=== PATIENT | male | born 1995 | race Caucasian/White ===

== ENCOUNTER 2023-08-04 23:40 | Emergency (ER) | payer SELFPAY ==
[2023-08-04 23:42] VITALS: BP 133/94; BP 137/96; PULSE 101; PULSE 87; RESP 12; TEMP 36.8; O2SAT 98; BMI 22.0
--- NOTE | 2023-08-04 23:47 | EX.ED.GENINJ ---
HPI History of Present Illness Chief Complaint: Abd Pain PFSH PFSH Home Medications buprenorphine 5 mcg/hour weekly transdermal patch 1 patch topical Q7D 08/05/23 [History Last Taken Unknown] hydromorphone 2 mg tablet (Dilaudid) 2 mg PO Q6H PRN pain 3 days #12 tabs 08/05/23 [Rx Last Taken Unknown] hydromorphone 2 mg tablet (Dilaudid) 2 mg PO Q6H PRN pain 3 days #12 tabs 08/05/23 [Rx Last Taken Unknown] Allergy/AdvReac Type Severity Reaction Status Date / Time No Known Allergies Allergy Verified 07/08/17 08:44 Social History Smoking Status: Never smoker EXAM Physical Exam Const Vital Signs: 08/04/23 23:42 08/04/23 23:42 08/05/23 05:01 Temperature 98.2 F Temperature Source Temporal Pulse Rate 87 101 H 69 Respiratory Rate 12 12 16 Blood Pressure 133/94 H 137/96 H 135/98 H Blood Pressure Mean 107 109 110 Pulse Ox 98 98 96 Oxygen Delivery Method Room Air Room Air Room Air 08/05/23 05:01 Temperature Temperature Source Pulse Rate 69 Respiratory Rate 16 Blood Pressure 135/98 H Blood Pressure Mean 110 Pulse Ox 96 Oxygen Delivery Method MDM MDM MDM Narrative Medical decision making narrative: HISTORY OF PRESENT ILLNESS: 28-year-old male presents abdominal pain nausea vomiting. He states experiencing several days of severe abdominal pain. Notes nausea vomiting as well. REVIEW OF SYSTEMS: Pertinent positives: Abdominal pain nausea vomiting Pertinent negatives: Chest pain, shortness of breath PHYSICAL EXAM: Nursing triage notes reviewed, Vital signs reviewed Constitutional: please see mdm HENT: MMM Eyes: Pupils equal round and reactive to light, Extraocular muscles intact Neck: No stridor, no JVD, full neck ROM Lungs: Clear to auscultation, No wheezing or rales. No increased work of breathing, no conversational dyspnea, no accessory muscle use, no nasal flaring. No respiratory distress noted Heart: Regular rate and rhythm, No murmurs, No rubs and No gallops, 2+ distal pulses (radial, femoral, posterior tibial) in all extremities Abdomen: Soft, there is no tenderness, rigidity, rebound or guarding, no obvious peritoneal signs, no palpable pulsatile abdominal masses, no auscultated abdominal bruit : No CVAT Extremities: No edema Neuro: No focal neurological deficits, cranial nerves II through XII intact, 5/5 strength in all extremities. Intact sensation to light touch in all extremities, 2+ reflexes bilateral patella tendons. Normal gait. No ataxia. Skin: No rash or lesions noted MEDICAL DECISION MAKING: Chief Complaint: Abdominal pain nausea vomiting External records reviewed: PDMP reviewed prescribed buprenorphine patch on 07/18/2023 Factors affecting care: Malrotation of the intestine, small bowel obstruction, Social determinants of health: History of marijuana use History obtained from others: The patient's Consults: Internal medicine MDM Narrative: Patient was initially hemodynamically stable, afebrile and nontoxic-appearing. Abdominal exam was difficult to assess secondary to pain however there is no obvious peritoneal signs. I considered the following differential diagnosis: Obstruction, perforation, dehydration, electrolyte abnormality I gave the patient initially IV fluids, IV narcotics, Zofran. ALL IMAGES (IF OBTAINED) HAVE BEEN PERSONALLY REVIEWED AND INTERPRETED BY MYSELF. BMP without evidence of significant electrolyte abnormalities, no anion gap, no acute kidney injury. CBC without leukocytosis, severe anemia, no thrombocytopenia. CT scan of the abdomen pelvis shows no evidence of obvious acute life-threatening pathology EKG with normal sinus rhythm, normal axis, normal's, no STEMI The synthesis of the patient history, physical exam, ED evaluation suggest no acute life-limiting pathology. After initial round of IV narcotics, IV fluids and Zofran patient still had abdominal pain and nausea vomiting so was given 0.5 mg of IV Dilaudid and Reglan. He continued to have abdominal pain nausea vomiting so he was given haloperidol, Bentyl, Pepcid. This improved his pain a bit more. Given lack of objective findings of severe systemic inflammation or obstruction or perforation on imaging he did not require admission at this time. I did offer him admission I even consulted internal medicine physician came down to the ED and discuss his plan of care. Asked patient her to the pain of inpatient care which would consist of essentially the same medicine he got in the ED he preferred to go home with prescription for oral Dilaudid. Patient was alert and orient x 3 had capacity make his own medical system and chose to not be admitted for intractable abdominal pain but to be discharged despite him already being on pain management. He is aware this may break his pain management contract and is accepting of the Dilaudid prescription. The patient and/or family, caregivers express understanding. The patient and/or family, caregivers agrees with the plan. Shared decision making: I will have a discussion with the patient and or visitors regarding risk/benefits of further testing or admission. They will be made aware of of the risk/benefits inherent in this decision they will be given the opportunity to voice understanding. Total critical care time today provided was at least 0 minutes. This excludes separately billable procedures. Critical care time (if documented) is secondary to the patient having high probability of clinically significant/life threatening deterioration in the patient's condition which required my urgent intervention. Impression: 1. Intractable abdominal pain 2. History of congenital malrotation Dispo: Discharge Lab Data Attestation: I reviewed the patient's lab results. Labs: Laboratory Results - last 24 hr 08/04/23 23:20 WBC 8.8 RBC 5.28 Hgb 16.0 Hct 47.6 MCV 90.2 MCH 30.3 MCHC 33.6 RDW Std Deviation 39.9 RDW Coeff of Pari 12.2 Plt Count 299 MPV 9.7 Immature Gran % (Auto) 0.800 Neut % (Auto) 62.2 Lymph % (Auto) 31.0 [place] % (Auto) 5.0 Eos % (Auto) 0.3 Baso % (Auto) 0.7 Absolute Neuts (auto) 5.5 Absolute Lymphs (auto) 2.72 Nucleated RBC % 0 Sodium 136 Potassium 3.6 Chloride 100 Carbon Dioxide 29.0 Anion Gap 7 BUN 19 H Creatinine 1.15 Estim Creat Clear Calc 89.94 Est GFR (MDRD) Af Amer 96 Est GFR (MDRD) Non-Af 79 BUN/Creatinine Ratio 16.5 Glucose 92 Calcium 9.8 Lipase 42 Radiography Diagnostic Testing: Clinical Impression(s) from Imaging Studies Abdomen/Pelvis CT 08/05/23 23:53 IMPRESSION: Bowel malrotation again noted but no evidence of bowel obstruction or other acute intra-abdominal abnormality. Electronically Signed: Jonathan Calvo MD at 1:37 EST , Discharge Plan Triage Chief Complaint: Abd Pain Other Complaint: Nausea/Vomiting ED Provider: Karel Keller Dx/Rx/DC Orders Clinical Impression: Intractable abdominal pain, Congenital malrotation Instructions: ED Abdominal Pain Unkn Cause Male... Prescriptions: New hydromorphone [Dilaudid] 2 mg tablet 2 mg PO Q6H PRN (Reason: pain) 3 Days Qty: 12 0RF hydromorphone [Dilaudid] 2 mg tablet 2 mg PO Q6H PRN (Reason: pain) 3 Days Qty: 12 0RF No Action buprenorphine 5 mcg/hour patch weekly 1 patch topical Q7D Patient Comments: apply 1 patch topically to CLEAN DRY INTACT SKIN AND CHANGE weekly Primary Care Provider: Mayra Candelario Referrals: Darrel Acevedo MD [Med Staff - Active Staff] - Mayra Candelario MD [Primary Care Provider] - Activity Restrictions/Additional Instructions: Thank you for trusting us with your care today! Please take Tylenol (2 pills, 650 mg), ibuprofen (2 pills, 400 mg) every 6 hours as needed for pain and fever control. Please take prescribed narcotic medicine. Please return to the emergency department if your symptoms change or worsen. Please follow with your primary care physician for further outpatient evaluation and management. Disposition Disposition: Home, Self Care Discharge Date/Time: 08/05/23 05:04
[2023-08-05] MEDS: Morphine 4 MG/ML Syringe IV (00:02)
[2023-08-05] MEDS: Ondansetron 4 MG/2 ML Vial IV (00:02)
[2023-08-05] MEDS: 0.9% Normal Saline (1000mL) 1,000 ML 1000 ML IV (00:02)
[2023-08-05 00:24] LABS: Absolute Lymphocyte Count 2.72 X10^3/uL (0.83-4.51); Absolute Neutrophil Count 5.5 X10^3/uL (2.0-7.7); Basophil# 0.06 X10^3/uL; Basophil% 0.7 % (0-1); Eosinophil# 0.03 X10^3/uL; Eosinophils% 0.3 % (0-5); Hematocrit 47.6 % (40-54); Lymphocyte # 2.72 X10^3/ul (0.83-4.51); Mean Corp Hgb Conc 33.6 g/dL (32-36); Mean Corpuscular Hgb 30.3 pg (27.0-32.0); Mean Corpuscular Volume 90.2 fL (80-94); Mean Platelet Vol. 9.7 fl (6.2-12.0); Monocyte# 0.44 X10^3/uL; NRBC Flagged by Analyzer 0 % (0-5); Neutrophil # 5.46 X10^3/uL (2.7-7.7); Neutrophil % 62.2 % (47-70); Platelet Count 299 K/mm3 (150-450); RBC Distribution Width CV 12.2 % (11.6-14.6); RBC Distribution Width SD 39.9 fl (35.1-43.9); Red Blood Count 5.28 M/mm3 (4.6-6.2); White Blood Count 8.8 K/mm3 (4.4-11.0)
[2023-08-05 00:27] LABS: Anion Gap 7 (5-15); BUN 19 mg/dL (7-18); BUN/Creat Ratio 16.5 RATIO (10-20); Calcium,Total 9.8 mg/dL (8.5-10.1); Chloride 100 mmol/L (98-107); Creatinine, Serum 1.15 mg/dL (0.70-1.30); EST Glomerular Filtration Rate 79 mL/min (>60); Est Glom Filt Rate - Afr Amer 96 mL/min (>60); Estimated Creatinine Clearance 89.94 ml/min; Glucose 92 mg/dL (74-106); Lipase 42 U/L (13-75); Potassium 3.6 mmol/L (3.5-5.1); Sodium Level 136 mmol/L (136-145)
[2023-08-05] MEDS: HYDROmorphone 0.5 MG/0.5 ML SYRINGE IV (00:38)
[2023-08-05] MEDS: Metoclopramide 10 MG/2 ML Vial 5 MG IV (01:19)
[2023-08-05] MEDS: Famotidine 200 MG/20 ML MDV 20 MG in 0.9% Normal Saline (Pres. free 8 ML 300 MG IV (02:45)
[2023-08-05] MEDS: Haloperidol Lactate 5 MG/ML Vial 1 MG IV (02:46)
[2023-08-05] MEDS: Dicyclomine 20 MG/2 ML Vial IM (02:49)
[2023-08-05] MEDS: HYDROmorphone 1 MG/ML Syringe IV (04:26)
[2023-08-05 05:01] VITALS: BP 135/98; PULSE 69; RESP 16; O2SAT 96
--- NOTE | 2023-08-05 23:53 | CT_ITS ---
INDICATION: Abdominal pain and vomiting, history of malrotation and SBO, previous surgery in November EXAMINATION: CT Abdomen And Pelvis W/ Contrast Injection TECHNIQUE: Helically acquired images were obtained of the abdomen and pelvis following IV contrast. 2-D reconstructions reviewed. A radiation dose optimization technique was used for this scan. IV Contrast dosage and agent: 100 cc Isovue-370 Oral contrast: None. COMPARISON: No comparison imaging received. FINDINGS: LOWER CHEST: No acute findings within the imaged lung bases. Heart size within normal limits. LIVER: Small benign cyst versus focal fat within anterior left lobe of liver. No concerning lesion. GALLBLADDER AND BILIARY TREE: No calcified gallstones identified. No gallbladder wall edema demonstrated. No significant biliary ductal dilation. PANCREAS: No discrete mass or peripancreatic edema. SPLEEN: Normal size without concerning lesion. ADRENAL GLANDS: Unremarkable. KIDNEYS AND URETERS: Normal renal size and position. No perinephric edema or hydronephrosis. No concerning lesion. PERITONEUM: No significant free fluid. No peritoneal free air detected. RETROPERITONEUM: No retroperitoneal mass or pathologic fluid collection. BOWEL: Congenital midgut malrotation again noted with majority of small bowel loops within right hemiabdomen and majority of large bowel within left hemiabdomen. Appendix not visualized but no evidence of appendicitis. No significant bowel dilatation or bowel thickening. No focal inflammatory change. LYMPH NODES: No enlarged mesenteric or retroperitoneal lymph nodes. VESSELS: No acute findings. No abdominal aortic aneurysm. URINARY BLADDER: Unremarkable as visualized. REPRODUCTIVE ORGANS: No pelvic masses. ABDOMINAL WALL: No acute findings or significant hernia defect. BONES: Intact with no suspicious osseous lesion. CT/Abdomen/Pelvis W IV Cont ONLY IMPRESSION: Bowel malrotation again noted but no evidence of bowel obstruction or other acute intra-abdominal abnormality. Electronically Signed: Jonathan Calvo MD at 1:37 EST ,
== END 2023-08-05 05:04 | disposition home or self-care (01) ==
PROVIDERS: Emergency Provider Emergency Medicine; PCP Family Medicine; Visit Provider Emergency Medicine
DX: R10.9 Unspecified abdominal pain (principal); R11.2 Nausea with vomiting, unspecified; Q43.3 Congenital malformations of intestinal fixation
CPT/HCPCS: 74177; 80048; 83690; 85025; 93005; 96361; 96372; 96374; 96375; 99283; Q9967; A4216; J2405; J3490

== ENCOUNTER 2023-12-05 12:25 | Emergency (ER) | payer OTHER, SELFPAY ==
[2023-12-05 12:26] VITALS: BP 130/75; PULSE 83; RESP 16; TEMP 36.6; O2SAT 98; BMI 22.0
[2023-12-05 13:18] LABS: Absolute Lymphocyte Count 2.26 X10^3/uL (0.83-4.51); Absolute Neutrophil Count 6.1 X10^3/uL (2.0-7.7); Basophil# 0.06 X10^3/uL; Basophil% 0.7 % (0-1); Eosinophil# 0.08 X10^3/uL; Eosinophils% 0.9 % (0-5); Hematocrit 46.3 % (40-54); Hemoglobin 15.3 g/dL (13.0-16.5); Lymphocyte # 2.26 X10^3/ul (0.83-4.51); Mean Corpuscular Hgb 30.9 pg (27.0-32.0); Mean Corpuscular Volume 93.5 fL (80-94); Mean Platelet Vol. 9.4 fl (6.2-12.0); Monocyte# 0.47 X10^3/uL; Monocyte% 5.2 % (0-10); NRBC Flagged by Analyzer 0 % (0-5); Neutrophil # 6.14 X10^3/uL (2.7-7.7); Platelet Count 305 K/mm3 (150-450); RBC Distribution Width CV 12.9 % (11.6-14.6); Red Blood Count 4.95 M/mm3 (4.6-6.2)
[2023-12-05 13:20] LABS: Bacteria 0 SEEN /hpf (None Seen); Mucous, Urine 0 SEEN /hpf (<or=2+); Red Blood Cells-Urine 0 SEEN /hpf (0-5); Squamous Epithelial Cells - UA 0 SEEN /hpf (0-5); White Blood Cells 0 SEEN /hpf (0-5)
[2023-12-05 13:34] LABS: ALB/GLOB Ratio 1.1 RATIO (0.9-2.4); AST(SGOT) 20 U/L (15-37); Alanine Aminotransfer ALT/SGPT 22 U/L (16-61); Alkaline Phosphatase 79 U/L (45-117); Anion Gap 2 (5-15); BUN 11 mg/dL (7-18); BUN/Creat Ratio 10.7 RATIO (10-20); Calcium,Total 9.4 mg/dL (8.5-10.1); Chloride 106 mmol/L (98-107); Creatinine, Serum 1.03 mg/dL (0.70-1.30); EST Glomerular Filtration Rate 90 mL/min (>60); Est Glom Filt Rate - Afr Amer 108 mL/min (>60); Estimated Creatinine Clearance 100.37 ml/min; Globulin 3.5 g/dL (2.2-4.2); Glucose 93 mg/dL (74-106); Potassium 4.4 mmol/L (3.5-5.1); Protein, Total 7.5 g/dL (6.4-8.2); Sodium Level 139 mmol/L (136-145)
[2023-12-05 13:45] LABS: Color, Urine Yellow (Yellow); Glucose, Dipstick Normal (Normal); Ketone-Dipstick 5 mg/dl (Negative); Leukocyte Esterase-Dipstick 25 /ul (Negative); Nitrite-Dipstick Negative (Negative); Occult Blood-Urine Negative /ul (Negative); Protein-Dipstick 30 mg/dl (Negative); Urine Bilirubin Dipstick Negative (Negative); Urine Clarity Cloudy (Clear); Urine Urobilinogen Normal (Normal)
[2023-12-05 14:25] VITALS: BP 138/87; PULSE 87; RESP 18; O2SAT 100
[2023-12-05 14:27] LABS: Amorphous Sediment 2+
--- NOTE | 2023-12-05 14:32 | EDS_ITS ---
HPI HPI - GI History of Present Illness Chief Complaint: Abd Pain Narrative Narrative: 28-year-old male past medical history of chronic abdominal pain, history of congenital malrotation, states has had 2 surgeries in the last year at the [facility]. He states that on Sunday, approximately 3 days ago, he began having nausea and a little vomiting. No problems with bowel movements. No diarrhea. Last bowel movement was yesterday, nonbloody. He presents with suprapubic abdominal pain similar to his previous pain in the past. He states that he had been doing well since his last surgery. He has been dealing with malrotation and abdominal pain for 10 years before they decided to do surgery within the last year. He describes the pain as sharp and stabbing. No exacerbating or alleviating factors. PFSH PFSH Home Medications buprenorphine 5 mcg/hour weekly transdermal patch 1 patch topical Q7D 08/05/23 [History Last Taken Unknown] hydromorphone 2 mg tablet (Dilaudid) 2 mg PO Q6H PRN pain 3 days #12 tabs 08/05/23 [Rx Last Taken Unknown] hydromorphone 2 mg tablet (Dilaudid) 2 mg PO Q6H PRN pain 3 days #12 tabs 08/05/23 [Rx Last Taken Unknown] Allergy/AdvReac Type Severity Reaction Status Date / Time No Known Allergies Allergy Verified 12/05/23 12:28 Social History Smoking Status: Never smoker ROS ROS ED ROS Narrative Constitutional: No fever, no chills. HEENT: No sore throat. No neck pain. No loss of vision. No rhinorrhea. Cardiovascular: No chest pain. No palpitations. No pedal edema. Respiratory: No cough, no shortness of breath. Abdominal: Positive periumbilical to suprapubic abdominal pain. Positive nausea and vomiting. No problems with bowel movements. No diarrhea. No hematochezia or melena. Genitourinary: No dysuria. No hematuria. Musculoskeletal: No myalgias. No arthralgias. Neurologic: No headaches. No dizziness. No lightheadedness. Skin: No rash. No change in color. Psychiatric: No depression. No anxiety. EXAM Physical Exam Narrative Exam Narrative: Afebrile. Vital signs noted. HEENT: Normocephalic. Atraumatic. PERRL, EOMI. Neck soft and supple. No point tenderness or step off. Cardiovascular: Regular rate and rhythm. No murmurs, rubs, or gallops appreciated. Respiratory: No tachypnea. Lungs clear to auscultation bilaterally. Gastrointestinal: Abdomen soft, mild tenderness to palpation periumbilical to suprapubic area with normoactive bowel sounds. No rebound or guarding. Neurological: Awake. Alert. Nonfocal, nonlateralizing. Skin: No rash. Normal color. No pallor. Musculoskeletal: No pedal edema. Full range of motion extremities. Const Vital Signs: 12/05/23 12:26 12/05/23 14:25 Temperature 98 F Temperature Source Temporal Pulse Rate 83 87 Respiratory Rate 16 18 Blood Pressure 130/75 H 138/87 H Blood Pressure Mean 93 104 Pulse Ox 98 100 Oxygen Delivery Method Room Air Room Air MDM MDM MDM Narrative Medical decision making narrative: I reviewed the patient's prior records. In the differential would be exacerbation of chronic abdominal pain versus obstruction given his laparotomy scar. I do feel CT imaging is indicated. Initial laboratory work was obtained and reviewed, he has normal white count 9.0, hemoglobin normal at 15.3, hematocrit 46.3, platelet count normal at 305. Sodium is normal at 134 with potassium normal at 4.4, normal BUN of 11 and creatinine 1.03. In review of his prior ED visit, he did receive Dilaudid and Zofran. He was having profuse nausea and vomiting at that time and he was administered Haldol. He states during history and physical that what ever they had given him last time in the emergency department seem to have helped him. He will be bolused normal saline 1 L intravenously and administered Dilaudid 0.5 mg and Zofran here initially. Should he have continued pain, haloperidol will be considered. I reviewed the CT radiology report of the abdomen and pelvis which shows his congenital malrotation, but no acute process, no obstruction. No significant change from previous. It was read as a stable examination. Upon repeat exam, he states he feels the same. I think this is probably more exacerbation of his chronic abdominal pain. He will be given 2 mg of haloperidol intravenously prior to discharge. He will continue his home medications and follow-up with his primary care physician and his surgeons at the [facility] as needed. I do not feel he requires observation or admission at this time. Disposition is discharged in stable condition. History & Record Review Discussion w/independent historian: Patient Additional record(s) reviewed:: Prior ED visit and Prior labs Lab Data Attestation: I reviewed the patient's lab results. Labs: Laboratory Results - last 24 hr 12/05/23 13:10 WBC 9.0 RBC 4.95 Hgb 15.3 Hct 46.3 MCV 93.5 MCH 30.9 MCHC 33.0 RDW Std Deviation 44.0 H RDW Coeff of Pari 12.9 Plt Count 305 MPV 9.4 Immature Gran % (Auto) 0.200 Neut % (Auto) 68.0 Lymph % (Auto) 25.0 [place] % (Auto) 5.2 Eos % (Auto) 0.9 Baso % (Auto) 0.7 Absolute Neuts (auto) 6.1 Absolute Lymphs (auto) 2.26 Nucleated RBC % 0 Sodium 139 Potassium 4.4 Chloride 106 Carbon Dioxide 31.0 Anion Gap 2 L BUN 11 Creatinine 1.03 Estim Creat Clear Calc 100.37 Est GFR (MDRD) Af Amer 108 Est GFR (MDRD) Non-Af 90 BUN/Creatinine Ratio 10.7 Glucose 93 Calcium 9.4 Total Bilirubin 0.70 AST 20 ALT 22 Alkaline Phosphatase 79 Total Protein 7.5 Albumin 4.0 Globulin 3.5 Albumin/Globulin Ratio 1.1 Urine Color Yellow Urine Clarity Cloudy Urine pH 8.0 Ur Specific [place] 1.010 Urine Protein 30 H Urine Glucose (UA) Normal Urine Ketones 5 H Urine Occult Blood Negative Urine Nitrite Negative Urine Bilirubin Negative Urine Urobilinogen Normal Ur Leukocyte Esterase 25 H Urine RBC 0 SEEN Urine WBC 0 SEEN Ur Squamous Epith Cells 0 SEEN Amorphous Sediment 2+ Urine Bacteria 0 SEEN Urine Mucus 0 SEEN Radiography Diagnostic Testing: Clinical Impression(s) from Imaging Studies Abdomen/Pelvis CT 12/05/23 15:08 IMPRESSION: No acute abnormality is seen. Stable examination. Once again, there is evidence of congenital midgut malrotation with the majority of the small bowel loop seen in the right hemiabdomen and majority of the large bowel within the left hemiabdomen. Electronically Signed: Rodney Noguera MD at 15:24 EDT , Discharge Plan Triage Chief Complaint: Abd Pain ED Provider: Andrew Osborn Dx/Rx/DC Orders Clinical Impression: Congenital malrotation, Abdominal pain Instructions: ED Abdominal Pain Unkn Cause Male... Prescriptions: No Action buprenorphine 5 mcg/hour patch weekly 1 patch topical Q7D Patient Comments: apply 1 patch topically to CLEAN DRY INTACT SKIN AND CHANGE weekly hydromorphone [Dilaudid] 2 mg tablet 2 mg PO Q6H PRN (Reason: pain) 3 Days Qty: 12 0RF hydromorphone [Dilaudid] 2 mg tablet 2 mg PO Q6H PRN (Reason: pain) 3 Days Qty: 12 0RF Primary Care Provider: Mayra Candelario Referrals: Mayra Candelario MD [Primary Care Provider] - As soon as possible Activity Restrictions/Additional Instructions: Follow-up with your physicians at the [facility] as needed for your malrotation. Disposition Disposition: Home, Self Care
[2023-12-05] MEDS: 0.9% Normal Saline (1000mL) 1,000 ML 999 ML IV (15:01)
[2023-12-05] MEDS: Ondansetron 4 MG/2 ML Vial IV (15:01)
[2023-12-05] MEDS: HYDROmorphone 0.5 MG/0.5 ML SYRINGE IV (15:02)
--- NOTE | 2023-12-05 15:08 | CT_ITS ---
STUDY: CT ABDOMEN AND PELVIS WITH CONTRAST REASON FOR EXAM: Male, 28 years old. Abdominal pain RADIATION DOSAGE (If Supplied By Facility): CTDIvol = ( 9.06 ) mGy, DLP = ( 453.22 ) mGycm TECHNIQUE: Transaxial images were obtained from the dome of the diaphragm to the symphysis pubis without oral contrast. IV 100mL Isovue-370 was administered. Sagittal and coronal images were reconstructed. Individualized dose optimization techniques were used for this CT. COMPARISON: Comparison is made with prior study dated August 05, 2023. FINDINGS: The visualized lung bases are unremarkable. The visualized portions of the heart are within normal limits. Stable 1.2 cm cyst in the anterior right lobe of the liver. Normal gallbladder and extrahepatic biliary system. Normal spleen. Normal pancreas. Normal bilateral adrenal glands. Normal right kidney. Normal left kidney. Once again, there is evidence of congenital midgut malrotation with the majority of small bowel loops are seen in the right hemiabdomen and the majority of the large bowel within the left hemiabdomen. Normal visualized stomach. Normal small intestine. Moderate amount of fecal material is seen in the descending colon. There is non-visualization of the appendix. Normal abdominal aorta. Normal inferior vena cava. Normal retroperitoneum. The urinary bladder is not adequately distended for assessment. Normal abdominal wall. Normal osseous structures. CT/Abdomen/Pelvis W IV Cont ONLY IMPRESSION: No acute abnormality is seen. Stable examination. Once again, there is evidence of congenital midgut malrotation with the majority of the small bowel loop seen in the right hemiabdomen and majority of the large bowel within the left hemiabdomen. Electronically Signed: Rodney Noguera MD at 15:24 EDT ,
[2023-12-05] MEDS: Haloperidol Lactate 5 MG/ML Vial 2 MG IV (15:40)
[2023-12-05 15:53] VITALS: BP 132/70; PULSE 74; RESP 18; TEMP 36.3; O2SAT 100
== END 2023-12-05 15:54 | disposition home or self-care (01) ==
PROVIDERS: Emergency Provider Emergency Medicine; PCP Family Medicine; Visit Provider Emergency Medicine
DX: R10.9 Unspecified abdominal pain (principal); Q43.3 Congenital malformations of intestinal fixation; R11.2 Nausea with vomiting, unspecified
CPT/HCPCS: 74177; 80053; 81001; 85025; 96361; 96374; 96375; 99283; J7030; Q9967; A4216; J2405

== ENCOUNTER 2025-03-25 13:34 | Emergency (ER) | payer SELFPAY ==
[2025-03-25] VITALS (7 sets, daily range): BP systolic 115–160; BP diastolic 65–94; PULSE 68–105; RESP 14–20; TEMP 36.8–37.2; O2SAT 98–100; BMI 22.5
--- NOTE | 2025-03-25 13:58 | EDS_ITS ---
HPI HPI - GI History of Present Illness Chief Complaint: Abd Pain Informant: patient Abdominal Pain/Flank Pain Onset: Today and Hours Context: Gradual Onset Timing: Intermittent Quality: Aching Location: Epigastric Current Severity: Mild Maximum Severity: Mild Worsened by: Nothing Relieved by: Nothing Nausea/Vomiting/Emesis GI Symptom: Positive for Nausea Onset: Today Severity: Mild Diarrhea/Melena/Hematochezia GI Symptom: Negative for Diarrhea, Melena or Hematochezia Associated Symptoms Associated Symptoms: Negative for Dysuria, Frequency, Hematuria or Urgency Narrative Narrative: 30-year-old male history of prior partial colectomy due to malrotation surgery was done 2 to 3 years ago at [facility]. Also prior hernia surgery. Patient states this morning several hours ago he started getting epigastric abdominal discomfort. Associated nausea no vomiting. No diarrhea. No melena. No fever. No dysuria. Has had this before. This has been several years. He has done well after his malrotation surgery. Denies any back pain. Denies any abdominal trauma. Prior similar symptoms: Yes Recent Illness/Hospitalization: No PFSH [facility] Medical History Intestinal malrotation Home Medications ?Medication ?Instructions ?Recorded ?Last Taken ?Type buprenorphine 5 mcg/hour weekly 1 patch topical Q7D Unknown History transdermal patch fluoxetine 40 mg capsule 40 mg PO DAILY 03/25/25 Unkn own History Allergy/AdvReac Type Severity Reaction Status Date / Time No Known Allergies Allergy Verified 12/05/23 12:28 Surgical History H/O hernia repair Social History Smoking Status: Never smoker ROS ROS ED ROS Narrative Epigastric abdominal pain. Nausea. No vomiting, no diarrhea, no dysuria. No fever. Constitutional Constitutional ED: Denies chills or fever(s) ENT ENT ED: Denies ear pain Cardiovascular Cardiovascular: Denies chest pain Respiratory/Chest Respiratory/Chest: Denies cough or dyspnea Gastrointestinal Gastrointestinal: Reports abdominal pain and nausea; Denies constipation, diarrhea, melena or vomiting Genitourinary Genitourinary ED: Denies dysuria or hematuria Musculoskeletal Musculoskeletal: Denies arthralgias or back pain Integumentary Denies abscess Neurologic Neurologic: Denies headache(s) Psychiatric Psychiatric: Denies anxiety Endocrine Endocrinology: Denies polydipsia Hematologic/Lymphatic Hematologic/Lymphatic: Denies easy bleeding Allergic/Immunologic Allergic/Immunologic ED: Denies mouth swelling, tongue swelling or urticaria EXAM Physical Exam Narrative Exam Narrative: Well-appearing 30-year-old male vital signs stable afebrile sitting upright in bed. H EENT exam pupils round react light. Moist mutes membranes. Neck nontender. Lungs clear to auscultation. Heart regular rhythm rate about 90 no murmur. Chest wall ribs nontender. Abdomen soft nondistended normal bowel sounds without peritoneal signs. Mild epigastric tenderness. No rebound guarding rigidity. Right upper and right lower quadrants unremarkable. Moving all 4 extremities. Calves nontender no edema. Back nontender. Neurologically is awake alert. Answering questions following commands. Very benign exam. Const Vital Signs: 03/25/25 13:35 03/25/25 13:54 03/25/25 14:08 Temperature 98.9 F 98.9 F Temperature Source Temporal Oral Pulse Rate 105 H 76 71 Respiratory Rate 20 H 16 14 Blood Pressure 127/94 H 115/88 H 118/81 H Blood Pressure Mean 105 97 93 Pulse Ox 100 100 100 Oxygen Delivery Method Room Air Room Air Room Air Positive well nourished and well developed; Negative for obese, cachectic, contractures or unkempt General Appearance ED: well developed and NAD; Negative for unkempt, cachectic, contractures or pallor Nutritional Appearance: Negative for cachectic or obese HEENT Reports moist mucous membranes normocephalic and atraumatic Eyes PERRL and EOMs intact bilaterally Neck no lymphadenopathy, supple and no JVD Resp normal respiratory effort and clear to auscultation bilaterally Cardio regular rate, regular rhythm, S1 normal heart sound, S2 normal heart sound and no murmurs GI non-distended and no masses; Negative for non-tender GI Narrative: Mild epigastric tenderness. Auscultation: normoactive bowel sounds Palpation: soft and tender; Negative for guarding, rigid, hepatomegaly, splenome frankie, hernia, mass, pulsatile mass or rebound tenderness present Back/Spine no CVA tenderness General Back: Negative for CVA tenderness Cervical Spine: Negative for cervical spine tenderness Thoracic Spine / Upper Back: Negative for thoracic spinal tenderness Lumbar Spine / Lower Back: Negative for lumbar spinal tenderness Extremity full ROM General Extremety ED: Negative for edema or tenderness General Extremity: Negative for edema Neuro CN's II-XII intact bilaterally and moves all extremities Sensorium / Orientation: alert, oriented to person, oriented to place and oriented to time; Negative for orientation impaired Motor Exam: strength 5/5 throughout Psych mental status grossly normal and thought process normal Appearance: Negative for unkempt Skin no wounds General Skin Exam: Negative for jaundice or pallor Lesions: no lesions Rashes: no rashes Trauma: Negative for abrasion Nails: Negative for discolored MDM MDM MDM Narrative Medical decision making narrative: 30-year-old male prior malrotation surgery 2 to 3 years ago with partial colectomy and prior hernia repair. Complaining of epigastric abdominal pain. He requested some for pain to be given for morphine and for Zofran. Labs to be obtained in the CT of his abdomen. Repeat exam patient is doing well at 3:35 PM. Abdomen is benign. We went over his test results. He is comfortable to be discharged home. He is feeling better. Of outpatient follow-up. History & Record Review Discussion w/independent historian: Patient Additional record(s) reviewed:: Prior inpatient record, Prior outpatient record, Prior ED visit and Prior labs Lab Data Attestation: I reviewed the patient's lab results. Lab results narrative: CBC shows a white count 8.5. H&H 14 and 42. Platelets 292. Electrolytes show gap 13. Normal BUN and creatinine of 15 and 0.9. Glucose 96. Liver enzymes normal. Lipase normal at 38. CAT scan of the abdomen and pelvis showed no acute abnormality. 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 Labs: Laboratory Results - last 24 hr 03/25/25 13:51 WBC 8.5 RBC 4.49 L Hgb 14.1 Hct 42.2 MCV 94.0 MCH 31.4 MCHC 33.4 RDW Std Deviation 42.8 RDW Coeff of Pari 12.4 Plt Count 292 MPV 9.6 Immature Gran % (Auto) 0.400 Neut % (Auto) 56.8 Lymph % (Auto) 33.4 Ralls % (Auto) 6.9 Eos % (Auto) 1.9 Baso % (Auto) 0.6 Absolute Neuts (auto) 4.9 Absolute Lymphs (auto) 2.85 Nucleated RBC % 0 Sodium 139 Potassium 4.0 Chloride 102 Carbon Dioxide 24.1 Anion Gap 13 BUN 15 Creatinine 0.99 Estim Creat Clear Calc 104.85 Est GFR (MDRD) Non-Af 104 BUN/Creatinine Ratio 15.4 Glucose 96 Calcium 9.8 Total Bilirubin 0.74 AST 22 ALT 14 Alkaline Phosphatase 74 Total Protein 7.7 Albumin 4.9 Globulin 2.8 Albumin/Globulin Ratio 1.7 Lipase 38 Radiography Diagnostic Testing: Clinical Impression(s) from Imaging Studies Abdomen/Pelvis CT 03/25/25 14:20 IMPRESSION: No acute abnormality is seen. Congenital midgut malrotation. Reading Location: [id number] Discharge Plan Triage Chief Complaint: Abd Pain ED Provider: Rodney De La O Dx/Rx/DC Orders Prescriptions: No Action buprenorphine 5 mcg/hour patch weekly 1 patch topical Q7D Patient Comments: apply 1 patch topically to CLEAN DRY INTACT SKIN AND CHANGE weekly fluoxetine 40 mg capsule 40 mg PO DAILY Primary Care Provider: Mayra Candelario Referrals: Mayra Candelario MD [Primary Care Provider] - Print Language: Italian
[2025-03-25 14:18] LABS: Hematocrit 42.2 % (40-54); Hemoglobin 14.1 g/dL (13.0-16.5); Immature Granulocytes Count 0.030 X10^3/uL (0.0-0.0); Mean Corp Hgb Conc 33.4 g/dL (32-36); Mean Corpuscular Volume 94.0 fL (80-94); Mean Platelet Vol. 9.6 fl (6.2-12.0); NRBC Flagged by Analyzer 0 % (0-5); Platelet Count 292 K/mm3 (150-450); RBC Distribution Width CV 12.4 % (11.6-14.6); RBC Distribution Width SD 42.8 fl (35.1-43.9); Red Blood Count 4.49 M/mm3 (4.6-6.2); White Blood Count 8.5 K/mm3 (4.4-11.0)
--- NOTE | 2025-03-25 14:20 | CT_ITS ---
PROCEDURE: ABDOMEN/PELVIS W IV CONT ONLY 03/25/2025 REASON FOR EXAM: EPIG ABD PAIN TECHNIQUE: ABDOMEN/PELVIS W IV CONT ONLY Coronal and Sagittal reconstruction series were provided. CONTRAST: Isovue-300 VOLUME: 100 mL One or more dose reduction techniques were used (e.g., Automated exposure control, adjustment of the mA and/or kV according to patient size, use of iterative reconstruction technique. RADIATION DOSE SUMMARY: CTDlvol: 8.80 mGy DLP: 304.41 mGycm COMPARISON: Prior study dated December 05, 2023. FINDINGS: Lung bases: Lung bases are clear. Liver: Stable 1.2 cm cyst in the anterior right lobe of the liver superiorly. Gallbladder: No evidence of gallstones. Spleen: Borderline splenomegaly. Pancreas: Normal size without evidence of mass surrounding inflammation or ductal dilation. 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 Appendix: The appendix appears distended with a surrounding inflammatory process. Findings present are consistent with appendicitis. No evidence of abscess. Lymph nodes: Unremarkable. Vasculature: The abdominal aorta and IVC are normal. Peritoneum / Retroperitoneum: Unremarkable Bones: Unremarkable CT/Abdomen/Pelvis W IV Cont ONLY IMPRESSION: No acute abnormality is seen. Congenital midgut malrotation. Reading Location: [id number]
[2025-03-25 15:05] LABS: AST(SGOT) 22 U/L (<=37); Alanine Aminotransfer ALT/SGPT 14 U/L (<=46); Albumin, Serum 4.9 g/dL (3.5-5.0); Alkaline Phosphatase 74 U/L (40-129); Anion Gap 13 (5-15); BUN 15 mg/dL (4-19); BUN/Creat Ratio 15.4 RATIO (10-20); Calcium,Total 9.8 mg/dL (7.6-11.0); Carbon Dioxide 24.1 mmol/L (21.0-32.0); Chloride 102 mmol/L (98-108); Estimated Creatinine Clearance 104.85 ml/min (50-250); Globulin 2.8 g/dL (2.2-4.2); Glucose 96 mg/dL (70-99); Lipase 38 U/L (13-75); Potassium 4.0 mmol/L (3.3-5.1)
== END 2025-03-25 16:10 | disposition home or self-care (01) ==
PROVIDERS: Emergency Provider Emergency Medicine; PCP Family Medicine; Visit Provider Emergency Medicine
DX: R10.13 Epigastric pain (principal); R11.2 Nausea with vomiting, unspecified; Z90.49 Acquired absence of other specified parts of digestive tract; Z79.899 Other long term (current) drug therapy
CPT/HCPCS: 74177; 80053; 83690; 85025; 96374; 96375; 99283; Q9967; A4216; J2405

== ENCOUNTER 2025-04-23 17:27 | Emergency (ER) | payer SELFPAY ==
[2025-04-23 17:28] VITALS: BP 137/99; PULSE 136; RESP 22; TEMP 36.8; O2SAT 136; BMI 21.6
--- NOTE | 2025-04-23 17:51 | CT_ITS ---
PROCEDURE: ABDOMEN/PELVIS W IV CONT ONLY 04/23/2025 REASON FOR EXAM: PERIUMBILICAL ABDOMINAL PAIN. HISTORY OF MALROTAT TECHNIQUE: Procedure Code: [id number] Modality: CT Procedure: ABDOMEN/PELVIS W IV CONT ONLY Coronal and Sagittal reconstruction series were provided. CONTRAST: 100 cc of Isovue 370 intravenous contrast. One or more dose reduction techniques were used (e.g., Automated exposure control, adjustment of the mA and/or kV according to patient size, use of iterative reconstruction technique. COMPARISON: CT abdomen and pelvis 03/25/2025 FINDINGS: Lung bases: Unremarkable. Liver: Normal size. No mass. Stable right hepatic cyst measuring 1.2 x 0.7 cm. Gallbladder: Unremarkable. No biliary ductal dilatation. Spleen: Normal size. Pancreas: Normal size without evidence of mass surrounding inflammation or ductal dilation. Adrenals: Unremarkable. Kidneys: Normal renal sizes. No hydronephrosis. Bladder: Unremarkable. Reproductive Organs: No pelvic masses. Bowel: Redemonstrated congenital midgut malrotation with the majority small bowel loops in the right hemiabdomen and the majority of the colon within the left hemiabdomen. No bowel obstruction. Appendix: Not visualized. Lymph nodes: Unremarkable. Vasculature: The abdominal aorta and IVC are normal. Peritoneum / Retroperitoneum: No free fluid or air. Bones: No acute fractures. CT/Abdomen/Pelvis W IV Cont ONLY IMPRESSION: 1. No acute findings in the abdomen or pelvis. 2. Stable congenital midgut malrotation. Reading Location[facility]
--- NOTE | 2025-04-23 17:52 | EDS_ITS ---
HPI HPI - GI History of Present Illness Chief Complaint: Abd Pain Informant: patient and spouse/S.O. Abdominal Pain/Flank Pain Onset: Weeks Context: Gradual Onset Timing: Intermittent Quality: Aching Location: - (Periumbilical) Current Severity: Moderate Maximum Severity: Severe Worsened by: Nothing Relieved by: Nothing Nausea/Vomiting/Emesis GI Symptom: Positive for Nausea Diarrhea/Melena/Hematochezia GI Symptom: Positive for - (Last bowel movement 2 to 3 days ago.); Negative for Diarrhea, Melena or Hematochezia Associated Symptoms Associated Symptoms: Negative for Dysuria, Frequency, Hematuria or Urgency Narrative Narrative: 30-year-old [facility] male history of malrotation with surgery x 2 for that the last 1 2 years ago [facility]. Also had a prior procedure for reflux and prior hernia repair. Complaining of periumbilical abdominal pain has been off and on for several weeks worse today. Associated nausea. He makes himself throw up to feel better. Denies fever. No dysuria. No black or bloody stools. Last bowel movement 2 to 3 days ago. Patient has chronic pain from this. They believe it is from scar tissue. He sees pain management and had a recent nerve block for his pain. Prior similar symptoms: Yes Recent Illness/Hospitalization: No PFSH [facility] Medical History Intestinal malrotation Home Medications ?Medication ?Instructions ?Recorded ?Last Taken ?Type buprenorphine 5 mcg/hour weekly 1 patch topical Q7D Unknown History transdermal patch fluoxetine 40 mg capsule 40 mg PO DAILY 03/25/25 Unkn own History Allergy/AdvReac Type Severity Reaction Status Date / Time No Known Allergies Allergy Verified 04/23/25 17:31 Surgical History H/O hernia repair Social History (Updated 04/23/25 @ 18:05 by Lary Ramirez) household members: spouse housing: house Smoking Status: Never smoker ROS ROS ED ROS Narrative Abdominal pain. Nausea. Constitutional Constitutional ED: Denies chills or fever(s) ENT ENT ED: Denies ear pain Cardiovascular Cardiovascular: Denies chest pain or palpitations Respiratory/Chest Respiratory/Chest: Denies cough or dyspnea Gastrointestinal Gastrointestinal: Reports abdominal pain, constipation and nausea; Denies di arrhea, melena or vomiting Genitourinary Genitourinary ED: Denies dysuria or hematuria Musculoskeletal Musculoskeletal: Denies arthralgias or back pain Integumentary Denies abscess Neurologic Neurologic: Denies headache(s) Psychiatric Psychiatric: Denies anxiety or depression Endocrine Endocrinology: Denies polydipsia, polyphagia or polyuria Hematologic/Lymphatic Hematologic/Lymphatic: Denies easy bleeding, easy bruising or lymphadenopathy Allergic/Immunologic Allergic/Immunologic ED: Denies mouth swelling, tongue swelling or urticaria EXAM Physical Exam Narrative Exam Narrative: 30-year-old male vital signs are stable afebrile he is tachycardic 136. H EENT exam pupils round react light. Moist Víctor membranes. Neck nontender no lymphadenopathy. Lungs clear to auscultation bilaterally. Heart tachycardic 130 no murmur. Chest wall ribs nontender. Abdomen soft nondistended normal bowel sounds without peritoneal signs. No obstruction. Mild periumbilical tenderness. No hernia or mass. Back nontender. Moving all 4 extremities. Nontender no edema normal strength. Normal range of motion. He is awake alert. Answering questions following commands. External exam unremarkable nontender no hernia. No swelling. Const Vital Signs: 04/23/25 17:28 04/23/25 19:28 Temperature 98.3 F Temperature Source Oral Pulse Rate 136 H 94 Respiratory Rate 22 H Blood Pressure 137/99 H 111/93 H Blood Pressure Mean 111 99 Pulse Ox 136 98 Oxygen Delivery Method Room Air Room Air Positive well nourished and well developed; Negative for obese, cachectic, contractures or unkempt General Appearance ED: well developed and NAD; Negative for unkempt, cachectic, contractures or pallor Nutritional Appearance: Negative for cachectic or obese HEENT Reports moist mucous membranes normocephalic and atraumatic Eyes PERRL and EOMs intact bilaterally Neck no lymphadenopathy, supple and no JVD Resp normal respiratory effort and clear to auscultation bilaterally Cardio regular rhythm, S1 normal heart sound, S2 normal heart sound and no murmurs; Negative for regular rate Rate: tachycardic GI non-distended and no masses; Negative for non-tender GI Narrative: Mild periumbilical tenderness. Inspection: Negative for abdominal distention Auscultation: normoactive bowel sounds Palpation: soft and tender; Negative for guarding, rigid, hepatomegaly, splenomegaly, hernia, mass, pulsatile mass or rebound tenderness present Back/Spine no CVA tenderness General Back: Negative for CVA tenderness Cervical Spine: Negative for cervical spine tenderness Thoracic Spine / Upper Back: Negative for thoracic spinal tenderness Lumbar Spine / Lower Back: Negative for lumbar spinal tenderness Extremity full ROM General Extremety ED: Negative for edema or tenderness General Extremity: Negative for edema Neuro CN's II-XII intact bilaterally, moves all extremities and no sensory deficits noted Sensorium / Orientation: alert, oriented to person, oriented to place and oriented to time Motor Exam: strength 5/5 throughout Psych mental status grossly normal and thought process normal Appearance: Negative for unkempt Skin no wounds General Skin Exam: Negative for jaundice or pallor Lesions: no lesions Rashes: no rashes Trauma: Negative for abrasion Nails: Negative for discolored MDM MDM MDM Narrative Medical decision making narrative: 30-year-old male chronic abdominal pain history of malrotation with repair prior hernia repair. Presents today with similar pain. To be treated with Dilaudid for pain CAT scan and labs being obtained. He has no urinary symptoms. Repeat exam at 9:30 PM exam benign and unchanged. Abdomen is nondistended. There is no obvious hernia or mass. There is no obstruction. We discussed his test results and his CAT scan. He will be given additional pain medication including Toradol and discharged to home. He is on chronic pain management at home. He and his are comfortable with the plan. History & Record Review Discussion w/independent historian: Patient and Family Additional record(s) reviewed:: Prior inpatient record, Prior outpatient record, Prior ED visit and Prior labs Lab Data Attestation: I reviewed the patient's lab results. Lab results narrative: CBC shows a white count of 14.2. H&H 14 and 43. Platelets 348. Electrolytes show sodium 140. Gap 16. BUN and creatinine 15 and 1.1. Glucose 133. Liver enzymes normal. Lipase normal at 48. CAT scan of the abdomen pelvis showed no acute findings. Stable congenital malrotation. Read by the radiologist reviewed by me. Labs: Laboratory Results - last 24 hr 04/23/25 17:55 WBC 14.2 H RBC 4.64 Hgb 14.7 Hct 43.0 MCV 92.7 MCH 31.7 MCHC 34.2 RDW Std Deviation 42.5 RDW Coeff of Pari 12.5 Plt Count 348 MPV 9.6 Immature Gran % (Auto) 0.400 Neut % (Auto) 84.6 H Lymph % (Auto) 13.0 L [place] % (Auto) 1.2 Eos % (Auto) 0.4 Baso % (Auto) 0.4 Absolute Neuts (auto) 12.1 H Absolute Lymphs (auto) 1.85 Nucleated RBC % 0 Sodium 140 Potassium 3.9 Chloride 101 Carbon Dioxide 23.0 Anion Gap 16 H BUN 15 Creatinine 1.13 Estim Creat Clear Calc 88.03 Est GFR (MDRD) Non-Af 89 BUN/Creatinine Ratio 12.8 Glucose 133 H Calcium 10.0 Total Bilirubin 0.66 AST 23 ALT 15 Alkaline Phosphatase 81 Total Protein 8.0 Albumin 4.9 Globulin 3.1 Albumin/Globulin Ratio 1.6 Lipase 48 Radiography Diagnostic Testing: Clinical Impression(s) from Imaging Studies Abdomen/Pelvis CT 04/23/25 17:51 IMPRESSION: 1. No acute findings in the abdomen or pelvis. 2. Stable congenital midgut malrotation. Reading Location: [facility] Discharge Plan Triage Chief Complaint: Abd Pain ED Provider: Rodney De La O Dx/Rx/DC Orders Clinical Impression: Abdominal pain Instructions: Abdominal Pain Prescriptions: No Action buprenorphine 5 mcg/hour patch weekly 1 patch topical Q7D Patient Comments: apply 1 patch topically to CLEAN DRY INTACT SKIN AND CHANGE weekly fluoxetine 40 mg capsule 40 mg PO DAILY Primary Care Provider: Mayar Candelario Referrals: Mayra Candelario MD [Primary Care Provider, Internal Medicine] - 3-5 Days if not i mproving Activity Restrictions/Additional Instructions: Follow-up with your pain management doctor primary care physician not improving. Motrin and Tylenol for pain. Print Language: Bangladeshi Disposition Disposition: Home, Self Care
[2025-04-23] MEDS: 0.9% Normal Saline (1000mL) 1,000 ML 999 ML IV (18:02)
[2025-04-23 18:20] LABS: Hematocrit 43.0 % (40-54); Hemoglobin 14.7 g/dL (13.0-16.5); Immature Granulocytes Count 0.050 X10^3/uL (0.0-0.0); Mean Corp Hgb Conc 34.2 g/dL (32-36); Mean Corpuscular Volume 92.7 fL (80-94); Mean Platelet Vol. 9.6 fl (6.2-12.0); NRBC Flagged by Analyzer 0 % (0-5); Platelet Count 348 K/mm3 (150-450); RBC Distribution Width CV 12.5 % (11.6-14.6); RBC Distribution Width SD 42.5 fl (35.1-43.9); Red Blood Count 4.64 M/mm3 (4.6-6.2); White Blood Count 14.2 K/mm3 (4.4-11.0)
[2025-04-23 18:21] LABS: AST(SGOT) 23 U/L (<=37); Alanine Aminotransfer ALT/SGPT 15 U/L (<=46); Albumin, Serum 4.9 g/dL (3.5-5.0); Alkaline Phosphatase 81 U/L (40-129); Anion Gap 16 (5-15); BUN 15 mg/dL (4-19); BUN/Creat Ratio 12.8 RATIO (10-20); Calcium,Total 10.0 mg/dL (7.6-11.0); Carbon Dioxide 23.0 mmol/L (21.0-32.0); Chloride 101 mmol/L (98-108); Estimated Creatinine Clearance 88.03 ml/min (50-250); Globulin 3.1 g/dL (2.2-4.2); Glucose 133 mg/dL (70-99); Lipase 48 U/L (13-75); Potassium 3.9 mmol/L (3.3-5.1)
[2025-04-23] MEDS: Ketorolac 30 MG/ML Syringe IV (18:25)
[2025-04-23 19:28] VITALS: BP 111/93; PULSE 94; O2SAT 98
[2025-04-23] MEDS: HYDROmorphone 0.5 MG/0.5 ML SYRINGE IV (21:46)
--- NOTE | 2025-04-23 21:50 | EKG12_ITS ---
Test Reason : DYSRHYTHMIA Blood Pressure : */* mmHG Vent. Rate : 74 BPM Atrial Rate : 74 BPM P-R Int : 152 ms QRS Dur : 80 ms QT Int : 378 ms P-R-T Axes : 74 61 78 degrees QTcB Int : 419 ms Sinus rhythm with marked sinus arrhythmia Otherwise normal ECG Confirmed by MANJU HERNANDEZ, GURINDER ([id number]), brands editor DOROTA FERNANDO ([id number]) on 04/24/2025 10:48:35 AM Referred By: Confirmed By: GURINDER NUNES MD
[2025-04-23 21:54] VITALS: BP 129/86; PULSE 87; RESP 18; O2SAT 99
--- NOTE | 2025-04-23 21:58 | RAD_ITS ---
PROCEDURE: CHEST 1 VIEW 04/23/2025 REASON FOR EXAM: ATYPICAL CP TECHNIQUE: Frontal view of the chest. COMPARISON: None available. FINDINGS: Hardware: None. Heart: The heart size is normal. Lungs: The lungs are clear. Bones: The bones are unremarkable. RAD/Chest 1 View IMPRESSION: No Acute Findings. Reading [facility]
--- NOTE | 2025-04-23 22:03 | ED.RN ---
This nurse into D/C pt. Pt expressing concern for left sided chest pain. pt explaining it started earlier. This nurse questioned pt about mentioning it to the doctor when he was in room going over discharge. Pt denied. Dr. De La O updated. Entering orders.
[2025-04-23 22:47] VITALS: BP 118/66; PULSE 84; RESP 16; TEMP 36.6; O2SAT 99
== END 2025-04-23 22:47 | disposition home or self-care (01) ==
PROVIDERS: Emergency Provider Emergency Medicine; PCP Family Medicine; Visit Provider Emergency Medicine
DX: R10.9 Unspecified abdominal pain (principal); Q43.3 Congenital malformations of intestinal fixation; G89.29 Other chronic pain
CPT/HCPCS: 71045; 74177; 80053; 83690; 85025; 93005; 96361; 96374; 96375; 96376; 99283; A4216; J2405

== ENCOUNTER 2025-04-24 06:55 | Emergency (ER) | payer SELFPAY ==
[2025-04-24 06:55] VITALS: BP 141/98; PULSE 98; RESP 18; TEMP 36.1; O2SAT 98; BMI 22.6
--- NOTE | 2025-04-24 07:07 | EX.ED.DYSGE1 ---
HPI History of Present Illness Chief Complaint: Abd Pain [facility] Medical History Intestinal malrotation Home Medications ?Medication ?Instructions ?Recorded ?Last Taken ?Type buprenorphine 5 mcg/hour weekly 1 patch topical Q7D 08/05/23 Unknown History transdermal patch fluoxetine 40 mg capsule 40 mg PO DAILY 03/25/25 Unknown History Allergy/AdvReac Type Severity Reaction Status Date / Time No Known Allergies Allergy Verified 04/24/25 06:55 Surgical History H/O hernia repair Social History (Updated 04/23/25 @ 18:05 by Lary Ramirez) household members: spouse housing: house Smoking Status: Never smoker EXAM Physical Exam Const Vital Signs: 04/24/25 06:55 04/24/25 08:55 04/24/25 10:00 Temperature 97 F L Temperature Source Oral Pulse Rate 98 78 78 Respiratory Rate 18 16 16 Blood Pressure 141/98 H 124/78 H 134/78 H Blood Pressure Mean 112 93 96 Pulse Ox 98 98 98 Oxygen Delivery Method Room Air Room Air MDM [facility] MDM Narrative Medical decision making narrative: HISTORY OF PRESENT ILLNESS: Chief complaint: Abdominal pain 30-year-old male history of congenital midgut malrotation presents abdominal pain. Notes similar pain to yesterday. REVIEW OF SYSTEMS: Pertinent positives: Abdominal pain Pertinent negatives: As per HPI PHYSICAL EXAM: Nursing triage notes reviewed, Vital signs reviewed Constitutional: please see mdm HENT: MMM Eyes: Pupils equal round and reactive to light, Extraocular muscles intact Neck: No stridor, no JVD, full neck ROM Lungs: Clear to auscultation, No wheezing or rales. No increased work of breathing, no conversational dyspnea, no accessory muscle use, no nasal flaring. No respiratory distress noted Heart: Regular rate and rhythm, No murmurs, No rubs and No gallops, 2+ distal pulses (radial, femoral, posterior tibial) in all extremities Abdomen: Soft, there is diffuse tenderness but no rigidity, rebound or guarding, no obvious peritoneal signs, no palpable pulsatile abdominal masses, no auscultated abdominal bruit. No specific tenderness at McBurney's point. Negative Bose sign. : No CVAT Extremities: No edema Neuro: No new focal neurological deficits, cranial nerves II through XII intact, 5/5 strength in all present extremities. Intact sensation to light touch in all present extremities, 2+ reflexes bilateral patella tendons. Skin: No rash or lesions noted MEDICAL DECISION MAKING: Chief Complaint: please see HPI External records reviewed: Reviewed prior imaging: Reviewed CT scan of the abdomen pelvis from yesterday (04/23/2025). This CT scan showed no acute findings in the abdomen or pelvis. Stable congenital midgut malrotation Factors affecting care: Chronic abdominal pain Social determinants of health: none History obtained from others: none Consults: none [facility] Narrative: The patient was initially hemodynamically stable, afebrile and nontoxic-appearing. Abdominal exam was benign. I considered the following differential diagnosis: AAA, small bowel obstruction, abdominal perforation, appendicitis, pancreatitis, hepatobiliary pathology (acute cholecystitis), mesenteric ischemia, pathology (ie nephrolithiasis, pyelonephritis). Given patient had negative CT scan of his abdomen pelvis within the last 24 hours I do not suspect he is having a bowel obstruction or perforation as such repeat imaging was not obtained. I obtained a broad lab evaluation to further determine if the patient was suffering from a life-threatening etiology. Initially treat the patient IV fluids, IV Toradol, Zofran. ALL IMAGES (IF OBTAINED) HAVE BEEN PERSONALLY REVIEWED AND INTERPRETED BY MYSELF. CBC with improved leukocytosis from yesterday no anemia or thrombocytopenia BMP without evidence of significant electrolyte abnormalities, no anion gap, no acute kidney injury. LFTs show no evidence of hepatobiliary pathology. Lipase is wnl indicating no pancreatic inflammation. Urinalysis shows no evidence of urinary inflammation suggestive of UTI, Repeat abdominal exam remained benign. Patient requested pain medication he was given IV Dilaudid. This relieved his pain. Discussed following with pain management as an outpatient as well as gastroenterology. The patient is appropriate for discharge home as there is no clear laboratory etiology syncope identified The patient and/or family, caregivers express understanding. The patient and/or family, caregivers agrees with the plan. Shared decision making: I will have a discussion with the patient and or visitors regarding risk/benefits of further testing or admission. They will be made aware of of the risk/benefits inherent in this decision they will be given the opportunity to voice understanding. Total critical care time today provided was at least 0 minutes. This excludes separately billable procedures. Critical care time (if documented) is secondary to the patient having high probability of clinically significant/life threatening deterioration in the patient's condition which required my urgent intervention. Impression: 1. Acute on chronic abdominal pain 2. History of congenital abdominal malrotation Dispo: Discharge home This note was generated with [employer] dictation software. It may contain incorrect words, spelling, and punctuation that were not noted in review of the chart prior to signing. Lab Data Labs: Laboratory Results - last 24 hr 04/24/25 04/24/25 04/24/25 07:23 08:10 09:36 WBC 13.4 H RBC 4.22 L Hgb 13.5 Hct 39.0 L MCV 92.4 MCH 32.0 MCHC 34.6 RDW Std Deviation 43.0 RDW Coeff of Pari 12.7 Plt Count 298 MPV 9.8 Immature Gran % (Auto) 0.400 Neut % (Auto) 83.2 H Lymph % (Auto) 10.5 L Haskell % (Auto) 5.8 Eos % (Auto) 0.0 Baso % (Auto) 0.1 Absolute Neuts (auto) 11.2 H Absolute Lymphs (auto) 1.41 Nucleated RBC % 0 Sodium 133 Potassium 4.5 Chloride 96 L Carbon Dioxide 22.6 Anion Gap 15 BUN 20 H Creatinine 1.00 Estim Creat Clear Calc 104.55 Est GFR (MDRD) Non-Af 103 BUN/Creatinine Ratio 19.9 Glucose 130 H Calcium 9.8 Total Bilirubin 0.55 AST 28 ALT 18 Alkaline Phosphatase 69 Total Protein 7.6 Albumin 4.7 Globulin 2.8 Albumin/Globulin Ratio 1.7 Lipase 24 Urine Color Yellow Urine Clarity Clear Urine pH 6.5 Ur Specific Golden 1.015 Urine Protein 30 H Urine Glucose (UA) Normal Urine Ketones 150 A* Urine Occult Blood Negative Urine Nitrite Negative Urine Bilirubin Negative Urine Urobilinogen Normal Ur Leukocyte Esterase Negative Urine RBC 0 SEEN Urine WBC 0-5 SEEN Ur Squamous Epith Cells 0 SEEN Urine Bacteria 0 SEEN Urine Mucus 0 SEEN Discharge Plan Triage Chief Complaint: Abd Pain ED Provider: Karel Keller Dx/Rx/DC Orders Clinical Impression: Abdominal pain Instructions: Abdominal Pain Prescriptions: No Action buprenorphine 5 mcg/hour patch weekly 1 patch topical Q7D Patient Comments: apply 1 patch topically to CLEAN DRY INTACT SKIN AND CHANGE weekly fluoxetine 40 mg capsule 40 mg PO DAILY Primary Care Provider: Mayra Candelario Referrals: Darrel Acevedo MD [Med Staff - Active Staff, Pain Management] Mayra Candelario MD [Primary Care Provider, Internal Medicine] Activity Restrictions/Additional Instructions: Thank you for trusting us with your care today! Please take Tylenol (2 pills, 650 mg), ibuprofen (2 pills, 400 mg) every 6 hours as needed for pain and fever control. Please return to the emergency department if your symptoms change or worsen. Please follow with your primary care physician and/or your pain management physician for further outpatient evaluation and management. Print Language: Ukrainian Disposition Disposition: Home, Self Care
--- OUTSIDE RECORDS SUMMARY | 2025-04-24 07:19 | XMS RPT_ITS | CCD ---
Author Organization [facility] Team Providers Care Dot Etcher Name Role Phone NONE, NONE Unavailable Unavailable LEONARDO SIMEON, HYDI Unavailable Unavailable LEONARDO SIMEON, HYDI Unavailable Unavailable VIVIAN II, ALEJO Sanz Unavailable Unavailab le LEONARDO SIMEON, HYDI Unavailable Unavailable LEONARDO SIMEON, HYDI Unavailable Unavailable MAG ROBBIEDALENA Unavailable Unavailable JEFFREY BROWN Unavailable Unavailable NONE, NONE Unavailable Unavailable SELF, SELF Unavailable Unavailable PHYSICIAN, NONE Primary Care Physician Unavailab TONNY Johnson Admitting Unavailable TONNY CANDELARIO Primary Care Unavailable TONNY CANDELARIO Consulting Unavailable TONNY CANDELARIO Attending Unavailable PROVIDER, UNKNOWN Consulting Unavailable PROVIDER, UNKNOWN Consulting Unavailable PROVIDER, UNKNOWN Consulting Unavailable Juarez Hassan Primary Care Provider [phone] Juarez Hassan Primary Care Provider David LUTZ, Lina Unavailable Unavailabl e Richard Lozano MD, Baylee M Unavailable Juarez Hassan Primary Care Provider [phone] YI Marion CNP, LYLE Barboza Primary Care Phys [facility] Juarez Hassan Primary Care Provider [phone] David LUTZ, Lina Unavailable Unavailabl christiano Saucedo MD, Baylee M Unavailable [phone] RICARDO MONET DO Attending Unavailable PHYSICIAN, NONE Primary Care Unavailable RAFAEL MERCADO MD Attending Unavailable PHYSICIAN, NONE Primary Care Unavailable LYNSEY SMITH MD Attending Unavailable LYLE LOYOLA APRN, CNP Primary Care U SEVERINO Hinkle DO Attending Unavailable LYLE LOYOLA APRN, CNP Primary Care U navailable YI Marion CNP, LYLE Barboza Primary Care U rosalia ALBA MD, KARISHMA Baron Attending Unavail ross PATEL MD, PEDRITO Attending Unavailable PHYSICIAN, NONE Primary Care Unavailable Sonya HERNANDEZ, Juarez Ahn Primary Care Provider Anna RICHMOND STAFF COMMAND AND CONTROL OFFICER - TEXTILE SCREEN MAKER, LYLE Barboza Primary Care U rosalia CERDA 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, ERMELINDA COLLIER Attending U rosalia Hassan MD, Juarez Ahn Primary Care Provider Sonya HERNANDEZ, Juarez Ahn Primary Care Provider ISAAC SMITH Referring Unavailable JUAREZ HASSAN Primary Care Unavailable Calin RN, Rosalinda Unavailable Unavailelza Dominguez RN, Lucia Unavailable Unavailable ISAAC SMIHT Referring Unavailable JUAREZ HASSAN Primary Care Unavailable Kodak HERNANDEZ, Dr. Nunez Primary Care Provider [phone] Jairon HERNANDEZ, Dr. Stevens Emergency Provider Rodney De La O Attending Unavailable Tonny Candelario Primary Care Unavailable Allergies Allergy Classification Reported Allergen(s) Allergy Type Date of Onset Reaction(s) Facility (16 sources) Erythromycin; Translations: [erythromycin] Drug Allergy 09-16-2019 Unknown [facility] Medications Current Medications Medication Drug Class(es) Dates Sig (Normalized) Sig (Original) acetaminophen 325 mg / HYDROcodone bitartrate 5 mg oral tablet (1 source) Opioid Agonist Start: 04-10-2022 End: 04-13-2022 take 1 tablet by mouth every six hours as needed for pain [place] 325- 5 mg oral tablet Dose = 1 tab(s), Oral, q6h, PRN for pain, X 3 day(s), # 12 tab(s), 0 Refill(s), Malrotation of intestine, 63.6 Start Date: 04/10/22 Stop Date: 04/13/22 Status: Ordered acetaminophen 325 mg / oxyCODONE hydrochloride 5 mg oral tablet (8 sources) Opioid Agonist Start: 12-22-2021 End: 12-25-2021 take 1 tablet by mouth every six hours as needed for pain Percocet 5 mg-325 mg oral tablet Dose = 1 tab(s), Oral, q6h, PRN for pain, X 3 day(s), # 12 tab(s), 0 Refill(s), Pain, 63.6 Start Date: 12/22/21 Stop Date: 12/25/21 Status: Ordered Start: 09-08-2019 oxyCODONE-acet aminophen (PERCOCET) 5-325 mg tablet Pt states that he took this medication last week. 0 09/08/2019 Suspended Comment on above: Pt states that he to ok this medication last week. 168 hr buprenorphine 0.005 mg/hr transdermal system (12 sources) Partial Opioid Agonist Start: 08-26-2024 buprenorphine 5 mcg/hr transdermal film, extended release 0 Refill(s), 63.6 Start Date: 08/26/24 Status: Ordered Repeat number: 1 Start: 08-05-2023 apply 5 ug topically every wee k Buprenorphine 5 mcg/hour patch weekly Active 1 NMA TOPICAL Q7D August 05, 2023 1:00am Start: 11-09-2022 End: 11-10-2022 buprenorphine (BUTRANS) 5 mc g/hour Apply 1 Patch as directed one time a week for 1 dose. Do not start before November 09, 2022. 11/09/2022 Active Comment on above: Apply 1 Patch as dir ected one time a week for 1 dose. Do not start before November 09, 2022. docusate sodium 100 mg oral capsule (4 sources) Start: 2 End: 2 take 1 capsule by mouth twice daily docusate sodium (COLACE) 100 mg capsule Take 1 capsule by mouth twice daily. 60 capsule 0 04/27/2022 05/27/2022 Active Comment on above: Take 1 capsule by [facility] twice daily. DULoxetine 30 mg delayed release oral capsule (20 sources) Serotonin and Norepinephrine Reuptake Inhibitor Start: 2 End: 2 take 2 capsules by mouth once daily DULoxetine (CYMBALTA) 30 mg capsule Take 2 capsules by mouth once daily. (Observe how you are feeling on this dose) 60 capsule 1 07/10/2022 Active Start: 05-28-2022 DULoxetine Ora l, 0 Refill(s) Start Date: 05/28/22 Status: Ordered Repeat number: 1 Start: 05-28-2022 DULoxetine Ora l, 0 Refill(s) Start Date: 05/28/22 Status: Ordered Start: 05-10-2022 take 1 capsule by mo uth once daily DULoxetine (CYMBALTA) 30 mg capsule Take 1 capsule by mouth once daily. (Observe how you are feeling on this dose) 30 capsule 0 05/10/2022 Active Start: 04-27-2022 take 2 capsules by m outh once daily DULoxetine (CYMBALTA) 30 mg capsule Take 2 capsules by mouth once daily. 0 04/27/2022 Active take 1 capsule by mo uth once daily DULoxetine (CYMBALTA) 30 mg capsule Take 30 mg by mouth once daily. 0 Suspended Comment on above: Take 30 mg by mouth once daily. Take 2 capsules by m outh once daily. Take 1 capsule by mo uth once daily. (Observe how you are feeling on this dose) Take 2 capsules by m outh once daily. (Observe how you are feeling on this dose) FLUoxetine 40 mg oral capsule (1 source) Serotonin Reuptake Inhibitor Start: take 1 capsule by mouth once daily Fluoxetine 40 mg capsule Active 40 mg PO DAILY March 25, 2025 12:00am metoclopramide 5 mg oral tablet (4 sources) Dopamine-2 Receptor Antagonist Start: End: take 1 tablet by mouth three times daily metoclopramide HCl (REGLAN) 5 mg tablet Take 1 tablet by mouth three times daily. 90 tablet 0 04/27/2022 05/27/2022 Active Comment on above: Take 1 tablet by grace th three times daily. sennosides, care home 8.6 mg oral tablet (4 sources) Start: End: take 1 tablet by mouth twice daily senna (SENOKOT) 8.6 mg tab Take 1 tablet by mouth twice daily. 60 tablet 0 04/27/2022 05/27/2022 Active Comment on above: Take 1 tablet by grace th twice daily. triamcinolone acetonide 1 mg/ml topical cream (1 source) Corticosteroid Start: End: triamcinolone 0.1% topical cream Apply 1 bailey, Topical, BID, X 14 day(s), # 15 gram(s), 1 Refill(s), Pharmacy: [facility], Cream, 177, cm, 08/26/24 8:05:00 EST, Height, 74.4, kg, 08/26/24 8:05:00 EST, Dosing Weight Start Date: 08/26/24 Stop Date: 09/23/24 Status: Ordered Quantity: 15.0 Unit: g Repeat number: 2 Indication: Psoriasis, unspecified Completed/Discontinued Medications Medication Drug Class(es) Dates Sig (Normalized) Sig (Original) acetaminophen 325 mg oral tablet (5 sources) Start: 04-27-2022 take 2 tablets by mouth every six hours as needed acetaminophen (TYLENOL) 325 mg tablet Take 2 tablets by mouth every 6 hours as needed for pain. FOR PAIN. 0 04/27/2022 Active Comment on above: Take 2 tablets by mo [facility] every 6 hours as needed for pain. FOR PAIN. cholecalciferol 0.125 mg oral tablet (9 sources) Vitamin D Start: 11-07-2022 End: 12-22-2024 take 1 tablet by mouth once daily cholecalciferol (VITAMIN D3) 5,000 unit tab Take 1 tablet by mouth once daily. 11/07/2022 12/22/2024 Discontinued Comment on above: Take 1 tablet by grace once daily. erythromycin 250 mg oral tablet (1 source) Macrolide, Macrolide Antimicrobial Start: 07-10-2022 take 0.5 tablet by mouth every six hours erythromycin base 250 mg tablet Take 0.5 tablets by mouth every 6 hours. 60 tablet 1 07/10/2022 Active Comment on above: Take 0.5 tablets by mouth every 6 hours. HYDROmorphone hydrochloride 2 mg oral tablet (8 sources) Opioid Agonist Start: 08-05-2023 End: 03-25-2025 take 1 tablet by mouth every six hours as needed for pain Hydromorphone (Dilaudid) 2 mg tablet Discontinued 2 mg PO EVERY 6 HOURS as needed for pain 12 3 0 August 05, 2023 March 25, 2025 2:11pm Intractable abdominal pain Unspecified abdominal pain Start: 11-06-2022 End: 11-11-2022 take 1 tablet by mouth every eight hours as needed HYDROmorphone (DILAUDID) 2 mg tablet Indications: S/P exploratory laparotomy Take 1 tablet by mouth every 8 hours as needed for up to 10 doses. 10 tablet 0 11/06/2022 11/11/2022 Comment on above: Take 1 tablet by grace th every 8 hours as needed for up to 10 doses. ketorolac tromethamine 10 mg oral tablet (5 sources) Nonsteroidal Anti-inflammatory Drug, Cyclooxygenase Inhibitor Start: take 1 tablet by mouth every six hours as needed keTORolac (TORADOL) 10 mg tablet Take 1 tablet by mouth every 6 hours as needed. 12 tablet 0 04/27/2022 Active Comment on above: Take 1 tablet by grace th every 6 hours as needed. lactobacillus rhamnosus gg [id number] unt oral capsule (7 sources) Start: End: take 1 capsule by mouth once daily lactobacillus rhamnosus (CULTURELLE) 10 billion cell capsule Take 1 capsule by mouth once daily. 30 capsule 5 07/10/2022 12/22/2024 Discontinued Comment on above: Take 1 capsule by mo [facility] once daily. lidocaine 0.04 mg/mg medicated patch (9 sources) Antiarrhythmic, Amide Local Anesthetic Start: End: apply 1 dose transdermal route once daily as needed for pain lidocaine (SALONPAS) 4 % patch Apply 1 Patch as directed once daily as needed (pain). 10 Patch 11/06/2022 12/22/2024 Discontinued Comment on above: Apply 1 Patch as dir ected once daily as needed (pain). metroNIDAZOLE 500 mg oral tablet (5 sources) Nitroimidazole Antimicrobial Start: take 1 tablet by mouth three times daily metroNIDAZOLE (FLAGYL) 500 mg tablet Take 1 tablet by mouth three times daily. Take Flagyl 10 days per month every month 42 tablet 3 07/10/2022 Active Start: 05-28-2022 Flagyl Oral, T ID, 0 Refill(s), 63.6 Start Date: 05/28/22 Status: Ordered Start: 05-12-2022 End: 05-19-2022 metroNIDAZOLE (FLAGYL) 500 m g tablet Take 1 tablet by mouth three times daily for 7 days. FOR 7 DAYS. 21 tablet 0 05/12/2022 05/19/2022 Active Comment on above: Take 1 tablet by grace th three times daily for 7 days. FOR 7 DAYS. Take 1 tablet by grace three times daily. Take Flagyl 10 days per month every month mirtazapine 30 mg oral tablet (7 sources) take 1 tablet by mouth once daily at bedtime mirtazapine (REMERON) 30 mg tablet Take 30 mg by mouth daily at bedtime. 0 Suspended Comment on above: Take 30 mg by mouth daily at bedtime. nitroglycerin 0.4 mg sublingual tablet (7 sources) Nitrate Vasodilator Start: 10-14-19 take 1 tablet under the tongue once daily as needed nitroglycerin sublingual (NITROQUICK) 0.4 mg SL tablet Take 1 tablet daily as needed for severe abdominal pain 15 tablet 0 10/14/2019 Suspended Comment on above: Take 1 tablet daily as needed for severe abdominal pain ondansetron 4 mg oral tablet (7 sources) Serotonin-3 Receptor Antagonist Start: 04-27-20 take 1 tablet by mouth every eight hours as needed ondansetron (ZOFRAN) 4 mg tablet Take 1 tablet by mouth every 8 hours as needed for nausea/vomiting. 42 tablet 0 04/27/2022 Active Start: 04-10-2022 End: 04-13-2022 ondansetron 4 mg oral tablet , disintegrating Dose : 4 mg = 1 tab(s), Oral, AsDirected, PRN Nausea/Vomiting, X 3 day(s), # 12 tab(s), 0 Refill(s), 04/13/22 11:58:00 EDT Start Date: 04/10/22 Stop Date: 04/13/22 Status: Ordered Start: 12-22-2021 End: 12-26-2021 ondansetron 4 mg oral tablet , disintegrating Dose : 4 mg = 1 tab(s), Oral, q6h, X 4 day(s), # 16 tab(s), 0 Refill(s), 12/26/21 0:13:00 EDT Start Date: 12/22/21 Stop Date: 12/26/21 Status: Ordered Comment on above: Take 1 tablet by grace every 8 hours as needed for nausea/vomiting. pantoprazole 40 mg delayed release oral tablet (5 sources) Proton Pump Inhibitor Start: End: take 1 tablet by mouth twice daily before mealtime pantoprazole DR (PROTONIX) 40 mg tablet Take 1 tablet by mouth twice daily before meals at 6am and 4pm 60 tablet 0 04/27/2022 Active Comment on above: Take 1 tablet by grace th twice daily before meals at 6am and 4pm 72 hr scopolamine 0.0139 mg/hr transdermal system (9 sources) Anticholinergic Start: 023 End: scopolamine (TRANSDERM-SCOP) patch 1.5 mg/72 hr (delivers 1 mg over 3 days) Apply 1 Patch as directed every 72 hours. 3 Patch 11/09/2022 12/22/2024 Discontinued Start: 11-09-2022 scopolamine (T RANSDERM-SCOP) patch 1.5 mg/72 hr (delivers 1 mg over 3 days) Apply 1 Patch as directed every 72 hours. 3 Patch 0 11/09/2022 Active Comment on above: Apply 1 Patch as dir ected every 72 hours. therapeutic multivitamin-minerals (THERA-M PLUS) 9 mg iron-400 mcg tablet (9 sources) Start: 11-07-2022 End: 12-22-2024 therapeutic multivitamin-minerals (THERA-M PLUS) 9 mg iron-400 mcg tablet Take 1 tablet by mouth once daily. 11/07/2022 12/22/2024 Discontinued Start: 11-07-2022 therapeutic mu ltivitamin-minerals (THERA-M PLUS) 9 mg iron- 400 mcg tablet Take 1 tablet by mouth once daily. 11/07/2022 Active Start: 11-07-2022 therapeutic mu ltivitamin-minerals (THERA-M PLUS) 9 mg iron- 400 mcg tablet Take 1 tablet by mouth once daily. 0 11/07/2022 Active Comment on above: Take 1 tablet by grace th once daily. topiramate 50 mg oral tablet (7 sources) Start: 07-05-2019 take 1 tablet by mouth once daily topiramate (TOPAMAX) 50 mg tablet Take 50 mg by mouth once daily. 0 07/05/2019 Suspended Comment on above: Take 50 mg by mouth once daily. 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] Onset: 04-10-2022 Resolved: 05-31-2022 Chronic Esophageal disorders (1 source) Gastro-esophageal reflux disease without esophagitis; Translations: [GERD WITHOUT ESOPHAGITIS] Onset: 11-15-2017 Chronic Nausea and vomiting (1 source) Vomiting; Translations: [Vomiting, unspecified] Onset: 07-08-2021 Episodic Nutritional deficiencies (13 sources) Moderate protein energy malnutrition; Translations: [Moderate protein-calorie malnutrition] Onset: 11-03-2022 11-03-2022 Chronic Other gastrointestinal disorders (1 source) Dysphagia, unspecified; Translations: [DYSPHAGIA UNSPECIFIED] Onset: 11-15-2017 Episodic Other inflammatory condition of skin (1 source) Psoriasis 08-26-2024 Chronic Other nervous system disorders (1 source) Other chronic pain; Translations: [Chronic abdominal pain] Onset: 11-03-2022 Chronic Other skin disorders (2 sources) Epidermoid cyst of skin; Translations: [Epidermal cyst] Onset: 09-15-2024 08-26-2024 Episodic Other skin disorders (1 source) Epidermal cyst; Translations: [Epidermal cyst] Onset: 09-15-2024 Episodic Residual codes; unclassified (1 source) Pain; Translations: [Pain, unspecified] Onset: 12-22-2021 Episodic Residual codes; unclassified (1 source) History of partial resection of colon; Translations: [Acquired absence of other specified parts of digestive tract] 03-25-2025 Episodic Screening or history of mental health and substance abuse (1 source) Personal history of nicotine dependence; Translations: [PERSONAL HISTORY OF NICOTINE DEPEND] Onset: 11-15-2017 Episodic Unclassified (1 source) Presence of other specified functional implants; Translations: [PRESENCE OTHER SPEC FUNC IMPLANTS] Onset: 11-15-2017 Chronic Past or Other Problems Problem Classification Problem Date Documented Date Episodic/Chronic Fluid and electrolyte disorders (14 sources) Hypo-osmolality and hyponatremia; Translations: [Dehydration] Onset: 11-15-2017 Resolved: 05-31-2022 04-24-2022 Episodic Intestinal obstruction without hernia (20 sources) Small bowel obstruction; Translations: [Unspecified intestinal obstruction, unspecified as to partial versus complete obstruction] Onset: 05-28-2022 Resolved: 05-31-2022 10-26-2022 Episodic Other nervous system disorders (12 sources) Acute postoperative pain; Translations: [Other acute postprocedural pain] Onset: 04-24-2022 Resolved: 05-31-2022 04-24-2022 Episodic Residual codes; unclassified (2 sources) Other specified postprocedural states; Translations: [Other specified postprocedural states] Onset: 11-03-2022 Episodic Results Test Name Value Interpretation Reference Range Facility Abdomen/Pelvis W IV Cont ONL Yon 03-25-2025 Abdomen/Pelvis W IV Cont ONLY [facility] [address] [place], [place] [address] Abdomen/Pelvis W IV Cont ONLY MR#: [id number] Acct: [id number] Name: AGAPITO PARK Rep #: [id number] : 1995 M 30 From: Rodney bishop MD PCP: Dr. Tonny Candelario MD Status: REG ER Study: Abdomen/Pelvis W IV Cont ONLY Date of Exam: Exam# [id number] Ordering Dr: Rodney De La O MD PROCEDURE: ABDOMEN/PELVIS W IV CONT ONLY 03/25/2025 REASON FOR EXAM: EPIG ABD PAIN TECHNIQUE: ABDOMEN/PELVIS W IV CONT ONLY Coronal and Sagittal reconstruction series were provided. CONTRAST: Isovue-300 VOLUME: 100 mL One or more dose reduction techniques were used (e.g., Automated exposure control, adjustment of the mA and/or kV according to patient size, use of iterative reconstruction technique. RADIATION DOSE SUMMARY: CTDlvol: 8.80 mGy DLP: 304.41 mGycm COMPARISON: Prior study dated December 05, 2023. FINDINGS: Lung bases: Lung bases are clear. Liver: Stable 1.2 cm cyst in the anterior right lobe of the liver superiorly. Gallbladder: No evidence of gallstones. Spleen: Borderline splenomegaly. Pancreas: Normal size without evidence of mass surrounding inflammation or ductal dilation. 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 Appendix: The appendix appears distended with a surrounding inflammatory process. Findings present are consistent with appendicitis. No evidence of abscess. Lymph nodes: Unremarkable. Vasculature: The abdominal aorta and IVC are normal. Peritoneum / Retroperitoneum: Unremarkable Bones: Unremarkable CT/Abdomen/Pelvis W IV Cont ONLY IMPRESSION: No acute abnormality is seen. Congenital midgut malrotation. Reading Location: [facility] CC: Dr. Rodney De La O MD; Dr. Tonny Candelario MD Historic Site Administrator: Signed Normal [facility] Absolute lymphocyte countOrd ered By: Rodney De La O on 03-25-2025 Lymphocytes Auto (Unsp spec) [#/Vol] 2.85 10*3/uL 0.83-4.51 [facility] Absolute neutrophil countOrd ered By: Rodney De La O on 03-25-2025 Neutrophils (Bld) [#/Vol] 4.9 10*3/uL 2.0-7.7 [facility] Anion gap in Serum or Plasma Ordered By: Rodney De La O on 03-25-2025 Anion gap [Moles/Vol] 13 mmol/L 5- [facility] Automated lymphocyte count a s percentage of total leukocytesOrdered By: Rodney De La O on 03-25-2025 Lymphocytes/100 WBC Auto (Unsp spec) 33.4 % - [facility] BUN/creatinine ratioOrdered By: Rodney De La O on 03-25-2025 Urea nitrogen/Creatinine [Mass ratio] 15.4 mg/mg - [facility] Basophil percentageOrdered B y: Rodney De La O on 03-25-2025 Basophils/100 WBC (Bld) 0.6 % 0-1 [facility] Bilirubin, totalOrdered By: Rodney De La O on 03-25-2025 Bilirubin [Mass/Vol] 0.74 mg/dL 0.00-1.30 [facility] CBC W/Diff, Automatedon 03-07 Absolute Lymph 2.85 X10 3/uL Normal 0.83-4.51 [facility] Comment on above: Performed By: #### L 100.0100 #### [facility] [address] [place], [place] [address]all [place], [address] Absolute Neut 4.9 X10 3/uL Normal 2.0-7.7 [facility] Comment on above: Performed By: #### L 100.0100 #### [facility] [address] [place], [address] Basophils/100 WBC (Bld) 0.6 % Normal 0-1 [facility] Comment on above: Performed By: #### L 100.0100 #### [facility] [address] [place], [address] Eosinophils/100 WBC (Bld) 1.9 % Normal 0-5 [facility] Comment on above: Performed By: #### L 100.0100 #### [facility] [address] [place], [address] Erythrocyte distribution width (RBC) [Ratio] 12.4 % Normal 11.6-14.6 [facility] Comment on above: Performed By: #### L 100.0100 #### [facility] [address] [place], [address] Hematocrit (Bld) [Volume fraction] 42.2 % Normal 40-54 [facility] Comment on above: Performed By: #### L 100.0100 #### [facility] [address] [place], [address] Hemoglobin (Bld) [Mass/Vol] 14.1 g/dL Normal 13.0-16.5 [facility] Comment on above: Performed By: #### L 100.0100 #### [facility] [address] [place], [address] IG% 0.400 Normal 0.0-0.9 [facility] Comment on above: Result Comment: IG% - Immature Granulocytes (promyelocytes, myelocytes and metamyelocytes) > 1% indicates that a LEFT SHIFT is Present. Performed By: #### L 100.0100 #### [facility] [address] [place], [address] Lymphocytes/100 WBC (Bld) 33.4 % Normal 19-41 [facility] Comment on above: Performed By: #### L 100.0100 #### [facility] [address] [place], [address] MCH (RBC) [Entitic mass] 31.4 pg Normal 27.0-32.0 [facility] Comment on above: Performed By: #### L 100.0100 #### [facility] [address] [place], [address] MCHC (RBC) [Mass/Vol] 33.4 g/dL Normal 32-36 [facility] Comment on above: Performed By: #### L 100.0100 #### [facility] [address] [place], [address] MCV (RBC) [Entitic vol] 94.0 fL Normal 80-94 [facility] Comment on above: Performed By: #### L 100.0100 #### [facility] [address] [place], [address] Monocytes/100 WBC (Bld) 6.9 % Normal 0-10 [facility] Comment on above: Performed By: #### L 100.0100 #### [facility] [address] [place], [address] Neutrophils/100 WBC (Bld) 56.8 % Normal 47-70 [facility] Comment on above: Performed By: #### L 100.0100 #### [facility] [address] [place], [address] Nucleated RBC (Bld) [#/Vol] 0 10*3/uL Normal 0-5 [facility] Comment on above: Performed By: #### L 100.0100 #### [facility] [address] [place], [address] Platelet mean volume (Bld) [Entitic vol] 9.6 fL Normal 6.2-12.0 [facility] Comment on above: Performed By: #### L 100.0100 #### [facility] [address] [place], [address] Platelets (Bld) [#/Vol] 292 10*3/uL Normal 150-450 [facility] Comment on above: Performed By: #### L 100.0100 #### [facility] [address] [place], [address] RBC (Bld) [#/Vol] 4.49 10*6/uL Low 4.6-6.2 [facility] Comment on above: Performed By: #### L 100.0100 #### [facility] [address] [place], [address] RDW SD 42.8 fl Normal 35.1-43.9 [facility] [facility] Comment on above: Performed By: #### L 100.0100 #### [facility] [address] [place], [address] WBC (Bld) [#/Vol] 8.5 10*3/uL Normal 4.4-11.0 [facility] Comment on above: Performed By: #### L 100.0100 #### [facility] [address] [place], [address] Carbon dioxide, total [Moles /volume] in Central venous bloodOrdered By: Rodney De La O on 03-25-2025 CO2 [Moles/Vol] 24.1 mmol/L 21.0-32.0 [facility] Chloride assayOrdered By: John De La O on 03-25-2025 Chloride [Moles/Vol] 102 mmol/L 98-108 [facility] Comprehensive Metabolic Prof ilon 03-25-2025 Albumin [Mass/Vol] 4.9 g/dL Normal 3.5-5.0 [facility] Comment on above: Performed By: #### L 500.4050, L501.2450 #### [facility] [address] [place], [address] Albumin/Globulin [Mass ratio] 1.7 {ratio} Normal 0.9-2.4 [facility] Comment on above: Performed By: #### L 500.4050, L501.2450 #### [facility] [address] [place], [address] ALK PHOS 74 U/L Normal 40-129 [facility] Comment on above: Performed By: #### L 500.4050, L501.2450 #### [facility] [address] [place], [address] ALT [Catalytic activity/Vol] 14 U/L Normal <=46 [facility] Comment on above: Performed By: #### L 500.4050, L501.2450 #### [facility] [address] [place], [address] AST [Catalytic activity/Vol] 22 U/L Normal <=37 [facility] Comment on above: Performed By: #### L 500.4050, L501.2450 #### [facility] [address] [place], [address] Bilirubin [Mass/Vol] 0.74 mg/dL Normal 0.00-1.30 [facility] Comment on above: Performed By: #### L 500.4050, L501.2450 #### [facility] [address] [place], [address] BUN/CRE 15.4 RATIO Normal 10-20 [facility] Comment on above: Performed By: #### L 500.4050, L501.2450 #### [facility] [address] [place], [address] Calcium [Mass/Vol] 9.8 mg/dL Normal 7.6-11.0 [facility] Comment on above: Performed By: #### L 500.4050, L501.2450 #### [facility] [address] [place], [address] Chloride [Moles/Vol] 102 mmol/L Normal 98-108 [facility] Comment on above: Performed By: #### L 500.4050, L501.2450 #### [facility] [address] [place], [address] CO2 [Moles/Vol] 24.1 mmol/L Normal 21.0-32.0 [facility] Comment on above: Performed By: #### L 500.4050, L501.2450 #### [facility] [address] [place], [address] Creatinine [Mass/Vol] 0.99 mg/dL Normal 0.70-1.20 [facility] Comment on above: Performed By: #### L 500.4050, L501.2450 #### [facility] [address] [place], [address] ECRCL 104.85 ml/min Normal 50-250 [facility] Comment on above: Performed By: #### L 500.4050, L501.2450 #### [facility] [address] [place], [address] GAP 13 Normal 5-15 [facility] Comment on above: Performed By: #### L 500.4050, L501.2450 #### [facility] [address] [place], [address] GFR/1.73 sq M.predicted among non-blacks MDRD (S/P/Bld) [Vol rate/Area] 104 mL/min/{1.73_m2} Normal >60 [facility] Comment on above: Result Comment: mL/m in/1.73m2 CKD-EPI Creatinine Equation (2020) Performed By: #### L 500.4050, L501.2450 #### [facility] [address] [place], [address] Globulin (S) [Mass/Vol] 2.8 g/dL Normal 2.2-4.2 [facility] Comment on above: Performed By: #### L 500.4050, L501.2450 #### [facility] [address] [place], [address] Glucose [Mass/Vol] 96 mg/dL Normal 70-99 [facility] Comment on above: Performed By: #### L 500.4050, L501.2450 #### [facility] [address] [place], [address] Potassium [Moles/Vol] 4.0 mmol/L Normal 3.3-5.1 [facility] Comment on above: Performed By: #### L 500.4050, L501.2450 #### [facility] [address] [place], [address] Sodium [Moles/Vol] 139 mmol/L Normal 133-145 [facility] Comment on above: Performed By: #### L 500.4050, L501.2450 #### [facility] [address] [place], [address] T PROT 7.7 g/dL Normal 5.9-8.4 [facility] Comment on above: Performed By: #### L 500.4050, L501.2450 #### [facility] [address] [place], [address] Urea nitrogen [Mass/Vol] 15 mg/dL Normal 4-19 [facility] Comment on above: Performed By: #### L 500.4050, L501.2450 #### [facility] [address] [place], [address] Emergency Department Summary on 03-25-2025 Emergency Department Summary [facility] Medical Records Department [address] [place] [address] Emergency Department Summary 03/25/25 MR#: [id number] Acct: [id number] Name: AGAPITO PARK Rep #: [id number] : 1995 30 From: Rodney De La O MD PCP: Dr. Tonny Candelario MD Status:REG ER Location: ED HPI HPI - GI History of Present Illness Chief Complaint: Abd Pain Informant: patient Abdominal Pain/Flank Pain Onset: Today and Hours Context: Gradual Onset Timing: Intermittent Quality: Aching Location: Epigastric Current Severity: Mild Maximum Severity: Mild Worsened by: Nothing Relieved by: Nothing Nausea/Vomiting/Emesis GI Symptom: Positive for Nausea Onset: Today Severity: Mild Diarrhea/Melena/Hematoche sulema GI Symptom: Negative for Diarrhea, Melena or Hematochezia Associated Symptoms Associated Symptoms: Negative for Dysuria, Frequency, Hematuria or Urgency Narrative Narrative: 30-year-old male history of prior partial colectomy due to malrotation surgery was done 2 to 3 years ago at [facility]. Also prior hernia surgery. Patient states this morning several hours ago he started getting epigastric abdominal discomfort. Associated nausea no vomiting. No diarrhea. No melena. No fever. No dysuria. Has had this before. This has been several years. He has done well after his malrotation surgery. Denies any back pain. Denies any abdominal trauma. Prior similar symptoms: Yes Recent Illness/Hospitalization: No PFSH PFSH Medical History Intestinal malrotation Home Medications ???Medication ???Instructions ???Recorded ???Last Taken ???Type buprenorphine 5 mcg/hour weekly 1 patch topical Q7D 08/05/23 Unkno wn History transdermal patch fluoxetine 40 mg capsule 40 mg PO DAILY 03/25/25 Unknown Hi story Allergy/AdvReac Type Severity Reaction Status Date / Time No Known Allergies Allergy Verified 12/05/23 12:28 Surgical History H/O hernia repair Social History Smoking Status: Never smoker ROS ROS ED ROS Narrative Epigastric abdominal pain. Nausea. No vomiting, no diarrhea, no dysuria. No fever. Constitutional Constitutional ED: Denies chills or fever(s) ENT ENT ED: Denies ear pain Cardiovascular Cardiovascular: Denies chest pain Respiratory/Chest Respiratory/Chest: Denies cough or dyspnea Gastrointestinal Gastrointestinal: Reports abdominal pain and nausea; Denies constipation, diarrhea, melena or vomiting Genitourinary Genitourinary ED: Denies dysuria or hematuria Musculoskeletal Musculoskeletal: Denies arthralgias or back pain Integumentary Denies abscess Neurologic Neurologic: Denies headache(s) Psychiatric Psychiatric: Denies anxiety Endocrine Endocrinology: Denies polydipsia Hematologic/Lymphatic Hematologic/Lymphatic: Denies easy bleeding Allergic/Immunologic Allergic/Immunologic ED: Denies mouth swelling, tongue swelling or urticaria EXAM Physical Exam Narrative Exam Narrative: Well-appearing 30-year-old male vital signs stable afebrile sitting upright in bed. H EENT exam pupils round react light. Moist mutes membranes. Neck nontender. Lungs clear to auscultation. Heart regular rhythm rate about 90 no murmur. Chest wall ribs nontender. Abdomen soft nondistended normal bowel sounds without peritoneal signs. Mild epigastric tenderness. No rebound guarding rigidity. Right upper and right lower quadrants unremarkable. Moving all 4 extremities. Calves nontender no edema. Back nontender. Neurologically is awake alert. Answering questions following commands. Very benign exam. Const Vital Signs: 03/25/25 13:35 03/25/25 13:54 03/25/25 14:08 Temperature 98.9 F 98.9 F Temperature Source Temporal Oral Pulse Rate 105 H 76 71 Respiratory Rate 20 H 16 14 Blood Pressure 127/94 H 115/88 H 118/81 H Blood Pressure Mean 105 97 93 Pulse Ox 100 100 100 Oxygen Delivery Method Room Air Room Air Room Air Positive well nourished and well developed; Negative for obese, cachectic, contractures or unkempt General Appearance ED: well developed and NAD; Negative for unkempt, cachectic, contractures or pallor Nutritional Appearance: Negative for cachectic or obese HEENT Reports moist mucous membranes normocephalic and atraumatic Eyes PERRL and EOMs intact bilaterally Neck no lymphadenopathy, supple and no JVD Resp normal respiratory effort and clear to auscultation bilaterally Cardio regular rate, regular rhythm, S1 normal heart sound, S2 normal heart sound and no murmurs GI non-distended and no masses; Negative for non-tender GI Narrative: Mild epigastric tenderness. Auscultation: normoactive bowel sounds Palp (more content not included)... Normal [facility] Eosinophil percentageOrdered By: Rodney De La O on 03-25-2025 Eosinophils/100 WBC (Bld) 1.9 % 0-5 [facility] Erythrocyte distribution wid th ratioOrdered By: Rodney De La O on 03-25-2025 Erythrocyte distribution width (RBC) [Ratio] 12.4 % 11.6-14.6 [facility] Erythrocyte distribution wid th standard deviationOrdered By: Rodney De La O on 03-25-2025 Erythrocyte distribution width (RBC) [Ratio] 42.8 fl 35.1-43.9 [facility] Glomerular filtration rate ( GFR) estimation/1.73 sq m using serum, plasma, or whole bOrdered By: Rodney De La O on 03-25-2025 GFR/1.73 sq M.predicted among non-blacks MDRD (S/P/Bld) [Vol rate/Area] 104 mL/min/{1.73_m2} >60 [facility] Comment on above: mL/min/1.73m2 CKD-EP I Creatinine Equation (2020) Hematocrit Auto (Bld) [Volum e fraction]Ordered By: Rodney De La O on 03-25-2025 Hematocrit (Bld) [Volume fraction] 42.2 % 40-54 [facility] Hemoglobin measurementOrdere d By: Rodney De La O on 03-25-2025 Hemoglobin (Bld) [Mass/Vol] 14.1 g/dL 13.0-16.5 [facility] Immature granulocytes/100 WB C Auto (Bld)Ordered By: Rodney De La O on 03-25-2025 Immature granulocytes/100 WBC (Bld) 0.400 % 0.0-0.9 [facility] Comment on above: IG% - Immature Granu locytes (promyelocytes, myelocytes and metamyelocytes) > 1% indicates that a LEFT SHIFT is Present. Laboratory - Chemistry and C hemistry - challengeOrdered By: Rodney De La O on 03-25-2025 AST [Catalytic activity/Vol] 22 U/L <38 [facility] Lipaseon 03-25-2025 Lipase [Catalytic activity/Vol] 38 U/L Normal 13-75 [facility] Comment on above: Result Comment: Mikel aguila note: LIPASE revised reference range effective 22. New Lipase methodology. Expected to produce lower values than the previous assay method. NEW Reference Range: 13 - 75 U/L Performed By: #### L 500.4050, L501.2450 #### [facility] [place], [address] Lipase measurementOrdered By : Rodney De La O on 03-25-2025 Lipase [Catalytic activity/Vol] 38 U/L 13-75 [facility] Comment on above: Please note:LIPASE r evised reference range effective 22. New Lipase methodology. Expected to produce lower values than the previous assay method. NEW Reference Range: 13 - 75 U/L MCV (mean corpuscular volume ) determinationOrdered By: Rodney De La O on 03-25-2025 MCV (RBC) [Entitic vol] 94.0 fL 80-94 [facility] Mean corpuscular hemoglobin (MCH) determinationOrdered By: Rodney De La O on 03-25-2025 MCH (RBC) [Entitic mass] 31.4 pg 27.0-32.0 [facility] Mean corpuscular hemoglobin concentration (MCHC) determinationOrdered By: Rodney De La O on 03-25-2025 MCHC (RBC) [Mass/Vol] 33.4 g/dL 32-36 [facility] Mean platelet volume determi nationOrdered By: Rodney De La O on 03-25-2025 Platelet mean volume (Bld) [Entitic vol] 9.6 fL 6.2-12.0 [facility] Monocyte percentageOrdered B y: Rodney De La O on 03-25-2025 Monocytes/100 WBC (Bld) 6.9 % 0-10 [facility] Neutrophil percentageOrdered By: Rodney De La O on 03-25-2025 Neutrophils/100 WBC (Bld) 56.8 % 47-70 [facility] Nucleated red blood cell per centageOrdered By: Rodney De La O on 03-25-2025 Nucleated RBC/100 WBC (Bld) [Ratio] 0 % 0-5 [facility] Platelet countOrdered By: John De La O on 03-25-2025 Platelets (Bld) [#/Vol] 292 10*3/uL 150-450 [facility] Potassium measurement (mass/ volume)Ordered By: Rodney De La O on 03-25-2025 Potassium (Unsp spec) [Mass/Vol] 4.0 mmol/L 3.3-5.1 [facility] RBC Auto (Bld) [#/Vol]Ordere d By: Rodney De La O on 03-25-2025 RBC (Bld) [#/Vol] 4.49 10*6/uL Low 4.6-6.2 [facility] Serum creatinine measurement (mass/volume)Ordered By: Rodney De La O on 03-25-2025 Creatinine [Mass/Vol] 0.99 mg/dL 0.70-1.20 [facility] Serum globulin measurementOr dered By: Rodney De La O on 03-25-2025 Globulin (S) [Mass/Vol] 2.8 g/dL 2.2-4.2 [facility] Serum glucose measurement (m ass/volume)Ordered By: Rodney De La O on 03-25-2025 Glucose [Mass/Vol] 96 mg/dL 70-99 [facility] Serum or plasma alanine araujo otransferase (ALT) measurementOrdered By: Rodney De La O on 03-25-2025 ALT [Catalytic activity/Vol] 14 U/L <47 [facility] Serum or plasma albumin trina urement (mass/volume)Ordered By: Rodney De La O on 03-25-2025 Albumin [Mass/Vol] 4.9 g/dL 3.5-5.0 [facility] Serum or plasma albumin/glob ulin mass ratioOrdered By: Rodney De La O on 03-25-2025 Albumin/Globulin [Mass ratio] 1.7 {ratio} 0.9-2.4 [facility] Serum or plasma alkaline larry sphatase measurementOrdered By: Rodney De La O on 03-25-2025 ALP [Catalytic activity/Vol] 74 U/L 40-129 [facility] Serum or plasma calcium trina urement (mass/volume)Ordered By: Rodney De La O on 03-25-2025 Calcium [Mass/Vol] 9.8 mg/dL 7.6-11.0 [facility] Serum or plasma urea nitroge n measurement (mass/volume)Ordered By: Rodney De La O on 03-25-2025 Urea nitrogen [Mass/Vol] 15 mg/dL 4-19 [facility] Sodium levelOrdered By: Rodney De La O on 03-25-2025 Sodium [Moles/Vol] 139 mmol/L 133-145 [facility] Total proteinOrdered By: Ashvin clint Jairon on 03-25-2025 Protein [Mass/Vol] 7.7 g/dL 5.9-8.4 [facility] White blood cell (WBC) count Ordered By: Rodney De La O on 03-25-2025 WBC (Bld) [#/Vol] 8.5 10*3/uL 4.4-11.0 [facility] CNPNon 02-20-2025 CNPN Telephone (TXCTMN) ----- AGAPITO PARK ([id number]) 1995 M Date Time Provider Department 02/20/25 INTESTINAL TRANS COORD MAIN TXCTMN During your visit today, we recorded the following information about you: Rosalinda Duenas RN 02/20/2025 9:27 AM Signed Call placed to [facility]. Still has some pain but its much better since surgery. No nausea or vomiting. Early saitiety but he said he can tell his stomach empties fine. He isnt concerned about the symptoms SBFT said some narrowing. Will review image with BOLVIAR Wellington Christopher, RN 02/20/2025 5:52 PM Signed I reviewed imaging and report for Jarrell's SBFT with Dr Uribe. If he still has the pain he should get a CT Abd/Pel with PO contrast. He wants to talk to his and will call back when he wants to schedule the scan Rosalinda Duenas RN Allergies As of Date: 02/20/2025 (No Known Allergies) Date Reviewed: 11/06/2022 Reviewed by: Daniel Merritt APRN.TEXTILE SCREEN MAKER - Fully Assessed Prescriptions as of 02/20/2025 - buprenorphine (BUTRANS) 5 mcg/hour Apply 1 Patch as directed one time a week for 1 dose. Do not start before November 09, 2022. - DULoxetine (CYMBALTA) 30 mg capsule Take 2 capsules by mouth once daily. (Observe how you are feeling on this dose) Meds Comments as of 05/10/2022: kkkllob v Problem List As Of Date 02/20/2025 Noted Resolved Malrotation of intestine [Q43.3] 04/13/2022 05/31/2022 S/P exploratory laparotomy [Z98.890] 04/24/2022 Electrolyte abnormality [E87.8] 04/24/2022 05/31/2022 Acute post-operative pain [G89.18] 04/24/2022 05/31/2022 Intestinal obstruction (HCC) [K56.609] 05/28/2022 05/31/2022 Abdominal pain [R10.9] 10/26/2022 11/03/2022 Small bowel obstruction (HCC) [K56.609] 10/26/2022 Moderate protein-calorie malnutrition (HCC) [E4*11/03/2022 Chronic abdominal pain [R10.9, G89.29] 11/03/2022 Encounter Status:Closed by ROSALINDA DUENAS on 02/20/25 Normal [facility] XR UPPER GI SINGLE CONTRASTo n 2025 XR UPPER GI SINGLE CONTRAST * * *Final Report* * * DATE OF EXAM: 2025 11:39AM UDX 5381 - XR UPPER GI W SMALL BOWEL SERIES / UDX 5380 - XR UPPER GI SINGLE CONTRAST / PROCEDURE REASON: [Z98.890] S/P EXPLORATORY LAPAROTOMY [R10.13] EPIGASTRIC PAIN * * * * Physician Interpretation * * * * UPPER GI: With small bowel follow-through. CLINICAL INFORMATION: 30-year-old male with prior abdominal surgery and current abdominal pain.. COMPARISON: None. TECHNIQUE: A biphasic examination of the esophagus and upper GI tract was performed with effervescent granules (E-Z-Gas II)), 10 cc of water and low density barium (E-Z-Paque) RESULT: The pharyngoesophageal region is normal. There is no hiatal hernia,mass, ring, stricture, or esophagitis. Esophageal motility was normal. No discrete mucosal abnormality involving the stomach or proximal small bowel. The contrast reached the presumed anastomosis at 105 minutes. Fluoroscopy time: 40 seconds (min:sec) Fluoroscopy dose: 13.5 mGy 57 fluoroscopic images and 5 fluoroscopic runs were saved and placed in PACS system. IMPRESSION: 1. There is some narrowing at the patient's duodenopexy which may be causing his pain. Otherwise normal upper GI examination. 2. No abnormalities visualized on the small bowel follow-through. Historic Site Administrator: PSCB Transcribe Date/Time: Jan 14 2025 10:33A Dictated by : ROSALINDA LAWTON MD This examination was interpreted and the report reviewed and electronically signed by: ROSALINDA LAWTON MD on Jan 14 2025 10:43AM EST [id number] [facility] XR UPPER GI W SMALL BOWEL SE [facility] 2025 XR UPPER GI W SMALL BOWEL SERIES * * *Final Report* * * DATE OF EXAM: 2025 11:39AM UDX 5381 - XR UPPER GI W SMALL BOWEL SERIES / UDX 5380 - XR UPPER GI SINGLE CONTRAST / PROCEDURE REASON: [Z98.890] S/P EXPLORATORY LAPAROTOMY [R10.13] EPIGASTRIC PAIN * * * * Physician Interpretation * * * * UPPER GI: With small bowel follow-through. CLINICAL INFORMATION: 30-year-old male with prior abdominal surgery and current abdominal pain.. COMPARISON: None. TECHNIQUE: A biphasic examination of the esophagus and upper GI tract was performed with effervescent granules (E-Z-Gas II)), 10 cc of water and low density barium (E-Z-Paque) RESULT: The pharyngoesophageal region is normal. There is no hiatal hernia,mass, ring, stricture, or esophagitis. Esophageal motility was normal. No discrete mucosal abnormality involving the stomach or proximal small bowel. The contrast reached the presumed anastomosis at 105 minutes. Fluoroscopy time: 40 seconds (min:sec) Fluoroscopy dose: 13.5 mGy 57 fluoroscopic images and 5 fluoroscopic runs were saved and placed in PACS system. IMPRESSION: 1. There is some narrowing at the patient's duodenopexy which may be causing his pain. Otherwise normal upper GI examination. 2. No abnormalities visualized on the small bowel follow-through. Historic Site Administrator: MONIQUE Transcribe Date/Time: Jan 14 2025 10:33A Dictated by : ROSALINDA LAWTON MD This examination was interpreted and the report reviewed and electronically signed by: ROSALINDA LAWTON MD on Jan 14 2025 10:43AM EST [id number] Normal [facility] CBC W Auto Differential pane l (Bld)on 12-22-2024 Basophils (Bld) [#/Vol] 0.08 10*3/uL Normal <0.11 [facility] Comment on above: Order Comment: Speci men Type: BLOOD SPECIMEN Ordering Facility: [facility] Address: [address] [place] [address] Performed By: #### 5 7021-8 #### [facility] CLIA [id number] [address] [place] [address] [place] Basophils/100 WBC (Bld) 1.3 % Normal [facility] Comment on above: Order Comment: Speci men Type: BLOOD SPECIMEN Ordering Facility: [facility] Address: [address] [place] [address] Performed By: #### 5 7021-8 #### [facility] CLIA [id number] [address] [place] [address] [place] Differential cell count method Nom (Bld) Auto Normal [facility] Comment on above: Order Comment: Speci men Type: BLOOD SPECIMEN Ordering Facility: [facility] Address: [address] [place] [address] Performed By: #### 5 7021-8 #### [facility] CLIA [id number] [address] [place] [address] [place] Eosinophils (Bld) [#/Vol] 0.23 10*3/uL Normal <0.46 [facility] Comment on above: Order Comment: Speci men Type: BLOOD SPECIMEN Ordering Facility: [facility] Address: [address] [place] [address] Performed By: #### 5 7021-8 #### [facility] CLIA [id number] [address] [place] [address] [place] Eosinophils/100 WBC (Bld) 3.6 % Normal [facility] Comment on above: Order Comment: Speci men Type: BLOOD SPECIMEN Ordering Facility: [facility] Address: [address] [place] [address] Performed By: #### 5 7021-8 #### [facility] CLIA [id number] [address] [place] [address] [place] Erythrocyte distribution width (RBC) [Ratio] 13.4 % Normal 11.5-15.0 [facility] Comment on above: Order Comment: Speci men Type: BLOOD SPECIMEN Ordering Facility: [facility] Address: [address] [place] [address] Performed By: #### 5 7021-8 #### [facility] CLIA [id number] [address] [place] [address] [place] Hematocrit (Bld) [Volume fraction] 43.5 % Normal 39.0-51.0 [facility] Comment on above: Order Comment: Speci men Type: BLOOD SPECIMEN Ordering Facility: [facility] Address: [address] [place] [address] Performed By: #### 5 7021-8 #### [facility] CLIA [id number] [address] [place], [place] [id number] [place] Hemoglobin (Bld) [Mass/Vol] 14.2 g/dL Normal 13.0-17.0 [facility] Comment on above: Order Comment: Speci men Type: BLOOD SPECIMEN Ordering Facility: [facility] Address: [address] [place] [address] Performed By: #### 5 7021-8 #### [facility] CLIA [id number] [address] [place], [place] [id number] [place] Immature granulocytes (Bld) [#/Vol] 10*3/uL Normal <0.10 [facility] Comment on above: Order Comment: Speci men Type: BLOOD SPECIMEN Ordering Facility: [facility] Address: [address] [place] [address] Performed By: #### 5 7021-8 #### [facility] CLIA [id number] [address] [place] [address] [place] Immature granulocytes/100 WBC (Bld) 0.3 % Normal [facility] Comment on above: Order Comment: Speci men Type: BLOOD SPECIMEN Ordering Facility: [facility] Address: [address] [place] [address] Performed By: #### 5 7021-8 #### [facility] CLIA [id number] [address] [place] [address] [place] Lymphocytes (Bld) [#/Vol] 2.80 10*3/uL Normal 1.00-4.00 [facility] Comment on above: Order Comment: Speci men Type: BLOOD SPECIMEN Ordering Facility: [facility] Address: [address] [place] [address] Performed By: #### 5 7021-8 #### [facility] CLIA [id number] [address] [place] [address] [place] Lymphocytes/100 WBC (Bld) 43.9 % Normal [facility] Comment on above: Order Comment: Speci men Type: BLOOD SPECIMEN Ordering Facility: [facility] Address: [address] [place] [address] Performed By: #### 5 7021-8 #### [facility] CLIA [id number] [address] [place] [address] [place] MCH (RBC) [Entitic mass] 31.0 pg Normal 26.0-34.0 [facility] Comment on above: Order Comment: Speci men Type: BLOOD SPECIMEN Ordering Facility: [facility] Address: [address] [place] [address] Performed By: #### 5 7021-8 #### [facility] CLIA [id number] [address] [place] [address] [place] MCHC (RBC) [Mass/Vol] 32.6 g/dL Normal 30.5-36.0 [facility] Comment on above: Order Comment: Speci men Type: BLOOD SPECIMEN Ordering Facility: [facility] Address: [address] [place] [address] Performed By: #### 5 7021-8 #### [facility] CLIA [id number] [address] [place] [address] [place] MCV (RBC) [Entitic vol] 95.0 fL Normal 80.0-100.0 [facility] Comment on above: Order Comment: Speci men Type: BLOOD SPECIMEN Ordering Facility: [facility] Address: [address] [place] [address] Performed By: #### 5 7021-8 #### [facility] CLIA [id number] [address] [place] [address] [place] Monocytes (Bld) [#/Vol] 0.54 10*3/uL Normal <0.87 [facility] Comment on above: Order Comment: Speci men Type: BLOOD SPECIMEN Ordering Facility: [facility] Address: [address] [place] [address] Performed By: #### 5 7021-8 #### [facility] CLIA [id number] [address] [place] [address] [place] Monocytes/100 WBC (Bld) 8.5 % Normal [facility] Comment on above: Order Comment: Speci men Type: BLOOD SPECIMEN Ordering Facility: [facility] Address: [address] [place] [address] Performed By: #### 5 7021-8 #### [facility] CLIA [id number] [address] [place] [address] [place] Neutrophils (Bld) [#/Vol] 2.71 10*3/uL Normal 1.45-7.50 [facility] Comment on above: Order Comment: Speci men Type: BLOOD SPECIMEN Ordering Facility: [facility] Address: [address] [place] [address] Performed By: #### 5 7021-8 #### [facility] CLIA [id number] [address] [place] [address] [place] Neutrophils/100 WBC (Bld) 42.4 % Normal [facility] Comment on above: Order Comment: Speci men Type: BLOOD SPECIMEN Ordering Facility: [facility] Address: [address] [place] [address] Performed By: #### 5 7021-8 #### [facility] CLIA [id number] [address] [place] [address] [place] Nucleated RBC (Bld) [#/Vol] 10*3/uL Normal <0.01 [facility] Comment on above: Order Comment: Speci men Type: BLOOD SPECIMEN Ordering Facility: [facility] Address: [address] [place] [address] Performed By: #### 5 7021-8 #### [facility] CLIA [id number] [address] [place] [address] [place] Nucleated RBC/100 WBC (Bld) [Ratio] 0.0 /100 WBC Normal [facility] Comment on above: Order Comment: Speci men Type: BLOOD SPECIMEN Ordering Facility: [facility] Address: [address] [place] [address] Performed By: #### 5 7021-8 #### [facility] CLIA [id number] [address] [place] [address] [place] Platelet mean volume (Bld) [Entitic vol] 9.6 fL Normal 9.0-12.7 [facility] Comment on above: Order Comment: Speci men Type: BLOOD SPECIMEN Ordering Facility: [facility] Address: [address] [place] [address] Performed By: #### 5 7021-8 #### [facility] CLIA [id number] [address] [place] [address] [place] Platelets (Bld) [#/Vol] 259 10*3/uL Normal 150-400 [facility] Comment on above: Order Comment: Speci men Type: BLOOD SPECIMEN Ordering Facility: [facility] Address: [address] [place] [address] Performed By: #### 5 7021-8 #### [facility] CLIA [id number] [address] [place] [address] [place] RBC (Bld) [#/Vol] 4.58 10*6/uL Normal 4.20-6.00 [facility] Comment on above: Order Comment: Speci men Type: BLOOD SPECIMEN Ordering Facility: [facility] Address: [address] [place] [address] Performed By: #### 5 7021-8 #### [facility] CLIA [id number] [address] [place] [address] [place] WBC (Bld) [#/Vol] 6.38 10*3/uL Normal 3.70-11.00 [facility] Comment on above: Order Comment: Speci men Type: BLOOD SPECIMEN Ordering Facility: [facility] Address: [address] [place] [address] Performed By: #### 5 7021-8 #### [facility] CLIA [id number] [address] [place] [address] [place] CNOVon 12-22-2024 CNOV Office Visit ([place]CT[place] ) ----- AGAPITO PARK ([id number]) 1995 M Date Time Provider Department 12/22/24 INTESTINAL TRANS COORD MAIN [place] During your visit today, we recorded the following information about you: Temperature Pulse Blood pressure Weight 98.1 degrees 86/minute 133/86 71.2 kg Height 1.778 m Isaac Smith PA-C 12/25/2024 1:03 PM Signed [facility] Follow Up Visit REASON FOR VISIT: Post- operative care ESTABLISHED DIAGNOSIS: gut malrotation correction, SBO SURGERY: yes DATE OF SURGERY: 04/21/2022 TYPE OF SURGERY: Exploratory laparotomy Lysis of adhesion. Complete omentectomy. Segmental colectomy ( descending colon) with preservation of cecum and ICV Colocolonic anastomosis. Duodenopexy Rectopexy Sigmoidopexy. Cecopexy. Mesentericopexy Appendectomy DATE OF SURGERY: 10/31/2022 TYPE OF SURGERY: 1. Exploratory laparotomy with lysis of extensive adhesion including 2 stricturing bands. 2. Extended right hemicolectomy. 3. Excision of a mucous filled hepatic cyst in segment 4. 4. Ileosigmoid anastomosis. 5. Colopexy. 6. Primary abdominal wall closures. CURRENT COMPLAINT(S): mid upper abd pain History: Agapito Park is a 29 year old Quaker male (supportive , young child) from [facility] with a history of tobacco use x 5yrs (quit 2017), L inguinal hernia repair with resection of hemorrhagic omentum (2000, age 6), and anxiety and depression with lifelong intermittent episodes of reflux/vomiting. He developed post-prandial abdominal pain in late 2013 for which esophageal manometry revealed GERD and UGI SBFT suggested congenital intestinal malrotation. The patient underwent laparoscopic hiatal hernia repair with LINX antireflux implant (Jul 2016), however the LINX was removed (11/08/17) due to severe dysphagia, chronic narcotic-dependent epigastric pain, and dehydration. He continued to suffer with episodes of severe abdominal pain, headaches, constipation, and vomiting every 2-3 months. Was diagnosed with cyclic vomiting syndrome by Dr. Syl Jett at [facility] in mid 2018 and was treated with several neurologic therapies and interventions without relief. The patient and family researched on the internet and called our office to request surgical consultation with Dr. Felder. Patient complained of abdominal pain and presented to ER on 04/04/22. On 04/21 he underwent malrotation correction surgery including ex lap, DIMITRI, Complete omentectomy, Segmental colectomy (descending colon) with preservation of cecum and ICV, Colocolonic anastomosis, Duodenopexy, Rectopexy, Sigmoidopexy, Cecopexy, Mesentericopexy, Appendectomy. Post operatively his labs remained stable. On 04/27, he was tolerating GI soft diet and having bowel movements. He was deemed safe for discharge. ADMISSION 10/26/2022 - 11/06/2022 - He presented 10/26/22 from OSH for evaluation of abdominal pain, nausea/vomiting, and no bowel movement for past 2 days- concern for small bowel obstruction. States lower midline abdominal pain and bilious vomiting starting on 10/24. Has not had any bowel movements since that day. Denies fever, chills, chest pain, shortness of breath or any other symptoms. CT abdomen and pelvis with IV contrast performed at outside hospital showed concern for midgrade mechanical small bowel obstruction at level of mid ileum, which may be due to adhesions as there is no focal mass seen. OSH reached out to Dr. Baylee Felder who accepted transfer for further evaluation and management. Upon admission, NG tube was placed. Small bowel follow through performed on 10/26 showing high grade small bowel obstruction after 8 hours, contrast material does not opacify ascending colon in the right abdomen. He was given tap water enemas and lactulose in an attempt to open his bowels, however after 2 days was still not having bowel movements. Ex Lap surgery on 10/31 findings: two small bowel obstructions, lysis of adhesions, extended R hemicolectomy with ileorectal anastomosis. After surgery with dilaudid CITY ROUTE DRIVER, Adair, NG, and NPO. On 11/01 the adair, was removed, stop clinician dose dilaudid and decreased dilaudid CITY ROUTE DRIVER. Next on 11/02 Roboxin 500 mg PO started TID PRN. On 11/03 his diet was advanced to full liquid, the CITY ROUTE DRIVER was stopped, and PO dilaudid with IV dilaudid for breakthrough pain was started. Then on 11/04 diet was continued to be advanced to soft diet. Lastly on 11/06 his central line was removed. He was seen by Dr. Uribe and deemed ready for discharge at this time. Current Outpatient Medications Medication Sig Dispense Refill scopolamine (TRANSDERM-SCOP) patch 1.5 mg/72 hr (delivers 1 mg over 3 days) Apply 1 Patch as directed every 72 hours. 3 Patch 0 lidocaine (SALONPAS) 4 % patch Apply 1 Patch as directed once daily as needed (pain). 10 Patch 0 buprenorph (more content not included)... Normal [facility] 12-22-2024 CNPN Telephone ([place]CT[place]) ----- AGAPITO PARK ([id number]) 1995 M Date Time Provider Department 12/22/24 INTESTINAL TRANS COORD MAIN [place]CT[facility] During your visit today, we recorded the following information about you: Rosalinda Duenas RN 01/15/2025 9:49 AM Addendum Patient seen in clinic, informal visit given some issue getting insurance confirmed prior to visit time. He is having some abdominal pain above umbillicus, 2-3 BM/day, Dr Uribe recommended he get Upper GI series with SBFT. Can do this at [facility]. Order is in Epic. Dr Uribe recommended he avoid constipation. BOLIVAR Garcia Christopher, RN 02/12/2025 2:56 PM Signed Call placed to [facility] for update, have not heard from him since he had SBFT would like clinical update Rosalinda Duenas RN Allergies As of Date: 12/22/2024 (No Known Allergies) Date Reviewed: 11/06/2022 Reviewed by: Daniel Merritt, ROS.TEXTILE SCREEN MAKER - Fully Assessed Reason for Visit: Care Coordination [8191] Primary Visit Diagnosis:S/P exploratory laparotomy [Z98.890] Other Visit Diagnosis:Chronic abdominal pain [R10.9, G89.29] Order(s):GUT REHAB FOLLOW UP APPOINTMENT(NOT FOR USE REFERRAL FOR [employer]GAN [employer]) [[id number]] Order #: [id number]: 1 FUTURE GUT REHAB FOLLOW UP APPOINTMENT(NOT FOR USE REFERRAL FOR ORGAN TRANSPLANT) [[id number]] Order #: [id number]: 1 Prescriptions as of 02/12/2025 - buprenorphine (BUTRANS) 5 mcg/hour Apply 1 Patch as directed one time a week for 1 dose. Do not start before November 09, 2022. - DULoxetine (CYMBALTA) 30 mg capsule Take 2 capsules by mouth once daily. (Observe how you are feeling on this dose) Meds Comments as of 05/10/2022: kkkllob v Problem List As Of Date 12/22/2024 Noted Resolved Malrotation of intestine [Q43.3] 04/13/2022 05/31/2022 S/P exploratory laparotomy [Z98.890] 04/24/2022 Electrolyte abnormality [E87.8] 04/24/2022 05/31/2022 Acute post-operative pain [G89.18] 04/24/2022 05/31/2022 Intestinal obstruction (HCC) [K56.609] 05/28/2022 05/31/2022 Abdominal pain [R10.9] 10/26/2022 11/03/2022 Small bowel obstruction (HCC) [K56.609] 10/26/2022 Moderate protein-calorie malnutrition (HCC) [E4*11/03/2022 Chronic abdominal pain [R10.9, G89.29] 11/03/2022 Medications Discontinued During This Encounter Prescriptions - cholecalciferol (VITAMIN D3) 5,000 unit tab (Discontinued) Take 1 tablet by mouth once daily. - lactobacillus rhamnosus (CULTURELLE) 10 billion cell capsule (Discontinued) Take 1 capsule by mouth once daily. - lidocaine (SALONPAS) 4 % patch (Discontinued) Apply 1 Patch as directed once daily as needed (pain). - scopolamine (TRANSDERM-SCOP) patch 1.5 mg/72 hr (delivers 1 mg over 3 days) (Discontinued) Apply 1 Patch as directed every 72 hours. - therapeutic multivitamin-minerals (THERA-M PLUS) 9 mg iron-400 mcg tablet (Discontinued) Take 1 tablet by mouth once daily. Encounter Status:Closed by ROSALINDA DUENAS on 12/22/24 Normal [facility] Comprehensive metabolic 2000 panelon 12-22-2024 Albumin [Mass/Vol] 4.6 g/dL Normal 3.9-4.9 [facility] Comment on above: Order Comment: Speci men Type: BLOOD SPECIMEN Ordering Facility: [facility] Address: [address] [place] [address] Performed By: #### 2 777-1, , #### [facility] CLIA [id number] [address] [place] [address] [place] ALP [Catalytic activity/Vol] 63 U/L Normal 38-113 [facility] Comment on above: Order Comment: Speci men Type: BLOOD SPECIMEN Ordering Facility: [facility] Address: [address] [place] [address] Performed By: #### 2 777-1, , #### [facility] CLIA [id number] [address] [place] [address] [place] ALT [Catalytic activity/Vol] 15 U/L Normal 10-54 [facility] Comment on above: Order Comment: Speci men Type: BLOOD SPECIMEN Ordering Facility: [facility] Address: [address] [place] [address] Performed By: #### 2 777-1, , #### [facility] CLIA [id number] [address] [place], [place] [address] [place] Anion gap [Moles/Vol] 11 mmol/L Normal 8-15 [facility] Comment on above: Order Comment: Speci men Type: BLOOD SPECIMEN Ordering Facility: [facility] Address: [address] [place] [address] Performed By: #### 2 777-1, , #### [facility] CLIA [id number] [address] [place], [place] [address] [place] AST [Catalytic activity/Vol] 26 U/L Normal 14-40 [facility] Comment on above: Order Comment: Speci men Type: BLOOD SPECIMEN Ordering Facility: [facility] Address: [address] [place] [address] Performed By: #### 2 777-1, , #### [facility] CLIA [id number] [address] [place], [place] [address] [place] Bilirubin [Mass/Vol] 0.4 mg/dL Normal 0.2-1.3 [facility] Comment on above: Order Comment: Speci men Type: BLOOD SPECIMEN Ordering Facility: [facility] Address: [address] [place] [address] Performed By: #### 2 777-1, , #### [facility] CLIA [id number] [address] [place] [address] [place] Calcium [Mass/Vol] 9.3 mg/dL Normal 8.5-10.2 [facility] Comment on above: Order Comment: Speci men Type: BLOOD SPECIMEN Ordering Facility: [facility] Address: [address] [place] [address] Performed By: #### 2 777-1, , #### [facility] CLIA [id number] [address] [place], [place] [address] [place] Chloride [Moles/Vol] 101 mmol/L Normal 98-107 [facility] Comment on above: Order Comment: Speci men Type: BLOOD SPECIMEN Ordering Facility: [facility] Address: [address] [place] [address] Performed By: #### 2 777-1, , #### [facility] CLIA [id number] [address] [place], [place] [address] [place] CO2 [Moles/Vol] 25 mmol/L Normal 22-30 [facility] Comment on above: Order Comment: Speci men Type: BLOOD SPECIMEN Ordering Facility: [facility] Address: [address] [place] [address] Performed By: #### 2 777-1, , #### [facility] CLIA [id number] [address] [place] [address] [place] Creatinine [Mass/Vol] 0.98 mg/dL Normal 0.73-1.22 [facility] Comment on above: Order Comment: Speci men Type: BLOOD SPECIMEN Ordering Facility: [facility] Address: [address] [place] [address] Performed By: #### 2 777-1, , #### [facility] CLIA [id number] [address] [place] [address] [place] Creatinine and Glomerular filtration rate.predicted panel (S/P/Bld) 106 mL/min/1.73m??? Normal >=60 [facility] Comment on above: Order Comment: Jayda guerin Type: BLOOD SPECIMEN Ordering Facility: [facility] Address: [address] [place] [address] Result Comment: Chrissy mated Glomerular Filtration Rate (eGFR) is calculated using the 2020 CKD-EPI creatinine equation. This equation utilizes serum creatinine, sex, and age as parameters. The creatinine assay has traceable calibration to isotope dilution-mass spectrometry. Refer to KDIGO guidelines for clinical interpretation. In patients with unstable renal function, e.g. those with acute kidney injury, the eGFR may not accurately reflect actual GFR. Performed By: #### 2 777-1, , #### [facility] CLIA [id number] [address] [place], [place] [address] [place] Glucose [Mass/Vol] 95 mg/dL Normal 74-99 [facility] Comment on above: Order Comment: Speci men Type: BLOOD SPECIMEN Ordering Facility: [facility] Address: [address] [place], [place] [address] Result Comment: The [place] Diabetes Association (ADA) provides guidance for cutoff values for fasting glucose and random glucose. The ADA defines fasting as no caloric intake for at least 8 hours. Fasting plasma glucose results between 100 to 125 mg/dL indicate increased risk for diabetes (prediabetes). Fasting plasma glucose results greater than or equal to 126 mg/dL meet the criteria for diagnosis of diabetes. In the absence of unequivocal hyperglycemia, results should be confirmed by repeat testing. In a patient with classic symptoms of hyperglycemia or hyperglycemic crisis, random plasma glucose results greater than or equal to 200 mg/dL meet the criteria for diagnosis of diabetes. Reference: Standards of Medical Care in Diabetes 2016, [place] [employer] Association. Diabetes Care. 2016.39(Suppl 1). Performed By: #### 2 777-1, , #### [facility] CLIA [id number] [address] [place] [address] [place] Potassium [Moles/Vol] 4.2 mmol/L Normal 3.7-5.1 [facility] Comment on above: Order Comment: Speci men Type: BLOOD SPECIMEN Ordering Facility: [facility] Address: [address] [place] [address] Performed By: #### 2 777-1, , #### [facility] CLIA [id number] [address] [place] [address] [place] Protein [Mass/Vol] 7.2 g/dL Normal 6.3-8.0 [facility] Comment on above: Order Comment: Speci men Type: BLOOD SPECIMEN Ordering Facility: [facility] Address: [address] [place], [place] [address] Performed By: #### 2 777-1, , #### [facility] CLIA [id number] [address] [place] [address] [place] Sodium [Moles/Vol] 137 mmol/L Normal 136-144 [facility] Comment on above: Order Comment: Speci men Type: BLOOD SPECIMEN Ordering Facility: [facility] Address: [address] [place] [address] Performed By: #### 2 777-1, , #### [facility] CLIA [id number] [address] [place] [address] [place] Urea nitrogen [Mass/Vol] 15 mg/dL Normal 9-24 [facility] Comment on above: Order Comment: Speci men Type: BLOOD SPECIMEN Ordering Facility: [facility] Address: [address] [place] [address] Performed By: #### 2 777-1, , #### [facility] CLIA [id number] [address] [place] [address] [place] Magnesium SerPl-mCncon 12-22 Magnesium [Mass/Vol] 2.1 mg/dL Normal 1.7-2.3 [facility] Comment on above: Order Comment: Speci men Type: BLOOD SPECIMEN Ordering Facility: [facility] Address: [address] [place] [address] Performed By: #### 2 777-1, , #### [facility] CLIA [id number] [address] [place] [address] [place] Phosphate SerPl-mCncon 12-22 Phosphate [Mass/Vol] 2.8 mg/dL Normal 2.7-4.8 [facility] Comment on above: Order Comment: Speci men Type: BLOOD SPECIMEN Ordering Facility: [facility] Address: [address] [place] [address] Performed By: #### 2 777-1, , #### [facility] CLIA [id number] [address] [place] [address] [place] CNPNon 12-19-2024 CNPN Telephone ([place]) ----- AGAPITO PARK ([id number]) 1995 M Date Time Provider Department 12/19/24 INTESTINAL TRANS COORD MAIN [place] During your visit today, we recorded the following information about you: Sabrina Beverly 12/19/2024 10:29 AM Signed Called and left a vm regarding insurance. We do not have any insurance in [facility] for him. Left a call back number for the office. Sabrina Beverly 12/19/2024 12:51 PM Signed 2nd call placed. Left a vm to give the office a call back with insurance information. Allergies As of Date: 12/19/2024 (No Known Allergies) Date Reviewed: 11/06/2022 Reviewed by: Daniel Merritt APRN.[facility] - Fully Assessed Reason for Visit: Insurance [Other] Prescriptions as of 12/22/2024 - scopolamine (TRANSDERM-SCOP) patch 1.5 mg/72 hr (delivers 1 mg over 3 days) Apply 1 Patch as directed every 72 hours. - lidocaine (SALONPAS) 4 % patch Apply 1 Patch as directed once daily as needed (pain). - buprenorphine (BUTRANS) 5 mcg/hour Apply 1 Patch as directed one time a week for 1 dose. Do not start before November 09, 2022. - cholecalciferol (VITAMIN D3) 5,000 unit tab Take 1 tablet by mouth once daily. - therapeutic multivitamin-minerals (THERA-M PLUS) 9 mg iron-400 mcg tablet Take 1 tablet by mouth once daily. - DULoxetine (CYMBALTA) 30 mg capsule Take 2 capsules by mouth once daily. (Observe how you are feeling on this dose) - lactobacillus rhamnosus (CULTURELLE) 10 billion cell capsule Take 1 capsule by mouth once daily. Meds Comments as of 05/10/2022: [email or web address] v Problem List As Of Date 12/19/2024 Noted Resolved Malrotation of intestine [Q43.3] 04/13/2022 05/31/2022 S/P exploratory laparotomy [Z98.890] 04/24/2022 Electrolyte abnormality [E87.8] 04/24/2022 05/31/2022 Acute post-operative pain [G89.18] 04/24/2022 05/31/2022 Intestinal obstruction (HCC) [K56.609] 05/28/2022 05/31/2022 Abdominal pain [R10.9] 10/26/2022 11/03/2022 Small bowel obstruction (HCC) [K56.609] 10/26/2022 Moderate protein-calorie malnutrition (HCC) [E4*11/03/2022 Chronic abdominal pain [R10.9, G89.29] 11/03/2022 Encounter Status:Closed by ROSALINDA DUENAS on 12/19/24 [facility] 12-18-2024 CNPN Telephone (U.Gene.usN) ----- AGAPITO PARK ([id number]) 1995 M Date Time Provider Department 12/18/24 [facility] During your visit today, we recorded the following information about you: Harmony Burgess 12/18/2024 2:31 PM Signed Pt calling to check about 12/22 appt. Contact info: [phone] Lucia Dominguez RN 12/18/2024 4:14 PM Signed Returned pt call. He is aware there was a problem with the scheduling system, however he is confirmed for his visit on Friday 12/22. He verbalized understanding and thanked me for the call. MAGDY Lynch, RN Lucia Dominguez RN 12/19/2024 10:05 AM Signed Received notification that we need updated insurance information for this pt. I called pt to notify him that our team would be reaching out to confirm info. LVDECB should he have any questions. MAGDY Lynch, RN Allergies As of Date: 12/18/2024 (No Known Allergies) Date Reviewed: 11/06/2022 Reviewed by: Daniel Merritt APRN.TEXTILE SCREEN MAKER - Fully Assessed Prescriptions as of 12/19/2024 - scopolamine (TRANSDERM-SCOP) patch 1.5 mg/72 hr (delivers 1 mg over 3 days) Apply 1 Patch as directed every 72 hours. - lidocaine (SALONPAS) 4 % patch Apply 1 Patch as directed once daily as needed (pain). - buprenorphine (BUTRANS) 5 mcg/hour Apply 1 Patch as directed one time a week for 1 dose. Do not start before November 09, 2022. - cholecalciferol (VITAMIN D3) 5,000 unit tab Take 1 tablet by mouth once daily. - therapeutic multivitamin-minerals (THERA-M PLUS) 9 mg iron-400 mcg tablet Take 1 tablet by mouth once daily. - DULoxetine (CYMBALTA) 30 mg capsule Take 2 capsules by mouth once daily. (Observe how you are feeling on this dose) - lactobacillus rhamnosus (CULTURELLE) 10 billion cell capsule Take 1 capsule by mouth once daily. Meds Comments as of 05/10/2022: kkkllob v Problem List As Of Date 12/18/2024 Noted Resolved Malrotation of intestine [Q43.3] 04/13/2022 05/31/2022 S/P exploratory laparotomy [Z98.890] 04/24/2022 Electrolyte abnormality [E87.8] 04/24/2022 05/31/2022 Acute post-operative pain [G89.18] 04/24/2022 05/31/2022 Intestinal obstruction (HCC) [K56.609] 05/28/2022 05/31/2022 Abdominal pain [R10.9] 10/26/2022 11/03/2022 Small bowel obstruction (HCC) [K56.609] 10/26/2022 Moderate protein-calorie malnutrition (HCC) [E4*11/03/2022 Chronic abdominal pain [R10.9, G89.29] 11/03/2022 Encounter Status:Closed by LUCIA DOMINGUEZ on 12/18/[address] [facility] C[facility]N Telephone (TXCTGL) ----- AGAPITO PARK ([id number]) 1995 M Date Time Provider Department 11/13/24 KAYLEEN JIANG TXCTGL During your visit today, we recorded the following information about you: Kayleen Jiang 11/13/2024 12:41 PM Signed Patient called returning nurse Usha call. Lucia Dominguez, RN 11/14/2024 1:57 PM Signed Returned pt call. He stated that over the last three weeks he has been experiencing more abd pain than usual, not constant, located in the middle, rating it 6/10. Nothing specific that brings it on. He is using Butran patches per pain management. The pain is worse when it is time for the patch to be changed. Heat tends to ease the pain slightly. Always worse in the morning. Described as throbbing/ sharp. Eating pretty well for the most part, three meals a day. If having pain, appetite does become weak, but able to eat later in the day. BM 1-2/ day. Varies, but more loose than solid; thicker than water like a smoothie consistency. Not taking any bowel stoppers or laxatives. Overall a lot better than before surgery. States he has gained 20# since surgery, currently 150-155#. It seems that the pt is overall doing better than when we first saw him, but he is requesting an in-person visit with Dr Uribe. He accepted clinic visit on Friday 12/22 @ 1000 with labs prior. MAGDY Lynch, RN Allergies As of Date: 11/13/2024 (No Known Allergies) Date Reviewed: 11/06/2022 Reviewed by: Daniel Merritt APRN.TEXTILE SCREEN MAKER - Fully Assessed Reason for Visit: Appointment [186] Primary Visit Diagnosis:S/P exploratory laparotomy [Z98.890] Other Visit Diagnoses:Small bowel obstruction (HCC) [K56.609] Moderate protein-calorie malnutrition (HCC) [E44.0] Chronic abdominal pain [R10.9, G89.29] Order(s):GUT REHAB FOLLOW UP APPOINTMENT(NOT FOR USE REFERRAL FOR ORGAN TRANSPLANT) [9750946] Order #: [id number]: 1 FUTURE COMPLETE BLOOD COUNT AND DIFFERENTIAL [SQCBCDIF] Order #: [id number] FUTURE COMPREHENSIVE METABOLIC PANEL [SQCMP] Order #: [id number] FUTURE PHOSPHORUS INORGANIC [SQPHOS] Order #: [id number] FUTURE MAGNESIUM [SQMG1] Order #: [id number] FUTURE GUT REHAB FOLLOW UP APPOINTMENT(NOT FOR USE REFERRAL FOR ORGAN TRANSPLANT) [7674005] Order #: [id number]: 1 Prescriptions as of 12/19/2024 - scopolamine (TRANSDERM-SCOP) patch 1.5 mg/72 hr (delivers 1 mg over 3 days) Apply 1 Patch as directed every 72 hours. - lidocaine (SALONPAS) 4 % patch Apply 1 Patch as directed once daily as needed (pain). - buprenorphine (BUTRANS) 5 mcg/hour Apply 1 Patch as directed one time a week for 1 dose. Do not start before November 09, 2022. - cholecalciferol (VITAMIN D3) 5,000 unit tab Take 1 tablet by mouth once daily. - therapeutic multivitamin-minerals (THERA-M PLUS) 9 mg iron-400 mcg tablet Take 1 tablet by mouth once daily. - DULoxetine (CYMBALTA) 30 mg capsule Take 2 capsules by mouth once daily. (Observe how you are feeling on this dose) - lactobacillus rhamnosus (CULTURELLE) 10 billion cell capsule Take 1 capsule by mouth once daily. Meds Comments as of 05/10/2022: kkkllob v Problem List As Of Date 11/13/2024 Noted Resolved Malrotation of intestine [Q43.3] 04/13/2022 05/31/2022 S/P exploratory laparotomy [Z98.890] 04/24/2022 Electrolyte abnormality [E87.8] 04/24/2022 05/31/2022 Acute post-operative pain [G89.18] 04/24/2022 05/31/2022 Intestinal obstruction (HCC) [K56.609] 05/28/2022 05/31/2022 Abdominal pain [R10.9] 10/26/2022 11/03/2022 Small bowel obstruction (HCC) [K56.609] 10/26/2022 Moderate protein-calorie malnutrition (HCC) [E4*11/03/2022 Chronic abdominal pain [R10.9, G89.29] 11/03/2022 Encounter Status:Closed by LUCIA DOMINGUEZ on 11/14/24 [facility] AG[facility]O [facility]ARK ([id number]) 1995 Date Time Provider Department 11/03/24 JO WILBURN TXCTMN During your visit today, we recorded the following information about you: Jo Wilburn, JOHNNY 11/03/2024 10:18 AM Signed Patient's called to get patient scheduled for a follow up appointment with Lucia Tirado, RN 11/03/2024 1:48 PM Signed Call returned to pt. [facility] MAGDY Lynch, RN Allergies As of Date: 11/03/2024 (No Known Allergies) Date Reviewed: 11/06/2022 Reviewed by: Daniel Merritt, ROS.TEXTILE SCREEN MAKER - Fully Assessed Prescriptions as of 12/19/2024 - scopolamine (TRANSDERM-SCOP) patch 1.5 mg/72 hr (delivers 1 mg over 3 days) Apply 1 Patch as directed every 72 hours. - lidocaine (SALONPAS) 4 % patch Apply 1 Patch as directed once daily as needed (pain). - buprenorphine (BUTRANS) 5 mcg/hour Apply 1 Patch as directed one time a week for 1 dose. Do not start before November 09, 2022. - cholecalciferol (VITAMIN D3) 5,000 unit tab Take 1 tablet by mouth once daily. - therapeutic multivitamin-minerals (THERA-M PLUS) 9 mg iron-400 mcg tablet Take 1 tablet by mouth once daily. - DULoxetine (CYMBALTA) 30 mg capsule Take 2 capsules by mouth once daily. (Observe how you are feeling on this dose) - lactobacillus rhamnosus (CULTURELLE) 10 billion cell capsule Take 1 capsule by mouth once daily. 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] 04/13/2022 05/31/2022 S/P exploratory laparotomy [Z98.890] 04/24/2022 Electrolyte abnormality [E87.8] 04/24/2022 05/31/2022 Acute post-operative pain [G89.18] 04/24/2022 05/31/2022 Intestinal obstruction (HCC) [K56.609] 05/28/2022 05/31/2022 Abdominal pain [R10.9] 10/26/2022 11/03/2022 Small bowel obstruction (HCC) [K56.609] 10/26/2022 Moderate protein-calorie malnutrition (HCC) [E4*11/03/2022 Chronic abdominal pain [R10.9, G89.29] 11/03/2022 Encounter Status:Closed by ROSALINDA DUENAS on 11/04/24 [facility] Final Surgical Pathology Rep [facility] 09-17-2024 Final Surgical Pathology Report . Pathology Reports Accession: Collected Date/Time: Received Date/Time: Pathologist: [id number] 09/15/2024 14:27 EST 09/16/2024 09:27 EST YAW SINHA MD Final Surgical Pathology Report DIAGNOSIS: LEFT NECK LESION, EXCISION: - EPIDERMAL INCLUSION CYST CLINICAL INFORMATION: EPIDERMAL CYST Procedure: EXCISION Preoperative diagnosis: SKIN LESION Postoperative diagnosis: SKIN LESION SPECIMEN: A L NECK GROSS DESCRIPTION: All parts labelled with patient name and [id number] Received in formalin labelled left neck excision Is a summers wrinkled ellipse of skin measuring 1.2 x 0.5 and excised to maximum depth of 1.1 cm. Beneath the skin surface is a white firm oval-shaped cystic cavity measuring 1.5 x 1 x 0.8 cm. Excision margin of skin is inked black. Sectioning reveals a smooth-walled cystic cavity with a summers-white cyst content and no identified excrescences. RS-1 Wally Shepherd, Pathologists' Residue Furnace Operator (ASCP) Performed by WALLY SHEPHERD MICROSCOPIC DESCRIPTION: The microscopic examination is performed, except in the case of Gross Only. Verified by Pathology Report verified by [facility] YAW SINHA Sign out Date: 09/17/2024 12:04 Performing Lab: [facility], [address] [place] [address] Pathology Dept Disclaimer If ancillary studies were utilized, the following Laboratory Developed Test (LDT) disclaimer will apply: Under CLIA requirements, [facility] Pathology Laboratory is qualified to perform high complexity testing. For all ancillary stains, positive and negative controls stain appropriately. Performance characteristics of immunohistochemical and chromogenic in-situ hybridization tests have been determined by [facility] Pathology Laboratory. These tests are used for clinical purposes, They should not be regarded as investigational or for research. Normal [facility] Final Surgical Pathology Report #[id number] [facility] Work Phone: Final Surgical Pathology Report #[id number] [facility] Work Phone: Final Surgical Pathology Report #[id number] [facility] Work Phone: Final Surgical Pathology Report #[id number] [facility] Work Phone: Final Surgical Pathology Report #[id number] [facility] Work Phone: Final Surgical Pathology Report #[id number] [facility] Work Phone: Final Surgical Pathology Report #[id number] [facility] Work Phone: Absolute lymphocyte countOrd ered By: ED PROVIDER on 12-05-2023 Lymphocytes Auto (Unsp spec) [#/Vol] 2.26 10*3/uL 0.83-4.51 [facility] Amorphous sediment detection in urine sediment by light microscopyOrdered By: Andrew Osborn on 12-05-2023 Amorphous sediment LM Ql (Urine sed) 2+ [facility] Automated lymphocyte count a s percentage of total leukocytesOrdered By: ED PROVIDER on 12-05-2023 Lymphocytes/100 WBC Auto (Unsp spec) 25.0 % 19-41 [facility] Basophil percentageOrdered B y: Andrew Osborn on 12-05-2023 Basophil percentage 0 SEEN /hpf 0-5 [facility] Basophil percentageOrdered B y: ED PROVIDER on 12-05-2023 Basophils/100 WBC (Bld) 0.7 % 0-1 [facility] Bilirubin [Mass/Vol] 0.70 mg/dL 0.20-1.00 [facility] Comment on above: For patients on eltr ombopag therapy, use of Dimension [place] TBIL is not recommended. Chloride [Moles/Vol] 106 mmol/L 98-107 [facility] Eosinophils/100 WBC (Bld) 0.9 % 0-5 [facility] Glucose [Mass/Vol] 93 mg/dL 74-106 [facility] Hemoglobin (Bld) [Mass/Vol] 15.3 g/dL 13.0-16.5 [facility] Monocytes/100 WBC (Bld) 5.2 % 0-10 [facility] Neutrophils (Bld) [#/Vol] 6.1 10*3/uL 2.0-7.7 [facility] Neutrophils/100 WBC (Bld) 68.0 % 47-70 [facility] Potassium [Moles/Vol] 4.4 mmol/L 3.5-5.1 [facility] Protein [Mass/Vol] 7.5 g/dL 6.4-8.2 [facility] Sodium [Moles/Vol] 139 mmol/L 136-145 [facility] WBC (Bld) [#/Vol] 9.0 10*3/uL 4.4-11.0 [facility] Bilirubin Test strip Ql (U)O rdered By: ED PROVIDER on 12-05-2023 Bilirubin Ql (U) Negative Negative [facility] Determination of erythrocyte mean corpuscular volume (MCV)Ordered By: ED PROVIDER on 12-05-2023 MCV (RBC) [Entitic vol] 93.5 fL 80-94 [facility] Erythrocyte distribution wid th ratioOrdered By: ED PROVIDER on 12-05-2023 Erythrocyte distribution width (RBC) [Ratio] 12.9 % 11.6-14.6 [facility] Erythrocyte distribution wid th standard deviationOrdered By: ED PROVIDER on 12-05-2023 Erythrocyte distribution width (RBC) [Entitic vol] 44.0 fL 35.1-43.9 [facility] Hematocrit Auto (Bld) [Volum e fraction]Ordered By: ED PROVIDER on 12-05-2023 Hematocrit (Bld) [Volume fraction] 46.3 % 40-54 [facility] Immature granulocytes/100 WB C Auto (Bld)Ordered By: ED PROVIDER on 12-05-2023 Immature granulocytes/100 WBC (Bld) 0.200 % 0.0-0.9 [facility] Comment on above: IG% - Immature Granu locytes (promyelocytes, myelocytes and metamyelocytes) > 1% indicates that a LEFT SHIFT is Present. Ketones Test strip Ql (U)Ord ered By: ED PROVIDER on 12-05-2023 Ketones Ql (U) 5 mg/dl Negative [facility] Laboratory - Chemistry and C hemistry - challengeOrdered By: ED PROVIDER on 12-05-2023 Albumin/Globulin [Mass ratio] 1.1 {ratio} 0.9-2.4 [facility] ALP [Catalytic activity/Vol] 79 U/L 45-117 [facility] ALT [Catalytic activity/Vol] 22 U/L 16-61 [facility] CO2 [Moles/Vol] 31.0 mmol/L 21.0-32.0 [facility] Globulin (S) [Mass/Vol] 3.5 g/dL 2.2-4.2 [facility] Urea nitrogen/Creatinine [Mass ratio] 10.7 mg/mg 10-20 [facility] Laboratory - Hematology and Cell countsOrdered By: ED PROVIDER on 12-05-2023 MCH (RBC) [Entitic mass] 30.9 pg 27.0-32.0 [facility] MCHC (RBC) [Mass/Vol] 33.0 g/dL 32-36 [facility] Nucleated RBC/100 WBC (Bld) [Ratio] 0 % 0-5 [facility] Platelet mean volume (Bld) [Entitic vol] 9.4 fL 6.2-12.0 [facility] Platelets (Bld) [#/Vol] 305 10*3/uL 150-450 [facility] Mucus LM Ql (Urine sed)Order ed By: Andrwe Osborn on 12-05-2023 Mucus Ql (Urine sed) 0 SEEN /hpf [facility] Nitrite Test strip Ql (U)Ord ered By: ED PROVIDER on 12-05-2023 Nitrite Ql (U) Negative Negative [facility] No Panel InformationOrdered By: ED PROVIDER on 12-05-2023 Estimated Creatinine Clearance Calc 100.37 ml/min [facility] Estimated GFR (MDRD) Amer 108 mL/min >60 [facility] Comment on above: GFR Calc Estimated GFR (MDRD) Non-Af Amer 90 mL/min >60 [facility] Comment on above: Non- GFR Calc No Panel InformationOrdered By: Andrew Osborn on 12-05-2023 Urine RBC 0 SEEN /hpf 0-5 [facility] Protein Test strip Ql (U)Ord ered By: ED PROVIDER on 12-05-2023 Protein Ql (U) 30 mg/dl Negative [facility] RBC Auto (Bld) [#/Vol]Ordere d By: ED PROVIDER on 12-05-2023 RBC (Bld) [#/Vol] 4.95 10*6/uL 4.6-6.2 [facility] Serum or plasma calcium trina urement (mass/volume)Ordered By: ED PROVIDER on 12-05-2023 Calcium [Mass/Vol] 9.4 mg/dL 8.5-10.1 [facility] Serum or plasma creatinine m easurement (mass/volume)Ordered By: ED PROVIDER on 12-05-2023 Creatinine [Mass/Vol] 1.03 mg/dL 0.70-1.30 [facility] Comment on above: The validity of the calculated GFR & GFRAA in patients over 70 years has not been determined. Clinical correlation is essential. Serum or plasma urea nitroge n measurement (mass/volume)Ordered By: ED PROVIDER on 12-05-2023 Urea nitrogen [Mass/Vol] 11 mg/dL 7-18 [facility] Squamous epithelial cells de tection in urine sediment by light microscopyOrdered By: Andrew Osborn on 12-05-2023 Epithelial cells.squamous LM Ql (Urine sed) 0 SEEN /hpf 0-5 [facility] Thin prep Papanicolaou smear with manual screeningOrdered By: ED PROVIDER on 12-05-2023 Thin prep Papanicolaou smear with manual screening 4.0 g/dL 3.2-5.0 [facility] Thin prep Papanicolaou smear with manual screening 20 U/L 15-37 [facility] Thin prep Papanicolaou smear with manual screening 2 5-15 [facility] Urine blood detectionOrdered By: ED PROVIDER on 12-05-2023 RBC Ql (U) Negative Negative [facility] Urine clarityOrdered By: ED PROVIDER on 12-05-2023 Clarity (U) Cloudy Clear [facility] Urine color determinationOrd ered By: ED PROVIDER on 12-05-2023 Color (U) Yellow Yellow [facility] Urine glucose detectionOrder ed By: ED PROVIDER on 12-05-2023 Glucose Ql (U) Normal mg/dl Normal [facility] Urine leukocyte esterase det ection by dipstickOrdered By: ED PROVIDER on 12-05-2023 Leukocyte esterase Test strip Ql (U) 25 /ul Negative [facility] Urine pHOrdered By: ED PROVI MERNA on 12-05-2023 pH (U) 8.0 [pH] 5.0 - 8.0 [facility] Urine sediment bacteria coun t by microscopy (number/high power field)Ordered By: Andrew Osborn on 12-05-2023 Bacteria LM.HPF (Urine sed) [#/Area] 0 /[HPF] None Seen [facility] Urine specific gravity measu rementOrdered By: ED PROVIDER on 12-05-2023 Specific gravity (U) [Rel density] 1.010 1.002-1.030 [facility] Urine urobilinogen measureme ntOrdered By: ED PROVIDER on 12-05-2023 Urobilinogen Ql (U) Normal mg/dl Normal [facility] Absolute lymphocyte countOrd ered By: Karel Keller on 08-04-2023 Lymphocytes Auto (Unsp spec) [#/Vol] 2.72 10*3/uL 0.83-4.51 [facility] Basophil percentageOrdered B y: Karel Keller on 08-04-2023 Basophils/100 WBC (Bld) 0.7 % 0-1 [facility] Chloride [Moles/Vol] 100 mmol/L 98-107 [facility] Eosinophils/100 WBC (Bld) 0.3 % 0-5 [facility] Glucose [Mass/Vol] 92 mg/dL 74-106 [facility] Neutrophils (Bld) [#/Vol] 5.5 10*3/uL 2.0-7.7 [facility] Neutrophils/100 WBC (Bld) 62.2 % 47-70 [facility] Potassium [Moles/Vol] 3.6 mmol/L 3.5-5.1 [facility] Sodium [Moles/Vol] 136 mmol/L 136-145 [facility] WBC (Bld) [#/Vol] 8.8 10*3/uL 4.4-11.0 [facility] Blood erythrocytes count (nu mber/volume)Ordered By: Karel Keller on 08-04-2023 RBC (Bld) [#/Vol] 5.28 10*6/uL 4.6-6.2 [facility] Blood hemoglobin measurement (mass/volume)Ordered By: Karel Keller on 08-04-2023 Hemoglobin (Bld) [Mass/Vol] 16.0 g/dL 13.0-16.5 [facility] Blood lymphocytes/100 leukoc ytesOrdered By: Karel Keller on 08-04-2023 Lymphocytes/100 WBC (Bld) 31.0 % 19-41 [facility] Blood monocytes/100 leukocyt esOrdered By: Karel Keller on 08-04-2023 Monocytes/100 WBC (Bld) 5.0 % 0-10 [facility] Blood platelet mean volumeOr dered By: Karel Keller on 08-04-2023 Platelet mean volume (Bld) [Entitic vol] 9.7 fL 6.2-12.0 [facility] Determination of erythrocyte mean corpuscular volume (MCV)Ordered By: Karel Keller on 08-04-2023 MCV (RBC) [Entitic vol] 90.2 fL 80-94 [facility] Hematocrit Auto (Bld) [Volum e fraction]Ordered By: Karel Keller on 08-04-2023 Hematocrit (Bld) [Volume fraction] 47.6 % 40-54 [facility] Laboratory - Chemistry and C hemistry - challengeOrdered By: Karel Keller on 08-04-2023 CO2 [Moles/Vol] 29.0 mmol/L 21.0-32.0 [facility] Lipase [Catalytic activity/Vol] 42 U/L 13-75 [facility] Comment on above: Please note:LIPASE r evised reference range effective 22. New Lipase methodology. Expected to produce lower values than the previous assay method. NEW Reference Range: 13 - 75 U/L Urea nitrogen/Creatinine [Mass ratio] 16.5 mg/mg 10-20 [facility] Laboratory - Hematology and Cell countsOrdered By: Karel Keller on 08-04-2023 Erythrocyte distribution width (RBC) [Entitic vol] 39.9 fL 35.1-43.9 [facility] Erythrocyte distribution width (RBC) [Ratio] 12.2 % 11.6-14.6 [facility] Immature granulocytes/100 WBC (Bld) 0.800 % 0.0-0.9 [facility] Comment on above: IG% - Immature Granu locytes (promyelocytes, myelocytes and metamyelocytes) > 1% indicates that a LEFT SHIFT is Present. MCH (RBC) [Entitic mass] 30.3 pg 27.0-32.0 [facility] Nucleated RBC/100 WBC (Bld) [Ratio] 0 % 0-5 [facility] MCHC Auto (RBC) [Mass/Vol]Or dered By: Karel Keller on 08-04-2023 MCHC (RBC) [Mass/Vol] 33.6 g/dL 32-36 [facility] No Panel InformationOrdered By: Karel Keller on 08-04-2023 Estimated Creatinine Clearance Calc 89.94 ml/min [facility] Estimated GFR (MDRD) Amer 96 mL/min >60 [facility] Comment on above: GFR Calc Estimated GFR (MDRD) Non-Af Amer 79 mL/min >60 [facility] Comment on above: Non- GFR Calc Platelets bldOrdered By: Jacky Keller on 08-04-2023 Platelets (Bld) [#/Vol] 299 10*3/uL 150-450 [facility] Serum or plasma calcium trina urement (mass/volume)Ordered By: Karel Keller on 08-04-2023 Calcium [Mass/Vol] 9.8 mg/dL 8.5-10.1 [facility] Serum or plasma creatinine m easurement (mass/volume)Ordered By: Karel Keller on 08-04-2023 Creatinine [Mass/Vol] 1.15 mg/dL 0.70-1.30 [facility] Comment on above: The validity of the calculated GFR & GFRAA in patients over 70 years has not been determined. Clinical correlation is essential. Serum or plasma urea nitroge n measurement (mass/volume)Ordered By: Karel Keller on 08-04-2023 Urea nitrogen [Mass/Vol] 19 mg/dL 7-18 [facility] Thin prep Papanicolaou smear with manual screeningOrdered By: Karel Keller on 08-04-2023 Thin prep Papanicolaou smear with manual screening 7 5-15 [facility] .Auto Diffon 10-25-2022 Basophil, Absolute 0.0 10 3/mcL Normal 0.0-0.2 [facility] ([place]) Comment on above: Performed By: #### M DW, ADIFF, ANEU, CMP, GFR, CBC ####A[address] [place], [place] [address] Basophils/100 WBC (Bld) 0.6 % Normal 0.0-2.5 [facility] ([place]) Comment on above: Performed By: #### M DW, ADIFF, ANEU, CMP, GFR, CBC ####[address] [place], [place] [address] Eosinophil, Absolute 0.1 10 3/mcL Normal 0.0-0.4 [facility] ([place]) Comment on above: Performed By: #### M DW, ADIFF, ANEU, CMP, GFR, CBC ####[address] [place], [place] [address] Eosinophils/100 WBC (Bld) 1.1 % Normal 0.0-7.0 [facility] ([place]) Comment on above: Performed By: #### M DW, ADIFF, ANEU, CMP, GFR, CBC ####[address] [place], [place] [address] Lymphocyte, Absolute 1.6 10 3/mcL Normal 0.8-3.9 [facility] ([place]) Comment on above: Performed By: #### M DW, ADIFF, ANEU, CMP, GFR, CBC ####[address] [place], [place] [address] Lymphocytes/100 WBC (Bld) 20.3 % Normal 10.0-50.0 [facility] ([place]) Comment on above: Performed By: #### M DW, ADIFF, ANEU, CMP, GFR, CBC ####Amandeeptimothy [address] [place], [place] [address] Monocyte, Absolute 0.3 10 3/mcL Normal 0.2-1.0 [facility] ([place]) Comment on above: Performed By: #### M DW, ADIFF, ANEU, CMP, GFR, CBC ####Amandeep [address] [place], [place] [address] Monocytes/100 WBC (Bld) 4.5 % Normal 1.7-13.0 [facility] ([place]) Comment on above: Performed By: #### M DW, ADIFF, ANEU, CMP, GFR, CBC ####Amandeep [address] [place], [place] [address] Neutrophils/100 WBC (Bld) 73.5 % Normal 37.0-80.0 [facility] ([place]) Comment on above: Performed By: #### M DW, ADIFF, ANEU, CMP, GFR, CBC ####Amandeep [address] [place], [place] [address] .GFRon 10-25-2022 GFR 111 ml/min/1.73sqm Normal [facility] ([place]) Comment on above: Result Comment: GFR Population mean for , Non- Americans Ages 20-29 = 116 mL/min/1.73 sq.m. Ages 30-39 = 107 mL/min/1.73 sq.m. Ages 40-49 = 99 mL/min/1.73 sq.m. Ages 50-59 = 93 mL/min/1.73 sq.m. Ages 60-69 = 85 mL/min/1.73 sq.m. Ages 70+ = 75 mL/min/1.73 sq.m. Chronic Kidney Disease: Less than 60 mL/min/1.73 square meters End Stage Renal Disease: Less than 15 mL/min/1.73 square meters Performed By: #### M DW, ADIFF, ANEU, CMP, GFR, CBC ####Amandeep [address] [place], [place] [address] GFR Non- 92 ml/min/1.73sqm Normal [facility] ([place]) Comment on above: Result Comment: GFR Population mean for , Non- Americans Ages 20-29 = 116 mL/min/1.73 sq.m. Ages 30-39 = 107 mL/min/1.73 sq.m. Ages 40-49 = 99 mL/min/1.73 sq.m. Ages 50-59 = 93 mL/min/1.73 sq.m. Ages 60-69 = 85 mL/min/1.73 sq.m. Ages 70+ = 75 mL/min/1.73 sq.m. Chronic Kidney Disease: Less than 60 mL/min/1.73 square meters End Stage Renal Disease: Less than 15 mL/min/1.73 square meters Performed By: #### M DW, ADIFF, ANEU, CMP, GFR, CBC ####Amandeep [address] [place], [place] [address] .MDWon 10-25-2022 Monocyte Distribution Width 18.08 Normal 0.00-20.00 [facility] ([place]) Comment on above: Result Comment: For ED adult patients suspected of sepsis, MDW<=20.0 does not rule out sepsis or risk of sepsis Performed By: #### M DW, ADIFF, ANEU, CMP, GFR, CBC ####[place] [address] [place], [place] [address] .NEUABSon 10-25-2022 Neutrophil, Absolute 5.6 10 3/mcL Normal 2.9-6.2 [facility] ([place]) Comment on above: Performed By: #### M DW, ADIFF, ANEU, CMP, GFR, CBC ####Amandeep [address] [place], [place] [address] .Urinalysis Microscopic (AO) on 10-25-2022 UA Amorphus 4+ /hpf Normal [facility] ([place]) Comment on above: Performed By: #### U A, UAMICAO #### [facility] [address] [place] [address] UA RBC None Seen Normal None Seen [facility] ([place]) Comment on above: Performed By: #### U A, UAMICAO #### [facility] [address] [place], [place] [address] UA Squam Epithelial None Seen Normal None Seen [facility] ([place]) Comment on above: Performed By: #### U A, UAMICAO #### [facility] [address] [place] [address] UA WBC None Seen Normal None Seen [facility] ([place]) Comment on above: Performed By: #### U A, UAMICAO #### [address] [address] CBCon 10-25-2022 Erythrocyte distribution width (RBC) [Ratio] 13.9 % Normal 11.5-14.5 [facility] ([place]) Comment on above: Performed By: #### M DW, ADIFF, ANEU, CMP, GFR, CBC ####[place] [address] [place] [address] Hematocrit (Bld) [Volume fraction] 42.2 % Normal 42.0-52.0 [facility] ([place]) Comment on above: Performed By: #### M DW, ADIFF, ANEU, CMP, GFR, CBC ####[place] [address] [place] [address] Hgb 14.1 G/dL Normal 14.0-18.0 [facility] ([place]) Comment on above: Performed By: #### M DW, ADIFF, ANEU, CMP, GFR, CBC ####Amandeep [address] [place], [place] [address] MCH (RBC) [Entitic mass] 30.6 pg Normal 27.0-31.2 [facility] ([place]) Comment on above: Performed By: #### M DW, ADIFF, ANEU, CMP, GFR, CBC ####Amandeep [address] [place], [place] [address] MCHC 33.4 G/dL Normal 31.8-35.4 [facility] ([place]) Comment on above: Performed By: #### M DW, ADIFF, ANEU, CMP, GFR, CBC ####Amandeep [address] [place], [place] [address] MCV (RBC) [Entitic vol] 91.6 fL Normal 80.0-94.0 [facility] ([place]) Comment on above: Performed By: #### M DW, ADIFF, ANEU, CMP, GFR, CBC ####Amandeep [address] [place], [place] [address] Platelet 268 10 3/mcL Normal 130-400 [facility] ([place]) Comment on above: Performed By: #### M DW, ADIFF, ANEU, CMP, GFR, CBC ####Amandeep [address] [place], [place] [address] Platelet mean volume (Bld) [Entitic vol] 7.6 fL Normal 7.4-10.4 [facility] ([place]) Comment on above: Performed By: #### M DW, ADIFF, ANEU, CMP, GFR, CBC ####Amandeep [address] [place], [place] [address] RBC 4.61 10 6/mcL Normal 4.04-6.13 [facility] ([place]) Comment on above: Performed By: #### M DW, ADIFF, ANEU, CMP, GFR, CBC ####Amande[address] [place], [place] [address] WBC 7.6 10 3/mcL Normal 4.6-10.8 [facility] ([place]) Comment on above: Performed By: #### M DW, ADIFF, ANEU, CMP, GFR, CBC ####Amande[address] [place], [place] [address] CMPon 10-25-2022 Albumin Level 4.4 G/dL Normal 3.5-5.0 [facility] ([place]) Comment on above: Performed By: #### M DW, ADIFF, ANEU, CMP, GFR, CBC ####Amandeep [address] [place], [place] [address] Albumin/Globulin [Mass ratio] 1.7 {ratio} Normal 1.1-2.5 [facility] ([place]) Comment on above: Performed By: #### M DW, ADIFF, ANEU, CMP, GFR, CBC ####Amandeep [address] [place], [place] [address] ALP [Catalytic activity/Vol] 87 U/L Normal 40-135 [facility] ([place]) Comment on above: Performed By: #### M DW, ADIFF, ANEU, CMP, GFR, CBC ####Amandeep [address] [place], [place] [address] ALT [Catalytic activity/Vol] 29 U/L Normal 16-63 [facility] ([place]) Comment on above: Performed By: #### M DW, ADIFF, ANEU, CMP, GFR, CBC ####Amande[address] [place], [place] [address] AST [Catalytic activity/Vol] 24 U/L Normal 10-40 [facility] ([place]) Comment on above: Performed By: #### M DW, ADIFF, ANEU, CMP, GFR, CBC ####Amande[address] [place], [place] [address] Bili Total 0.5 mg/dL Normal 0.2-1.0 [facility] ([place]) Comment on above: Result Comment: Use of this assay is not recommended for patients undergoing treatment with eltrombopag due to the potential for falsely elevated results. Performed By: #### M DW, ADIFF, ANEU, CMP, GFR, CBC ####[place] [address] [place], [place] [address] BUN/Creatinine Ratio 24 ratio Normal 7-27 [facility] ([place]) Comment on above: Performed By: #### M DW, ADIFF, ANEU, CMP, GFR, CBC ####Amandeep [address] [place], [place] [address] Calcium [Mass/Vol] 9.1 mg/dL Normal 8.4-10.2 Pending [facility] to [facility] ([place]) Comment on above: Performed By: #### M DW, ADIFF, ANEU, CMP, GFR, CBC ####Amandeep [address] [place], [place] [address] Chloride [Moles/Vol] 101 mmol/L Normal 98-107 [facility] ([place]) Comment on above: Performed By: #### M DW, ADIFF, ANEU, CMP, GFR, CBC ####A[address] [place], [place] [address] CO2 [Moles/Vol] 30 mmol/L High 22-29 [facility] ([place]) Comment on above: Performed By: #### M DW, ADIFF, ANEU, CMP, GFR, CBC ####Amandeep [address] [place], [place] [address] Creatinine [Mass/Vol] 0.97 mg/dL Normal 0.70-1.30 [facility] ([place]) Comment on above: Performed By: #### M DW, ADIFF, ANEU, CMP, GFR, CBC ####Amandeep [address] [place], [place] [address] Electrolyte Balance 8.0 mEq/L Normal 4.0-15.0 [facility] ([place]) Comment on above: Performed By: #### M DW, ADIFF, ANEU, CMP, GFR, CBC ####A[address] [place], [place] [address] Globulin 2.6 G/dL Normal [facility] ([place]) Comment on above: Performed By: #### M DW, ADIFF, ANEU, CMP, GFR, CBC ####Amandeep [address] [place], [place] [address] Glucose [Mass/Vol] 101 mg/dL Normal 70-105 [facility] to [facility] ([place]) Comment on above: Performed By: #### M DW, ADIFF, ANEU, CMP, GFR, CBC ####Amandeep [address] [place], [place] [address] Potassium [Moles/Vol] 3.9 mmol/L Normal 3.5-5.1 [facility] ([place]) Comment on above: Performed By: #### M DW, ADIFF, ANEU, CMP, GFR, CBC ####Amande[address] [place], [place] [address] Sodium [Moles/Vol] 139 mmol/L Normal 136-145 [facility] to [facility] ([place]) Comment on above: Performed By: #### M DW, ADIFF, ANEU, CMP, GFR, CBC ####A[address] [place], [place] [address] Total Protein 7.0 G/dL Normal 6.4-8.2 [facility] ([place]) Comment on above: Performed By: #### M DW, ADIFF, ANEU, CMP, GFR, CBC ####Amande[address] [place], [place] [address] Urea nitrogen [Mass/Vol] 23 mg/dL High 7-18 [facility] ([place]) Comment on above: Performed By: #### M DW, ADIFF, ANEU, CMP, GFR, CBC ####Amandeep [address] [place], [place] [address] CT ABD/PELVIS W/ IV CONTRAST ONLYon 10-25-2022 CT ABD/PELVIS W/ IV CONTRAST ONLY ORIGINAL EXAMINATION: CT OF THE ABDOMEN AND PELVIS WITH CONTRAST 10/25/2022 8:08 am TECHNIQUE: CT of the abdomen and pelvis was performed with the administration of intravenous contrast. Multiplanar reformatted images are provided for review. Automated exposure control, iterative reconstruction, and/or weight based adjustment of the mA/kV was utilized to reduce the radiation dose to as low as reasonably achievable. COMPARISON: 07/01/2022, 05/28/2022. HISTORY: ORDERING SYSTEM PROVIDED HISTORY: Bowel malrotation surgery April 2022. Reason for Exam: Constipation x3 days, nausea vomiting x1 day. Pain. FINDINGS: Visualized lung bases are clear. Small hiatal hernia. Again noted is a stable linear hypodensity in the right hepatic lobe, likely a simple cyst. There are multiple tiny hypodense lesions in the spleen which are too small to characterize, likely simple cyst versus hemangiomas. Pancreas, gallbladder and adrenal glands are unremarkable. Kidneys are symmetric in size and enhancement without hydronephrosis or urolithiasis. Urinary bladder is unremarkable. Prostate is normal in size. Colon is normal in caliber. Appendix is not visualized, no pericecal inflammation. There are multiple moderately dilated loops of small bowel in mid abdomen and pelvis which are filled with fluid and gas. No visible transition point, focal mass, or ascites identified. No pneumatosis or bowel wall thickening. No intraperitoneal free air or focal fluid collection. Most of the small bowel is on the left and colon to the right. There is abnormal relationship of superior mesenteric artery and vein. These findings are consistent with malrotation. No lymphadenopathy. Nonaneurysmal abdominal aorta. No acute fracture or destructive osseous lesion. IMPRESSION: Above findings consistent with mid grade mechanical small bowel obstruction at the level of the mid ileum, which may be due to adhesions as there is no focal mass seen. No pneumatosis or intraperitoneal free air. Persistent signs of congenital bowel malrotation. Other chronic and incidental findings as detailed. I have personally reviewed the images of this examination and agree with the resident's finding and interpretation. Interpreted by: Sarwat Alford MD Preliminary Report By: Josy Chambers Electronically signed By Sarwat Alford MD Dictated Date: 10/25/2022 8:10:59 AM Prelim Date: 10/25/2022 8:51:33 AM Sign Date: 10/25/2022 8:51:33 AM Ordering Provider: KARISHMA ALBA [facility] ([place]) LABORATORYOrdered By: Sonali Richards on 10-25-2022 Appearance (U) Slightly Cloudy *ABN* (10/25/22 8:11 AM) Invalid Interpretation Code Clear AO Auto Urine SS Bilirubin Ql (U) Negative (10/25/22 8:11 AM) Invalid Interpretation Code Negative AO Auto Urine SS Color (U) Yellow (10/25/22 8:11 AM) Invalid Interpretation Code AO Auto Urine SS Crystals.amorphous LM.HPF (Urine sed) [#/Area] 4 /[HPF] Invalid Interpretation Code AO Auto Urine SS Glucose Test strip (U) [Mass/Vol] Negative Invalid Interpretation Code Negativemg/ dL AO Auto Urine SS Hemoglobin Auto test strip (U) [Mass/Vol] Negative (10/25/22 8:11 AM) Invalid Interpretation Code Negative AO Auto Urine SS Ketones Ql (U) Trace mg/dL Invalid Interpretation Code Negativemg/ dL AO Auto Urine SS UA Leuk Est Negative (10/25/22 8:11 AM) Invalid Interpretation Code Negative AO Auto Urine SS UA Nitrite Negative (10/25/22 8:11 AM) Invalid Interpretation Code Negative AO Auto Urine SS UA pH 8.5 *ABN* (10/25/22 8:11 AM) Invalid Interpretation Code 5.0 - 8.0 AO Auto Urine SS UA Protein Negative Invalid Interpretation Code Negativemg/ dL AO Auto Urine SS UA RBC None Seen /HPF Invalid Interpretation Code None Seen/HPF AO Auto Urine SS UA Spec Grav 1.020 (10/25/22 8:11 AM) Invalid Interpretation Code 1.015-1.025 AO Auto Urine SS UA Specimen Type Clean Catch (10/25/22 8:11 AM) Invalid Interpretation Code AO Auto Urine SS UA Squam Epithelial None Seen /HPF Invalid Interpretation Code None Seen/HPF AO Auto Urine SS UA Urobilinogen 0.2 E.U./dL Invalid Interpretation Code 0.2-1.0E.U. /dL AO Auto Urine SS WBC LM.HPF (Urine sed) [#/Area] None Seen /HPF Invalid Interpretation Code None Seen/HPF AO Auto Urine SS Basophil, Absolute 0.0 103/mcL Invalid Interpretation Code 0.0 - 0.2 10^3/mcL AO Workflow SS Basophils/100 WBC (Bld) 0.6 % Invalid Interpretation Code 0.0 - 2.5 % AO Workflow SS Eosinophil, Absolute 0.1 103/mcL Invalid Interpretation Code 0.0 - 0.4 10^3/mcL AO Workflow SS Eosinophils/100 WBC (Bld) 1.1 % Invalid Interpretation Code 0.0 - 7.0 % AO Workflow SS Erythrocyte distribution width (RBC) [Ratio] 13.9 % Invalid Interpretation Code 11.5 - 14.5 % AO Workflow SS Hematocrit (Bld) [Volume fraction] 42.2 % Invalid Interpretation Code 42.0 - 52.0 % AO Workflow SS Hemoglobin (Bld) [Mass/Vol] 14.1 G/dL Invalid Interpretation Code 14.0 - 18.0 G/dL AO Workflow SS Lymphocyte, Absolute 1.6 103/mcL Invalid Interpretation Code 0.8 - 3.9 10^3/mcL AO Workflow SS Lymphocytes/100 WBC (Bld) 20.3 % Invalid Interpretation Code 10.0 - 50.0 % AO Workflow SS MCH (RBC) [Entitic mass] 30.6 pg Invalid Interpretation Code 27.0 - 31.2 pg AO Workflow SS MCHC 33.4 G/dL Invalid Interpretation Code 31.8 - 35.4 G/dL AO Workflow SS MCV (RBC) [Entitic vol] 91.6 fL Invalid Interpretation Code 80.0 - 94.0 fL AO Workflow SS Monocyte distribution width Auto (Bld) [Entitic vol] 18.08 Invalid Interpretation Code 0.00 - 20.00 AO Workflow SS Comment on above: Result Comment: For ED adult patients suspected of sepsis, MDW<=20.0 does not rule out sepsis or risk of sepsis Monocyte, Absolute 0.3 103/mcL Invalid Interpretation Code 0.2 - 1.0 10^3/mcL AO Workflow SS Monocytes/100 WBC (Bld) 4.5 % Invalid Interpretation Code 1.7 - 13.0 % AO Workflow SS Neutrophil, Absolute 5.6 103/mcL Invalid Interpretation Code 2.9 - 6.2 10^3/mcL AO Workflow SS Neutrophils/100 WBC (Bld) 73.5 % Invalid Interpretation Code 37.0 - 80.0 % AO Workflow SS Platelet mean volume (Bld) [Entitic vol] 7.6 fL Invalid Interpretation Code 7.4 - 10.4 fL AO Workflow SS Platelets (Bld) [#/Vol] 268 103/mcL Invalid Interpretation Code 130 - 400 10^3/mcL AO Workflow SS RBC (Bld) [#/Vol] 4.61 106/mcL Invalid Interpretation Code 4.04 - 6.13 10^6/mcL AO Workflow SS WBC (Bld) [#/Vol] 7.6 103/mcL Invalid Interpretation Code 4.6 - 10.8 10^3/mcL AO Workflow SS LABORATORYOrdered By: SYSTEM SYSTEM on 10-25-2022 Albumin BCP dye [Mass/Vol] 4.4 G/dL Invalid Interpretation Code 3.5 - 5.0 G/dL AO ADM SS Albumin/Globulin [Mass ratio] 1.7 {ratio} Invalid Interpretation Code 1.1 - 2.5 ratio AO ADM SS ALP [Catalytic activity/Vol] 87 U/L Invalid Interpretation Code 40 - 135 U/L AO ADM SS ALT With P-5'-P [Catalytic activity/Vol] 29 U/L Invalid Interpretation Code 16 - 63 U/L AO ADM SS AST With P-5'-P [Catalytic activity/Vol] 24 U/L Invalid Interpretation Code 10 - 40 U/L AO ADM SS Bilirubin [Mass/Vol] 0.5 mg/dL Invalid Interpretation Code 0.2 - 1.0 mg/dL AO ADM SS Calcium [Mass/Vol] 9.1 mg/dL Invalid Interpretation Code 8.4 - 10.2 mg/dL AO ADM SS Chloride [Moles/Vol] 101 mmol/L Invalid Interpretation Code 98 - 107 mmol/L AO ADM SS CO2 [Moles/Vol] 30 mmol/L Invalid Interpretation Code 22 - 29 mmol/L AO ADM SS Creatinine [Mass/Vol] 0.97 mg/dL Invalid Interpretation Code 0.70 - 1.30 mg/dL AO ADM SS Electrolyte Balance 8.0 mEq/L Invalid Interpretation Code 4.0 - 15.0 mEq/L AO ADM SS GFR 111 ml/min/1.73sqm Invalid Interpretation Code AO Chemistry S GFR Non- 92 ml/min/1.73sqm Invalid Interpretation Code AO Chemistry S Globulin 2.6 G/dL Invalid Interpretation Code AO ADM SS Glucose [Mass/Vol] 101 mg/dL Invalid Interpretation Code 70 - 105 mg/dL AO ADM SS Potassium [Moles/Vol] 3.9 mmol/L Invalid Interpretation Code 3.5 - 5.1 mmol/L AO ADM SS Protein [Mass/Vol] 7.0 G/dL Invalid Interpretation Code 6.4 - 8.2 G/dL AO ADM SS Sodium [Moles/Vol] 139 mmol/L Invalid Interpretation Code 136 - 145 mmol/L AO ADM SS Urea nitrogen [Mass/Vol] 23 mg/dL Invalid Interpretation Code 7 - 18 mg/dL AO ADM SS Urea nitrogen/Creatinine [Mass ratio] 24 ratio Invalid Interpretation Code 7 - 27 ratio AO ADM SS UAon 10-25-2022 Color (U) Yellow Normal [facility] ([place]) Comment on above: Performed By: #### U YOVANNY AvalosAO #### [address] [address] Glucose (U) [Mass/Vol] Negative Normal Negative [facility] ([place]) Comment on above: Performed By: #### U A, UAMICAO #### [place] [address] Ketones Ql (U) Trace Abnormal Negative [facility] ([place]) Comment on above: Performed By: #### U A, UAMICAO #### [place] [address] UA Appear Slightly Cloudy Abnormal Clear [facility] ([place]) Comment on above: Performed By: #### U A, UAMICAO #### [place] [address] UA Blood Negative Normal Negative [facility] ([place]) Comment on above: Performed By: #### U A, UAMICAO #### [place] [address] UA Leuk Est Negative Normal Negative [facility] ([place]) Comment on above: Performed By: #### U A, UAMICAO #### [place] [address] UA Nitrite Negative Normal Negative [facility] ([place]) Comment on above: Performed By: #### U A, UAMICAO #### [place] [address] UA pH 8.5 Abnormal 5.0 - 8.0 [facility] ([place] Comment on above: Performed By: #### U A, UAMICAO #### [place] [address] UA Protein Negative Normal Negative [facility] ([place] Comment on above: Performed By: #### U A, UAMICAO #### [place] [address] UA Spec Grav 1.020 Normal 1.015-1.025 [facility] ([place] Comment on above: Performed By: #### U A, UAMICAO #### [place] [address] UA Specimen Type Clean Catch Normal [facility] ([place]) Comment on above: Performed By: #### U Robbie UAMICAO #### [address] [address] UA Urobilinogen 0.2 E.U./dL Normal 0.2-1.0 [facility] ([place]) Comment on above: Performed By: #### U Robbie UAMICAO #### [address] [address] Urobilinogen (U) [Mass/Vol] Negative Normal Negative [facility] ([place]) Comment on above: Performed By: #### U Robbie UAMICAO #### [address] [address] .Auto Diffon 07-02-2022 Basophil, Absolute 0.1 10 3/mcL Normal 0.0-0.2 [facility] ([place]) Comment on above: Performed By: #### U Robbie UAMICAO #### [address] [address] Basophils/100 WBC (Bld) 0.9 % Normal 0.0-2.5 [facility] ([place]) Comment on above: Performed By: #### U Robbie UAMICAO #### [address] [address] Eosinophil, Absolute 0.1 10 3/mcL Normal 0.0-0.4 [facility] ([place]) Comment on above: Performed By: #### U A UAMICAO #### [address] [address] Eosinophils/100 WBC (Bld) 1.6 % Normal 0.0-7.0 [facility] ([place]) Comment on above: Performed By: #### U A UAMICAO #### [address] [address] Lymphocyte, Absolute 1.8 10 3/mcL Normal 0.8-3.9 [facility] ([place]) Comment on above: Performed By: #### U A UAMICAO #### [address] [address] Lymphocytes/100 WBC (Bld) 23.5 % Normal 10.0-50.0 [facility] ([place] Comment on above: Performed By: #### U Robbie UAMICAO #### [address] [address] Monocyte, Absolute 0.5 10 3/mcL Normal 0.2-1.0 [facility] ([place]) Comment on above: Performed By: #### U Robbie UAMICAO #### [address] [address] Monocytes/100 WBC (Bld) 7.0 % Normal 1.7-13.0 [facility] ([place] Comment on above: Performed By: #### U A, UAMICAO #### [address] [address] Neutrophils/100 WBC (Bld) 67.0 % Normal 37.0-80.0 [facility] ([place]) Comment on above: Performed By: #### U Robbie UAMICAO #### [address] [address] .GFRon 07-02-2022 GFR 110 ml/min/1.73sqm Normal [facility] ([place]) Comment on above: Result Comment: GFR Population mean for , Non- Americans Ages 20-29 = 116 mL/min/1.73 sq.m. Ages 30-39 = 107 mL/min/1.73 sq.m. Ages 40-49 = 99 mL/min/1.73 sq.m. Ages 50-59 = 93 mL/min/1.73 sq.m. Ages 60-69 = 85 mL/min/1.73 sq.m. Ages 70+ = 75 mL/min/1.73 sq.m. Chronic Kidney Disease: Less than 60 mL/min/1.73 square meters End Stage Renal Disease: Less than 15 mL/min/1.73 square meters Performed By: #### C OVD19 #### [address] [address] GFR Non- 90 ml/min/1.73sqm Normal [facility] ([place] Comment on above: Result Comment: GFR Population mean for , Non- Americans Ages 20-29 = 116 mL/min/1.73 sq.m. Ages 30-39 = 107 mL/min/1.73 sq.m. Ages 40-49 = 99 mL/min/1.73 sq.m. Ages 50-59 = 93 mL/min/1.73 sq.m. Ages 60-69 = 85 mL/min/1.73 sq.m. Ages 70+ = 75 mL/min/1.73 sq.m. Chronic Kidney Disease: Less than 60 mL/min/1.73 square meters End Stage Renal Disease: Less than 15 mL/min/1.73 square meters Performed By: #### C OVD19 #### [place] [address] .MDWon 07-02-2022 Monocyte Distribution Width 17.80 Normal 0.00-20.00 [facility] ([place]) Comment on above: Result Comment: For ED adult patients suspected of sepsis, MDW<=20.0 does not rule out sepsis or risk of sepsis Performed By: #### U A UAMICAO #### [place] [address] .NEUABSon 07-02-2022 Neutrophil, Absolute 5.0 10 3/mcL Normal 2.9-6.2 [facility] ([place]) Comment on above: Performed By: #### U A, UAMICAO #### [place] [address] .Urinalysis Microscopic (AO) on 07-02-2022 UA Amorphus 4+ /hpf Normal [facility] ([place]) Comment on above: Performed By: #### U A, UAMICAO #### [place] [address] UA Mucous 2+ /hpf Normal [facility] ([place]) Comment on above: Performed By: #### U A, UAMICAO #### [place] [address] UA RBC None Seen Normal None Seen [facility] ([place] Comment on above: Performed By: #### U A, UAMICAO #### [address] [address] UA Squam Epithelial None Seen Normal None Seen [facility] ([place]) Comment on above: Performed By: #### U A, UAMICAO #### [address] [address] UA WBC 0-5 Abnormal None Seen [facility] ([place] Comment on above: Performed By: #### U A, UAMICAO #### [address] [address] CBCon 07-02-2022 Erythrocyte distribution width (RBC) [Ratio] 14.0 % Normal 11.5-14.5 [facility] ([place]) Comment on above: Performed By: #### U A, UAMICAO #### [place] [id number] Hematocrit (Bld) [Volume fraction] 42.9 % Normal 42.0-52.0 [facility] ([place] Comment on above: Performed By: #### U A UAMICAO #### [place] [id number] Hgb 14.6 G/dL Normal 14.0-18.0 [facility] ([place] Comment on above: Performed By: #### U A, UAMICAO #### [place] [id number] MCH (RBC) [Entitic mass] 31.6 pg High 27.0-31.2 [facility] ([place] Comment on above: Performed By: #### U A, UAMICAO #### [place] [id number] MCHC 34.1 G/dL Normal 31.8-35.4 [facility] ([place] Comment on above: Performed By: #### U A, UAMICAO #### [place] [id number] MCV (RBC) [Entitic vol] 92.8 fL Normal 80.0-94.0 [facility] ([place] Comment on above: Performed By: #### JENNIFER Willams #### [address] [address] Platelet 305 10 3/mcL Normal 130-400 [facility] ([place] Comment on above: Performed By: #### JENNIFER Willams #### Amandeep [address] [address] Platelet mean volume (Bld) [Entitic vol] 7.7 fL Normal 7.4-10.4 [facility] ([place]) Comment on above: Performed By: #### JENNIFER Willams #### [address] [address] RBC 4.62 10 6/mcL Normal 4.04-6.13 [facility] ([place]) Comment on above: Performed By: #### JENNIFER Willams #### [address] [address] WBC 7.5 10 3/mcL Normal 4.6-10.8 [facility] ([place]) Comment on above: Performed By: #### JENNIFER Willams #### [address] [address] CMPon 07-02-2022 Albumin Level 4.6 G/dL Normal 3.5-5.0 [facility] ([place]) Comment on above: Performed By: #### C OVD19 #### [address] [address] Albumin/Globulin [Mass ratio] 1.7 {ratio} Normal 1.1-2.5 [facility] ([place]) Comment on above: Performed By: #### C OVD19 #### [address] [address] ALP [Catalytic activity/Vol] 90 U/L Normal 40-135 [facility] ([place]) Comment on above: Performed By: #### C OVD19 #### Amandeep [address] [address] ALT [Catalytic activity/Vol] 20 U/L Normal 16-63 [facility] ([place] Comment on above: Performed By: #### C OVD19 #### [address] [address] AST [Catalytic activity/Vol] 22 U/L Normal 10-40 [facility] ([place] Comment on above: Performed By: #### C OVD19 #### [address] [address] Bili Total 0.4 mg/dL Normal 0.2-1.0 [facility] ([place]) Comment on above: Result Comment: Use of this assay is not recommended for patients undergoing treatment with eltrombopag due to the potential for falsely elevated results. Performed By: #### C OVD19 #### [address] [address] BUN/Creatinine Ratio 13 ratio Normal 7-27 [facility] ([place]) Comment on above: Performed By: #### C OVD19 #### [address] [address] Calcium [Mass/Vol] 10.3 mg/dL High 8.4-10.2 Pending sale to [facility] ([place]) Comment on above: Performed By: #### C OVD19 #### [address] [address] Chloride [Moles/Vol] 102 mmol/L Normal 98-107 [facility] ([place]) Comment on above: Performed By: #### C OVD19 #### [address] [address] CO2 [Moles/Vol] 30 mmol/L High 22-29 [facility] ([place] Comment on above: Performed By: #### C OVD19 #### [address] [address] Creatinine [Mass/Vol] 0.98 mg/dL Normal 0.70-1.30 [facility] ([place]) Comment on above: Performed By: #### C OVD19 #### [address] [place] [address] Electrolyte Balance 8.0 mEq/L Normal 4.0-15.0 [facility] ([place]) Comment on above: Performed By: #### C OVD19 #### [address] [address] Globulin 2.7 G/dL Normal [facility] ([place] Comment on above: Performed By: #### C OVD19 #### [address] [address] Glucose [Mass/Vol] 95 mg/dL Normal 70-105 P[facility] to [facility] ([place]) Comment on above: Performed By: #### C OVD19 #### [address] [address] Potassium [Moles/Vol] 4.4 mmol/L Normal 3.5-5.1 [facility] ([place]) Comment on above: Performed By: #### C OVD19 #### [address] [address] Sodium [Moles/Vol] 140 mmol/L Normal 136-145 Pending [facility] to [facility] ([place]) Comment on above: Performed By: #### C OVD19 #### [address] [address] Total Protein 7.3 G/dL Normal 6.4-8.2 [facility] ([place] Comment on above: Performed By: #### C OVD19 #### [address] [address] Urea nitrogen [Mass/Vol] 13 mg/dL Normal 7-18 [facility] ([place] Comment on above: Performed By: #### C OVD19 #### [address] [address] [address] ABD/PELVIS W/ IV CONTRAST ONLYon 07-02-2022 CT ABD/PELVIS W/ IV CONTRAST ONLY ORIGINAL EXAMINATION: CT OF THE ABDOMEN AND PELVIS WITH CONTRAST 07/01/2022 10:29 pm TECHNIQUE: CT of the abdomen and pelvis was performed with the administration of intravenous contrast. Multiplanar reformatted images are provided for review. Automated exposure control, iterative reconstruction, and/or weight based adjustment of the mA/kV was utilized to reduce the radiation dose to as low as reasonably achievable. COMPARISON: CT abdomen/pelvis 05/28/2022, 11/22/2017 HISTORY: ORDERING SYSTEM PROVIDED HISTORY: Reason for Exam: pain Candy umbilical pain starting today, history of malrotation correction surgery, colon resection FINDINGS: LOWER CHEST: Included lung bases are clear. ORGANS: There is redemonstration a linear anterior hepatic hypodensity that is unchanged from prior imaging dating back to 2018. The gallbladder, spleen, pancreas, and adrenal glands are unremarkable. KIDNEYS AND URINARY TRACT: The kidneys enhance symmetrically without hydronephrosis.Ureters are not well visualized due to overlapping soft tissue structures. The bladder is under distended and unremarkable. PELVIS: The prostate is not enlarged. GI/BOWEL: There are few distended but not abnormally dilated small bowel loops in the left lower quadrant without other findings to suggest obstruction. The appendix is not clearly identified, but there are no pericecal inflammatory changes to suggest acute appendicitis. No free intraperitoneal air or fluid is seen. PERITONEUM/RETROPERITONEU M: The abdominal aorta is nonaneurysmal. No grossly abnormal in the lymph nodes are identified. BONES/SOFT TISSUES: No acute or suspicious osseous abnormality is seen. IMPRESSION: No acute findings in the abdomen or pelvis. Interpreted by: Rafaela Ridley Preliminary Report By: Rafaela Ridley Electronically signed By Rafaela Ridley Dictated Date: 07/01/2022 10:59:11 PM Prelim Date: 07/01/2022 11:07:32 PM Sign Date: 07/01/2022 11:07:32 PM Ordering Provider: LYNSEY SMITH Normal [facility] ([place]) LIPon 07-02-2022 Lipase Level 47 U/L Normal 16-77 [facility] ([place]) Comment on above: Performed By: #### U JENNIFER Avalos #### Amandeep [address] [address] UAon 07-02-2022 Color (U) Yellow Normal [facility] ([place] Comment on above: Performed By: #### U JENNIFER Avalos #### Amandeep [address] [address] Glucose (U) [Mass/Vol] Negative Normal Negative [facility] ([place]) Comment on above: Performed By: #### U A, UAMICAO #### [place] [address] Ketones Ql (U) Trace Abnormal Negative [facility] ([place] Comment on above: Performed By: #### U A, UAMICAO #### [place] [address] UA Appear Cloudy Abnormal Clear [facility] ([place] Comment on above: Performed By: #### U A, UAMICAO #### [place] [address] UA Blood Negative Normal Negative [facility] ([place] Comment on above: Performed By: #### U A, UAMICAO #### [place] [address] UA Leuk Est Negative Normal Negative [facility] ([place] Comment on above: Performed By: #### U A, UAMICAO #### [place] [address] UA Nitrite Negative Normal Negative [facility] ([place] Comment on above: Performed By: #### U A, UAMICAO #### [place] [address] UA pH 7.0 Normal 5.0 - 8.0 [facility] ([place] Comment on above: Performed By: #### U A, UAMICAO #### [place] [address] UA Protein Negative Normal Negative [facility] ([place] Comment on above: Performed By: #### U A, UAMICAO #### [place] [address] UA Spec Grav 1.025 Normal 1.015-1.025 [facility] ([place] Comment on above: Performed By: #### U A, UAMICAO #### [place] [address] UA Specimen Type Clean Catch Normal [facility] ([place] Comment on above: Performed By: #### U A, UAMICAO #### [address] [address] UA Urobilinogen 0.2 E.U./dL Normal 0.2-1.0 [facility] ([place] Comment on above: Performed By: #### U A, UAMICAO #### [address] [address] Urobilinogen (U) [Mass/Vol] Negative Normal Negative [facility] ([place] Comment on above: Performed By: #### U A, UAMICAO #### [address] [address] .Auto Diffon 05-28-2022 Basophil, Absolute 0.1 10 3/mcL Normal 0.0-0.2 [facility] ([place]) Comment on above: Performed By: #### L IP, CMP, GFR #### [address] [address] Basophils/100 WBC (Bld) 0.6 % Normal 0.0-2.5 [facility] ([place] Comment on above: Performed By: #### L IP, CMP, GFR #### [address] [address] Eosinophil, Absolute 0.2 10 3/mcL Normal 0.0-0.4 [facility] ([place]) Comment on above: Performed By: #### L IP, CMP, GFR #### [address] [address] Eosinophils/100 WBC (Bld) 2.4 % Normal 0.0-7.0 [facility] ([place] Comment on above: Performed By: #### L IP, CMP, GFR #### [address] [address] Lymphocyte, Absolute 1.3 10 3/mcL Normal 0.8-3.9 [facility] ([place]) Comment on above: Performed By: #### L IP, CMP, GFR #### [address] [address] Lymphocytes/100 WBC (Bld) 14.3 % Normal 10.0-50.0 [facility] ([place] Comment on above: Performed By: #### L IP, CMP, GFR #### Amandeep [address] [address] Monocyte, Absolute 0.7 10 3/mcL Normal 0.2-1.0 [facility] ([place]) Comment on above: Performed By: #### L IP, CMP, GFR #### Amandeep [address] [address] Monocytes/100 WBC (Bld) 7.6 % Normal 1.7-13.0 [facility] ([place]) Comment on above: Performed By: #### L IP, CMP, GFR #### Amandeep [address] [address] Neutrophils/100 WBC (Bld) 75.1 % Normal 37.0-80.0 [facility] ([place]) Comment on above: Performed By: #### L IP, CMP, GFR #### [address] [address] .GFRon 05-28-2022 GFR 98 ml/min/1.73sqm Normal [facility] ([place]) Comment on above: Result Comment: GFR Population mean for , Non- Americans Ages 20-29 = 116 mL/min/1.73 sq.m. Ages 30-39 = 107 mL/min/1.73 sq.m. Ages 40-49 = 99 mL/min/1.73 sq.m. Ages 50-59 = 93 mL/min/1.73 sq.m. Ages 60-69 = 85 mL/min/1.73 sq.m. Ages 70+ = 75 mL/min/1.73 sq.m. Chronic Kidney Disease: Less than 60 mL/min/1.73 square meters End Stage Renal Disease: Less than 15 mL/min/1.73 square meters Performed By: #### L IP, CMP, GFR ####[address] [address] GFR Non- 81 ml/min/1.73sqm Normal [facility] ([place]) Comment on above: Result Comment: GFR Population mean for , Non- Americans Ages 20-29 = 116 mL/min/1.73 sq.m. Ages 30-39 = 107 mL/min/1.73 sq.m. Ages 40-49 = 99 mL/min/1.73 sq.m. Ages 50-59 = 93 mL/min/1.73 sq.m. Ages 60-69 = 85 mL/min/1.73 sq.m. Ages 70+ = 75 mL/min/1.73 sq.m. Chronic Kidney Disease: Less than 60 mL/min/1.73 square meters End Stage Renal Disease: Less than 15 mL/min/1.73 square meters Performed By: #### L IP, CMP, GFR ####[address] [address] .MDWon 05-28-2022 Monocyte Distribution Width 20.48 High 0.00-20.00 [facility] ([place]) Comment on above: Result Comment: For adults in ED, MDW>20.0 may be associated with a higher risk of sepsis during the first 12hrs of hospital admission Performed By: #### L IP, CMP, GFR #### [address] [address] .NEUABSon 05-28-2022 Neutrophil, Absolute 6.8 10 3/mcL High 2.9-6.2 [facility] ([place]) Comment on above: Performed By: #### L IP, CMP, GFR #### [address] [address] CBCon 05-28-2022 Erythrocyte distribution width (RBC) [Ratio] 13.6 % Normal 11.5-14.5 [facility] ([place] Comment on above: Performed By: #### L IP, CMP, GFR #### [address] [address] Hematocrit (Bld) [Volume fraction] 44.9 % Normal 42.0-52.0 [facility] ([place] Comment on above: Performed By: #### L IP, CMP, GFR #### [address] [place] [address] Hgb 15.4 G/dL Normal 14.0-18.0 [facility] ([place] Comment on above: Performed By: #### L IP, CMP, GFR #### [address] [address] MCH (RBC) [Entitic mass] 31.2 pg Normal 27.0-31.2 [facility] ([place] Comment on above: Performed By: #### L IP, CMP, GFR #### [address] [address] MCHC 34.3 G/dL Normal 31.8-35.4 [facility] ([place] Comment on above: Performed By: #### L IP, CMP, GFR #### [address] [address] MCV (RBC) [Entitic vol] 91.0 fL Normal 80.0-94.0 [facility] ([place] Comment on above: Performed By: #### L IP, CMP, GFR #### [address] [address] Platelet 358 10 3/mcL Normal 130-400 [facility] ([place] Comment on above: Performed By: #### L IP, CMP, GFR #### [address] [address] Platelet mean volume (Bld) [Entitic vol] 7.2 fL Low 7.4-10.4 [facility] ([place] Comment on above: Performed By: #### L IP, CMP, GFR #### [address] [address] RBC 4.93 10 6/mcL Normal 4.04-6.13 [facility] ([place] Comment on above: Performed By: #### L IP, CMP, GFR #### [address] [address] WBC 9.1 10 3/mcL Normal 4.6-10.8 [facility] ([place] Comment on above: Performed By: #### L IP, CMP, GFR #### [facility] [address] [place], [place] [address] CMPon 05-28-2022 Albumin Level 4.1 G/dL Normal 3.5-5.0 [facility] ([place] Comment on above: Performed By: #### L IP, CMP, GFR ####[address] [place], [place] [address] Albumin/Globulin [Mass ratio] 1.5 {ratio} Normal 1.1-2.5 [facility] ([place] Comment on above: Performed By: #### L IP, CMP, GFR ####[address] [place], [place] [address] ALP [Catalytic activity/Vol] 76 U/L Normal 40-135 [facility] ([place] Comment on above: Performed By: #### L IP, CMP, GFR ####[address] [place], [place] [address] ALT [Catalytic activity/Vol] 28 U/L Normal 16-63 [facility] ([place] Comment on above: Performed By: #### L IP, CMP, GFR ####[address] [place], [place] [address] AST [Catalytic activity/Vol] 20 U/L Normal 10-40 [facility] ([place] Comment on above: Performed By: #### L IP, CMP, GFR ####[address] [place], [place] [address] Bili Total 0.4 mg/dL Normal 0.2-1.0 [facility] ([place] Comment on above: Result Comment: Use of this assay is not recommended for patients undergoing treatment with eltrombopag due to the potential for falsely elevated results. Performed By: #### L IP, CMP, GFR ####[address] [place], [place] [address] BUN/Creatinine Ratio 13 ratio Normal 7-27 [facility] ([place] Comment on above: Performed By: #### L IP, CMP, GFR ####[address] [place], [place] [address] Calcium [Mass/Vol] 9.3 mg/dL Normal 8.4-10.2 Pending [facility] to [facility] ([place]) Comment on above: Performed By: #### L IP, CMP, GFR ####[address] [place], [place] [address] Chloride [Moles/Vol] 100 mmol/L Normal 98-107 [facility] ([place] Comment on above: Performed By: #### L IP, CMP, GFR ####[address] [place], [place] [address] CO2 [Moles/Vol] 30 mmol/L High 22-29 [facility] ([place] Comment on above: Performed By: #### L IP, CMP, GFR ####[address] [place], [place] [address] Creatinine [Mass/Vol] 1.08 mg/dL Normal 0.70-1.30 [facility] ([place] Comment on above: Performed By: #### L IP, CMP, GFR ####[address] [place], [place] [address] Electrolyte Balance 8.0 mEq/L Normal 4.0-15.0 [facility] ([place] Comment on above: Performed By: #### L IP, CMP, GFR ####[address] [place], [place] [address] Globulin 2.7 G/dL Normal [facility] ([place] Comment on above: Performed By: #### L IP, CMP, GFR ####[address] [place], [place] [address] Glucose [Mass/Vol] 113 mg/dL High 70-105 Pending [facility] to [facility] ([place] Comment on above: Performed By: #### L IP, CMP, GFR ####[address] [place], [place] [address] Potassium [Moles/Vol] 3.8 mmol/L Normal 3.5-5.1 [facility] ([place] Comment on above: Performed By: #### L IP, CMP, GFR ####[address] [place], [place] [address] Sodium [Moles/Vol] 138 mmol/L Normal 136-145 Pending [facility] to [facility] ([place] Comment on above: Performed By: #### L IP, CMP, GFR ####[address] [place], [place] [address] Total Protein 6.8 G/dL Normal 6.4-8.2 [facility] ([place] Comment on above: Performed By: #### L IP, CMP, GFR ####[address] [place], [place] [address] Urea nitrogen [Mass/Vol] 14 mg/dL Normal 7-18 [facility] ([place] Comment on above: Performed By: #### L IP, CMP, GFR ####[address] [place], [place] [address] [id number] 05-28-2022 SARS-CoV-2 (COVID-19) RNA GEM+probe Ql (Unsp spec) Negative Normal Negative [facility] ([place] Comment on above: Performed By: #### C OVD19 #### Amandeep [address], [place] [address] SARS-CoV-2 (COVID-19) RNA GEM+probe Ql (Unsp spec) Normal [facility] ([place]) Comment on above: Result Comment: Nega tive results do not preclude SARS-CoV-2 infection and should not be used as the sole basis for patient management decisions. Negative results must be combined with clinical observations, patient history, and epidemiological information. There is a risk of false negative values resulting from improperly collected, transported, or handled specimens. There is a risk of false negative values due to the presence of sequence variants in the pathogen targets of the assay, procedural errors, amplification inhibitors in specimens, or inadequate numbers of organisms for amplification. ZENOBIA SARS-CoV-2 Assay is a Real-Time reverse-transcriptase polymerase chain reaction (RT-PCR) based qualitative in vitro diagnostic test intended for the qualitative detection of nucleic acid from the SARS-CoV-2 in nasopharyngeal swab specimens collected from individuals suspected of COVID-19 by their healthcare provider. Testing is limited to laboratories certified under the Clinical Laboratory Improvement Amendments of 1988 (CLIA), 42 U.S.C. ?263a, to perform moderate and high complexity tests. COVID-19 Int Performed By: #### C OVD19 #### [place] [id number] [place], [place] [address] CT ABD/PELVIS W/ IV CONTRAST ONLYon 05-28-2022 CT ABD/PELVIS W/ IV CONTRAST ONLY ORIGINAL EXAMINATION: CT OF THE ABDOMEN AND PELVIS WITH CONTRAST 05/28/2022 4:35 am TECHNIQUE: CT of the abdomen and pelvis was performed with the administration of intravenous contrast. Multiplanar reformatted images are provided for review. Automated exposure control, iterative reconstruction, and/or weight based adjustment of the mA/kV was utilized to reduce the radiation dose to as low as reasonably achievable. COMPARISON: CT abdomen and pelvis on 10/11/2019 HISTORY: ORDERING SYSTEM PROVIDED HISTORY: Reason for Exam: pain FINDINGS: Lower Chest: No acute abnormality is present at the lung bases. Organs: The liver is normal in size. The bilobed hypodense lesion anteriorly in the left lobe of the liver measuring up to 3 cm in size is unchanged since 2018. There is no biliary ductal dilatation. The pancreas, spleen, adrenal glands, and kidneys show no sign of acute abnormality. GI/Bowel: The stomach and duodenum are unremarkable. There are several mildly dilated fluid-filled loops of small intestine in the mid to lower abdomen extending into the pelvis. These are new compared with prior exam. The colon is not dilated. There is moderate residual stool in the colon, mostly in the right and transverse colon. There is no fecal impaction or colon obstruction. The appendix is not visible. No free intraperitoneal air is present. Pelvis: Urinary bladder is only partly distended and contains no stones. There is no pelvic mass or abnormal fluid collection. Retroperitoneum: The abdominal aorta is nonaneurysmal. There is no retroperitoneal lymph node enlargement. Bones/Soft Tissues: No acute findings. IMPRESSION: Distal small bowel obstruction. There is no intestinal perforation. Stable left hepatic lesion since 2018. This may be a hemangioma or cyst. Interpreted by: Warren Rowland MD Preliminary Report By: Warren Rowland MD Electronically signed By Warren Rowland MD Dictated Date: 05/28/2022 4:38:44 AM Prelim Date: 05/28/2022 4:47:30 AM Sign Date: 05/28/2022 4:47:30 AM Ordering Provider: SEVERINO NAVARRO [facility] ([place]) LABORATORYOrdered By: Lneora Cristina on 05-28-2022 SARS-CoV-2 (COVID-19) RNA GEM+probe Ql (Resp) Negative results do not preclude SARS-CoV-2 infection and should not be used as the sole basis for patient management decisions. Negative results must be combined with clinical observations, patient history, and epidemiological information.There is a risk of false negative values resulting from improperly collected, transported, or handled specimens.There is a risk of false negative values due to the presence of sequence variants in the pathogen targets of the assay, procedural errors, amplification inhibitors in specimens, or inadequate numbers of organisms for amplification.ZENOBIA SARS-CoV-2 Assay is a Real-Time reverse-transcriptase polymerase chain reaction (RT-PCR) based qualitative in vitro diagnostic test intended for the qualitative detection of nucleic acid from the SARS-CoV-2 in nasopharyngeal swab specimens collected from individuals suspected of COVID-19 by their healthcare provider. Testing is limited to laboratories certified under the Clinical Laboratory Improvement Amendments of 1988 (CLIA), 42 U.S.C. 263a, to perform moderate and high complexity tests. Invalid Interpretation Code AO Auto Urine SS LABORATORYOrdered By: Florence Huang on 05-28-2022 Albumin BCP dye [Mass/Vol] 4.1 G/dL Invalid Interpretation Code 3.5 - 5.0 G/dL AO ADM SS Albumin/Globulin [Mass ratio] 1.5 {ratio} Invalid Interpretation Code 1.1 - 2.5 ratio AO ADM SS ALP [Catalytic activity/Vol] 76 U/L Invalid Interpretation Code 40 - 135 U/L AO ADM SS ALT With P-5'-P [Catalytic activity/Vol] 28 U/L Invalid Interpretation Code 16 - 63 U/L AO ADM SS Appearance (U) Clear (05/28/22 3:48 AM) Invalid Interpretation Code Clear AO Auto Urine SS AST With P-5'-P [Catalytic activity/Vol] 20 U/L Invalid Interpretation Code 10 - 40 U/L AO ADM SS Basophil, Absolute 0.1 103/mcL Invalid Interpretation Code 0.0 - 0.2 10^3/mcL AO Workflow SS Basophils/100 WBC (Bld) 0.6 % Invalid Interpretation Code 0.0 - 2.5 % AO Workflow SS Bilirubin [Mass/Vol] 0.4 mg/dL Invalid Interpretation Code 0.2 - 1.0 mg/dL AO ADM SS Bilirubin Ql (U) Small *ABN* (05/28/22 3:48 AM) Invalid Interpretation Code Negative AO Auto Urine SS Calcium [Mass/Vol] 9.3 mg/dL Invalid Interpretation Code 8.4 - 10.2 mg/dL AO ADM SS Chloride [Moles/Vol] 100 mmol/L Invalid Interpretation Code 98 - 107 mmol/L AO ADM SS CO2 [Moles/Vol] 30 mmol/L Invalid Interpretation Code 22 - 29 mmol/L AO ADM SS Color (U) Dark yellow Invalid Interpretation Code AO Auto Urine SS Creatinine [Mass/Vol] 1.08 mg/dL Invalid Interpretation Code 0.70 - 1.30 mg/dL AO ADM SS Electrolyte Balance 8.0 mEq/L Invalid Interpretation Code 4.0 - 15.0 mEq/L AO ADM SS Eosinophil, Absolute 0.2 103/mcL Invalid Interpretation Code 0.0 - 0.4 10^3/mcL AO Workflow SS Eosinophils/100 WBC (Bld) 2.4 % Invalid Interpretation Code 0.0 - 7.0 % AO Workflow SS Erythrocyte distribution width (RBC) [Ratio] 13.6 % Invalid Interpretation Code 11.5 - 14.5 % AO Workflow SS Globulin 2.7 G/dL Invalid Interpretation Code AO ADM SS Glucose [Mass/Vol] 113 mg/dL Invalid Interpretation Code 70 - 105 mg/dL AO ADM SS Glucose Test strip (U) [Mass/Vol] Negative Invalid Interpretation Code Negativemg/ dL AO Auto Urine SS Hematocrit (Bld) [Volume fraction] 44.9 % Invalid Interpretation Code 42.0 - 52.0 % AO Workflow SS Hemoglobin (Bld) [Mass/Vol] 15.4 G/dL Invalid Interpretation Code 14.0 - 18.0 G/dL AO Workflow SS Hemoglobin Auto test strip (U) [Mass/Vol] Negative (05/28/22 3:48 AM) Invalid Interpretation Code Negative AO Auto Urine SS Ketones Ql (U) 15 mg/dL Invalid Interpretation Code Negativemg/ dL AO Auto Urine SS Lipase [Catalytic activity/Vol] 186 U/L Invalid Interpretation Code 73 - 393 U/L AO ADM SS Lymphocyte, Absolute 1.3 103/mcL Invalid Interpretation Code 0.8 - 3.9 10^3/mcL AO Workflow SS Lymphocytes/100 WBC (Bld) 14.3 % Invalid Interpretation Code 10.0 - 50.0 % AO Workflow SS MCH (RBC) [Entitic mass] 31.2 pg Invalid Interpretation Code 27.0 - 31.2 pg AO Workflow SS MCHC 34.3 G/dL Invalid Interpretation Code 31.8 - 35.4 G/dL AO Workflow SS MCV (RBC) [Entitic vol] 91.0 fL Invalid Interpretation Code 80.0 - 94.0 fL AO Workflow SS Monocyte distribution width Auto (Bld) [Entitic vol] 20.48 Invalid Interpretation Code 0.00 - 20.00 AO Workflow SS Comment on above: Result Comment: For adults in ED, MDW>20.0 may be associated with a higher risk of sepsis during the first 12hrs of hospital admission Monocyte, Absolute 0.7 103/mcL Invalid Interpretation Code 0.2 - 1.0 10^3/mcL AO Workflow SS Monocytes/100 WBC (Bld) 7.6 % Invalid Interpretation Code 1.7 - 13.0 % AO Workflow SS Neutrophil, Absolute 6.8 103/mcL Invalid Interpretation Code 2.9 - 6.2 10^3/mcL AO Workflow SS Neutrophils/100 WBC (Bld) 75.1 % Invalid Interpretation Code 37.0 - 80.0 % AO Workflow SS Platelet mean volume (Bld) [Entitic vol] 7.2 fL Invalid Interpretation Code 7.4 - 10.4 fL AO Workflow SS Platelets (Bld) [#/Vol] 358 103/mcL Invalid Interpretation Code 130 - 400 10^3/mcL AO Workflow SS Potassium [Moles/Vol] 3.8 mmol/L Invalid Interpretation Code 3.5 - 5.1 mmol/L AO ADM SS Protein [Mass/Vol] 6.8 G/dL Invalid Interpretation Code 6.4 - 8.2 G/dL AO ADM SS RBC (Bld) [#/Vol] 4.93 106/mcL Invalid Interpretation Code 4.04 - 6.13 10^6/mcL AO Workflow SS Sodium [Moles/Vol] 138 mmol/L Invalid Interpretation Code 136 - 145 mmol/L AO ADM SS UA Leuk Est Negative (05/28/22 3:48 AM) Invalid Interpretation Code Negative AO Auto Urine SS UA Nitrite Negative (05/28/22 3:48 AM) Invalid Interpretation Code Negative AO Auto Urine SS UA pH 6.5 (05/28/22 3:48 AM) Invalid Interpretation Code 5.0 - 8.0 AO Auto Urine SS UA Protein Negative Invalid Interpretation Code Negativemg/ dL AO Auto Urine SS UA Spec Grav 1.025 (05/28/22 3:48 AM) Invalid Interpretation Code 1.015-1.025 AO Auto Urine SS UA Specimen Type Clean Catch (05/28/22 3:48 AM) Invalid Interpretation Code AO Auto Urine SS UA Urobilinogen 0.2 E.U./dL Invalid Interpretation Code 0.2-1.0E.U. /dL AO Auto Urine SS Urea nitrogen [Mass/Vol] 14 mg/dL Invalid Interpretation Code 7 - 18 mg/dL AO ADM SS Urea nitrogen/Creatinine [Mass ratio] 13 ratio Invalid Interpretation Code 7 - 27 ratio AO ADM SS WBC (Bld) [#/Vol] 9.1 103/mcL Invalid Interpretation Code 4.6 - 10.8 10^3/mcL AO Workflow SS LABORATORYOrdered By: SYSTEM SYSTEM on 05-28-2022 GFR 98 ml/min/1.73sqm Invalid Interpretation Code AO Chemistry S GFR Non- 81 ml/min/1.73sqm Invalid Interpretation Code AO Chemistry S LIPon 05-28-2022 Lipase Level 186 U/L Normal 73-393 [facility] ([place] Comment on above: Performed By: #### L IP, CMP, GFR #### Amandeep [address] [address] UAon 05-28-2022 Color (U) Dark yellow Normal [facility] ([place]) Comment on above: Performed By: #### C OVD19 #### [address] [address] Glucose (U) [Mass/Vol] Negative Normal Negative [facility] ([place]) Comment on above: Performed By: #### C OVD19 #### Amandeep [address] [address] Ketones Ql (U) 15 mg/dL Abnormal Negative [facility] ([place] Comment on above: Performed By: #### C OVD19 #### Amandeep [address] [address] UA Appear Clear Normal Clear [facility] ([place] Comment on above: Performed By: #### C OVD19 #### Amandeep [address] [address] UA Bili Small Abnormal Negative [facility] ([place] Comment on above: Performed By: #### C OVD19 #### [address] [address] UA Blood Negative Normal Negative [facility] ([place] Comment on above: Performed By: #### C OVD19 #### Amandeep [place] [address] UA Leuk Est Negative Normal Negative [facility] ([place] Comment on above: Performed By: #### C OVD19 #### [place] [address] UA Nitrite Negative Normal Negative [facility] ([place] Comment on above: Performed By: #### C OVD19 #### [place] [address] UA pH 6.5 Normal 5.0 - 8.0 [facility] ([place] Comment on above: Performed By: #### C OVD19 #### [place] [address] UA Protein Negative Normal Negative [facility] ([place] Comment on above: Performed By: #### C OVD19 #### [place] [address] UA Spec Grav 1.025 Normal 1.015-1.025 [facility] ([place] Comment on above: Performed By: #### C OVD19 #### [place] [address] UA Specimen Type Clean Catch Normal [facility] ([place] Comment on above: Performed By: #### C OVD19 #### [place] [address] UA Urobilinogen 0.2 E.U./dL Normal 0.2-1.0 [facility] ([place] Comment on above: Performed By: #### C OVD19 #### [place] [address] .Auto Diff04-13-2022 Basophil, Absolute 0.1 10 3/mcL Normal 0.0-0.2 [facility] ([place]) Comment on above: Performed By: #### JENNIFER Willams #### [address] [address] Basophils/100 WBC (Bld) 1.5 % Normal 0.0-2.5 [facility] ([place]) Comment on above: Performed By: #### Shae Avalos UAMILTONAO #### [address] [address] Eosinophil, Absolute 0.2 10 3/mcL Normal 0.0-0.4 [facility] ([place]) Comment on above: Performed By: #### YOVANNY WillamsAO #### [address] [address] Eosinophils/100 WBC (Bld) 3.4 % Normal 0.0-7.0 [facility] ([place] Comment on above: Performed By: #### JENNIFER Willams #### [address] [address] Lymphocyte, Absolute 1.9 10 3/mcL Normal 0.8-3.9 [facility] ([place]) Comment on above: Performed By: #### JENNIFER Willams #### [address] [address] Lymphocytes/100 WBC (Bld) 30.0 % Normal 10.0-50.0 [facility] ([place] Comment on above: Performed By: #### Shae Avalos UAMICAO #### [address] [address] Monocyte, Absolute 0.4 10 3/mcL Normal 0.2-1.0 [facility] ([place]) Comment on above: Performed By: #### Shae Avalos UAMICAO #### [address] [address] Monocytes/100 WBC (Bld) 6.9 % Normal 1.7-13.0 [facility] ([place]) Comment on above: Performed By: #### Shae Avalos UAMICAO #### [place] [id number] [place], [place] [address] Neutrophils/100 WBC (Bld) 58.2 % Normal 37.0-80.0 [facility] ([place] Comment on above: Performed By: #### U Robbie UAMICAO #### Amandeep [address] [address] .GFRon 04-13-2022 GFR Non- 78 ml/min/1.73sqm Normal [facility] ([place]) Comment on above: Result Comment: GFR Population mean for , Non- Americans Ages 20-29 = 116 mL/min/1.73 sq.m. Ages 30-39 = 107 mL/min/1.73 sq.m. Ages 40-49 = 99 mL/min/1.73 sq.m. Ages 50-59 = 93 mL/min/1.73 sq.m. Ages 60-69 = 85 mL/min/1.73 sq.m. Ages 70+ = 75 mL/min/1.73 sq.m. Chronic Kidney Disease: Less than 60 mL/min/1.73 square meters End Stage Renal Disease: Less than 15 mL/min/1.73 square meters Performed By: #### U JENNIFER Avalos #### [address] [address] GFR 94 ml/min/1.73sqm Normal [facility] ([place] Comment on above: Result Comment: GFR Population mean for , Non- Americans Ages 20-29 = 116 mL/min/1.73 sq.m. Ages 30-39 = 107 mL/min/1.73 sq.m. Ages 40-49 = 99 mL/min/1.73 sq.m. Ages 50-59 = 93 mL/min/1.73 sq.m. Ages 60-69 = 85 mL/min/1.73 sq.m. Ages 70+ = 75 mL/min/1.73 sq.m. Chronic Kidney Disease: Less than 60 mL/min/1.73 square meters End Stage Renal Disease: Less than 15 mL/min/1.73 square meters Performed By: #### U A UAMICAO #### [address] [address] .MDWon 04-13-2022 Monocyte Distribution Width 20.03 High 0.00-20.00 [facility] ([place] Comment on above: Result Comment: For adults in ED, MDW>20.0 may be associated with a higher risk of sepsis during the first 12hrs of hospital admission Performed By: #### JENNIFER Willams #### [place] [id number] .NEUABSon 04-13-2022 Neutrophil, Absolute 3.7 10 3/mcL Normal 2.9-6.2 [facility] ([place]) Comment on above: Performed By: #### JENNIFER Willams #### [place] [address] CBCon 04-13-2022 Erythrocyte distribution width (RBC) [Ratio] 13.1 % Normal 11.5-14.5 [facility] ([place] Comment on above: Performed By: #### JENNIFER Willams #### [address] [address] Hematocrit (Bld) [Volume fraction] 39.8 % Low 42.0-52.0 [facility] ([place] Comment on above: Performed By: #### JENNIFER Willams #### [address] [address] Hgb 14.0 G/dL Normal 14.0-18.0 [facility] ([place] Comment on above: Performed By: #### U JUANCARLOS AvalosMICHEATHER #### [address] [address] MCH (RBC) [Entitic mass] 31.7 pg High 27.0-31.2 [facility] ([place] Comment on above: Performed By: #### U Robbie UAMICAO #### [place] [id number] MCHC 35.1 G/dL Normal 31.8-35.4 [facility] ([place] Comment on above: Performed By: #### U JENNIFER Avalos #### [address] [address] MCV (RBC) [Entitic vol] 90.2 fL Normal 80.0-94.0 [facility] ([place] Comment on above: Performed By: #### U A, UAMICAO #### [address] [address] Platelet 308 10 3/mcL Normal 130-400 [facility] ([place] Comment on above: Performed By: #### U A, UAMICAO #### [address] [address] Platelet mean volume (Bld) [Entitic vol] 7.8 fL Normal 7.4-10.4 [facility] ([place] Comment on above: Performed By: #### U Robbie, UAMICAO #### [address] [address] RBC 4.42 10 6/mcL Normal 4.04-6.13 [facility] ([place] Comment on above: Performed By: #### U A, UAMICAO #### [address] [address] WBC 6.4 10 3/mcL Normal 4.6-10.8 [facility] ([place] Comment on above: Performed By: #### U Robbie, UAMICAO #### [address] [address] CMPon 04-13-2022 Albumin Level 4.5 G/dL Normal 3.5-5.0 [facility] ([place] Comment on above: Performed By: #### U A, UAMICAO #### [address] [address] Albumin/Globulin [Mass ratio] 1.6 {ratio} Normal 1.1-2.5 [facility] ([place] Comment on above: Performed By: #### U A, UAMICAO #### [address] [address] ALP [Catalytic activity/Vol] 93 U/L Normal 40-135 [facility] ([place] Comment on above: Performed By: #### U Robbie UAMICAO #### [address] [address] ALT [Catalytic activity/Vol] 18 U/L Normal 16-63 [facility] ([place] Comment on above: Performed By: #### U A UAMICAO #### [address] [address] AST [Catalytic activity/Vol] 16 U/L Normal 10-40 [facility] ([place] Comment on above: Performed By: #### U A UAMICAO #### [address] [address] Bili Total 0.9 mg/dL Normal 0.2-1.0 [facility] ([place] Comment on above: Result Comment: Use of this assay is not recommended for patients undergoing treatment with eltrombopag due to the potential for falsely elevated results. Performed By: #### U Robbie UAMICAO #### [address] [address] BUN/Creatinine Ratio 16 ratio Normal 7-27 [facility] ([place] Comment on above: Performed By: #### Shae Avalos UAMICAO #### [address] [address] Calcium [Mass/Vol] 9.0 mg/dL Normal 8.4-10.2 Pending sale to [facility] ([place]) Comment on above: Performed By: #### U Robbie UAMICAO #### [address] [address] Chloride [Moles/Vol] 98 mmol/L Normal 98-107 [facility] ([place] Comment on above: Performed By: #### U A UAMICAO #### [address] [address] CO2 [Moles/Vol] 23 mmol/L Normal 22-29 [facility] ([place] Comment on above: Performed By: #### U A UAMICAO #### [address] [address] Creatinine [Mass/Vol] 1.12 mg/dL Normal 0.70-1.30 [facility] ([place]) Comment on above: Performed By: #### U Robbie UAMICAO #### [address] [address] Electrolyte Balance 15.0 mEq/L Normal 4.0-15.0 [facility] ([place]) Comment on above: Performed By: #### U A, UAMICAO #### [address] [address] Globulin 2.8 G/dL Normal [facility] ([place] Comment on above: Performed By: #### U Robbie UAMICAO #### [place] [id number] Glucose [Mass/Vol] 98 mg/dL Normal 70-105 Pending [facility] to [facility] ([place] Comment on above: Performed By: #### U Robbie UAMICAO #### [address] [address] Potassium [Moles/Vol] 3.7 mmol/L Normal 3.5-5.1 [facility] ([place] Comment on above: Performed By: #### U Robbie UAMICAO #### [address] [address] Sodium [Moles/Vol] 136 mmol/L Normal 136-145 Pending [facility] to [facility] ([place] Comment on above: Performed By: #### U Robbie UAMICAO #### [address] [address] Total Protein 7.3 G/dL Normal 6.4-8.2 [facility] ([place] Comment on above: Performed By: #### U Robbie UAMICAO #### [address] [address] Urea nitrogen [Mass/Vol] 18 mg/dL Normal 7-18 [facility] ([place] Comment on above: Performed By: #### U A UAMICAO #### [address] [address] LABORATORYOrdered By: Florence Huang on 04-13-2022 Albumin BCP dye [Mass/Vol] 4.5 G/dL Invalid Interpretation Code 3.5 - 5.0 G/dL AO ADM SS Albumin/Globulin [Mass ratio] 1.6 {ratio} Invalid Interpretation Code 1.1 - 2.5 ratio AO ADM SS ALP [Catalytic activity/Vol] 93 U/L Invalid Interpretation Code 40 - 135 U/L AO ADM SS ALT With P-5'-P [Catalytic activity/Vol] 18 U/L Invalid Interpretation Code 16 - 63 U/L AO ADM SS AST With P-5'-P [Catalytic activity/Vol] 16 U/L Invalid Interpretation Code 10 - 40 U/L AO ADM SS Basophil, Absolute 0.1 103/mcL Invalid Interpretation Code 0.0 - 0.2 10^3/mcL AO Workflow SS Basophils/100 WBC (Bld) 1.5 % Invalid Interpretation Code 0.0 - 2.5 % AO Workflow SS Bilirubin [Mass/Vol] 0.9 mg/dL Invalid Interpretation Code 0.2 - 1.0 mg/dL AO ADM SS Calcium [Mass/Vol] 9.0 mg/dL Invalid Interpretation Code 8.4 - 10.2 mg/dL AO ADM SS Chloride [Moles/Vol] 98 mmol/L Invalid Interpretation Code 98 - 107 mmol/L AO ADM SS CO2 [Moles/Vol] 23 mmol/L Invalid Interpretation Code 22 - 29 mmol/L AO ADM SS Creatinine [Mass/Vol] 1.12 mg/dL Invalid Interpretation Code 0.70 - 1.30 mg/dL AO ADM SS Electrolyte Balance 15.0 mEq/L Invalid Interpretation Code 4.0 - 15.0 mEq/L AO ADM SS Eosinophil, Absolute 0.2 103/mcL Invalid Interpretation Code 0.0 - 0.4 10^3/mcL AO Workflow SS Eosinophils/100 WBC (Bld) 3.4 % Invalid Interpretation Code 0.0 - 7.0 % AO Workflow SS Erythrocyte distribution width (RBC) [Ratio] 13.1 % Invalid Interpretation Code 11.5 - 14.5 % AO Workflow SS Globulin 2.8 G/dL Invalid Interpretation Code AO ADM SS Glucose [Mass/Vol] 98 mg/dL Invalid Interpretation Code 70 - 105 mg/dL AO ADM SS Hematocrit (Bld) [Volume fraction] 39.8 % Invalid Interpretation Code 42.0 - 52.0 % AO Workflow SS Hemoglobin (Bld) [Mass/Vol] 14.0 G/dL Invalid Interpretation Code 14.0 - 18.0 G/dL AO Workflow SS Lactate [Moles/Vol] 1.3 mmol/L Invalid Interpretation Code 0.4 - 2.0 mmol/L AO ADM SS Lipase [Catalytic activity/Vol] 88 U/L Invalid Interpretation Code 73 - 393 U/L AO ADM SS Lymphocyte, Absolute 1.9 103/mcL Invalid Interpretation Code 0.8 - 3.9 10^3/mcL AO Workflow SS Lymphocytes/100 WBC (Bld) 30.0 % Invalid Interpretation Code 10.0 - 50.0 % AO Workflow SS Magnesium [Mass/Vol] 1.7 mg/dL Invalid Interpretation Code 1.8 - 2.4 mg/dL AO ADM SS MCH (RBC) [Entitic mass] 31.7 pg Invalid Interpretation Code 27.0 - 31.2 pg AO Workflow SS MCHC 35.1 G/dL Invalid Interpretation Code 31.8 - 35.4 G/dL AO Workflow SS MCV (RBC) [Entitic vol] 90.2 fL Invalid Interpretation Code 80.0 - 94.0 fL AO Workflow SS Monocyte distribution width Auto (Bld) [Entitic vol] 20.03 Invalid Interpretation Code 0.00 - 20.00 AO Workflow SS Comment on above: Result Comment: For adults in ED, MDW>20.0 may be associated with a higher risk of sepsis during the first 12hrs of hospital admission Monocyte, Absolute 0.4 103/mcL Invalid Interpretation Code 0.2 - 1.0 10^3/mcL AO Workflow SS Monocytes/100 WBC (Bld) 6.9 % Invalid Interpretation Code 1.7 - 13.0 % AO Workflow SS Neutrophil, Absolute 3.7 103/mcL Invalid Interpretation Code 2.9 - 6.2 10^3/mcL AO Workflow SS Neutrophils/100 WBC (Bld) 58.2 % Invalid Interpretation Code 37.0 - 80.0 % AO Workflow SS Platelet mean volume (Bld) [Entitic vol] 7.8 fL Invalid Interpretation Code 7.4 - 10.4 fL AO Workflow SS Platelets (Bld) [#/Vol] 308 103/mcL Invalid Interpretation Code 130 - 400 10^3/mcL AO Workflow SS Potassium [Moles/Vol] 3.7 mmol/L Invalid Interpretation Code 3.5 - 5.1 mmol/L AO ADM SS Protein [Mass/Vol] 7.3 G/dL Invalid Interpretation Code 6.4 - 8.2 G/dL AO ADM SS RBC (Bld) [#/Vol] 4.42 106/mcL Invalid Interpretation Code 4.04 - 6.13 10^6/mcL AO Workflow SS Sodium [Moles/Vol] 136 mmol/L Invalid Interpretation Code 136 - 145 mmol/L AO ADM SS Urea nitrogen [Mass/Vol] 18 mg/dL Invalid Interpretation Code 7 - 18 mg/dL AO ADM SS Urea nitrogen/Creatinine [Mass ratio] 16 ratio Invalid Interpretation Code 7 - 27 ratio AO ADM SS WBC (Bld) [#/Vol] 6.4 103/mcL Invalid Interpretation Code 4.6 - 10.8 10^3/mcL AO Workflow SS LABORATORYOrdered By: SYSTEM SYSTEM on 04-13-2022 GFR 94 ml/min/1.73sqm Invalid Interpretation Code AO Chemistry S GFR Non- 78 ml/min/1.73sqm Invalid Interpretation Code AO Chemistry S LACon 04-13-2022 Lactic Acid Lvl 1.3 mmol/L Normal 0.4-2.0 [facility] ([place] Comment on above: Performed By: #### U A, UAMICAO #### [address] [address] LIPon 04-13-2022 Lipase Level 88 U/L Normal 73-393 [facility] ([place] Comment on above: Performed By: #### U A, UAMICAO #### [address] [address] MGon 04-13-2022 Magnesium [Mass/Vol] 1.7 mg/dL Low 1.8-2.4 [facility] ([place]) Comment on above: Performed By: #### U A, UAMICAO #### [address] [address] .Auto Diffon 12-22-2021 Basophil, Absolute 0.10 10 3/mcL Normal 0.00-0.19 [facility] ([place]) Comment on above: Performed By: #### C BC, ADIFF, ANEU, LIP, CMP, GFR ####[place] [id number] [place], [place] [address] Basophils/100 WBC (Bld) 0.4 % Normal 0.0-2.5 [facility] ([place] Comment on above: Performed By: #### C BC, ADIFF, ANEU, LIP, CMP, GFR ####Amandeep [address] [place], [place] [address] Eosinophil, Absolute 0.00 10 3/mcL Normal 0.00-0.40 [facility] ([place]) Comment on above: Performed By: #### C BC, ADIFF, ANEU, LIP, CMP, GFR ####Amandeep [address] [place], [place] [address] Eosinophils/100 WBC (Bld) 0.1 % Normal 0.0-7.0 [facility] ([place] Comment on above: Performed By: #### C BC, ADIFF, ANEU, LIP, CMP, GFR ####Amandeep [address] [place], [place] [address] Lymphocyte, Absolute 1.60 10 3/mcL Normal 0.77-3.85 [facility] ([place]) Comment on above: Performed By: #### C BC, ADIFF, ANEU, LIP, CMP, GFR ####Amandeep [address] [place], [place] [address] Lymphocytes/100 WBC (Bld) 12.1 % Normal 10.0-50.0 [facility] ([place] Comment on above: Performed By: #### C BC, ADIFF, ANEU, LIP, CMP, GFR ####Amandeep [address] [place], [place] [address] Monocyte, Absolute 0.50 10 3/mcL Normal 0.15-1.00 [facility] ([place] Comment on above: Performed By: #### C BC, ADIFF, ANEU, LIP, CMP, GFR ####Amandeep [address] [place], [place] [address] Monocytes/100 WBC (Bld) 3.4 % Normal 1.7-13.0 [facility] ([place] Comment on above: Performed By: #### C BC, ADIFF, ANEU, LIP, CMP, GFR ####Amandeep [address] [place], [place] [address] Neutrophils/100 WBC (Bld) 84.0 % High 37.0-80.0 [facility] ([place] Comment on above: Performed By: #### C BC, ADIFF, ANEU, LIP, CMP, GFR ####Amandeep [address] [place], [place] [address] .GFRon 12-22-2021 GFR 105 ml/min/1.73sqm Normal [facility] ([place] Comment on above: Result Comment: GFR Population mean for , Non- Americans Ages 20-29 = 116 mL/min/1.73 sq.m. Ages 30-39 = 107 mL/min/1.73 sq.m. Ages 40-49 = 99 mL/min/1.73 sq.m. Ages 50-59 = 93 mL/min/1.73 sq.m. Ages 60-69 = 85 mL/min/1.73 sq.m. Ages 70+ = 75 mL/min/1.73 sq.m. Chronic Kidney Disease: Less than 60 mL/min/1.73 square meters End Stage Renal Disease: Less than 15 mL/min/1.73 square meters Performed By: #### JENNIFER Willams #### Amandeep [place] [address] [place], [place] [address] GFR Non- 87 ml/min/1.73sqm Normal [facility] ([place] Comment on above: Result Comment: GFR Population mean for , Non- Americans Ages 20-29 = 116 mL/min/1.73 sq.m. Ages 30-39 = 107 mL/min/1.73 sq.m. Ages 40-49 = 99 mL/min/1.73 sq.m. Ages 50-59 = 93 mL/min/1.73 sq.m. Ages 60-69 = 85 mL/min/1.73 sq.m. Ages 70+ = 75 mL/min/1.73 sq.m. Chronic Kidney Disease: Less than 60 mL/min/1.73 square meters End Stage Renal Disease: Less than 15 mL/min/1.73 square meters Performed By: #### JENNIFER Willams #### [address] [address] .NEUABSon 12-22-2021 Neutrophil, Absolute 11.00 10 3/mcL High 2.85-6.16 [facility] ([place] Comment on above: Performed By: #### U A, UAMICAO #### [address] [address] .Urinalysis Microscopic (AO) on 12-22-2021 UA Amorphus 4+ /hpf Normal [facility] ([place] Comment on above: Performed By: #### C OVD19 #### [place] [address] UA RBC 0-5 Abnormal None Seen [facility] ([place] Comment on above: Performed By: #### C OVD19 #### [address] [address] UA Squam Epithelial None Seen Normal None Seen [facility] ([place] Comment on above: Performed By: #### C OVD19 #### [address] [address] UA WBC 0-5 Abnormal None Seen [facility] ([place] Comment on above: Performed By: #### C OVD19 #### [address] [address] CBCon 12-22-2021 Erythrocyte distribution width (RBC) [Ratio] 13.0 % Normal 11.5-14.5 [facility] ([place] Comment on above: Performed By: #### C BC, ADIFF, ANEU, LIP, CMP, GFR ####[address] [address] Hematocrit (Bld) [Volume fraction] 40.8 % Low 42.0-52.0 [facility] ([place] Comment on above: Performed By: #### C BC, ADIFF, ANEU, LIP, CMP, GFR ####[place] [id number] Hgb 13.9 G/dL Low 14.0-18.0 [facility] ([place] Comment on above: Performed By: #### C BC, ADIFF, ANEU, LIP, CMP, GFR ####A[address]eep [address] [place], [place] [address] MCH (RBC) [Entitic mass] 31.1 pg Normal 27.0-31.2 [facility] ([place] Comment on above: Performed By: #### C BC, ADIFF, ANEU, LIP, CMP, GFR ####A[address] [place], [place] [address] MCHC 34.1 G/dL Normal 31.8-35.4 [facility] ([place] Comment on above: Performed By: #### C BC, ADIFF, ANEU, LIP, CMP, GFR ####Amandeep [address] [place], [place] [address] MCV (RBC) [Entitic vol] 91.2 fL Normal 80.0-94.0 [facility] ([place] Comment on above: Performed By: #### C BC, ADIFF, ANEU, LIP, CMP, GFR ####Amandeep [address] [place], [place] [address] Platelet 409 10 3/mcL High 130-400 [facility] ([place] Comment on above: Performed By: #### C BC, ADIFF, ANEU, LIP, CMP, GFR ####A[address] [place], [place] [address] Platelet mean volume (Bld) [Entitic vol] 7.9 fL Normal 7.4-10.4 [facility] ([place] Comment on above: Performed By: #### C BC, ADIFF, ANEU, LIP, CMP, GFR ####A[address] [place], [place] [address] RBC 4.47 10 6/mcL Normal 4.04-6.13 [facility] ([place] Comment on above: Performed By: #### C BC, ADIFF, ANEU, LIP, CMP, GFR ####A[address] [place], [place] [address] WBC 13.20 10 3/mcL High 4.60-10.80 [facility] ([place] Comment on above: Performed By: #### C BC, ADIFF, ANEU, LIP, CMP, GFR ####[address] [address] CMPon 12-22-2021 Albumin Level 4.4 G/dL Normal 3.5-5.0 [facility] ([place] Comment on above: Performed By: #### U Robbie UAMICAO #### [address] [address] Albumin/Globulin [Mass ratio] 1.3 {ratio} Normal 1.1-2.5 [facility] ([place] Comment on above: Performed By: #### Shae Avalos UAMICAO #### [address] [address] ALP [Catalytic activity/Vol] 88 U/L Normal 40-135 [facility] ([place] Comment on above: Performed By: #### Shae Avalos UAMICAO #### [address] [address] ALT [Catalytic activity/Vol] 20 U/L Normal 16-63 [facility] ([place] Comment on above: Performed By: #### Shae Avalos UAMICHEATHER #### [address] [address] AST [Catalytic activity/Vol] 18 U/L Normal 10-40 [facility] ([place] Comment on above: Performed By: #### Shae Avalos UAMICAO #### [address] [address] Bili Total 0.5 mg/dL Normal 0.2-1.0 [facility] ([place] Comment on above: Result Comment: Use of this assay is not recommended for patients undergoing treatment with eltrombopag due to the potential for falsely elevated results. Performed By: #### U Robbie UAMICAO #### [address] [address] BUN/Creatinine Ratio 16 ratio Normal 7-27 [facility] ([place] Comment on above: Performed By: #### U Robbie UAMICAO #### [address] [address] Calcium [Mass/Vol] 9.8 mg/dL Normal 8.4-10.2 Pending sale to [facility] ([place]) Comment on above: Performed By: #### U A UAMICAO #### [address] [address] Chloride [Moles/Vol] 100 mmol/L Normal 98-107 [facility] ([place]) Comment on above: Performed By: #### U A, UAMICAO #### [address] [address] CO2 [Moles/Vol] 25 mmol/L Normal 22-29 [facility] ([place]) Comment on above: Performed By: #### U A UAMICAO #### [address] [address] Creatinine [Mass/Vol] 1.02 mg/dL Normal 0.70-1.30 [facility] ([place]) Comment on above: Performed By: #### U A UAMICAO #### [address] [address] Electrolyte Balance 16.0 mEq/L High 4.0-15.0 [facility] ([place]) Comment on above: Performed By: #### U A UAMICAO #### [address] [address] Globulin 3.4 G/dL Normal [facility] ([place]) Comment on above: Performed By: #### U A, UAMICAO #### [address] [address] Glucose [Mass/Vol] 142 mg/dL High 70-105 Pending sale to [facility] ([place]) Comment on above: Performed By: #### U A, UAMICAO #### [address] [address] Potassium [Moles/Vol] 3.8 mmol/L Normal 3.5-5.1 [facility] ([place]) Comment on above: Performed By: #### U A, UAMICAO #### [id number] [place], [place] [address] Sodium [Moles/Vol] 141 mmol/L Normal 136-145 Pending sale to [facility] ([place]) Comment on above: Performed By: #### U A, UAMICAO #### [facility] [address] [place], [place] [address] Total Protein 7.8 G/dL Normal 6.4-8.2 [facility] ([place]) Comment on above: Performed By: #### U A, UAMICAO #### [facility] [address] [place], [place] [address] Urea nitrogen [Mass/Vol] 16 mg/dL Normal 7-18 [facility] ([place]) Comment on above: Performed By: #### U A, UAMICAO #### [id number] [place], [place] [address] LABORATORYOrdered By: Lenora Karimi on 12-22-2021 Appearance (U) Clear (12/22/21 12:09 AM) Invalid Interpretation Code Clear AO Auto Urine SS Bilirubin Ql (U) Negative (12/22/21 12:09 AM) Invalid Interpretation Code Negative AO Auto Urine SS Color (U) Yellow (12/22/21 12:09 AM) Invalid Interpretation Code AO Auto Urine SS Crystals.amorphous LM.HPF (Urine sed) [#/Area] 4 /[HPF] Invalid Interpretation Code AO Auto Urine SS Glucose Test strip (U) [Mass/Vol] Negative Invalid Interpretation Code Negativemg/ dL AO Auto Urine SS Hemoglobin Auto test strip (U) [Mass/Vol] Negative (12/22/21 12:09 AM) Invalid Interpretation Code Negative AO Auto Urine SS Ketones Ql (U) >=160 mg/dL Invalid Interpretation Code Negativemg/ dL AO Auto Urine SS UA Leuk Est Negative (12/22/21 12:09 AM) Invalid Interpretation Code Negative AO Auto Urine SS UA Nitrite Negative (12/22/21 12:09 AM) Invalid Interpretation Code Negative AO Auto Urine SS UA pH 1 Invalid Interpretation Code AO Auto Urine SS UA Protein 30 mg/dL Invalid Interpretation Code Negativemg/ dL AO Auto Urine SS UA RBC 0-5 /HPF Invalid Interpretation Code None Seen/HPF AO Auto Urine SS UA Spec Grav 1.020 (12/22/21 12:09 AM) Invalid Interpretation Code 1.015-1.025 AO Auto Urine SS UA Specimen Type Clean Catch (12/22/21 12:09 AM) Invalid Interpretation Code AO Auto Urine SS UA Squam Epithelial None Seen /HPF Invalid Interpretation Code None Seen/HPF AO Auto Urine SS UA Urobilinogen 0.2 E.U./dL Invalid Interpretation Code 0.2-1.0E.U. /dL AO Auto Urine SS WBC LM.HPF (Urine sed) [#/Area] 0-5 /HPF Invalid Interpretation Code None Seen/HPF AO Auto Urine SS LIPon 12-22-2021 Lipase Level 63 U/L Low 73-393 [facility] ([place]) Comment on above: Performed By: #### U A, UAMICAO #### Am[address] [place] [id number] UAon 12-22-2021 Color (U) Yellow Normal [facility] ([place]) Comment on above: Performed By: #### C OVD19 #### [place] [id number] Glucose (U) [Mass/Vol] Negative Normal Negative [facility] ([place]) Comment on above: Performed By: #### C OVD19 #### [place] [id number] Ketones Ql (U) >=160 Abnormal Negative [facility] ([place]) Comment on above: Performed By: #### C OVD19 #### Amandeep [address] [address] UA Appear Clear Normal Clear [facility] ([place]) Comment on above: Performed By: #### C OVD19 #### Amandeep [address] [address] UA Blood Negative Normal Negative [facility] ([place]) Comment on above: Performed By: #### C OVD19 #### [address] [address] UA Leuk Est Negative Normal Negative [facility] ([place]) Comment on above: Performed By: #### C OVD19 #### [place] [id number] UA Nitrite Negative Normal Negative [facility] ([place]) Comment on above: Performed By: #### C OVD19 #### [address] [address] UA pH >=9.0 Normal [facility] ([place]) Comment on above: Performed By: #### C OVD19 #### Amandeep [address] [address] UA Protein 30 mg/dL Normal Negative [facility] ([place]) Comment on above: Performed By: #### C OVD19 #### Amandeep [address] [address] UA Spec Grav 1.020 Normal 1.015-1.025 [facility] ([place]) Comment on above: Performed By: #### C OVD19 #### Amandeep [address] [address] UA Specimen Type Clean Catch Normal [facility] ([place]) Comment on above: Performed By: #### C OVD19 #### [address] [address] UA Urobilinogen 0.2 E.U./dL Normal 0.2-1.0 [facility] ([place]) Comment on above: Performed By: #### C OVD19 #### [address] [address] Urobilinogen (U) [Mass/Vol] Negative Normal Negative [facility] ([place]) Comment on above: Performed By: #### C OVD19 #### Am[address] [place] [id number] LABORATORYOrdered By: Lenora Karimi on 12-21-2021 Albumin BCP dye [Mass/Vol] 4.4 G/dL Invalid Interpretation Code 3.5 - 5.0 G/dL AO ADM SS Albumin/Globulin [Mass ratio] 1.3 {ratio} Invalid Interpretation Code 1.1 - 2.5 ratio AO ADM SS ALP [Catalytic activity/Vol] 88 U/L Invalid Interpretation Code 40 - 135 U/L AO ADM SS ALT With P-5'-P [Catalytic activity/Vol] 20 U/L Invalid Interpretation Code 16 - 63 U/L AO ADM SS AST With P-5'-P [Catalytic activity/Vol] 18 U/L Invalid Interpretation Code 10 - 40 U/L AO ADM SS Basophil, Absolute 0.10 103/mcL Invalid Interpretation Code 0.00 - 0.19 10^3/mcL AO Auto Heme SS Basophils/100 WBC (Bld) 0.4 % Invalid Interpretation Code 0.0 - 2.5 % AO Auto Heme SS Bilirubin [Mass/Vol] 0.5 mg/dL Invalid Interpretation Code 0.2 - 1.0 mg/dL AO ADM SS Calcium [Mass/Vol] 9.8 mg/dL Invalid Interpretation Code 8.4 - 10.2 mg/dL AO ADM SS Chloride [Moles/Vol] 100 mmol/L Invalid Interpretation Code 98 - 107 mmol/L AO ADM SS CO2 [Moles/Vol] 25 mmol/L Invalid Interpretation Code 22 - 29 mmol/L AO ADM SS Creatinine [Mass/Vol] 1.02 mg/dL Invalid Interpretation Code 0.70 - 1.30 mg/dL AO ADM SS Electrolyte Balance 16.0 mEq/L Invalid Interpretation Code 4.0 - 15.0 mEq/L AO ADM SS Eosinophil, Absolute 0.00 103/mcL Invalid Interpretation Code 0.00 - 0.40 10^3/mcL AO Auto Heme SS Eosinophils/100 WBC (Bld) 0.1 % Invalid Interpretation Code 0.0 - 7.0 % AO Auto Heme SS Erythrocyte distribution width (RBC) [Ratio] 13.0 % Invalid Interpretation Code 11.5 - 14.5 % AO Auto Heme SS Globulin 3.4 G/dL Invalid Interpretation Code AO ADM SS Glucose [Mass/Vol] 142 mg/dL Invalid Interpretation Code 70 - 105 mg/dL AO ADM SS Hematocrit (Bld) [Volume fraction] 40.8 % Invalid Interpretation Code 42.0 - 52.0 % AO Auto Heme SS Hemoglobin (Bld) [Mass/Vol] 13.9 G/dL Invalid Interpretation Code 14.0 - 18.0 G/dL AO Auto Heme SS Lipase [Catalytic activity/Vol] 63 U/L Invalid Interpretation Code 73 - 393 U/L AO ADM SS Lymphocyte, Absolute 1.60 103/mcL Invalid Interpretation Code 0.77 - 3.85 10^3/mcL AO Auto Heme SS Lymphocytes/100 WBC (Bld) 12.1 % Invalid Interpretation Code 10.0 - 50.0 % AO Auto Heme SS MCH (RBC) [Entitic mass] 31.1 pg Invalid Interpretation Code 27.0 - 31.2 pg AO Auto Heme SS MCHC (RBC) [Mass/Vol] 34.1 G/dL Invalid Interpretation Code 31.8 - 35.4 G/dL AO Auto Heme SS MCV (RBC) [Entitic vol] 91.2 fL Invalid Interpretation Code 80.0 - 94.0 fL AO Auto Heme SS Monocyte, Absolute 0.50 103/mcL Invalid Interpretation Code 0.15 - 1.00 10^3/mcL AO Auto Heme SS Monocytes/100 WBC (Bld) 3.4 % Invalid Interpretation Code 1.7 - 13.0 % AO Auto Heme SS Neutrophil, Absolute 11.00 103/mcL Invalid Interpretation Code 2.85 - 6.16 10^3/mcL AO Auto Heme SS Neutrophils/100 WBC (Bld) 84.0 % Invalid Interpretation Code 37.0 - 80.0 % AO Auto Heme SS Platelet mean volume (Bld) [Entitic vol] 7.9 fL Invalid Interpretation Code 7.4 - 10.4 fL AO Auto Heme SS Platelets (Bld) [#/Vol] 409 103/mcL Invalid Interpretation Code 130 - 400 10^3/mcL AO Auto Heme SS Potassium [Moles/Vol] 3.8 mmol/L Invalid Interpretation Code 3.5 - 5.1 mmol/L AO ADM SS Protein [Mass/Vol] 7.8 G/dL Invalid Interpretation Code 6.4 - 8.2 G/dL AO ADM SS RBC (Bld) [#/Vol] 4.47 106/mcL Invalid Interpretation Code 4.04 - 6.13 10^6/mcL AO Auto Heme SS Sodium [Moles/Vol] 141 mmol/L Invalid Interpretation Code 136 - 145 mmol/L AO ADM SS Urea nitrogen [Mass/Vol] 16 mg/dL Invalid Interpretation Code 7 - 18 mg/dL AO ADM SS Urea nitrogen/Creatinine [Mass ratio] 16 ratio Invalid Interpretation Code 7 - 27 ratio AO ADM SS WBC (Bld) [#/Vol] 13.20 103/mcL Invalid Interpretation Code 4.60 - 10.80 10^3/mcL AO Auto Heme SS LABORATORYOrdered By: SYSTEM SYSTEM on 12-21-2021 GFR 105 ml/min/1.73sqm Invalid Interpretation Code AO Chemistry S GFR Non- 87 ml/min/1.73sqm Invalid Interpretation Code AO Chemistry S CT ABDOMEN/PELVIS Won 2021 CT ABDOMEN/PELVIS W [place] [address] Patient: AGAPITO PARK Phone#: : 1995 Age: 26 Gender: M Pt. Type: Out Account: [id number] Location: [facility] Ordering: TONNY CANDELARIO Exam Date: 11/30/2021/15:48 Family Phys: Charge Code: [id number] Physician: Loíza Order #: [id number] DLP Dose#: 13.50 mGy PROCEDURE: CT ABDOMEN/PELVIS WITH CONTRAST COMPARISON: [facility], CT, ABDOMEN/PELVIS W W/O CON, 11/01/2017, 16:33. INDICATIONS: Abdomen pain TECHNIQUE: After obtaining the patient's consent, CT images were created with non-ionic intravenous contrast and oral contrast material. All CT scans at this facility use dose modulation, iterative reconstruction, and/or weight based dosing when appropriate to reduce radiation dose to as low as reasonably achievable. IV CONTRAST: Omnipaque 350,80ml TOTAL DOSE: 13.50 CTDIvol(mGy) FINDINGS: LIVER: Stable indeterminate low-attenuation lesion in the left lobe measuring 3.6 x 1.2 cm, series 9, image 5. No enlargement, atrophy. BILIARY: Gallbladder is present. PANCREAS: Normal. No lesion, fluid collection, ductal dilatation, or atrophy. SPLEEN: Normal. No enlargement or focal lesion. KIDNEYS: Kidneys enhance and excrete contrast symmetrically. No hydronephrosis. ADRENALS: Normal. No mass or enlargement. AORTA/VASCULAR: No aortic aneurysm. The celiac artery is patent. No evidence of celiac artery narrowing or stenosis. The superior mesentery arteries patent. The aortomesenteric angle measures 19.3 (normal range 25-60 degrees). The aortomesenteric distance measures 7 mm (normal distance 10-28 mm.) There is narrowing of the left renal vein as it passes between the aorta and superior mesenteric vein, series 5, image 23 RETROPERITONEUM: Normal. No mass or adenopathy. Continued Report - Page 2 of 2 Patient: AGAPITO PARK Phone#: : 1995 Age: 26 Gender: M Pt. Type: Out Account: [id number] Location: 052 Ordering: TONNY CANDELARIO Exam Date: 11/30/2021/15:48 Family Phys: Charge Code: [id number] Physician: Loíza Order #: [id number] DLP Dose#: 13.50 mGy BOWEL/MESENTERY: There is a large amount of ingested material retained within the stomach. Presuming the patient followed the preprocedure protocol this implies delayed gastric emptying. Oral contrast is seen in the stomach and small bowel. Does not yet reached the colon. High dense material in the rectum is presumably from prior ingestion of dense material. The large bowel is predominantly left-sided and the small bowel is predominantly right-sided, suggesting congenital malrotation. The colon is redundant and tortuous. There is large stool burden. The appendix is unremarkable containing air. ABDOMINAL WALL: Normal. No mass or hernia. URINARY BLADDER: Normal. No visible focal wall thickening, lesion, or calculus. PELVIC NODES: Normal. No adenopathy. PELVIC ORGANS: Normal. No visible mass. Pelvic organs appropriate for patient age. BONES: Normal. No bony lesion or fracture. LUNG BASES: Normal. No visible pulmonary or pleural disease. OTHER: Negative. CONCLUSION: 1. Decreased aortomesenteric angle and aorta mesenteric distance, correlate for symptoms of SMA syndrome. 2. The stomach is filled with ingested material. Presuming the patient followed the preprocedure protocol this suggest delayed gastric emptying. Possibly due to SMA syndrome. Consider gastric emptying exam. 3. Narrowing of the left renal vein as it passes between aorta and SMA. Correlate for nutcracker syndrome. 4. Constipation 5. Suspected congenital malrotation given positioning of the small bowel and colon. 6. Patent celiac artery, no stenosis. Dictated by: Chloe Gregory MD on 12/01/2021 at 19:52 Approved by: Chloe Gregory MD on 12/01/2021 at 20:16 Normal [facility] LABORATORYOrdered By: SYSTEM SYSTEM on 07-08-2021 Albumin [Mass/Vol] 5.0 G/dL Invalid Interpretation Code 3.2 - 4.8 G/dL AH ADM SS Albumin/Globulin [Mass ratio] 1.5 {ratio} Invalid Interpretation Code 0.9 - 1.6 ratio AH ADM SS ALP [Catalytic activity/Vol] 96 U/L Invalid Interpretation Code 38 - 126 U/L AH ADM SS ALT [Catalytic activity/Vol] 27 U/L Invalid Interpretation Code 12 - 55 U/L AH ADM SS AST [Catalytic activity/Vol] 20 U/L Invalid Interpretation Code 8 - 34 U/L AH ADM SS Base excess Calc (BldMV) [Moles/Vol] 11.0 mEq/L Invalid Interpretation Code 4.0 - 15.0 mEq/L AH ADM SS Basophils (Bld) [#/Vol] 0.00 103/mcL Invalid Interpretation Code 0.00 - 0.27 10^3/mcL AH Remisol SS Basophils/100 WBC (Bld) 0.4 % Invalid Interpretation Code 0.0 - 2.5 % AH Remisol SS Bilirubin [Mass/Vol] 0.8 mg/dL Invalid Interpretation Code 0.2 - 1.2 mg/dL AH ADM SS Calcium [Mass/Vol] 10.5 mg/dL Invalid Interpretation Code 8.4 - 10.1 mg/dL AH ADM SS Chloride [Moles/Vol] 101 mmol/L Invalid Interpretation Code 98 - 110 mEq/L AH ADM SS CO2 [Moles/Vol] 25 mmol/L Invalid Interpretation Code 22 - 32 mEq/L AH ADM SS Creatinine [Mass/Vol] 0.89 mg/dL Invalid Interpretation Code 0.60 - 1.40 mg/dL AH ADM SS Eosinophils (Bld) [#/Vol] 0.00 103/mcL Invalid Interpretation Code 0.00 - 0.65 10^3/mcL AH Remisol SS Eosinophils/100 WBC (Bld) 0.2 % Invalid Interpretation Code 0.0 - 6.0 % AH Remisol SS Erythrocyte distribution width (RBC) [Ratio] 13.4 % Invalid Interpretation Code 11.5 - 15.5 % AH Remisol SS GFR/1.73 sq M.predicted among blacks MDRD (S/P/Bld) [Vol rate/Area] ml/min/1.73sqm Invalid Interpretation Code AH ADM SS GFR/1.73 sq M.predicted among non-blacks MDRD (S/P/Bld) [Vol rate/Area] ml/min/1.73sqm Invalid Interpretation Code AH ADM SS Globulin (S) [Mass/Vol] 3.4 G/dL Invalid Interpretation Code 1.5 - 3.8 G/dL AH ADM SS Glucose [Mass/Vol] 129 mg/dL Invalid Interpretation Code 70 - 110 mg/dL AH ADM SS Hematocrit (Bld) [Volume fraction] 45.0 % Invalid Interpretation Code 40.0 - 52.0 % AH Remisol SS Hemoglobin (Bld) [Mass/Vol] 15.1 G/dL Invalid Interpretation Code 13.0 - 17.5 G/dL AH Remisol SS Lipase [Catalytic activity/Vol] 35 U/L Invalid Interpretation Code 12 - 53 U/L AH ADM SS Lymphocytes (Bld) [#/Vol] 1.10 103/mcL Invalid Interpretation Code 0.90 - 4.32 10^3/mcL AH Remisol SS Lymphocytes/100 WBC (Bld) 13.0 % Invalid Interpretation Code 20.0 - 40.0 % AH Remisol SS MCH (RBC) [Entitic mass] 30.9 pg Invalid Interpretation Code 27.0 - 33.0 pg AH Remisol SS MCHC (RBC) [Mass/Vol] 33.6 G/dL Invalid Interpretation Code 32.0 - 36.0 G/dL AH Remisol SS MCV (RBC) [Entitic vol] 91.9 fL Invalid Interpretation Code 81.0 - 100.0 fL AH Remisol SS Monocytes (Bld) [#/Vol] 0.50 103/mcL Invalid Interpretation Code 0.09 - 1.40 10^3/mcL AH Remisol SS Monocytes/100 WBC (Bld) 5.9 % Invalid Interpretation Code 2.0 - 13.0 % AH Remisol SS Neutrophils (Bld) [#/Vol] 7.00 103/mcL Invalid Interpretation Code 2.25 - 8.10 10^3/mcL AH Remisol SS Neutrophils/100 WBC (Bld) 80.5 % Invalid Interpretation Code 50.0 - 75.0 % AH Remisol SS Platelet mean volume (Bld) [Entitic vol] 7.7 fL Invalid Interpretation Code 6.4 - 10.5 fL AH Remisol SS Platelets (Bld) [#/Vol] 278 103/mcL Invalid Interpretation Code 150 - 450 10^3/mcL AH Remisol SS Potassium [Moles/Vol] 3.5 mmol/L Invalid Interpretation Code 3.5 - 5.0 mEq/L AH ADM SS Protein [Mass/Vol] 8.4 G/dL Invalid Interpretation Code 6.0 - 8.5 G/dL AH ADM SS RBC (Bld) [#/Vol] 4.90 106/mcL Invalid Interpretation Code 4.50 - 6.00 10^6/mcL AH Remisol SS Sodium [Moles/Vol] 137 mmol/L Invalid Interpretation Code 136 - 145 mEq/L AH ADM SS Urea nitrogen [Mass/Vol] 13.0 mg/dL Invalid Interpretation Code 8.0 - 22.0 mg/dL AH ADM SS Urea nitrogen/Creatinine [Mass ratio] 14.6 ratio Invalid Interpretation Code 10.0 - 22.0 ratio AH ADM SS WBC (Bld) [#/Vol] 8.70 103/mcL Invalid Interpretation Code 4.50 - 10.80 10^3/mcL AH Remisol SS ALLIED HEALTHon 05-11-2021 [facility] HNO ID: [id number] Author: Lupe Jmienez Transport Service: ? Author Type: ? Type: Allied Health Filed: 05/11/2021 9:11 AM Note Text: Radiology Service Progress Note PATIENT NAME: Agapito Park DATE OF SERVICE: May 11, 2021 TIME: 9:11 AM PATIENT IDENTITY VERIFICATION COMPLETED USING TWO (2) IDENTIFIERS: Name and Date of confirmed by patient verbally and Name and Date of confirmed by identification band. FALL SCREENING: Has the patient had 2 falls in the last year or 1 fall with injury or currently using an Ambulatory Assistive Device (Walker, Cane, Wheelchair, Crutches, etc.)? No PATIENT GENDER DATA: Male PATIENT RELEVANT IMPLANT DATA REVIEWED: Not Applicable RADIOLOGY DEPARTMENT: Ultrasound PERIPHERAL IV DATA: Not applicable SIGNED BY: Lupe Jimenez [facility] May 11, 2021 9:11 AM [facility] US RENAL ARTERYon 05-11-2021 US RENAL ARTERY * * *Final Report* * * DATE OF EXAM: May 11 2021 8:55AM [facility] - US RENAL ARTERY / PROCEDURE REASON: multiple diagnoses * * * * Physician Interpretation * * * * RESULT: EXAMINATION: Ultrasound Doppler assessment of the renal arteries. INDICATION: Abdominal pain, to check for nutCracker syndrome, elevated velocity in the left renal vein Technique: Grayscale, color-flow and spectral Doppler assessment performed of the visualized portions of both renal arteries, renal veins and the midportion of the abdominal aorta. Spectral Doppler assessment of the intrarenal arteries performed bilaterally. Images were obtained and stored in a permanent archive. RESULT: Abdominal Aorta: Peak systolic velocity mid abdominal aorta:105cm/sec Right Kidney: Size: Length 9.4cm Right renal artery: PSV (cm/sec) Origin: 109 Proximal: 116 Mid: 79 Distal: 80 Right Renal to Aortic Ratio (RAR): 1.1 Acceleration times in the intrarenal arteries:24-32 ms Right renal vein: Patent in the visualized portions. Left Kidney: Size: Kenltm32.2 cm Left Renal Artery: PSV (cm/sec) Origin: 76.5 Proximal: 97 Mid: 71 Distal: 68 Left Renal to Aortic Ratio (RAR): 0.9 Acceleration times in the intrarenal arteries:20-44ms Left renal vein: Patent in visualized portions. Peak systolic velocity of the left renal vein at the level of the renal hilum is 40 cm/s. Slightly more medially the peak systolic velocity in is 44 cm/s. The portion of the left renal vein at the aortomesenteric angle is not seen and therefore velocity assessment in this portion cannot be made on this study. IMPRESSION: Right: No evidence for hemodynamically significant stenosis. Estimated stenosis ranges from 0-59%. Left: No evidence for hemodynamically significant stenosis. Estimated stenosis ranges from 0-59%. Peak systolic velocity in the visualized portion of the left renal vein is 43 cm/s. The portion of the vein at the aortomesenteric angle cannot be visualized and therefore velocity measurement in this region cannot be obtained. Therefore this study is limited to assess for nutcracker phenomena/syndrome. Transcribed Using Voice Recognition Transcribe Date/Time: May 12 2021 3:29P Dictated by: MARCELA BLOUNT MD This examination was interpreted and the report reviewed and electronically signed by: MARCELA BLOUNT MD on May 13 2021 1:42PM EST [id number] [facility] EMERGENCY DEPARTMENT REPORTo n 10-12-2019 [place] [address] HEALTH INFORMATION MANAGEMENT EMERGENCY DEPARTMENT REPORT Patient: AGAPITO PARK RUBY HENRIQUEZ M.D. [id number] 93 24 M Status: [facility] ER ED Date of Service: 10/11/19 HISTORY OF PRESENT ILLNESS: This 24-year-old male presents with pain for 6 days in his mid-umbilical region. He states he has been having this pain for months and is due to see the [facility] at the [facility] this coming week. He states he has been vomiting. No diarrhea, however. Eating does not affect the pain. He has had no fever or chills. REVIEW OF SYSTEMS: HEENT: No headaches, visual changes, stiff neck, or sore throat. CARDIAC: No chest pain, palpitations, shortness of breath on exertion, or orthopnea. PULMONARY: No cough, shortness of breath, wheezing, or pleuritic pain. : No dysuria, hematuria, frequency, or flank pain. MUSCULOSKELETAL: No swelling or joint aches. NEUROLOGIC: No headache, seizures, tremors, or focal weakness. PAST MEDICAL HISTORY: Multiple visits for abdominal pain, depression. MEDICATIONS: Reviewed. ALLERGIES: Erythromycin. SOCIAL HISTORY: He is . He does not smoke or drink. PHYSICAL EXAMINATION: VITAL SIGNS: Temp 98, BP 118/79, pulse 120, respirations 20. HEENT: Mucous membranes are slightly dry. Conjunctivae clear. NECK: Supple. LUNGS: Clear. HEART: Regular rhythm. ABDOMEN: Soft, flat with minimal epigastric discomfort. No mass, rebound, or guarding. No tenderness to McBurney's point. Negative Bose sign. NEUROLOGIC: Alert and oriented x3. Cranial nerves 2-12 are intact. Motor is +5/5 in all extremities. Deep tendon reflexes are +2 and symmetric. No sensory deficit. MUSCULOSKELETAL: No edema or cyanosis. Distal motor, sensory, and pulses are intact. EMERGENCY DEPARTMENT COURSE: White count is within normal limits. Urinalysis is negative. CT scan of the abdomen showed absolutely no pathology. We reviewed some prior records on this patient. He has been seen here again multiple times with this supposedly severe pain requesting Dilaudid. The patient did in fact get Dilaudid here and will be discharged. IMPRESSION: Exacerbation of chronic abdominal pain. DISPOSITION: The patient is aware that he has been seen many times asking for narcotics, and he is counseled on this. He will follow up with his supposed appointment at the [facility] in 3 days. He is to return here if worse in any way. There is no evidence of appendicitis, cholecystitis, or bowel obstruction. Report#: Dict ID [id number] / Int ID [id number] 10/12/19 0748 RUBY HENRIQUEZ M.D. cc: TONNY CANDELARIO M.D.; RUBY HENRIQUEZ M.D. << Signature on File>> Reported By: RUBY HENRIQUEZ M.D. Signed By: RUBY HENRIQUEZ M.D. Tests performed at: [address] [facility] BMPon 10-11-2019 Anion gap [Moles/Vol] 22.5 mmol/L High 15-22 [facility] Comment on above: Performed By: #### L 100.0010, L100.0030, L100.0340, L100.0350 #### [facility] - LABORATORY [address] [place] [address] Calcium [Mass/Vol] 10.0 mg/dL Normal 8.6-10.0 [facility] Comment on above: Performed By: #### L 100.0010, L100.0030, L100.0340, L100.0350 #### [facility] - [facility]AT[facility] [address] [place] [address] Chloride [Moles/Vol] 96 mmol/L Low 98-107 [facility] Comment on above: Performed By: #### L 100.0010, L100.0030, L100.0340, L100.0350 #### [facility] [address] [place] [address] CO2 [Moles/Vol] 20 mmol/L Low 22-29 [facility] Comment on above: Performed By: #### L 100.0010, L100.0030, L100.0340, L100.0350 #### [facility] - LAB[facility]ATORY [address] [place] [address] Creatinine [Mass/Vol] 0.95 mg/dL Normal 0.70-1.20 [facility] Comment on above: Performed By: #### L 100.0010, L100.0030, L100.0340, L100.0350 #### [facility] [address] [place] [address] eGFR if AFR PHOEBE > 60 ml/min/1.73m2 Normal [facility] [facility] Comment on above: Result Comment: eGFR >= 60 Indicates normal kidney function. * eGFR IS AN ESTIMATE * (AFR PHOEBE = ) (non-AFR AM = NON-) MDRD calculation used in the eGFR should not be used to dose medications. For further limitations of the eGFR please refer to the Physician Website or the National Kidney Disease Education Program website (www.nkdep.nih.gov). Performed By: #### L 100.0010, L100.0030, L100.0340, L100.0350 #### [facility] [address] [place] [address] 69814 eGFR nonAFR Phoebe > 60 ml/Min/1.73m2 Normal [facility] Comment on above: Performed By: #### L 100.0010, L100.0030, L100.0340, L100.0350 #### [facility] [address] [place] [address] 26962 Glucose [Mass/Vol] 116 mg/dL High 74-106 [facility] Comment on above: Performed By: #### L 100.0010, L100.0030, L100.0340, L100.0350 #### [facility] [address] [place] [address] 96179 Potassium [Moles/Vol] 3.5 mmol/L Normal 3.5-5.0 [facility] Comment on above: Performed By: #### L 100.0010, L100.0030, L100.0340, L100.0350 #### [facility] [address] [place] [address] 99044 Sodium [Moles/Vol] 135 mmol/L Normal 135-145 [facility] Comment on above: Performed By: #### L 100.0010, L100.0030, L100.0340, L100.0350 #### [facility] [address] [place] [address] 42249 Urea nitrogen [Mass/Vol] 13 mg/dL Normal 6-20 [facility] Comment on above: Performed By: #### L 100.0010, L100.0030, L100.0340, L100.0350 #### [facility] [address] [place] [address] 51902 CBCon 10-11-2019 Basophils (Bld) [#/Vol] 0.00 x10(3) Normal 0.00-0.10 [facility] Comment on above: Performed By: #### L 100.0010, L100.0030, L100.0340, L100.0350 #### [facility] [address] [place] [address] 01919 Basophils/100 WBC (Bld) 0.5 % Normal 0.0-1.0 [facility] Comment on above: Performed By: #### L 100.0010, L100.0030, L100.0340, L100.0350 #### [facility] [address] [place] [address] 34078 Eosinophils (Bld) [#/Vol] 0.00 x10(3) Normal 0.00-0.54 [facility] Comment on above: Performed By: #### L 100.0010, L100.0030, L100.0340, L100.0350 #### [facility] [address] [place] [address] 89427 Eosinophils/100 WBC (Bld) 0.1 % Low 0.5-4.9 [facility] Comment on above: Performed By: #### L 100.0010, L100.0030, L100.0340, L100.0350 #### - [facility] [address] [place] [address] 05144 Erythrocyte distribution width (RBC) [Ratio] 13.0 % Normal 12.7-15.3 [facility] Comment on above: Performed By: #### L 100.0010, L100.0030, L100.0340, L100.0350 #### [facility] [address] [place] [address] 07229 Hematocrit (Bld) [Volume fraction] 47.7 % Normal 42.0-51.0 [facility] Comment on above: Performed By: #### L 100.0010, L100.0030, L100.0340, L100.0350 #### [facility] [address] [place] [address] 57210 Hemoglobin (Bld) [Mass/Vol] 16.5 g/dL Normal 14.0-17.2 [facility] Comment on above: Performed By: #### L 100.0010, L100.0030, L100.0340, L100.0350 #### [facility] [address] [place] [address] 94230 Lymphocytes (Bld) [#/Vol] 1.10 x10(3) Normal 1.00-3.50 [facility] Comment on above: Performed By: #### L 100.0010, L100.0030, L100.0340, L100.0350 #### [facility] [address] [place] [address] 66042 Lymphocytes/100 WBC (Bld) 11.6 % Low 16.0-48.0 [facility] Comment on above: Performed By: #### L 100.0010, L100.0030, L100.0340, L100.0350 #### [facility] [address] [place] [address] 99784 MCH (RBC) [Entitic mass] 31.2 pg Normal 28.8-32.2 [facility] Comment on above: Performed By: #### L 100.0010, L100.0030, L100.0340, L100.0350 #### [facility] [address] [place] [address] 31084 MCHC (RBC) [Mass/Vol] 34.6 g/dL Normal 33.0-36.0 [facility] Comment on above: Performed By: #### L 100.0010, L100.0030, L100.0340, L100.0350 #### [facility] [address] [place] [address] 81284 MCV (RBC) [Entitic vol] 90.3 fL Normal 80.0-94.0 [facility] Comment on above: Performed By: #### L 100.0010, L100.0030, L100.0340, L100.0350 #### [facility] [address] [place] [address] 48793 Monocytes (Bld) [#/Vol] 0.40 x10(3) Normal 0.30-0.80 [facility] Comment on above: Performed By: #### L 100.0010, L100.0030, L100.0340, L100.0350 #### [facility] [address] [place] [address] 28472 Monocytes/100 WBC (Bld) 4.6 % Normal 4.3-11.2 [facility] Comment on above: Performed By: #### L 100.0010, L100.0030, L100.0340, L100.0350 #### [facility] [address] [place] [address] 64074 Neutrophils (Bld) [#/Vol] 8.10 x10(3) High 1.40-6.50 [facility] Comment on above: Performed By: #### L 100.0010, L100.0030, L100.0340, L100.0350 #### [facility] [address] [place] [address] 97641 Neutrophils/100 WBC (Bld) 83.2 % High 45.0-73.0 [facility] Comment on above: Performed By: #### L 100.0010, L100.0030, L100.0340, L100.0350 #### [facility] [address] [place] [address] 46633 Platelet mean volume (Bld) [Entitic vol] 8.0 fL Normal 7.4-9.2 [facility] Comment on above: Performed By: #### L 100.0010, L100.0030, L100.0340, L100.0350 #### [facility] [address] [place] [address] 02909 Platelets (Bld) [#/Vol] 337 X10(3) Normal 150-450 [facility] Comment on above: Performed By: #### L 100.0010, L100.0030, L100.0340, L100.0350 #### [facility] [address] [place] [address] 31028 RBC (Bld) [#/Vol] 5.28 x10(6) Normal 4.80-5.50 [facility] Comment on above: Performed By: #### L 100.0010, L100.0030, L100.0340, L100.0350 #### [facility] [address] [place] [address] 18651 WBC (Bld) [#/Vol] 9.7 x10(3) Normal 4.5-10.0 [facility] Comment on above: Performed By: #### L 100.0010, L100.0030, L100.0340, L100.0350 #### [facility] [address] [place] [address] ABD/PEL W CONTRASTon CT ABD/PEL W CONTRAST [address] [address] Name: AGAPITO PARK Phys: RUBY HENRIQUEZ M.D. : [birth year] Age: 24 Sex: M Acct: [id number] Loc: ED Exam Date: 10/11/19 Status: [employer] Radiology No.: [id number] Unit Number: [id number] Exam # Type/Exam [id number] CT / CT ABD/PEL W CONTRAST EXAM DESCRIPTION: CT ABD/PEL W CONTRAST CLINICAL HISTORY: Mid abdominal pain TECHNIQUE: Routine helical CT images were obtained from the lung bases through the pelvis after the uneventful administration of IV contrast. Coronal and sagittal reformats were obtained. Dose lowering techniques were utilized to include automated exposure control, adjustment of the mA and/or kV according to patient size, and use of iterative reconstruction technique. COMPARISON: CT, abdomen and pelvis December 03, 2018 FINDINGS: The size, density, and morphology of the liver, spleen, adrenals, kidneys, pancreas and unopacified loops of bowel are unremarkable. The opacified aorta demonstrates normal size and morphology without aneurysmal dilation or dissection. There are no enlarged lymph nodes by pathologic size criteria. Appendix is identified and is normal. There is no free fluid within the pelvis. The bladder and pelvic organs have an unremarkable CT appearance. The osseous structures are without gross lytic or sclerotic lesion. The lung bases are clear. IMPRESSION: No acute intra-abdominal pathology. Electronically signed by: Syl Moreno MD 10/11/2019 6:41 PM [employer] < > Reported By: SYL MORENO M.D. Signed In PowerScribe By: SYL MORENO M.D. << Signature on File>> Reported By: SYL MORENO M.D. Signed By: SYL MORENO M.D. Tests performed at: [place] [id number] Normal [facility] HEPATIC PANELon 10-11-2019 A:G RATIO 1.92 Normal 1.1-2.5 [facility] Comment on above: Performed By: #### L 100.0010, L100.0030, L100.0340, L100.0350 #### [facility] [address] [place] [address] 76249 Albumin [Mass/Vol] 5.0 g/dL Normal 3.5-5.2 [facility] Comment on above: Performed By: #### L 100.0010, L100.0030, L100.0340, L100.0350 #### [facility] [address] [place] [address] 00705 ALK. PHOS 105 U/L Normal 40-130 [facility] Comment on above: Performed By: #### L 100.0010, L100.0030, L100.0340, L100.0350 #### - [facility] [address] [place] [address] 39179 ALT [Catalytic activity/Vol] 9 U/L Normal 5- [facility] Comment on above: Performed By: #### L 100.0010, L100.0030, L100.0340, L100.0350 #### - [facility] [address] [place] [address] 77414 AST [Catalytic activity/Vol] 14 U/L Normal 5- [facility] Comment on above: Performed By: #### L 100.0010, L100.0030, L100.0340, L100.0350 #### [facility] [address] [place] [address] 76228 Bilirubin Ql (U) 0.6 mg/dL Normal 0.2-1.2 [facility] Comment on above: Performed By: #### L 100.0010, L100.0030, L100.0340, L100.0350 #### - [facility] [address] [place] [address] 31306 DIRECT BILIRUBI <0.2 Normal 0.0-0.3 [facility] Comment on above: Performed By: #### L 100.0010, L100.0030, L100.0340, L100.0350 #### [facility] [address] [place] [address] 25020 Globulin (S) [Mass/Vol] 2.6 g/dL Normal 1.5-4.5 [facility] Comment on above: Performed By: #### L 100.0010, L100.0030, L100.0340, L100.0350 #### - [facility] [address] [place] [address] 96832 Protein [Mass/Vol] 7.6 g/dL Normal 6.4-8.3 [facility] Comment on above: Performed By: #### L 100.0010, L100.0030, L100.0340, L100.0350 #### - [facility] [address] [place] [address] 60593 LIPASEon 10-11-2019 Lipase [Catalytic activity/Vol] 25 U/L Normal 13-60 [facility] Comment on above: Performed By: #### L 100.0010, L100.0030, L100.0340, L100.0350 #### - [facility] [address] [place] [address] 66773 UA W/C&Son 10-11-2019 Bilirubin Ql (U) Negative Normal NEGATIVE [facility] Comment on above: Order Comment: Urine Specimen Source+ CLEAN CATCH Performed By: #### L 100.0010, L100.0030, L100.0340, L100.0350 #### [facility] [address] [place] [address] 70902 Color (U) YELLOW Normal YELLOW [facility] Comment on above: Order Comment: Urine Specimen Source+ CLEAN CATCH Performed By: #### L 100.0010, L100.0030, L100.0340, L100.0350 #### - [facility] [address] [place] [address] 63782 Glucose Ql (U) Negative Normal NEGATIVE [facility] Comment on above: Order Comment: Urine Specimen Source+ CLEAN CATCH Performed By: #### L 100.0010, L100.0030, L100.0340, L100.0350 #### [facility] [address] [place] [address] 70050 Hemoglobin Ql (U) Negative Normal NEGATIVE [facility] Comment on above: Order Comment: Urine Specimen Source+ CLEAN CATCH Performed By: #### L 100.0010, L100.0030, L100.0340, L100.0350 #### [facility] [address] [place] [address] 85335 Leukocyte esterase Test strip Ql (U) Negative Normal NEGATIVE [facility] Comment on above: Order Comment: Urine Specimen Source+ CLEAN CATCH Performed By: #### L 100.0010, L100.0030, L100.0340, L100.0350 #### - [facility] [address] [place] [address] 38934 Nitrite Ql (U) Negative Normal NEGATIVE [facility] Comment on above: Order Comment: Urine Specimen Source+ CLEAN CATCH Performed By: #### L 100.0010, L100.0030, L100.0340, L100.0350 #### [facility] [address] [place] [address] 46573 pH (U) 8.5 [pH] Normal 5.0-8.0 [facility] Comment on above: Order Comment: Urine Specimen Source+ CLEAN CATCH Performed By: #### L 100.0010, L100.0030, L100.0340, L100.0350 #### [facility] [address] [place] [address] 18599 Protein Ql (U) Negative Normal NEGATIVE [facility] Comment on above: Order Comment: Urine Specimen Source+ CLEAN CATCH Performed By: #### L 100.0010, L100.0030, L100.0340, L100.0350 #### [facility] [address] [place] [address] 85204 URINE APPEARANC SL CLOUDY Normal CLEAR [facility] Comment on above: Order Comment: Urine Specimen Source+ CLEAN CATCH Performed By: #### L 100.0010, L100.0030, L100.0340, L100.0350 #### [facility] [address] [place] [address] 73726 URINE KETONE 40 MG/DL Normal NEGATIVE [facility] Comment on above: Order Comment: Urine Specimen Source+ CLEAN CATCH Performed By: #### L 100.0010, L100.0030, L100.0340, L100.0350 #### [facility] [address] [place] [address] 90660 URINE SPECIFIC 1.020 Normal 1.001-1.035 [facility] Comment on above: Order Comment: Urine Specimen Source+ CLEAN CATCH Performed By: #### L 100.0010, L100.0030, L100.0340, L100.0350 #### [facility] [address] [place] [address] 59090 URINE UROBILINO 1.0 EU/DL Normal 0.2-1.0 [facility] Comment on above: Order Comment: Urine Specimen Source+ CLEAN CATCH Performed By: #### L 100.0010, L100.0030, L100.0340, L100.0350 #### [facility] [address] [place] [address] EMERGENCY DEPARTMENT REPORTkeyanna dupree 04-22-2019 EMERGENCY DEPARTMENT REPORT [place] [address] HEALTH INFORMATION MANAGEMENT EMERGENCY DEPARTMENT REPORT Patient: AGAPITO PARKJOSE ANTONIO Moreau M.D. [id number] [age] M Status: DEP ER ED Date of Service: 04/20/19 ADDENDUM Addendum to the patient's record. The patient did have a full medical workup that was negative. X-ray showed no acute process. He initially received IV Toradol, Reglan and Benadryl, though he told the nurse when she gave that to him that does not work. The only thing that works is Dilaudid. I spoke with the patient, told him that I do not feel that Dilaudid is indicated for chronic abdominal pain. I noticed in the record that he has had it multiple times in the past. I told him that it is highly addictive and I do not believe in it. I recommend the ALTO use of non-opiate medications for this. After these were given, he had no improvement. He then received another saline bolus, received a dose of ketamine 0.2 mg/kg with no significant improvement. He received another fluid bolus, another dose of ketamine. He states it was a little bit of improvement but still has the crampy pain and is still asking for Dilaudid. I still told him I do not feel that that is indicated. We do not have an acute urgent reason to give him Dilaudid. He has not vomited since he has been here. He has no evidence of any peritoneal findings. We will try a dose of Haloperidol 5 mg IV. His comment to me when I told him I was going to give him this was that that won't work either. I told him that it was the next medication on the protocol and to my knowledge according to our records he has never had it before, so it is hard to explain that he would know it would not work. We will give him 5 mg IV Haldol and reassess. Disposition to follow. 04/25/19 1512 JOSE ANTONIO VAUGHAN M.D. cc: JOSE ANTONIO VAUGHAN M.D. << Signature on File>> Reported By: JOSE ANTONIO VAUGHAN M.D. Signed By: JOSE ANTONIO VAUGHAN M.D. Tests performed at: [place] [address] [facility] EMERGENCY DEPARTMENT REPORT [place], [place] [id number] [place] [address] INFORMATION [facility] EMERGENCY DEPARTMENT REPORT Patient: AGAPITO PARK JOSE ANTONIO VAUGHAN M.D. [id number] [age] M Status: [facility] ER ED Date of Service: 04/20/19 ADDENDUM TO PATIENT RECORD After given the IV Haldol, he states he had some improvement and was discharged at that time with stable vital signs. He will be given a prescription for Levsin and Zofran. He is to follow up with his primary care provider, Dr. Daniel Navarro, this week, returning if worse or any problems. IMPRESSION Acute exacerbation of chronic abdominal pain. 04/25/19 1512 JOSE ANTONIO VAUGHAN M.D. cc: Umu NAVARRO M.D.; JOSE ANTONIO VAUGHAN M.D. << Signature on File>> Reported By: JOSE ANTONIO VAUGHAN M.D. Signed By: JOSE ANTONIO VAUGHAN M.D. Tests performed at: [place] [address] [facility] EMERGENCY DEPARTMENT REPORTo n 04-21-2019 [place] [address] [facility] INFORMATION [facility] EMERGENCY DEPARTMENT REPORT Patient: XAVIERJOSE ANTONIO GROSS M.D. [id number] [age] M Status: [facility] ER ED Date of Service: 04/20/19 CHIEF COMPLAINT/HISTORY OF PRESENT ILLNESS The patient is a 24-year-old male with a long history of chronic abdominal pain who comes to the emergency department today with recurrence of this. He states he has had it for a week, but the family member at the bedside states he has actually had this for 3-4 years. He has been worked up extensively including endoscopies, which he states he had a little over a year ago, though they were not done here and states that this pain is worse with eating. He denies any bloody emesis though he has had some emesis with this. He denies any black, tarry or bloody stools. PAST MEDICAL HISTORY His past medical history is significant for this as well as depression and anxiety. He states he has been diagnosed in the past with cyclic vomiting syndrome, is not diabetic. PAST SURGICAL HISTORY His surgical history only includes hernia repair. SOCIAL HISTORY Negative for smoking, occasional alcohol use, negative for drug use. ALLERGIES Erythromycin. MEDICATIONS His current medication list includes Remeron, Valium, Zyprexa, Topamax. PHYSICAL EXAMINATION Temperature 98.9, pulse 98, respiratory rate 18, blood pressure 147/97. The patient is an alert, cooperative male. He is thin. His color is good. There is no icterus. Nares show no rhinorrhea. Throat is clear. Tongue and mucous membranes are moist. Neck is supple. Heart is regular rate and rhythm. Lungs are clear. Respirations are slightly diminished but regular and unlabored. Abdomen is soft, nondistended. There is some slight periumbilical tenderness to palpation but no rebound tenderness. No involuntary guarding. No masses felt. No bruits heard. No tenderness deep in the right lower quadrant or in the subcostal area. No urgency upon palpation of the suprapubic area. exam is normal to inspection. EMERGENCY DEPARTMENT COURSE At this point, I ordered routine lab work, IV fluids, and was going to order some x-rays of his abdomen. He states he does not wish to have any x-rays. He states I have had a lot of x-rays. I told him that he has to understand that certainly if he had findings that would be seen on those, that that would be helpful, but he does not wish to have this done. I did look up his old records, and in his multiple visits here, he has been given a number of different cocktails of medications including occasional opiate therapy, which I do not feel is indicated in this case. We will, however, give him some fluids. We will give him some IV Benadryl, Toradol and some IV Reglan as well as some Zofran, check some lab work and reassess. DISPOSITION To follow. IMPRESSION 04/25/19 1512 JOSE ANTONIO VAUGHAN M.D. cc: JOSE ANTONIO VAUGHAN M.D. << Signature on File>> Reported By: JOSE ANTONIO VAUGHAN M.D. Signed By: JOSE ANTONIO VAUGHAN M.D. Tests performed at: [place] [address] [facility] ABDOMEN MULTIPLE VIEWSon ABDOMEN MULTIPLE VIEWS [place] [address] Name: XAVIERAGAPITO Phys: JOSE ANTONIO VAUGHAN M.D. : [birth year] Age: 24 Sex: M Acct: [id number] Loc: ED Exam Date: 04/20/19 Status: REG ER Radiology No.: [id number] Unit Number: [id number] Exam # Type/Exam [id number] RAD / ABDOMEN MULTIPLE VIEWS XR ABDOMEN 2 VIEWS SUPINE ERECT CLINICAL STATEMENT: Vomiting and nausea and abdominal pain COMPARISON: 12/28/2017 FINDINGS: The abdominal bowel gas pattern is nonobstructive. No dilated bowel or air-fluid levels. There is no pneumoperitoneum. IMPRESSION: Nonobstructive bowel gas pattern. Electronically signed by: Sarwat Davey MD 04/20/2019 6:44 PM CDT < > Reported By: SARWAT DAVEY M.D. Signed In PowerScribe By: SARWAT DAVEY M.D. << Signature on File>> Reported By: SARWAT DAVEY M.D. Signed By: SARWAT DAVEY M.D. Tests performed at: [place] [address] [facility] AMYLASEon 04-20-2019 Amylase [Catalytic activity/Vol] 99 U/L Normal 28-100 [facility] Comment on above: Performed By: #### L 200.0010 #### [facility] - [facility] [address] [place] [address] 58000 [facility] Anion gap [Moles/Vol] 20.0 mmol/L Normal 15-22 [facility] Comment on above: Performed By: #### L 200.0010 #### [facility] - [facility] [address] [place] [address] 20685 Calcium [Mass/Vol] 9.3 mg/dL Normal 8.6-10.0 [facility] Comment on above: Performed By: #### L 200.0010 #### [facility] - [facility] [address] [place] [address] 28121 Chloride [Moles/Vol] 97 mmol/L Low 98-107 [facility] Comment on above: Performed By: #### L 200.0010 #### [facility] - [facility] [address] [place] [address] 17532 CO2 [Moles/Vol] 24 mmol/L Normal 22-29 [facility] Comment on above: Performed By: #### L 200.0010 #### [facility] - [facility] [address] [place] [address] 79967 Creatinine [Mass/Vol] 1.06 mg/dL Normal 0.70-1.20 [facility] Comment on above: Performed By: #### L 200.0010 #### [facility] - [facility] [address] [place] [address] 92330 eGFR if AFR PHOEBE > 60 ml/min/1.73m2 Normal [facility] Comment on above: Result Comment: eGFR >= 60 Indicates normal kidney function. * eGFR IS AN ESTIMATE * (AFR PHOEBE = ) (non-AFR AM = NON-) MDRD calculation used in the eGFR should not be used to dose medications. For further limitations of the eGFR please refer to the Physician Website or the National Kidney Disease Education Program website (www.nkdep.nih.gov). Performed By: #### L 200.0010 #### [facility] - [facility] [address] [place] [address] 58694 eGFR nonAFR Phoebe > 60 ml/Min/1.73m2 Normal U [facility] Comment on above: Performed By: #### L 200.0010 #### [facility] - [facility] [address] [place] [address] 34961 Glucose [Mass/Vol] 103 mg/dL Normal 74-106 [facility] Comment on above: Performed By: #### L 200.0010 #### [facility] [address] [place] [address] 82867 Potassium [Moles/Vol] 4.0 mmol/L Normal 3.5-5.0 [facility] Comment on above: Performed By: #### L 200.0010 #### [facility] [address] [place] [address] 10310 Sodium [Moles/Vol] 137 mmol/L Normal 135-145 [facility] Comment on above: Performed By: #### L 200.0010 #### [facility] [address] [place] [address] 27714 Urea nitrogen [Mass/Vol] 14 mg/dL Normal 6-20 [facility] Comment on above: Performed By: #### L 200.0010 #### [facility] [address] [place] [address] 15461 CBCon 04-20-2019 Basophils (Bld) [#/Vol] 0.00 x10(3) Normal 0.00-0.10 [facility] Comment on above: Performed By: #### L 200.0010 #### [facility] [address] [place] [address] 36721 Basophils/100 WBC (Bld) 0.5 % Normal 0.0-1.0 [facility] Comment on above: Performed By: #### L 200.0010 #### [facility] [address] [place] [address] 15203 Eosinophils (Bld) [#/Vol] 0.00 x10(3) Normal 0.00-0.54 [facility] Comment on above: Performed By: #### L 200.0010 #### [facility] [address] [place] [address] 58427 Eosinophils/100 WBC (Bld) 0.3 % Low 0.5-4.9 [facility] Comment on above: Performed By: #### L 200.0010 #### [facility] [address] [place] [address] 84550 Erythrocyte distribution width (RBC) [Ratio] 13.0 % Normal 12.7-15.3 [facility] Comment on above: Performed By: #### L 200.0010 #### [facility] [address] [place] [address] 32940 Hematocrit (Bld) [Volume fraction] 45.2 % Normal 42.0-51.0 [facility] Comment on above: Performed By: #### L 200.0010 #### [facility] [address] [place] [address] 43554 Hemoglobin (Bld) [Mass/Vol] 15.3 g/dL Normal 14.0-17.2 [facility] Comment on above: Performed By: #### L 200.0010 #### [facility] [address] [place] [address] 19041 Lymphocytes (Bld) [#/Vol] 1.20 x10(3) Normal 1.00-3.50 [facility] Comment on above: Performed By: #### L 200.0010 #### [facility] [address] [place] [address] 12303 Lymphocytes/100 WBC (Bld) 19.7 % Normal 16.0-48.0 [facility] Comment on above: Performed By: #### L 200.0010 #### [facility] [address] [place] [address] 09737 MCH (RBC) [Entitic mass] 31.7 pg Normal 28.8-32.2 [facility] Comment on above: Performed By: #### L 200.0010 #### [facility] [address] [place] [address] 37537 MCHC (RBC) [Mass/Vol] 33.8 g/dL Normal 33.0-36.0 [facility] Comment on above: Performed By: #### L 200.0010 #### [facility] [address] [place] [address] 34245 MCV (RBC) [Entitic vol] 93.8 fL Normal 80.0-94.0 [facility] Comment on above: Performed By: #### L 200.0010 #### [facility] [address] [place] [address] 42928 Monocytes (Bld) [#/Vol] 0.30 x10(3) Normal 0.30-0.80 [facility] Comment on above: Performed By: #### L 200.0010 #### [facility] [address] [place] [address] 73187 Monocytes/100 WBC (Bld) 4.8 % Normal 4.3-11.2 [facility] Comment on above: Performed By: #### L 200.0010 #### [facility] [address] [place] [address] 31354 Neutrophils (Bld) [#/Vol] 4.60 x10(3) Normal 1.40-6.50 [facility] Comment on above: Performed By: #### L 200.0010 #### [facility] [address] [place] [address] 73687 Neutrophils/100 WBC (Bld) 74.7 % High 45.0-73.0 [facility] Comment on above: Performed By: #### L 200.0010 #### [facility] [address] [place] [address] 75964 Platelet mean volume (Bld) [Entitic vol] 7.7 fL Normal 7.4-9.2 [facility] Comment on above: Performed By: #### L 200.0010 #### [facility] [address] [place] [address] 41127 Platelets (Bld) [#/Vol] 241 X10(3) Normal 150-450 [facility] Comment on above: Performed By: #### L 200.0010 #### [facility] [address] [place] [address] 71850 RBC (Bld) [#/Vol] 4.82 x10(6) Normal 4.80-5.50 [facility] Comment on above: Performed By: #### L 200.0010 #### [facility] [address] [place] [address] 71523 WBC (Bld) [#/Vol] 6.2 x10(3) Normal 4.5-10.0 [facility] Comment on above: Performed By: #### L 200.0010 #### [facility] [address] [place] [address] 36795 HEPATIC PANELon 04-20-2019 A:G RATIO 1.77 Normal 1.1-2.5 [facility] Comment on above: Performed By: #### L 200.0010 #### [facility] [address] [place] [address] 75257 Albumin [Mass/Vol] 4.8 g/dL Normal 3.5-5.2 [facility] Comment on above: Performed By: #### L 200.0010 #### [facility] [address] [place] [address] 48081 ALK. PHOS 96 U/L Normal 40-130 [facility] Comment on above: Performed By: #### L 200.0010 #### [facility] [address] [place] [address] 33145 ALT [Catalytic activity/Vol] 16 U/L Normal 5-41 [facility] Comment on above: Performed By: #### L 200.0010 #### [facility] [address] [place] [address] 48462 AST [Catalytic activity/Vol] 20 U/L Normal 5-40 [facility] Comment on above: Performed By: #### L 200.0010 #### [facility] [address] [place] [address] 06746 Bilirubin Ql (U) 0.5 mg/dL Normal 0.2-1.2 [facility] Comment on above: Performed By: #### L 200.0010 #### [facility] [address] [place] [address] 45137 DIRECT BILIRUBI <0.2 Normal 0.0-0.3 [facility] Comment on above: Performed By: #### L 200.0010 #### [facility] [address] [place] [address] 21474 Globulin (S) [Mass/Vol] 2.7 g/dL Normal 1.5-4.5 [facility] Comment on above: Performed By: #### L 200.0010 #### [facility] [address] [place] [address] 45725 Protein [Mass/Vol] 7.5 g/dL Normal 6.4-8.3 [facility] Comment on above: Performed By: #### L 200.0010 #### [facility] [address] [place] [address] 05091 LIPASEon 04-20-2019 Lipase [Catalytic activity/Vol] 24 U/L Normal 13-60 [facility] Comment on above: Performed By: #### L 200.0010 #### [facility] [address] [place] [address] 21029 UA W/C&Son 04-20-2019 Bilirubin Ql (U) SMALL Normal NEGATIVE [facility] Comment on above: Order Comment: Urine Specimen Source+ CLEAN CATCH Performed By: #### L 200.0010 #### [facility] [address] [place] [address] 95236 Color (U) YELLOW Normal YELLOW [facility] Comment on above: Order Comment: Urine Specimen Source+ CLEAN CATCH Performed By: #### L 200.0010 #### [facility] [address] [place] [address] 47746 Glucose Ql (U) Negative Normal NEGATIVE [facility] Comment on above: Order Comment: Urine Specimen Source+ CLEAN CATCH Performed By: #### L 200.0010 #### [facility] [address] [place] [address] 81048 Hemoglobin Ql (U) Negative Normal NEGATIVE [facility] Comment on above: Order Comment: Urine Specimen Source+ CLEAN CATCH Performed By: #### L 200.0010 #### [facility] [address] [place] [address] 45238 Leukocyte esterase Test strip Ql (U) Negative Normal NEGATIVE [facility] Comment on above: Order Comment: Urine Specimen Source+ CLEAN CATCH Performed By: #### L 200.0010 #### [facility] [address] [place] [address] 46101 Nitrite Ql (U) Negative Normal NEGATIVE [facility] Comment on above: Order Comment: Urine Specimen Source+ CLEAN CATCH Performed By: #### L 200.0010 #### [facility] [address] [place] [address] 86113 pH (U) 6.5 [pH] Normal 5.0-8.0 [facility] Comment on above: Order Comment: Urine Specimen Source+ CLEAN CATCH Performed By: #### L 200.0010 #### [facility] [address] [place] [address] 32341 Protein Ql (U) Negative Normal NEGATIVE [facility] Comment on above: Order Comment: Urine Specimen Source+ CLEAN CATCH Performed By: #### L 200.0010 #### [facility] [address] [place] [address] 81826 URINE APPEARANC CLOUDY Normal CLEAR [facility] Comment on above: Order Comment: Urine Specimen Source+ CLEAN CATCH Performed By: #### L 200.0010 #### [facility] [address] [place] [address] 80631 URINE KETONE >=80 Normal NEGATIVE [facility] Comment on above: Order Comment: Urine Specimen Source+ CLEAN CATCH Performed By: #### L 200.0010 #### [facility] [address] [place] [address] 72046 URINE SPECIFIC 1.020 Normal 1.001-1.035 [facility] Comment on above: Order Comment: Urine Specimen Source+ CLEAN CATCH Performed By: #### L 200.0010 #### [facility] [address] [place] [address] 01909 URINE UROBILINO 1.0 EU/DL Normal 0.2-1.0 [facility] Comment on above: Order Comment: Urine Specimen Source+ CLEAN CATCH Performed By: #### L 200.0010 #### [facility] [address] [place] [address] EMERGENCY DEPARTMENT REPORTo n 02-03-2019 [place] [address] HEALTH INFORMATION MANAGEMENT EMERGENCY DEPARTMENT REPORT Patient: AGAPITO PARK KEVIN J M.DCleo [id number] [age] M Status: DEP ER ED Date of Service: 01/31/19 CHIEF COMPLAINT Reported to be abdominal pain and vomiting. HISTORY OF PRESENT ILLNESS The patient is a 24-year-old male who presents with a complaint of recurrent abdominal pain and vomiting. It has been going on all last week. The patient was seen and evaluated 4 times this month already, 3 times last month. He is currently receiving care at a skilled nursing for anxiety. Is followed by a beach lifeguard at [place] who is treating for cyclic vomiting disorder. PAST MEDICAL HISTORY Cyclic vomiting disorder, migraine headaches. PAST SURGICAL HISTORY Hernia repair, Linx for reflux which is status post removal. SOCIAL HISTORY No tobacco use. The patient does have a history of remote marijuana use, none recently. MEDICATIONS Reviewed. Please see MRO. ALLERGIES Erythromycin. REVIEW OF SYSTEMS General: No fever or chills. Head: No headache. Neck: No neck pain. Back: No back pain. Cardiac: No chest pain or palpitations. Pulmonary: No shortness of breath or cough. Abdomen: Positive abdominal pain. Positive for nausea, vomiting and constipation. No hematemesis, melena or hematochezia. Urinary: No dysuria, no hematuria, no urgency or frequency. Extremities: No edema, no weakness. Neurologic: No numbness or paresthesias. PHYSICAL EXAMINATION General examination reveals a well-developed, well-nourished male resting comfortably. Vital signs: Blood pressure 146/90, temperature 98.4, pulse 95, respirations 18, pulse oximetry 99% on room air. Head normocephalic and atraumatic. Ocular examination reveals pupils to be equal, round and react to light. Sclerae anicteric. Examination of the oropharynx reveals mucous membranes moist. No erythema or exudate, no oral lesions. Cardiovascular examination reveals normal S1, S2. Regular rate and rhythm. No murmurs, gallops, rubs. Pulmonary examination reveals breath sounds clear to auscultation. No wheezes, rales, rhonchi. Abdomen is soft, positive bowel sounds. No peritoneal signs. Examination of the extremities revealed no cyanosis, clubbing or edema. Neurological examination: The patient alert and oriented x3, no focal deficits appreciated. EMERGENCY DEPARTMENT EVALUATION CBC showed white count of 5.8, hemoglobin 15.4, hematocrit 43.4, platelet count of 249. Chemistry showed sodium 139, potassium 4.3, chloride 103, bicarb 24, BUN 12, creatinine 1.17, glucose 111. Calcium is 9.6. LFTs within normal limits. Lipase is 28. EMERGENCY DEPARTMENT COURSE The patient was given Dilaudid, Zofran for pain and nausea control. He is feeling improved upon reevaluation. The patient was given a liter of fluid. IMPRESSION 1. Cyclic vomiting syndrome. 2. Constipation. PLAN Discharge. Instructed to follow up with his primary provider, as well as his beach lifeguard. I gave him a bottle of mag citrate to go home with for his constipation, take one half now, one half tomorrow. Return otherwise for any new or worsening symptoms, questions or concerns. The patient is made aware of the management and in agreement. 02/21/19 0730 NO NAVARRO M.D. cc: NO NAVARRO M.D. << Signature on File>> Reported By: NO NAVARRO M.D. Signed By: NO ANVARRO M.D. Tests performed at: [address] [address] Normal [facility] BMPon 01-31-2019 Anion gap [Moles/Vol] 16.3 mmol/L Normal 15-22 [facility] Comment on above: Performed By: #### L 200.3000 #### [facility] [address] [place] [address] 51359 Calcium [Mass/Vol] 9.6 mg/dL Normal 8.6-10.0 [facility] Comment on above: Performed By: #### L 200.3000 #### [facility] [address] [place] [address] 13644 Chloride [Moles/Vol] 103 mmol/L Normal 98-107 [facility] Comment on above: Performed By: #### L 200.3000 #### [facility] [address] [place] [address] 89823 CO2 [Moles/Vol] 24 mmol/L Normal 22-29 [facility] Comment on above: Performed By: #### L 200.3000 #### [facility] [address] [place] [address] 96084 Creatinine [Mass/Vol] 1.17 mg/dL Normal 0.70-1.20 [facility] Comment on above: Performed By: #### L 200.3000 #### [facility] [address] [place] [address] 28673 eGFR if AFR PHOEBE > 60 ml/min/1.73m2 Normal [facility] Comment on above: Result Comment: eGFR >= 60 Indicates normal kidney function. * eGFR IS AN ESTIMATE * (AFR PHOEBE = ) (non-AFR AM = NON-) MDRD calculation used in the eGFR should not be used to dose medications. For further limitations of the eGFR please refer to the Physician Website or the National Kidney Disease Education Program website (www.nkdep.nih.gov). Performed By: #### L 200.3000 #### [facility] [address] [place] [address] 37245 eGFR nonAFR Phoebe > 60 ml/Min/1.73m2 Normal [facility] Comment on above: Performed By: #### L 200.3000 #### [facility] [address] [place] [address] 68048 Glucose [Mass/Vol] 111 mg/dL High 74-106 [facility] Comment on above: Performed By: #### L 200.3000 #### [facility] [address] [place] [address] 71851 Potassium [Moles/Vol] 4.3 mmol/L Normal 3.5-5.0 [facility] Comment on above: Performed By: #### L 200.3000 #### [facility] [address] [place] [address] 12842 Sodium [Moles/Vol] 139 mmol/L Normal 135-145 [facility] Comment on above: Performed By: #### L 200.3000 #### [facility] [address] [place] [address] 07540 Urea nitrogen [Mass/Vol] 12 mg/dL Normal 6-20 [facility] Comment on above: Performed By: #### L 200.3000 #### [facility] [address] [place] [address] 74612 CBCon 01-31-2019 Basophils (Bld) [#/Vol] 0.00 x10(3) Normal 0.00-0.10 [facility] Comment on above: Performed By: #### L 200.3000 #### [facility] [address] [place] [address] 73436 Basophils/100 WBC (Bld) 0.6 % Normal 0.0-1.0 [facility] Comment on above: Performed By: #### L 200.3000 #### [facility] [address] [place] [address] 39663 Eosinophils (Bld) [#/Vol] 0.00 x10(3) Normal 0.00-0.54 [facility] Comment on above: Performed By: #### L 200.3000 #### [facility] [address] [place] [address] 80351 Eosinophils/100 WBC (Bld) 0.4 % Low 0.5-4.9 [facility] Comment on above: Performed By: #### L 200.3000 #### [facility] [address] [place] [address] 78998 Erythrocyte distribution width (RBC) [Ratio] 13.4 % Normal 12.7-15.3 [facility] Comment on above: Performed By: #### L 200.3000 #### [facility] [address] [place] [address] 54816 Hematocrit (Bld) [Volume fraction] 43.4 % Normal 42.0-51.0 [facility] Comment on above: Performed By: #### L 200.3000 #### [facility] [address] [place] [address] 06691 Hemoglobin (Bld) [Mass/Vol] 15.0 g/dL Normal 14.0-17.2 [facility] Comment on above: Performed By: #### L 200.3000 #### [facility] [address] [place] [address] 67768 Lymphocytes (Bld) [#/Vol] 1.40 x10(3) Normal 1.00-3.50 [facility] Comment on above: Performed By: #### L 200.3000 #### [facility] [address] [place] [address] 48906 Lymphocytes/100 WBC (Bld) 23.8 % Normal 16.0-48.0 [facility] Comment on above: Performed By: #### L 200.3000 #### [facility] [address] [place] [address] 31619 MCH (RBC) [Entitic mass] 31.8 pg Normal 28.8-32.2 [facility] Comment on above: Performed By: #### L 200.3000 #### [facility] [address] [place] [address] 76577 MCHC (RBC) [Mass/Vol] 34.5 g/dL Normal 33.0-36.0 [facility] Comment on above: Performed By: #### L 200.3000 #### [facility] [address] [place] [address] 43309 MCV (RBC) [Entitic vol] 92.3 fL Normal 80.0-94.0 [facility] Comment on above: Performed By: #### L 200.3000 #### [facility] [address] [place] [address] 57072 Monocytes (Bld) [#/Vol] 0.40 x10(3) Normal 0.30-0.80 [facility] Comment on above: Performed By: #### L 200.3000 #### [facility] [address] [place] [address] 58140 Monocytes/100 WBC (Bld) 6.2 % Normal 4.3-11.2 [facility] Comment on above: Performed By: #### L 200.3000 #### [facility] [address] [place] [address] 54160 Neutrophils (Bld) [#/Vol] 4.00 x10(3) Normal 1.40-6.50 [facility] Comment on above: Performed By: #### L 200.3000 #### [facility] [address] [place] [address] 04025 Neutrophils/100 WBC (Bld) 69.0 % Normal 45.0-73.0 [facility] Comment on above: Performed By: #### L 200.3000 #### [facility] [address] [place] [address] 52646 Platelet mean volume (Bld) [Entitic vol] 7.4 fL Normal 7.4-9.2 [facility] Comment on above: Performed By: #### L 200.3000 #### [facility] [address] [place] [address] 98891 Platelets (Bld) [#/Vol] 249 X10(3) Normal 150-450 [facility] Comment on above: Performed By: #### L 200.3000 #### [facility] [address] [place] [address] 98704 RBC (Bld) [#/Vol] 4.70 x10(6) Low 4.80-5.50 [facility] Comment on above: Performed By: #### L 200.3000 #### [facility] [address] [place] [address] 24720 WBC (Bld) [#/Vol] 5.8 x10(3) Normal 4.5-10.0 [facility] Comment on above: Performed By: #### L 200.3000 #### [facility] [address] [place] [address] 72297 HEPATIC PANELon 01-31-2019 A:G RATIO 1.77 Normal 1.1-2.5 [facility] Comment on above: Performed By: #### L 200.3000 #### [facility] [address] [place] [address] 22852 Albumin [Mass/Vol] 4.8 g/dL Normal 3.5-5.2 [facility] Comment on above: Performed By: #### L 200.3000 #### [facility] [address] [place] [address] 89042 ALK. PHOS 87 U/L Normal 40-130 [facility] Comment on above: Performed By: #### L 200.3000 #### [facility] [address] [place] [address] 16766 ALT [Catalytic activity/Vol] 10 U/L Normal 5-41 [facility] Comment on above: Performed By: #### L 200.3000 #### [facility] [address] [place] [address] 20285 AST [Catalytic activity/Vol] 13 U/L Normal 5-40 [facility] Comment on above: Performed By: #### L 200.3000 #### [facility] [address] [place] [address] 57711 Bilirubin Ql (U) 0.4 mg/dL Normal 0.2-1.2 [facility] Comment on above: Performed By: #### L 200.3000 #### [facility] [address] [place] [address] 74023 DIRECT BILIRUBI <0.2 Normal 0.0-0.3 [facility] Comment on above: Performed By: #### L 200.3000 #### [facility] [address] [place] [address] 27945 Globulin (S) [Mass/Vol] 2.7 g/dL Normal 1.5-4.5 [facility] Comment on above: Performed By: #### L 200.3000 #### [facility] [address] [place] [address] 69804 Protein [Mass/Vol] 7.5 g/dL Normal 6.4-8.3 [facility] Comment on above: Performed By: #### L 200.3000 #### [facility] [address] [place] [address] 55464 LIPASEon 01-31-2019 Lipase [Catalytic activity/Vol] 28 U/L Normal 13-60 [facility] Comment on above: Performed By: #### L 200.3000 #### [facility] [address] [place] [address] MAGNESIUMon 01-31-2019 Magnesium [Mass/Vol] 2.1 mg/dL Normal 1.6-2.6 [facility] Comment on above: Performed By: #### L 200.3000 #### [facility] [address] [place] [address] ED REPORTon 01-28-2019 [place] [address] HEALTH INFORMATION MANAGEMENT EMERGENCY DEPARTMENT REPORT Patient: AGAPITO PARK ANDREE,JOSE ANTONIO Perude D.O. as dictated by SINCERE MURPHY NP-C [id number] M Status: DEP ER ED Date of Service: 01/27/19 CHIEF COMPLAINT/HISTORY OF PRESENT ILLNESS This is a 24-year-old male who presents to the emergency room with upper abdominal pain, nausea and vomiting. It started Sunday morning. The patient has a history of cyclic vomiting and states that he has had issues with this for some time. Usually goes about 3-6 months in between episodes. This episode started Sunday morning, had not really had anything trigger it. He states hot showers sometimes will help but eating makes it worse. He was here Sunday, had pain and nausea medication and got better for a little bit but by Sunday it was back. ALLERGIES Erythromycin base. SOCIAL HISTORY The patient is single. Does not smoke or drink. PAST SURGICAL HISTORY Inguinal hernia repair, sinus surgery. PAST MEDICAL HISTORY Irritable bowel syndrome, gastritis, PUD, anxiety, cyclic vomiting, abdominal migraines, malrotation of intestine. DAILY MEDICATIONS Please see nursing list. REVIEW OF SYSTEMS Negative except as listed above in HPI. PHYSICAL EXAMINATION On examination blood pressure 141/99, temp 98.5, pulse 102, respiratory rate 98% on room air. The patient has 10/10 discomfort in his abdomen. Upon evaluation the patient is resting back in the bed. Lungs are clear throughout. No wheezes, rhonchi or rales. Heart: Regular rate and rhythm. No murmur is appreciated. Abdomen is soft, diffusely tender in the epigastric, right upper quadrant, left upper quadrant. No distension of the abdomen. No bruising, no mass or hepatomegaly. Bowel sounds heard throughout, normoactive to hyperactive. No pressure over the bladder. No rash or discoloration of the skin. EMERGENCY DEPARTMENT COURSE After evaluating the patient blood work was obtained in triage. We did give the patient pain and nausea medication, capsaicin cream to the abdomen. Blood work is all within normal limits. After the medication the pain is down to 1. He has tolerated ice chips well. He is ready to go home. At this time will discharge him home. I sent the capsaicin cream with him. He can use that twice a day as needed. Continue his home medications, bland diet. Follow with family doctor in 5-7 days as needed. Return if worse in any way. The patient is aware and agreeable with plan of care and will be discharged home. IMPRESSION 1. Abdominal pain. 2. Cyclic vomiting syndrome. 01/31/19 0348 JOSE ANTONIO CANDELARIO D.O. cc: JOSE ANTONIO CANDELARIO D.O. << Signature on File>> Reported By: JOSE ANTONIO CANDELARIO D.O. Signed By: JOSE ANTONIO CANDELARIO D.O. Tests performed at: [address] [facility] EMERGENCY DEPARTMENT REPORTo n 01-28-2019 [place] [address] HEALTH INFORMATION MANAGEMENT EMERGENCY DEPARTMENT REPORT Patient: AGAPITO PARK JOSE ANTONIO CANDELARIO D.O. [id number] M Status: DEP ER ED Date of Service: 01/27/19 CHIEF COMPLAINT Abdominal pain, nausea and vomiting. HISTORY This is a 24-year-old male seen by the nurse practitioner. I saw and assessed him as well. He presents with abdominal pain, nausea, vomiting. He has history of cyclic vomiting syndrome. He said this feels like his typical flare-up. PHYSICAL EXAMINATION The patient's physical exam he is awake, alert, active, nontoxic in appearance. Appears well hydrated and well nourished. The patient's heart is regular rate and rhythm. Lungs are clear bilaterally. Abdomen was soft, mildly tender without rebound or guarding. No peritoneal signs. Nonsurgical abdomen. Extremities are without edema or cyanosis. Skin is without rashes. EMERGENCY DEPARTMENT COURSE The patient we gave him some fluids and we gave him some abdominal capsaicin rub on the abdomen as well as some nausea and pain medication and now he is feeling much better. His vomiting has stopped. His white count was normal. Chemistry is unremarkable. He did not give us a urine at this point. impression 1. Cyclic vomiting syndrome. 2. Abdominal pain, improved. PLAN Patient is going to be discharged home. His symptoms are better now. His pain is gone. Follow up as an outpatient with Primary Care. Return if worse. 01/31/19 0348 JOSE ANTONIO CANDELARIO D.O. cc: JOSE ANTONIO CANDELARIO D.O. << Signature on File>> Reported By: JOSE ANTONIO CANDELARIO D.O. Signed By: JOSE ANTONIO CANDELARIO D.O. Tests performed at: [place] [address] [facility] CBCon 01-27-2019 Basophils (Bld) [#/Vol] 0.10 x10(3) Normal 0.00-0.10 [facility] Comment on above: Performed By: #### L 100.0005 #### ML [facility] [address] [place] [address] 69671 Basophils/100 WBC (Bld) 0.6 % Normal 0.0-1.0 [facility] Comment on above: Performed By: #### L 100.0005 #### ML [facility] [address] [place] [address] 96273 Eosinophils (Bld) [#/Vol] 0.00 x10(3) Normal 0.00-0.54 [facility] Comment on above: Performed By: #### L 100.0005 #### [facility] [address] [place] [address] 90828 Eosinophils/100 WBC (Bld) 0.2 % Low 0.5-4.9 [facility] Comment on above: Performed By: #### L 100.0005 #### [facility] [address] [place] [address] 36362 Erythrocyte distribution width (RBC) [Ratio] 13.5 % Normal 12.7-15.3 [facility] Comment on above: Performed By: #### L 100.0005 #### [facility] [address] [place] [address] 74753 Hematocrit (Bld) [Volume fraction] 42.4 % Normal 42.0-51.0 [facility] Comment on above: Performed By: #### L 100.0005 #### [facility] [address] [place] [address] 63171 Hemoglobin (Bld) [Mass/Vol] 14.6 g/dL Normal 14.0-17.2 [facility] Comment on above: Performed By: #### L 100.0005 #### ML [facility] [address] [place] [address] 73549 Lymphocytes (Bld) [#/Vol] 1.70 x10(3) Normal 1.00-3.50 [facility] Comment on above: Performed By: #### L 100.0005 #### [facility] [address] [place] [address] 18136 Lymphocytes/100 WBC (Bld) 19.2 % Normal 16.0-48.0 [facility] Comment on above: Performed By: #### L 100.0005 #### [facility] [address] [place] [address] 19070 MCH (RBC) [Entitic mass] 31.9 pg Normal 28.8-32.2 [facility] Comment on above: Performed By: #### L 100.0005 #### [facility] [address] [place] [address] 37171 MCHC (RBC) [Mass/Vol] 34.5 g/dL Normal 33.0-36.0 [facility] Comment on above: Performed By: #### L 100.0005 #### [facility] [address] [place] [address] 09926 MCV (RBC) [Entitic vol] 92.4 fL Normal 80.0-94.0 [facility] Comment on above: Performed By: #### L 100.0005 #### [facility] [address] [place] [address] 39832 Monocytes (Bld) [#/Vol] 0.50 x10(3) Normal 0.30-0.80 [facility] Comment on above: Performed By: #### L 100.0005 #### [facility] [address] [place] [address] 07669 Monocytes/100 WBC (Bld) 5.8 % Normal 4.3-11.2 [facility] Comment on above: Performed By: #### L 100.0005 #### [facility] [address] [place] [address] 40058 Neutrophils (Bld) [#/Vol] 6.40 x10(3) Normal 1.40-6.50 [facility] Comment on above: Performed By: #### L 100.0005 #### [facility] [address] [place] [address] 50065 Neutrophils/100 WBC (Bld) 74.2 % High 45.0-73.0 [facility] Comment on above: Performed By: #### L 100.0005 #### [facility] [address] [place] [address] 55829 Platelet mean volume (Bld) [Entitic vol] 7.1 fL Low 7.4-9.2 [facility] Comment on above: Performed By: #### L 100.0005 #### [facility] [address] [place] [address] 34749 Platelets (Bld) [#/Vol] 236 X10(3) Normal 150-450 [facility] Comment on above: Performed By: #### L 100.0005 #### [facility] [address] [place] [address] 08826 RBC (Bld) [#/Vol] 4.59 x10(6) Low 4.80-5.50 [facility] Comment on above: Performed By: #### L 100.0005 #### [facility] [address] [place] [address] 89620 WBC (Bld) [#/Vol] 8.6 x10(3) Normal 4.5-10.0 [facility] Comment on above: Performed By: #### L 100.0005 #### [facility] [address] [place] [address] 25202 CMPon 01-27-2019 A:G RATIO 1.65 Normal 1.1-2.5 [facility] Comment on above: Performed By: #### L 200.3000 #### ML [facility] [address] [place] [address] 79993 Albumin [Mass/Vol] 4.8 g/dL Normal 3.5-5.2 [facility] Comment on above: Performed By: #### L 200.3000 #### ML [facility] [address] [place] [address] 31654 ALK. PHOS 88 U/L Normal 40-130 [facility] Comment on above: Performed By: #### L 200.3000 #### [facility] [address] [place] [address] 92316 ALT [Catalytic activity/Vol] 14 U/L Normal 5-41 [facility] Comment on above: Performed By: #### L 200.3000 #### ML [facility] [address] [place] [address] 70780 Anion gap [Moles/Vol] 17.9 mmol/L Normal 15-22 [facility] Comment on above: Performed By: #### L 200.3000 #### [facility] [address] [place] [address] 60117 AST [Catalytic activity/Vol] 16 U/L Normal 5-40 [facility] Comment on above: Performed By: #### L 200.3000 #### [facility] [address] [place] [address] 05797 Bilirubin Ql (U) 0.5 mg/dL Normal 0.2-1.2 [facility] Comment on above: Performed By: #### L 200.3000 #### [facility] [address] [place] [address] 09003 Calcium [Mass/Vol] 10.0 mg/dL Normal 8.6-10.0 [facility] Comment on above: Performed By: #### L 200.3000 #### ML [facility] [address] [place] [address] 21135 Chloride [Moles/Vol] 102 mmol/L Normal 98-107 [facility] Comment on above: Performed By: #### L 200.3000 #### [facility] [address] [place] [address] 66137 CO2 [Moles/Vol] 23 mmol/L Normal 22-29 [facility] Comment on above: Performed By: #### L 200.3000 #### [facility] [address] [place] [address] 12253 Creatinine [Mass/Vol] 1.11 mg/dL Normal 0.70-1.20 [facility] Comment on above: Performed By: #### L 200.3000 #### [address] [address] eGFR if AFR PHOEBE > 60 ml/min/1.73m2 Normal [facility] Comment on above: Result Comment: eGFR >= 60 Indicates normal kidney function. * eGFR IS AN ESTIMATE * (AFR PHOEBE = ) (non-AFR AM = NON-) MDRD calculation used in the eGFR should not be used to dose medications. For further limitations of the eGFR please refer to the Physician Website or the National Kidney Disease Education Program website (www.nkdep.nih.gov). Performed By: #### L 200.3000 #### [facility] [address] [place] [address] 38151 eGFR nonAFR Phoebe > 60 ml/Min/1.73m2 Normal [facility] Comment on above: Performed By: #### L 200.3000 #### [facility] [address] [place] [address] 67977 Globulin (S) [Mass/Vol] 2.9 g/dL Normal 1.5-4.5 [facility] Comment on above: Performed By: #### L 200.3000 #### [facility] [address] [place] [address] 28422 Glucose [Mass/Vol] 107 mg/dL High 74-106 [facility] Comment on above: Performed By: #### L 200.3000 #### [facility] [address] [place] [address] 44630 Potassium [Moles/Vol] 3.9 mmol/L Normal 3.5-5.0 [facility] Comment on above: Performed By: #### L 200.3000 #### [facility] [address] [place] [address] 86398 Protein [Mass/Vol] 7.7 g/dL Normal 6.4-8.3 [facility] Comment on above: Performed By: #### L 200.3000 #### [facility] [address] [place] [address] 43525 Sodium [Moles/Vol] 139 mmol/L Normal 135-145 [facility] Comment on above: Performed By: #### L 200.3000 #### [facility] [address] [place] [address] 67640 Urea nitrogen [Mass/Vol] 14 mg/dL Normal 6-20 [facility] Comment on above: Performed By: #### L 200.3000 #### [facility] [address] [place] [address] 46823 LIPASEon 01-27-2019 Lipase [Catalytic activity/Vol] 29 U/L Normal 13-60 [facility] Comment on above: Performed By: #### L 200.3000 #### [facility] [address] [place] [address] 48928 ED REPORTon 01-26-2019 [place] [address] HEALTH INFORMATION MANAGEMENT EMERGENCY DEPARTMENT REPORT Patient: AGAPITO PARK KEVIN J M.D. as dictated by JAZMYNE SCHUMACHER, AMMY-Suleiman [id number] M Status: DEP ER ED Date of Service: 01/25/19 CHIEF COMPLAINT Abdominal pain and vomiting. HISTORY OF PRESENT ILLNESS The patient has chronic abdominal pain and cyclic vomiting. He is actually in a mental health institution currently, related to his abdominal pain, and has seen a neuro beach lifeguard in [place], and they are thinking that a lot of this has to do with anxiety based issues. He said he is going to be in this mental institution for about 4 or 5 weeks. He said he started today again with umbilicus area pain, which he said is where his pain always is, and nausea and vomiting. He has vomited multiple times. No diarrhea. No fever or chills. No back pain. No chest pain, no shortness of breath. No urinary symptoms. REVIEW OF SYSTEMS A 10-point review of systems is negative except where listed in the HPI. PAST MEDICAL HISTORY Anxiety, cyclic vomiting for 4 years, and this chronic abdominal pain. Irritable bowel and peptic ulcer disease as well and abdominal migraines. SOCIAL HISTORY He is single. No drug, alcohol or tobacco use. ALLERGIES Allergic to erythromycin. MEDICATIONS Daily medication is coenzyme Q10 and Topamax. PHYSICAL EXAMINATION The patient's blood pressure is 142/92, temperature 97.5, pulse 108, respirations 20, SpO2 is 100% on room air. He rates his pain a 9 out of 10. He is a well-nourished, well-hydrated, well-developed 24-year-old male in no acute distress, nontoxic appearing. Head is atraumatic, normocephalic. Neck is supple, nontender. Skin color is pink. He is warm and dry. Cap refill less than 2 seconds. He is alert and oriented x3. Breath sounds are clear, respirations easy. Cardiac: He has a regular rate and rhythm. Good warmth and perfusion to his extremities. Abdomen is soft, positive bowel sounds. He is mildly tender, periumbilical area, but really a pretty benign abdominal physical assessment, certainly no peritoneal findings. No CVA tenderness. EMERGENCY DEPARTMENT COURSE We did check some basic lab work on him. His glucose was 153. The rest of his chemistry, liver enzymes and lipase are all unremarkable. His CBC is unremarkable as well. We gave him a liter of IV fluid and gave him some Zofran and Dilaudid. He said his pain was down to about a 4, but he was still nauseous, so we gave him some additional Compazine. He has been able to take ice chips, 7-Up and was requesting some Jell-O. He says he is feeling better. We are going to discharge him home. I will give him a prescription for Compazine that he can take back to the mental health institution where he is currently. He was not real sure. He said they are very particular about medications there, so he was not sure if they would fill it or not, but I will send a script with him. He is encouraged to return here for any worsening condition. He has recently been seen for this as well. He has had CT scans that have been unremarkable in the past with the same exact symptoms. He states these are the exact same symptoms that he always gets, so at this point, we will not rescan him as he is feeling better. IMPRESSION Acute on chronic abdominal pain. 02/21/19 0729 NO NAVARRO M.D. cc: NO NAVARRO M.D. << Signature on File>> Reported By: NO NAVARRO M.D. Signed By: NO NAVARRO M.D. Tests performed at: [place] [id number] [facility] BMPon 01-25-2019 Anion gap [Moles/Vol] 18.0 mmol/L Normal 15-22 [facility] Comment on above: Performed By: #### L 100.0005 #### [facility] [address] [place] [address] 29490 Calcium [Mass/Vol] 10.0 mg/dL Normal 8.6-10.0 [facility] Comment on above: Performed By: #### L 100.0005 #### ML [facility] [address] [place] [address] 25649 Chloride [Moles/Vol] 105 mmol/L Normal 98-107 [facility] Comment on above: Performed By: #### L 100.0005 #### ML [facility] [address] [place] [address] 54777 CO2 [Moles/Vol] 22 mmol/L Normal 22-29 [facility] Comment on above: Performed By: #### L 100.0005 #### ML [facility] [address] [place] [address] 04729 Creatinine [Mass/Vol] 0.99 mg/dL Normal 0.70-1.20 [facility] Comment on above: Performed By: #### L 100.0005 #### [facility] [address] [place] [address] 82084 eGFR if AFR PHOEBE > 60 ml/min/1.73m2 Normal [facility] Comment on above: Result Comment: eGFR >= 60 Indicates normal kidney function. * eGFR IS AN ESTIMATE * (AFR PHOEBE = ) (non-AFR AM = NON-) MDRD calculation used in the eGFR should not be used to dose medications. For further limitations of the eGFR please refer to the Physician Website or the National Kidney Disease Education Program website (www.nkdep.nih.gov). Performed By: #### L 100.0005 #### [facility] [address] [place] [address] 27302 eGFR nonAFR Phoebe > 60 ml/Min/1.73m2 Normal [facility] Comment on above: Performed By: #### L 100.0005 #### [facility] [address] [place] [address] 51790 Glucose [Mass/Vol] 153 mg/dL High 74-106 [facility] Comment on above: Performed By: #### L 100.0005 #### [facility] [address] [place] [address] 99949 Potassium [Moles/Vol] 4.0 mmol/L Normal 3.5-5.0 [facility] Comment on above: Performed By: #### L 100.0005 #### [facility] [address] [place] [address] 65064 Sodium [Moles/Vol] 141 mmol/L Normal 135-145 [facility] Comment on above: Performed By: #### L 100.0005 #### [facility] [address] [place] [address] 12879 Urea nitrogen [Mass/Vol] 12 mg/dL Normal 6-20 [facility] Comment on above: Performed By: #### L 100.0005 #### [facility] [address] [place] [address] 55531 CBCon 01-25-2019 Basophils (Bld) [#/Vol] 0.00 x10(3) Normal 0.00-0.10 [facility] Comment on above: Performed By: #### L 100.0005 #### [facility] [address] [place] [address] 73408 Basophils/100 WBC (Bld) 0.4 % Normal 0.0-1.0 [facility] Comment on above: Performed By: #### L 100.0005 #### [facility] [address] [place] [address] 19632 Eosinophils (Bld) [#/Vol] 0.00 x10(3) Normal 0.00-0.54 [facility] Comment on above: Performed By: #### L 100.0005 #### [facility] [address] [place] [address] 51961 Eosinophils/100 WBC (Bld) 0.2 % Low 0.5-4.9 [facility] Comment on above: Performed By: #### L 100.0005 #### [facility] [address] [place] [address] 36365 Erythrocyte distribution width (RBC) [Ratio] 13.6 % Normal 12.7-15.3 [facility] Comment on above: Performed By: #### L 100.0005 #### [facility] [address] [place] [address] 38391 Hematocrit (Bld) [Volume fraction] 43.4 % Normal 42.0-51.0 [facility] Comment on above: Performed By: #### L 100.0005 #### [facility] [address] [place] [address] 34728 Hemoglobin (Bld) [Mass/Vol] 14.7 g/dL Normal 14.0-17.2 [facility] Comment on above: Performed By: #### L 100.0005 #### [facility] [address] [place] [address] 16486 Lymphocytes (Bld) [#/Vol] 1.30 x10(3) Normal 1.00-3.50 [facility] Comment on above: Performed By: #### L 100.0005 #### [facility] [address] [place] [address] 13999 Lymphocytes/100 WBC (Bld) 14.0 % Low 16.0-48.0 [facility] Comment on above: Performed By: #### L 100.0005 #### [facility] [address] [place] [address] 11520 MCH (RBC) [Entitic mass] 31.7 pg Normal 28.8-32.2 [facility] Comment on above: Performed By: #### L 100.0005 #### [facility] [address] [place] [address] 42812 MCHC (RBC) [Mass/Vol] 33.9 g/dL Normal 33.0-36.0 [facility] Comment on above: Performed By: #### L 100.0005 #### [facility] [address] [place] [address] 60075 MCV (RBC) [Entitic vol] 93.3 fL Normal 80.0-94.0 [facility] Comment on above: Performed By: #### L 100.0005 #### [facility] [address] [place] [address] 36218 Monocytes (Bld) [#/Vol] 0.30 x10(3) Normal 0.30-0.80 [facility] Comment on above: Performed By: #### L 100.0005 #### [facility] [address] [place] [address] 12562 Monocytes/100 WBC (Bld) 2.8 % Low 4.3-11.2 [facility] Comment on above: Performed By: #### L 100.0005 #### [facility] [address] [place] [address] 71233 Neutrophils (Bld) [#/Vol] 7.60 x10(3) High 1.40-6.50 [facility] Comment on above: Performed By: #### L 100.0005 #### [facility] [address] [place] [address] 85669 Neutrophils/100 WBC (Bld) 82.6 % High 45.0-73.0 [facility] Comment on above: Performed By: #### L 100.0005 #### [facility] [address] [place] [address] 57520 Platelet mean volume (Bld) [Entitic vol] 7.7 fL Normal 7.4-9.2 [facility] Comment on above: Performed By: #### L 100.0005 #### [facility] [address] [place] [address] 02452 Platelets (Bld) [#/Vol] 245 X10(3) Normal 150-450 [facility] Comment on above: Performed By: #### L 100.0005 #### [facility] [address] [place] [address] 54994 RBC (Bld) [#/Vol] 4.65 x10(6) Low 4.80-5.50 [facility] Comment on above: Performed By: #### L 100.0005 #### [facility] [address] [place] [address] 48730 WBC (Bld) [#/Vol] 9.2 x10(3) Normal 4.5-10.0 [facility] Comment on above: Performed By: #### L 100.0005 #### [facility] [address] [place] [address] 38470 HEPATIC PANELon 01-25-2019 A:G RATIO 1.68 Normal 1.1-2.5 [facility] Comment on above: Performed By: #### L 100.0005 #### [facility] [address] [place] [address] 19703 Albumin [Mass/Vol] 4.9 g/dL Normal 3.5-5.2 [facility] Comment on above: Performed By: #### L 100.0005 #### [facility] [address] [place] [address] 25340 ALK. PHOS 89 U/L Normal 40-130 [facility] Comment on above: Performed By: #### L 100.0005 #### [facility] [address] [place] [address] 04232 ALT [Catalytic activity/Vol] 16 U/L Normal 5-41 [facility] Comment on above: Performed By: #### L 100.0005 #### [facility] [address] [place] [address] 97871 AST [Catalytic activity/Vol] 17 U/L Normal 5-40 [facility] Comment on above: Performed By: #### L 100.0005 #### [facility] [address] [place] [address] 46796 Bilirubin Ql (U) 0.3 mg/dL Normal 0.2-1.2 [facility] Comment on above: Performed By: #### L 100.0005 #### [facility] [address] [place] [address] 12118 DIRECT BILIRUBI <0.2 Normal 0.0-0.3 [facility] Comment on above: Performed By: #### L 100.0005 #### [facility] [address] [place] [address] 93574 Globulin (S) [Mass/Vol] 2.9 g/dL Normal 1.5-4.5 [facility] Comment on above: Performed By: #### L 100.0005 #### [facility] [address] [place] [address] 74479 Protein [Mass/Vol] 7.8 g/dL Normal 6.4-8.3 [facility] Comment on above: Performed By: #### L 100.0005 #### [facility] [address] [place] [address] 87889 LIPASEon 01-25-2019 Lipase [Catalytic activity/Vol] 32 U/L Normal 13-60 [facility] Comment on above: Performed By: #### L 100.0005 #### [facility] [address] [place] [address] 15260 Prealbuminon 01-22-2019 Prealbumin mass conc 30 mg/dL Normal 17-36 [facility] Comment on above: Performed By: #### P REALB #### [facility] Routine Lab [address] [place], [place] [address] EMERGENCY DEPARTMENT REPORTo n 01-06-2019 EMERGENCY DEPARTMENT [place] [address] HEALTH INFORMATION MANAGEMENT EMERGENCY DEPARTMENT REPORT Patient: AGAPITO PARKBONIFACIO D.O. [id number] M Status: [facility] ER ED Date of Service: 01/03/19 CHIEF COMPLAINT Abdominal pain, history of abdominal migraines and chronic abdominal pain. ALLERGIES Erythromycin. SOCIAL HISTORY Smokes tobacco. PAST SURGICAL HISTORY None. PAST MEDICAL HISTORY Significant for anxiety, IBS, peptic ulcer disease. FAMILY HISTORY Noncontributory. MEDICATIONS Zyprexa, Levsin, Elavil, Thorazine, Haldol, Topamax, Maxalt, Compazine, Imitrex. HISTORY OF PRESENT ILLNESS The patient is 23-year-old male presenting to the emergency department with a chief complaint of abdominal pain and vomiting. These symptoms started again yesterday. The patient has an extensive history of chronic abdominal pain, cyclic vomiting as well as abdominal migraines. He has just recently seen a neurogastroenterologist at the [facility] yesterday who gave him a prescription for Topamax as well as Imitrex to start taking for the abdominal pain. He has not yet started to take these. He states that these symptoms started again yesterday. He has been to the emergency department three times this month for similar issues. He had a CT scan at the beginning of the month done by me. At that time it was negative. The patient states the symptoms come and go. He does not have any diarrhea. No blood in the stool. No fevers or chills. No symptoms out of the ordinary with these symptoms. REVIEW OF SYSTEMS A 10-point review of systems was performed and negative except for HPI. PHYSICAL EXAMINATION General: The patient was alert and appeared to be in no acute distress with stable vital signs. Head was normocephalic, atraumatic. Eyes: Pupils are equal and react to light with normal conjunctivae. ENT: The oral mucosa was moist. Heart was regular rate and rhythm. I do not appreciate any murmurs. Lungs were clear to auscultation bilaterally. There were no wheezes or rhonchi. The abdomen was soft. He had diffuse abdominal tenderness to palpation. It was nondistended. He had positive bowel. There were no peritoneal signs. No rebound, rigidity or guarding. No signs of surgical abdomen. He had no lower extremity edema. Negative Homans. EMERGENCY DEPARTMENT CLINICAL COURSE The patient was hemodynamically stable, nonseptic and nontoxic while here in the emergency department. I did get blood work on him, which showed an unremarkable CBC. Chemistry panel was unremarkable with normal liver enzymes as well as a lipase. The patient was given IV fluids, pain and nausea medication here in the emergency department. At this point the patient is now feeling better. He has tolerated p.o. A repeat abdominal exam still elicits no peritoneal signs. At this point I do not think any further testing or imaging is required. I am going to discharge the patient home. I do think he needs to follow up with his GI specialist. He is to return to the emergency department if symptoms worsen or if any new symptoms develop. At this point I do not think the patient needs any repeat imaging. He has been dealing with these issues for a while. There are no symptoms out of the ordinary. He can be discharged home in stable condition. IMPRESSION 1. Chronic abdominal pain. 2. Cyclic vomiting, not intractable. DISPOSITION The patient to be discharged home. 01/08/19 0708 BONIFACIO RICHARDSON D.O. cc: Umu NAVARRO M.D.; BONIFACIO RICHARDSON D.O. << Signature on File>> Reported By: BONIFACIO RICHARDSON D.O. Signed By: BONIFACIO RICHARDSON D.O. Tests performed at: [address] [address] [facility] BMPon 01-03-2019 Anion gap [Moles/Vol] 18.2 mmol/L Normal 15-22 [facility] Comment on above: Performed By: #### L 100.0005 #### ML [facility] [address] [place] [address] 88285 Calcium [Mass/Vol] 9.6 mg/dL Normal 8.6-10.0 [facility] Comment on above: Performed By: #### L 100.0005 #### ML [facility] [address] [place] [address] 49034 Chloride [Moles/Vol] 95 mmol/L Low 98-107 [facility] Comment on above: Performed By: #### L 100.0005 #### ML - LABORATORY [address] [place] [address] 51118 CO2 [Moles/Vol] 26 mmol/L Normal 22-29 [facility] Comment on above: Performed By: #### L 100.0005 #### ML - LAB[facility]ATORY [address] [place] [address] 01489 Creatinine [Mass/Vol] 1.08 mg/dL Normal 0.70-1.20 [facility] Comment on above: Performed By: #### L 100.0005 #### ML - LABORATORY [address] [place] [address] 27041 eGFR if AFR PHOEBE > 60 ml/min/1.73m2 Normal [facility] Comment on above: Result Comment: eGFR >= 60 Indicates normal kidney function. * eGFR IS AN ESTIMATE * (AFR PHOEBE = ) (non-AFR AM = NON-) MDRD calculation used in the eGFR should not be used to dose medications. For further limitations of the eGFR please refer to the Physician Website or the National Kidney Disease Education Program website (www.nkdep.nih.gov). Performed By: #### L 100.0005 #### [facility] - [facility] [address] [place] [address] 39995 eGFR nonAFR Phoebe > 60 ml/Min/1.73m2 Normal [facility] Comment on above: Performed By: #### L 100.0005 #### [facility] - [facility] [address] [place] [address] 83731 Glucose [Mass/Vol] 101 mg/dL Normal 74-106 [facility] Comment on above: Performed By: #### L 100.0005 #### ML - [facility] [address] [place] [address] 89202 Potassium [Moles/Vol] 4.2 mmol/L Normal 3.5-5.0 [facility] Comment on above: Performed By: #### L 100.0005 #### ML [facility] [address] [place] [address] 63879 Sodium [Moles/Vol] 135 mmol/L Normal 135-145 [facility] Comment on above: Performed By: #### L 100.0005 #### ML [facility] [address] [place] [address] 09784 Urea nitrogen [Mass/Vol] 18 mg/dL Normal 6-20 [facility] Comment on above: Performed By: #### L 100.0005 #### [facility] [address] [place] [address] 34062 CBCon 01-03-2019 Basophils (Bld) [#/Vol] 0.00 x10(3) Normal 0.00-0.10 [facility] Comment on above: Performed By: #### L 100.0350 #### ML [facility] [address] [place] [address] 91159 Basophils/100 WBC (Bld) 0.5 % Normal 0.0-1.0 [facility] Comment on above: Performed By: #### L 100.0350 #### ML [facility] [address] [place] [address] 53214 Eosinophils (Bld) [#/Vol] 0.00 x10(3) Normal 0.00-0.54 [facility] Comment on above: Performed By: #### L 100.0350 #### ML [facility] [address] [place] [address] 33173 Eosinophils/100 WBC (Bld) 0.4 % Low 0.5-4.9 [facility] Comment on above: Performed By: #### L 100.0350 #### [facility] [address] [place] [address] 79278 Erythrocyte distribution width (RBC) [Ratio] 12.9 % Normal 12.7-15.3 [facility] Comment on above: Performed By: #### L 100.0350 #### ML [facility] [address] [place] [address] 88449 Hematocrit (Bld) [Volume fraction] 47.3 % Normal 42.0-51.0 [facility] Comment on above: Performed By: #### L 100.0350 #### ML [facility] [address] [place] [address] 73232 Hemoglobin (Bld) [Mass/Vol] 16.0 g/dL Normal 14.0-17.2 [facility] Comment on above: Performed By: #### L 100.0350 #### ML [facility] [address] [place] [address] 57772 Lymphocytes (Bld) [#/Vol] 1.60 x10(3) Normal 1.00-3.50 [facility] Comment on above: Performed By: #### L 100.0350 #### ML [facility] [address] [place] [address] 68736 Lymphocytes/100 WBC (Bld) 18.7 % Normal 16.0-48.0 [facility] Comment on above: Performed By: #### L 100.0350 #### ML [facility] [address] [place] [address] 85570 MCH (RBC) [Entitic mass] 31.2 pg Normal 28.8-32.2 [facility] Comment on above: Performed By: #### L 100.0350 #### ML [facility] [address] [place] [address] 13007 MCHC (RBC) [Mass/Vol] 33.9 g/dL Normal 33.0-36.0 [facility] Comment on above: Performed By: #### L 100.0350 #### ML [facility] [address] [place] [address] 71763 MCV (RBC) [Entitic vol] 92.1 fL Normal 80.0-94.0 [facility] Comment on above: Performed By: #### L 100.0350 #### ML [facility] [address] [place] [address] 49101 Monocytes (Bld) [#/Vol] 0.30 x10(3) Normal 0.30-0.80 [facility] Comment on above: Performed By: #### L 100.0350 #### [facility] - [facility] [address] [place] [address] 70713 Monocytes/100 WBC (Bld) 4.2 % Low 4.3-11.2 [facility] Comment on above: Performed By: #### L 100.0350 #### [facility] - [facility] [address] [place] [address] 72737 Neutrophils (Bld) [#/Vol] 6.30 x10(3) Normal 1.40-6.50 [facility] Comment on above: Performed By: #### L 100.0350 #### [facility] - [facility] [address] [place] [address] 26690 Neutrophils/100 WBC (Bld) 76.2 % High 45.0-73.0 [facility] Comment on above: Performed By: #### L 100.0350 #### [facility] - [facility] [address] [place] [address] 39874 Platelet mean volume (Bld) [Entitic vol] 7.7 fL Normal 7.4-9.2 [facility] Comment on above: Performed By: #### L 100.0350 #### [facility] - [facility] [address] [place] [address] 33048 Platelets (Bld) [#/Vol] 253 X10(3) Normal 150-450 [facility] Comment on above: Performed By: #### L 100.0350 #### [facility] - [facility] [address] [place] [address] 26358 RBC (Bld) [#/Vol] 5.13 x10(6) Normal 4.80-5.50 [facility] Comment on above: Performed By: #### L 100.0350 #### [facility] - [facility] [address] [place] [address] 74247 WBC (Bld) [#/Vol] 8.3 x10(3) Normal 4.5-10.0 [facility] Comment on above: Performed By: #### L 100.0350 #### [facility] - [facility] [address] [place] [address] 98384 HEPATIC PANELon 01-03-2019 A:G RATIO 1.62 Normal 1.1-2.5 [facility] Comment on above: Performed By: #### L 100.0005 #### [facility] [address] [place] [address] 35538 Albumin [Mass/Vol] 4.7 g/dL Normal 3.5-5.2 [facility] Comment on above: Performed By: #### L 100.0005 #### - LABORAT[facility] [address] [place] [address] 82330 ALK. PHOS 90 U/L Normal 40-130 [facility] Comment on above: Performed By: #### L 100.0005 #### [facility] [address] [place] [address] 43470 ALT [Catalytic activity/Vol] 10 U/L Normal 5-41 [facility] Comment on above: Performed By: #### L 100.0005 #### [facility] [address] [place] [address] 43369 AST [Catalytic activity/Vol] 17 U/L Normal 5-40 [facility] Comment on above: Performed By: #### L 100.0005 #### [facility] [address] [place] [address] 47506 Bilirubin Ql (U) 0.5 mg/dL Normal 0.2-1.2 [facility] Comment on above: Performed By: #### L 100.0005 #### [facility] [address] [place] [address] 36102 DIRECT BILIRUBI <0.2 Normal 0.0-0.3 [facility] Comment on above: Performed By: #### L 100.0005 #### [facility] [address] [place] [address] 14248 Globulin (S) [Mass/Vol] 2.9 g/dL Normal 1.5-4.5 [facility] Comment on above: Performed By: #### L 100.0005 #### [facility] [address] [place] [address] 78213 Protein [Mass/Vol] 7.6 g/dL Normal 6.4-8.3 [facility] Comment on above: Performed By: #### L 100.0005 #### [facility] - [facility] [address] [place] [address] 79471 LIPASEon 01-03-2019 Lipase [Catalytic activity/Vol] 41 U/L Normal 13-60 [facility] Comment on above: Performed By: #### L 100.0005 #### [facility] - [facility] [address] [place] [address] 67796 URINALYSISon 01-03-2019 Bilirubin Ql (U) Negative Normal NEGATIVE [facility] Comment on above: Order Comment: Urine Specimen Source+ CLEAN CATCH Performed By: #### L 100.0005 #### [facility] - [facility] [address] [place] [address] 27388 Color (U) YELLOW Normal YELLOW [facility] Comment on above: Order Comment: Urine Specimen Source+ CLEAN CATCH Performed By: #### L 100.0005 #### [facility] [address] [place] [address] 30720 Glucose Ql (U) Negative Normal NEGATIVE [facility] Comment on above: Order Comment: Urine Specimen Source+ CLEAN CATCH Performed By: #### L 100.0005 #### [facility] - [facility] [address] [place] [address] 06993 Hemoglobin Ql (U) Negative Normal NEGATIVE [facility] Comment on above: Order Comment: Urine Specimen Source+ CLEAN CATCH Performed By: #### L 100.0005 #### [facility] - [facility] [address] [place] [address] 50282 Leukocyte esterase Test strip Ql (U) Negative Normal NEGATIVE [facility] Comment on above: Order Comment: Urine Specimen Source+ CLEAN CATCH Performed By: #### L 100.0005 #### [facility] [address] [place] [address] 61703 Nitrite Ql (U) Negative Normal NEGATIVE [facility] Comment on above: Order Comment: Urine Specimen Source+ CLEAN CATCH Performed By: #### L 100.0005 #### [facility] - [facility] [address] [place] [address] 78900 pH (U) 8.5 [pH] Normal 5.0-8.0 [facility] Comment on above: Order Comment: Urine Specimen Source+ CLEAN CATCH Performed By: #### L 100.0005 #### [facility] [address] [place] [address] 22495 Protein Ql (U) Negative Normal NEGATIVE [facility] Comment on above: Order Comment: Urine Specimen Source+ CLEAN CATCH Performed By: #### L 100.0005 #### [facility] [address] [place] [address] 44104 URINE APPEARANC CLOUDY Normal CLEAR [facility] Comment on above: Order Comment: Urine Specimen Source+ CLEAN CATCH Performed By: #### L 100.0005 #### [facility] - [facility] [address] [place] [address] 86077 URINE KETONE TRACE Normal NEGATIVE [facility] Comment on above: Order Comment: Urine Specimen Source+ CLEAN CATCH Performed By: #### L 100.0005 #### [facility] - [facility] [address] [place] [address] 34334 URINE SPECIFIC 1.015 Normal 1.001-1.035 [facility] Comment on above: Order Comment: Urine Specimen Source+ CLEAN CATCH Performed By: #### L 100.0005 #### [facility] [address] [place] [address] 40537 URINE UROBILINO 0.2 EU/DL Normal 0.2-1.0 [facility] Comment on above: Order Comment: Urine Specimen Source+ CLEAN CATCH Performed By: #### L 100.0005 #### [facility] - [facility] [address] [place] [address] 11951 ED REPORTon 12-11-2018 [place] [address] HEALTH INFORMATION MANAGEMENT EMERGENCY DEPARTMENT REPORT Patient: XAVIERTATI KIM as dictated by SHYANNE COLLINS [id number] M Status: DEP ER ED Date of Service: 12/09/18 CHIEF COMPLAINT Here today is abdominal pain and vomiting that started on Sunday morning. HISTORY OF PRESENT ILLNESS The patient was actually seen here both a week ago today and also the following day for the same symptoms. According to his parents he has been diagnosed with cyclic vomiting as well as abdominal migraines. He has been to multiple GI specialists and they state that he has kind of reached the end of the road with GI specialists. They cannot figure out what else to do with him so they were actually recommended to see a neuro-GI doctor and they are in the process of getting his records transferred to somebody at the [facility] in [place] who is who is a Neurogastroenterologist that specializes in these types of things. They stated that when he was seen here last week he took pain meds for 2 days and his nausea meds for 2 days and his symptoms completely resolved. They thought he was past it and doing better, and Sunday it kind of all started again. They state he had a similar episode back in July. They got it under control with nausea meds and pain meds. He has been good since then up until this past week. He states that the pain is mostly towards the left midabdomen and the middle of his abdomen. He did have a CT done here when he was last seen in the ER a week ago and that CT was unremarkable per the radiologist. So at this point really they are just here to try to get some pain control and nausea control, and to give him fluids because he has not been able to eat or drink anything for the past 2 days. SOCIAL HISTORY The patient is single. He denies any drug, alcohol or tobacco use. PAST SURGICAL HISTORY Surgically he has had hernia repair. PAST MEDICAL HISTORY He has the history of the cyclic vomiting and abdominal migraines. PHYSICAL EXAMINATION This is a 23-year-old well-nourished, well-developed Quaker male who is alert and oriented x3 and does visibly look very uncomfortable, as he is kind of writhing around in the bed in pain and is actively vomiting. His vitals are 143/93, temperature of 98.4 pulse of 104, respirations of 18, 100% on room air, and his pain is a 10. Skin is warm, dry, pink. No signs of rashes or lesions. His head is atraumatic, normocephalic. His HEENT exam is unremarkable with the exception of his oral mucosa being dry. Heart rate and rhythm are regular, slightly tachycardic. No murmurs, rubs or gallops. His lungs are clear to auscultation. No rhonchi, rales or wheezing. His abdomen is soft and nondistended. He does have bowel sounds x4. He has pain with palpation to his left mid abdominal area. Otherwise, no pain with palpation anywhere else. His extremities are well perfused with no signs of cyanosis or peripheral edema. ED COURSE Here I did tell his parents that we were going to check a CBC and a BMP just to make sure that his basic labs are okay and that his electrolytes look normal here today. I did start IV fluids on him, a liter of normal saline. We did end up ultimately giving him 2 L of saline. Gave him 10 of Compazine and a milligram of Dilaudid IV. Lab-de la fuente his CBC shows a normal white count of 9.7. His BMP: Glucose is 131, his sodium was 134 and his chloride was 94. After getting the 2 L of fluid, the Compazine and the Dilaudid, he does feel significantly better. Dr. Hodgson also went and saw him and had a long talk with his parents, where they did inform Dr. Hodgson that he used to be on sumatriptan but he apparently had a psychotic episodes from it but it was helping to control his symptoms. So at this point Dr. Hodgson did discuss with them trying him on Maxalt, which they are willing to do, and also Compazine. He did send a prescription in for both of those. They are to follow up with their family doctor outpatient as needed and the specialist once they get established with him. Return to the ER for any worsening of symptoms. IMPRESSION 1. Abdominal pain. 2. Cyclic vomiting. 12/16/18 0821 TATI SPENCE cc: TATI SPENCE << Signature on File>> Reported By: TATI SPENCE Signed By: TATI SPENCE Tests performed at: [address] [address] [facility] EMERGENCY DEPARTMENT REPORTo n 12-10-2018 EMERGENCY [place]PARTMENT [place] [address] HEALTH INFORMATION MANAGEMENT EMERGENCY DEPARTMENT REPORT Patient: XAVIERFLY DICK M.D. [id number] M Status: DEP ER ED Date of Service: 12/09/18 CHIEF COMPLAINT Vomiting. EMERGENCY DEPARTMENT COURSE I saw this patient in conjunction with Tati Spence, nurse practitioner. I have been in the room and had a long discussion with the patient and his family. We have ordered IV fluid as well as Dilaudid and Compazine. The Dilaudid was 1 mg IV. He did seem to get pretty sedated from that actually. His pulse ox dropped into the high 80s, so we started him on some oxygen, but that was when he was asleep. When I woke him up, his pulse ox went up to 100% so did start him on some oxygen. We are giving him a bolus of normal saline. His blood pressure dropped a bit while he was asleep systolically to 84, and again, I think a lot of that is medication. At this time, we are bolusing him with fluid. We will have to keep him here while he improves, but his symptoms have improved markedly, and I think this is essentially necessary, given this medication. His symptoms at baseline are simply intolerable for him and for his family. I have had a long discussion about options for outpatient medication with the family. The Compazine seems to work nicely, so I am going to try that. Additionally, they had gotten good results from sumatriptan previously, but it seemed to make the patient anxious or flighty. He had some issues with almost a psychotic episode. His family would like to try something that might work as well but potentially not cause that. I have told them that if they would really like to try, I could write a prescription for Maxalt. I definitely warned them that it is of the same family. They understand that, and they would still like to try it. In a way, this is a bit of a desperation issue with this patient as this current issue is so interrupting for his family, and they understand that, and at this time, I am turning over patient care to Dr. Almonte at 22:00 hours just pending improvement of vital signs, then discharge. IMPRESSION 12/13/18 1059 FLY HODGSON M.D. cc: FLY HODGSON M.D. << Signature on File>> Reported By: FLY HODGSON M.D. Signed By: FLY HODGSON M.D. Tests performed at: [address] [address] [facility] BMPon 12-09-2018 Anion gap [Moles/Vol] 16.7 mmol/L Normal 15-22 [facility] Comment on above: Performed By: #### L 100.0350 #### [facility] - [facility] [address] [place] [address] 10650 Calcium [Mass/Vol] 9.7 mg/dL Normal 8.6-10.0 [facility] Comment on above: Performed By: #### L 100.0350 #### [facility] [address] [place] [address] 12976 Chloride [Moles/Vol] 94 mmol/L Low 98-107 [facility] Comment on above: Performed By: #### L 100.0350 #### [facility] [address] [place] [address] 53249 CO2 [Moles/Vol] 27 mmol/L Normal 22-29 [facility] Comment on above: Performed By: #### L 100.0350 #### [facility] [address] [place] [address] 28794 Creatinine [Mass/Vol] 1.09 mg/dL Normal 0.70-1.20 [facility] Comment on above: Performed By: #### L 100.0350 #### [facility] [address] [place] [address] 29770 eGFR if AFR PHOEBE > 60 ml/min/1.73m2 Normal [facility] Comment on above: Result Comment: eGFR >= 60 Indicates normal kidney function. * eGFR IS AN ESTIMATE * (AFR PHOEBE = ) (non-AFR AM = NON-) MDRD calculation used in the eGFR should not be used to dose medications. For further limitations of the eGFR please refer to the Physician Website or the National Kidney Disease Education Program website (www.nkdep.nih.gov). Performed By: #### L 100.0350 #### [facility] [address] [place] [address] 29559 eGFR nonAFR Phoebe > 60 ml/Min/1.73m2 Normal [facility] Comment on above: Performed By: #### L 100.0350 #### [facility] [address] [place] [address] 13077 Glucose [Mass/Vol] 131 mg/dL High 74-106 [facility] Comment on above: Performed By: #### L 100.0350 #### [facility] [address] [place] [address] 77849 Potassium [Moles/Vol] 3.7 mmol/L Normal 3.5-5.0 [facility] Comment on above: Performed By: #### L 100.0350 #### ML [facility] [address] [place] [address] 64757 Sodium [Moles/Vol] 134 mmol/L Low 135-145 [facility] Comment on above: Performed By: #### L 100.0350 #### [facility] [address] [place] [address] 32806 Urea nitrogen [Mass/Vol] 12 mg/dL Normal 6-20 [facility] Comment on above: Performed By: #### L 100.0350 #### [facility] [address] [place] [address] 23832 CBCon 12-09-2018 Basophils (Bld) [#/Vol] 0.00 x10(3) Normal 0.00-0.10 [facility] Comment on above: Performed By: #### L 100.0350 #### [facility] [address] [place] [address] 62634 Basophils/100 WBC (Bld) 0.4 % Normal 0.0-1.0 [facility] Comment on above: Performed By: #### L 100.0350 #### [facility] [address] [place] [address] 34510 Eosinophils (Bld) [#/Vol] 0.00 x10(3) Normal 0.00-0.54 [facility] Comment on above: Performed By: #### L 100.0350 #### [facility] [address] [place] [address] 45647 Eosinophils/100 WBC (Bld) 0.5 % Normal 0.5-4.9 [facility] Comment on above: Performed By: #### L 100.0350 #### [facility] [address] [place] [address] 97486 Erythrocyte distribution width (RBC) [Ratio] 13.3 % Normal 12.7-15.3 [facility] Comment on above: Performed By: #### L 100.0350 #### [facility] [address] [place] [address] 14886 Hematocrit (Bld) [Volume fraction] 46.9 % Normal 42.0-51.0 [facility] Comment on above: Performed By: #### L 100.0350 #### [facility] [address] [place] [address] 55713 Hemoglobin (Bld) [Mass/Vol] 15.9 g/dL Normal 14.0-17.2 [facility] Comment on above: Performed By: #### L 100.0350 #### [facility] [address] [place] [address] 65033 Lymphocytes (Bld) [#/Vol] 2.10 x10(3) Normal 1.00-3.50 [facility] Comment on above: Performed By: #### L 100.0350 #### [facility] [address] [place] [address] 15064 Lymphocytes/100 WBC (Bld) 22.0 % Normal 16.0-48.0 [facility] [facility] Comment on above: Performed By: #### L 100.0350 #### ML [facility] [address] [place] [address] 77689 MCH (RBC) [Entitic mass] 31.4 pg Normal 28.8-32.2 [facility] Comment on above: Performed By: #### L 100.0350 #### ML - LABORATORY [address] [place] [address] 18318 MCHC (RBC) [Mass/Vol] 33.9 g/dL Normal 33.0-36.0 [facility] Comment on above: Performed By: #### L 100.0350 #### ML [facility] [address] [place] [address] 29101 MCV (RBC) [Entitic vol] 92.6 fL Normal 80.0-94.0 [facility] Comment on above: Performed By: #### L 100.0350 #### ML [facility] [address] [place] [address] 29645 Monocytes (Bld) [#/Vol] 0.80 x10(3) Normal 0.30-0.80 [facility] Comment on above: Performed By: #### L 100.0350 #### ML [facility] [address] [place] [address] 44817 Monocytes/100 WBC (Bld) 7.8 % Normal 4.3-11.2 [facility] Comment on above: Performed By: #### L 100.0350 #### ML [facility] [address] [place] [address] 02486 Neutrophils (Bld) [#/Vol] 6.70 x10(3) High 1.40-6.50 [facility] Comment on above: Performed By: #### L 100.0350 #### ML [facility] [address] [place] [address] 03056 Neutrophils/100 WBC (Bld) 69.3 % Normal 45.0-73.0 [facility] Comment on above: Performed By: #### L 100.0350 #### ML - LAB[facility]ATORY [address] [place] [address] 18103 Platelet mean volume (Bld) [Entitic vol] 7.7 fL Normal 7.4-9.2 [facility] Comment on above: Performed By: #### L 100.0350 #### ML [facility] [address] [place] [address] 53406 Platelets (Bld) [#/Vol] 284 X10(3) Normal 150-450 [facility] Comment on above: Performed By: #### L 100.0350 #### ML - LABORATORY [address] [place] [address] 97377 RBC (Bld) [#/Vol] 5.07 x10(6) Normal 4.80-5.50 [facility] Comment on above: Performed By: #### L 100.0350 #### ML - LABORATORY [address] [place] [address] 50072 WBC (Bld) [#/Vol] 9.7 x10(3) Normal 4.5-10.0 [facility] Comment on above: Performed By: #### L 100.0350 #### ML - LABORATORY [address] [place] [address] 48231 PORPHYRINS-URon 12-06-2018 PORPHYRINS-UR SEE SEPARATE REPORT Normal Un [facility] Comment on above: Result Comment: Test performed at: [facility] () [address] [place] [address] KRYSTAL BURTON MD Performed By: #### L 100.0350 #### ML - LABORATORY [address] [place] [address] 09907 ED REPORTon 12-04-2018 [place] [address] HEALTH INFORMATION MANAGEMENT EMERGENCY DEPARTMENT REPORT Patient: AGAPITO PARK,BONIFACIO Frost D.O. as dictated by SINCERE MURPHY, AMMY-C [id number] [age] M Status: DEP ER ED Date of Service: 12/03/18 CHIEF COMPLAINT/HISTORY OF PRESENT ILLNESS This 23-year-old male presents to the emergency room with lower abdominal pain and vomiting for 3 days. This is now day 4. He was seen here yesterday, blood work was completed. He was given nausea and pain medication and discharged home. Dad states that the patient actually did not even feel better when he left here. He was still having pain. They are back as he cannot keep anything down to even keep his oral medications down at home. The patient has had an extensive GI evaluation and has been told that he has irritable bowel syndrome, cyclic vomiting syndrome and evaluating him for porphyria. ALLERGIES Erythromycin base. SOCIAL HISTORY The patient is single, lives with family. PAST SURGICAL HISTORY Hernia repair. PAST MEDICAL HISTORY Irritable bowel syndrome, cyclic vomiting syndrome, peptic ulcer disease, anxiety, malrotation, abdominal migraines, median arcuate ligament syndrome. DAILY MEDICATIONS Please see nursing list. REVIEW OF SYSTEMS Negative, except as above in HPI. PHYSICAL EXAMINATION Blood pressure 166/92, temp 98.5, pulse 105, respirations 20, pulse ox 100% on room air. The patient has 10/10 pain in his abdomen. Upon evaluation the patient is rolling around in the bed, increasing excruciating pain according to the patient. Pupils equal and reactive. No rhinorrhea. Throat is clear. Trachea is midline. Neck supple. Lungs clear. No wheezes, rhonchi or rales. Heart regular. No murmurs appreciated. Abdomen is soft. He is kind of guarding against me, any kind of palpation at this time. He does have lower abdominal pain with palpation right lower, left lower quadrant. No pressure over the bladder. No distension to the abdomen. No bruising or masses palpated. No rash or discoloration of the skin. He is moving all 4 extremities without difficulty. No numbness, tingling or decreased sensation. EMERGENCY DEPARTMENT COURSE After evaluating the patient we did obtain blood work and urinalysis to compare. Urine was cloudy with 40 ketones, but otherwise negative. CBC: White count is normal. H&H are stable. Platelets are normal, no shift. BMP: Glucose 109. Chloride 96, otherwise unremarkable. Hepatic panel normal. Amylase 101, lipase is normal. Drug screen only positive for oxycodone, which he has a prescription from previously. CT scan of abdomen and pelvis was completed showing a redemonstration of the benign-appearing low density lesion within the right lobe of the liver favoring a hemangioma, which they had seen in the past and has not really changed in size or nature. The patient was given a liter of fluids, pain and nausea and medication and capsaicin cream to his abdomen. On reevaluation the pain is completely gone. He is resting comfortably in the bed. We tried ice chips initially and then jello. He has kept everything down. The pain has not come back. Due to them sending the cream up in a tube, we gave the tube to the patient to take home to use as needed if this pain returns with his home medications. Clear liquid diet, advance as tolerated, rest and follow up with his family doctor and GI as he has scheduled. The patient and family state understanding. The patient will be discharged home. IMPRESSION 1. Cyclic vomiting syndrome. 2. Abdominal pain. 12/06/18 1205 BONIFACIO RICHARDSON D.O. cc: JEFFREY LEIJA M.D.; BONIFACIO RICHARDSON D.O. << Signature on File>> Reported By: BONIFACIO RICHARDSON D.O. Signed By: BONIFACIO RICHARDSON D.O. Tests performed at: [facility] [id number] [place], [place] [address] Normal [facility] EMERGENCY DEPARTMENT REPORTo n 12-04-2018 EMERGENCY DEPARTMENT [place] [address] HEALTH INFORMATION MANAGEMENT EMERGENCY DEPARTMENT REPORT Patient: AGAPITO PARK BONIFACIO RICHARDSON D.O. [id number] M Status: DEP ER ED Date of Service: 12/03/18 CHIEF COMPLAINT Abdominal pain. This patient was seen in conjunction with nurse practitioner, Sincere Murphy. Please see her note for further detail. HISTORY OF PRESENT ILLNESS The patient is a 23-year-old male with history of chronic abdominal pain presenting to the emergency department with chief complaint of abdominal pain. He has had pain for the last 3 days or so. He has been able to eat. He has had significant vomiting. He denies any diarrhea. He states he has had multiple gastroenterologists. He has had multiple tests done and they have told him that he needs to have a gastro-neurologist to evaluate him. They do not think that this is coming from his stomach but think it is more of a neurologic issue. He has an EGD, colonoscopies. His gallbladder has been evaluated. He does have a liver lesion which is presumed to be a hemangioma which I did discuss with them. He denies any fevers or chills. He denies any chest pain or shortness breath. He denies any back pain. Denies any dysuria, frequency or urgency. He denies any drug use. REVIEW OF SYSTEMS A 10-point review of systems was performed and negative except for HPI. PHYSICAL EXAMINATION General: The patient is alert and appeared to be in no acute distress with stable vital signs. Head was normocephalic, atraumatic. Eyes: Pupils are equal and reactive to light with normal conjunctivae. ENT: The oral mucosa was moist. Heart was regular rate and rhythm with no murmurs, gallops or rubs. Lungs were clear to auscultation bilaterally. No wheezes or rhonchi. The abdomen is soft and minimal tenderness mostly in the epigastric region. No peritoneal signs. No rebound, rigidity or guarding. No signs surgical abdomen. EMERGENCY DEPARTMENT CLINICAL COURSE The patient was hemodynamically stable, nonseptic and nontoxic throughout the entire ED course. We did get a CBC as well as a chemistry panel on the patient. It came back unremarkable. His amylase was 101. Urinalysis did not show any signs of infection. Drug screen was positive for oxycodone, but he has a prescription for Percocet. At this point, the CT scan did not show any acute process. There is a redemonstration of a benign appearing liver lesion on the right lower lobe of the liver presumed to be a hemangioma. I did tell the family that this will need followup. At this point, I do not think any further testing or imaging needs be done here in the emergency department. He was given Compazine as well as capsaicin. He is feeling better. He tolerated p.o. At this point, I think the patient can be discharged home. He is to follow up with his doctor. He is to return to the emergency department if symptoms worsen or if new symptoms develop. IMPRESSION 1. Nausea, vomiting, not intractable. 2. Chronic abdominal pain. 3. Cyclic vomiting. DISPOSITION The patient to be discharged home. 12/06/18 1205 BONIFACIO RICHARDSON D.O. cc: JEFFREY LEIJA M.D.; BONIFACIO RICHARDSON D.O. << Signature on File>> Reported By: BONIFACIO RICHARDSON D.O. Signed By: BONIFACIO RICHARDSON D.O. Tests performed at: [address] [address] Normal [facility] AMYLASEon 12-03-2018 Amylase [Catalytic activity/Vol] 101 U/L High 28-100 [facility] Comment on above: Performed By: #### L 100.0010, L100.0030, L100.0340, L100.0350 #### ML - LABORATORY [address] [place] [address] [facility] Anion gap [Moles/Vol] 18.3 mmol/L Normal 15-22 [facility] Comment on above: Performed By: #### L 100.0010, L100.0030, L100.0340, L100.0350 #### ML - LABORATORY [address] [place] [address] 71733 Calcium [Mass/Vol] 9.9 mg/dL Normal 8.6-10.0 [facility] Comment on above: Performed By: #### L 100.0010, L100.0030, L100.0340, L100.0350 #### ML - LAB[facility]ATORY [address] [place] [address] 16840 Chloride [Moles/Vol] 96 mmol/L Low 98-107 [facility] Comment on above: Performed By: #### L 100.0010, L100.0030, L100.0340, L100.0350 #### ML - LAB[facility]ATORY [address] [place] [address] 21487 CO2 [Moles/Vol] 25 mmol/L Normal 22-29 [facility] Comment on above: Performed By: #### L 100.0010, L100.0030, L100.0340, L100.0350 #### ML - [facility]ORY [address] [place] [address] 47497 Creatinine [Mass/Vol] 1.00 mg/dL Normal 0.70-1.20 [facility] Comment on above: Performed By: #### L 100.0010, L100.0030, L100.0340, L100.0350 #### ML - LABORATORY [address] [place] [address] 56555 eGFR if AFR PHOEBE > 60 ml/min/1.73m2 Normal [facility] Comment on above: Result Comment: eGFR >= 60 Indicates normal kidney function. * eGFR IS AN ESTIMATE * (AFR PHOEBE = ) (non-AFR AM = NON-) MDRD calculation used in the eGFR should not be used to dose medications. For further limitations of the eGFR please refer to the Physician Website or the National Kidney Disease Education Program website (www.nkdep.nih.gov). Performed By: #### L 100.0010, L100.0030, L100.0340, L100.0350 #### - LABORATORY [address] [place] [address] 39414 eGFR nonAFR Phoebe > 60 ml/Min/1.73m2 Normal U [facility] Comment on above: Performed By: #### L 100.0010, L100.0030, L100.0340, L100.0350 #### [facility] [address] [place] [address] 24883 Glucose [Mass/Vol] 109 mg/dL High 74-106 [facility] Comment on above: Performed By: #### L 100.0010, L100.0030, L100.0340, L100.0350 #### [facility] [address] [place] [address] 15111 Potassium [Moles/Vol] 4.3 mmol/L Normal 3.5-5.0 [facility] Comment on above: Performed By: #### L 100.0010, L100.0030, L100.0340, L100.0350 #### [facility] [address] [place] [address] 89737 Sodium [Moles/Vol] 135 mmol/L Normal 135-145 [facility] Comment on above: Performed By: #### L 100.0010, L100.0030, L100.0340, L100.0350 #### [facility] [address] [place] [address] 94585 Urea nitrogen [Mass/Vol] 15 mg/dL Normal 6-20 [facility] Comment on above: Performed By: #### L 100.0010, L100.0030, L100.0340, L100.0350 #### ML - LABORATORY [address] [place] [address] 76781 CBCon 12-03-2018 Basophils (Bld) [#/Vol] 0.00 x10(3) Normal 0.00-0.10 [facility] Comment on above: Performed By: #### L 200.0010 #### ML [facility] [address] [place] [address] 57630 Basophils/100 WBC (Bld) 0.4 % Normal 0.0-1.0 [facility] Comment on above: Performed By: #### L 200.0010 #### ML [facility] [address] [place] [address] 31432 Eosinophils (Bld) [#/Vol] 0.00 x10(3) Normal 0.00-0.54 [facility] Comment on above: Performed By: #### L 200.0010 #### ML [facility] [address] [place] [address] 10801 Eosinophils/100 WBC (Bld) 0.3 % Low 0.5-4.9 [facility] Comment on above: Performed By: #### L 200.0010 #### ML [facility] [address] [place] [address] 90930 Erythrocyte distribution width (RBC) [Ratio] 13.0 % Normal 12.7-15.3 [facility] Comment on above: Performed By: #### L 200.0010 #### ML [facility] [address] [place] [address] 48945 Hematocrit (Bld) [Volume fraction] 46.3 % Normal 42.0-51.0 [facility] Comment on above: Performed By: #### L 200.0010 #### ML [facility] [address] [place] [address] 36489 Hemoglobin (Bld) [Mass/Vol] 15.5 g/dL Normal 14.0-17.2 [facility] Comment on above: Performed By: #### L 200.0010 #### ML - LABORATORY [address] [place] [address] 33927 Lymphocytes (Bld) [#/Vol] 2.50 x10(3) Normal 1.00-3.50 [facility] Comment on above: Performed By: #### L 200.0010 #### ML [facility] [address] [place] [address] 28011 Lymphocytes/100 WBC (Bld) 26.8 % Normal 16.0-48.0 [facility] Comment on above: Performed By: #### L 200.0010 #### ML [facility] [address] [place] [address] 16063 MCH (RBC) [Entitic mass] 30.9 pg Normal 28.8-32.2 [facility] Comment on above: Performed By: #### L 200.0010 #### ML [facility] [address] [place] [address] 82833 MCHC (RBC) [Mass/Vol] 33.4 g/dL Normal 33.0-36.0 [facility] Comment on above: Performed By: #### L 200.0010 #### ML [facility] [address] [place] [address] 97635 MCV (RBC) [Entitic vol] 92.6 fL Normal 80.0-94.0 [facility] Comment on above: Performed By: #### L 200.0010 #### ML [facility] [address] [place] [address] 98229 Monocytes (Bld) [#/Vol] 0.70 x10(3) Normal 0.30-0.80 [facility] Comment on above: Performed By: #### L 200.0010 #### ML [facility] [address] [place] [address] 73663 Monocytes/100 WBC (Bld) 7.3 % Normal 4.3-11.2 [facility] Comment on above: Performed By: #### L 200.0010 #### ML [facility] [address] [place] [address] 66603 Neutrophils (Bld) [#/Vol] 6.20 x10(3) Normal 1.40-6.50 [facility] Comment on above: Performed By: #### L 200.0010 #### ML [facility] [address] [place] [address] 42710 Neutrophils/100 WBC (Bld) 65.2 % Normal 45.0-73.0 [facility] Comment on above: Performed By: #### L 200.0010 #### ML - LABORATORY [address] [place] [address] 97544 Platelet mean volume (Bld) [Entitic vol] 7.7 fL Normal 7.4-9.2 [facility] Comment on above: Performed By: #### L 200.0010 #### ML [facility] [address] [place] [address] 90286 Platelets (Bld) [#/Vol] 296 X10(3) Normal 150-450 [facility] Comment on above: Performed By: #### L 200.0010 #### [facility] - LAB[facility]ATORY [address] [place] [address] 73011 RBC (Bld) [#/Vol] 5.01 x10(6) Normal 4.80-5.50 [facility] Comment on above: Performed By: #### L 200.0010 #### [facility] - LAB[facility]ATORY [address] [place] [address] 70228 WBC (Bld) [#/Vol] 9.5 x10(3) Normal 4.5-10.0 [facility] Comment on above: Performed By: #### L 200.0010 #### [facility] - LAB[facility]ATORY [address] [place] [address] ABD/PEL W CONTRASTon 11-06 CT ABD/PEL W CONTRAST [address] [address] Name: AGAPITO PARK Phys: SINCERE MURPHY DECISION SCIENCE ANALYSTLaure : [birth year] Age: 23 Sex: M Acct: [id number] Loc: ED Exam Date: 12/03/18 Status: REG ER Radiology No.: [id number] Unit Number: [id number] Exam # Type/Exam [id number] CT / CT ABD/PEL W CONTRAST CLINICAL HISTORY: Vomiting TECHNIQUE: Axial CT images were obtained from the lung bases through the pelvis after the uneventful administration of IV and oral contrast. Coronal and sagittal reformats were obtained. Dose lowering techniques were utilized to include automated exposure control, adjustment of the mA and/or kV according to patient size, and use of iterative reconstruction technique. COMPARISON: CT of abdomen and pelvis 11/22/2017 FINDINGS: The size, density, and morphology of the spleen, adrenals, kidneys, pancreas and unopacified loops of bowel are unremarkable. Redemonstration of low density lesion within the right lobe of the liver measuring up to 3.1 cm in diameter with a bilobed appearance. The opacified aorta demonstrates normal size and morphology without aneurysmal dilation or dissection. There are no enlarged lymph nodes by pathologic size criteria. There is no free fluid within the pelvis. The bladder and pelvic organs have an unremarkable CT appearance. The osseous structures are without gross lytic or sclerotic lesion. The lung bases are clear. IMPRESSION: 1. No acute intra-abdominal or intrapelvic pathology. 2. Redemonstration of benign-appearing low density lesion within the right lobe of the liver, favor hemangioma however complete evaluation may be obtained with MRI of the liver versus three-phase CT. This exam was performed according to our departmental dose optimization program, and includes the following measures where applicable: automated exposure control, adjustment of the mAs and/or kVp according to patient size and/or exam, and an iterative reconstruction algorithm. Professional interpretation provided by [facility], [place] on [id number]. Thank you for this referral. < > Reported By: SYL MORENO M.D. Signed In [employer] By: SYL MORENO M.D. << Signature on File>> Reported By: SYL MORENO M.D. Signed By: SYL MORENO M.D. Tests performed at: [address] [address] [facility] DRUG SCREENon 12-03-2018 AMPHETAMINE Negative Normal NEGATIVE [facility] Comment on above: Performed By: #### L 100.0708 #### [facility] [address] [place] [address] 28561 BARBITUATES Negative Normal NEGATIVE [facility] Comment on above: Performed By: #### L 100.0708 #### [facility] - LAB[facility]ATORY [address] [place] [address] 62430 BENZODIAZEPINE Negative Normal [facility] Comment on above: Performed By: #### L 100.0708 #### [facility] - LAB[facility]ORY [address] [place] [address] 56487 CANNABINOID Negative Normal NEGATIVE [facility] Comment on above: Performed By: #### L 100.0708 #### [facility] - [facility] [address] [place] [address] 34912 Cocaine Ql (U) Negative Normal NEGATIVE [facility] Comment on above: Performed By: #### L 100.0708 #### [facility] - [facility] [address] [place] [address] 32827 Methadone Ql (U) Negative Normal [facility] Comment on above: Performed By: #### L 100.0708 #### [facility] - [facility]ORY [address] [place] [address] 53739 Opiates Ql (U) Negative Normal NEGATIVE [facility] Comment on above: Performed By: #### L 100.0708 #### - LABORATORY [address] [place] [address] 79509 OXYCODONE Positive NEGATIVE [facility] Comment on above: Result Comment: THIS RESULT IS OBTAINED BY A SCREENING METHOD. IF CONFIRMATION IS DESIRED, PLEASE CONTACT THE LAB AT EXT.[id number] WITHIN 7 DAYS AND ORDER A URINE CONFIRMATION TEST AN ADD-ON TEST. Performed By: #### L 100.0708 #### - LABORATORY [address] [place] [address] 50976 Phencyclidine Ql (U) Negative Normal NEGATIVE [facility] Comment on above: Result Comment: COMM ENT: SPECIMEN TYPE - URINE. Unconfirmed screening results for the Drug Screen Panel should not be used for non-medical purposes. CUTOFFS: Amphetamine cutoff concentration: 1000 ng/mL Cocaine cutoff concentration: 300 ng/mL Opiates cutoff concentration: 300 ng/mL Benzodiazepine cutoff concentration: 200 ng/mL Barbituate cutoff concentration: 200 ng/mL Cannabinoid cutoff concentration: 50 ng/mL Propoxyphene cutoff concentration: 300 ng/mL Methadone cutoff concentration: 300 ng/mL Oxycodone cutoff concentration: 100 ng/mL Phencyclidine cutoff concentration: 25 ng/mL Marilin Method Performed By: #### L 100.0708 #### [facility] [address] [place] [address] PROPOXYPHENE Negative Normal NEGATIVE [facility] Comment on above: Performed By: #### L 100.0708 #### [facility] [address] [place] [address] 04947 EMERGENCY DEPARTMENT REPORTo n 12-03-2018 EMERGENCY DEPARTMENT [place] [address] HEALTH INFORMATION MANAGEMENT EMERGENCY DEPARTMENT REPORT Patient: AGAPITO PARK MATTHEW H DAddis [id number] [age] M Status: [facility] ER ED Date of Service: 12/02/18 CHIEF COMPLAINT The patient is a 23-year-old male who presents for abdominal pain and vomiting. HISTORY OF PRESENT ILLNESS The patient does have a long history of abdominal pain and vomiting. Has been diagnosed with cyclical vomiting syndrome with no underlying cause. The patient is being seen by other physicians, has already had EGDs, colonoscopies, gallbladder evaluated, and every time the patient has these symptoms, per the patient as well as the patient's father, the only thing that relieves him is IV fluids, frequently Benadryl and Dilaudid. The patient states that the abdominal pain occurs intermittently, that frequently it occurs when he is in stressful situations, and the patient's father states that they recently returned from a wedding in [place]. States that he felt that the long travel may have stressed the patient out. The patient does not take any other medications. However, they are concerned that the patient could possibly have acute intermittent porphyria and had requested that we obtain a porphyria urine test, which did come on a doctor's script pad. At this time we have ordered the porphyria tests, and the urine is in the lab. The patient states that he has generalized abdominal pain. States it is the same pain that he has had frequently and came to the ED for evaluation. States that he has had some intermittent vomiting and states it is the exact same pain that he has had on multiple different occasions. REVIEW OF SYSTEMS Positive for abdominal pain and vomiting. Remainder of review of systems unremarkable. PHYSICAL EXAMINATION Constitutional: Patient looks as if he is uncomfortable; however, he is nontoxic. He is alert, oriented. Cardiac: Regular rate and rhythm. Negative for murmurs, rubs, gallops. Positive S1, S2. Pulmonary: Clear to auscultation bilaterally. Negative wheezes, rales, crackles. Abdomen is soft, mild tenderness globally throughout the patient's abdomen. However, no rigidity, guarding, no distention. Negative for peritoneal signs. Musculoskeletal: Normal radial and DP pulses. Negative for lower extremity edema, ulcerations, skin breakdown. No petechiae or purpura. EMERGENCY DEPARTMENT COURSE The patient did have lab work obtained. WBC 13.1, hemoglobin 15.9, hematocrit 46.4, platelet count 320. CMP did show a low bicarb of 20, anion gap 24.2. Remainder of his CMP is normal. Lipase is negative. ASSESSMENT AND PLAN At this time the patient is with his father, and they state that this is the exact pain that he has had, that he has been seen here on multiple occasions, which on evaluation of the patient's chart is true. I did have the patient give us a urine specimen and did order the porphyria tests that his outpatient physician was requesting. In addition, we did give the patient IV fluids. His lab work does shows some suggestive dehydration with the elevated anion gap, the low bicarb and the 13.1 white count, which I do believe is secondary to the patient's vomiting. We did give the patient IV fluids, Reglan, and I actually did give him capsaicin treatment. When I went back in to go see the patient, he was completely asleep, was nontoxic, and I did discuss these findings with the patient's father. The patient's father stated that he does not think that the patient is in any type of pain or discomfort at this time. However is concerned about taking him home because we did not give him the Dilaudid that he had received on previous visits. I explained to the father that at this time the patient is completely asleep and looks very comfortable. At that time the patient did awaken, and stated that he was feeling much improved and he wanted to drink some water. Soon afterwards within approximately 10 to 15 minutes, the patient was complaining of the abdominal pain and demanding his Dilaudid. At this time we did give him the one dose of Dilaudid, but I do believe that most of this is drug seeking behavior. The patient did have the porphyria tests ordered; however, I do believe that moving forward I would not give the patient any more opioid medications. At this time the patient's vital signs are normal and stable and the patient is otherwise unremarkable. He has begun to begin to ask for the combination of Benadryl with his Dilaudid which I absolutely refused to do, and at this time we are going to discharge the patient home. DIAGNOSES 1. Abdominal pain, chronic. 2. Cyclical vomiting. 3. Dehydration. 12/05/18 1731 LUPE JAMES D.O. cc: Umu NAVARRO M.D.; LUPE JAMES D.O. << Signature on File>> Reported By: LUPE JAMES D.O. Signed By: LUPE JAMES D.O. Tests performed at: [place] [address] [facility] HEPATIC PANELon 12-03-2018 A:G RATIO 1.78 Normal 1.1-2.5 [facility] Comment on above: Performed By: #### L 100.0010, L100.0030, L100.0340, L100.0350 #### [facility] [address] [place] [address] 51023 Albumin [Mass/Vol] 5.0 g/dL Normal 3.5-5.2 [facility] Comment on above: Performed By: #### L 100.0010, L100.0030, L100.0340, L100.0350 #### [facility] [address] [place] [address] 68508 ALK. PHOS 98 U/L Normal 40-130 [facility] Comment on above: Performed By: #### L 100.0010, L100.0030, L100.0340, L100.0350 #### [facility] [address] [place] [address] 11034 ALT [Catalytic activity/Vol] 10 U/L Normal 5-41 [facility] Comment on above: Performed By: #### L 100.0010, L100.0030, L100.0340, L100.0350 #### [facility] [address] [place] [address] 55634 AST [Catalytic activity/Vol] 21 U/L Normal 5-40 [facility] Comment on above: Performed By: #### L 100.0010, L100.0030, L100.0340, L100.0350 #### [facility] [address] [place] [address] 92228 Bilirubin Ql (U) 0.7 mg/dL Normal 0.2-1.2 [facility] Comment on above: Performed By: #### L 100.0010, L100.0030, L100.0340, L100.0350 #### [facility] [address] [place] [address] 93538 DIRECT BILIRUBI <0.2 Normal 0.0-0.3 [facility] Comment on above: Performed By: #### L 100.0010, L100.0030, L100.0340, L100.0350 #### [facility] [address] [place] [address] 40814 Globulin (S) [Mass/Vol] 2.8 g/dL Normal 1.5-4.5 [facility] Comment on above: Performed By: #### L 100.0010, L100.0030, L100.0340, L100.0350 #### [facility] [address] [place] [address] 61341 Protein [Mass/Vol] 7.8 g/dL Normal 6.4-8.3 [facility] Comment on above: Performed By: #### L 100.0010, L100.0030, L100.0340, L100.0350 #### [facility] [address] [place] [address] 12473 LIPASEon 12-03-2018 Lipase [Catalytic activity/Vol] 22 U/L Normal 13-60 [facility] Comment on above: Performed By: #### L 100.0010, L100.0030, L100.0340, L100.0350 #### [facility] [address] [place] [address] 08180 URINALYSISon 12-03-2018 Bilirubin Ql (U) Negative Normal NEGATIVE [facility] Comment on above: Order Comment: Urine Specimen Source+ CLEAN CATCH Performed By: #### L 200.3000 #### [facility] [address] [place] [address] 67392 Color (U) YELLOW Normal YELLOW [facility] Comment on above: Order Comment: Urine Specimen Source+ CLEAN CATCH Performed By: #### L 200.3000 #### [facility] [address] [place] [address] 60229 Glucose Ql (U) Negative Normal NEGATIVE [facility] Comment on above: Order Comment: Urine Specimen Source+ CLEAN CATCH Performed By: #### L 200.3000 #### [facility] [address] [place] [address] 34675 Hemoglobin Ql (U) Negative Normal NEGATIVE [facility] Comment on above: Order Comment: Urine Specimen Source+ CLEAN CATCH Performed By: #### L 200.3000 #### [facility] [address] [place] [address] 87660 Leukocyte esterase Test strip Ql (U) Negative Normal NEGATIVE [facility] Comment on above: Order Comment: Urine Specimen Source+ CLEAN CATCH Performed By: #### L 200.3000 #### [facility] [address] [place] [address] 88596 Nitrite Ql (U) Negative Normal NEGATIVE [facility] Comment on above: Order Comment: Urine Specimen Source+ CLEAN CATCH Performed By: #### L 200.3000 #### [facility] [address] [place] [address] 18357 pH (U) 7.0 [pH] Normal 5.0-8.0 [facility] Comment on above: Order Comment: Urine Specimen Source+ CLEAN CATCH Performed By: #### L 200.3000 #### [facility] [address] [place] [address] 39144 Protein Ql (U) Negative Normal NEGATIVE [facility] Comment on above: Order Comment: Urine Specimen Source+ CLEAN CATCH Performed By: #### L 200.3000 #### [facility] [address] [place] [address] 09190 URINE APPEARANC CLOUDY Normal CLEAR [facility] Comment on above: Order Comment: Urine Specimen Source+ CLEAN CATCH Performed By: #### L 200.3000 #### [facility] [address] [place] [address] 24812 URINE KETONE 40 MG/DL Normal NEGATIVE [facility] Comment on above: Order Comment: Urine Specimen Source+ CLEAN CATCH Performed By: #### L 200.3000 #### [facility] [address] [place] [address] 58930 URINE SPECIFIC 1.010 Normal 1.001-1.035 [facility] Comment on above: Order Comment: Urine Specimen Source+ CLEAN CATCH Performed By: #### L 200.3000 #### [facility] [address] [place] [address] 67291 URINE UROBILINO 1.0 EU/DL Normal 0.2-1.0 [facility] Comment on above: Order Comment: Urine Specimen Source+ CLEAN CATCH Performed By: #### L 200.3000 #### [facility] [address] [place] [address] 45000 CBCon 12-02-2018 Basophils (Bld) [#/Vol] 0.00 x10(3) Normal 0.00-0.10 [facility] Comment on above: Performed By: #### L 200.0010 #### [facility] [address] [place] [address] 03267 Basophils/100 WBC (Bld) 0.1 % Normal 0.0-1.0 [facility] Comment on above: Performed By: #### L 200.0010 #### [facility] [address] [place] [address] 50324 Eosinophils (Bld) [#/Vol] 0.00 x10(3) Normal 0.00-0.54 [facility] Comment on above: Performed By: #### L 200.0010 #### [facility] [address] [place] [address] 12900 Eosinophils/100 WBC (Bld) 0.0 % Low 0.5-4.9 [facility] Comment on above: Performed By: #### L 200.0010 #### [facility] [address] [place] [address] 61972 Erythrocyte distribution width (RBC) [Ratio] 12.6 % Low 12.7-15.3 [facility] Comment on above: Performed By: #### L 200.0010 #### [facility] [address] [place] [address] 63250 Hematocrit (Bld) [Volume fraction] 46.4 % Normal 42.0-51.0 [facility] Comment on above: Performed By: #### L 200.0010 #### [facility] [address] [place] [address] 66842 Hemoglobin (Bld) [Mass/Vol] 15.9 g/dL Normal 14.0-17.2 [facility] Comment on above: Performed By: #### L 200.0010 #### [facility] [address] [place] [address] 50850 Lymphocytes (Bld) [#/Vol] 0.80 x10(3) Low 1.00-3.50 [facility] Comment on above: Performed By: #### L 200.0010 #### [facility] [address] [place] [address] 52690 Lymphocytes/100 WBC (Bld) 6.0 % Low 16.0-48.0 [facility] Comment on above: Performed By: #### L 200.0010 #### [facility] [address] [place] [address] 08923 MCH (RBC) [Entitic mass] 31.0 pg Normal 28.8-32.2 [facility] Comment on above: Performed By: #### L 200.0010 #### [facility] [address] [place] [address] 11103 MCHC (RBC) [Mass/Vol] 34.2 g/dL Normal 33.0-36.0 [facility] Comment on above: Performed By: #### L 200.0010 #### [facility] [address] [place] [address] 35607 MCV (RBC) [Entitic vol] 90.9 fL Normal 80.0-94.0 [facility] Comment on above: Performed By: #### L 200.0010 #### [facility] [address] [place] [address] 88299 Monocytes (Bld) [#/Vol] 0.30 x10(3) Normal 0.30-0.80 [facility] Comment on above: Performed By: #### L 200.0010 #### [facility] [address] [place] [address] 69095 Monocytes/100 WBC (Bld) 2.0 % Low 4.3-11.2 [facility] Comment on above: Performed By: #### L 200.0010 #### [facility] [address] [place] [address] 93172 Neutrophils (Bld) [#/Vol] 12.00 x10(3) High 1.40-6.50 [facility] Comment on above: Performed By: #### L 200.0010 #### [facility] [address] [place] [address] 10082 Neutrophils/100 WBC (Bld) 91.9 % High 45.0-73.0 [facility] Comment on above: Performed By: #### L 200.0010 #### [facility] [address] [place] [address] 05613 Platelet mean volume (Bld) [Entitic vol] 7.6 fL Normal 7.4-9.2 [facility] Comment on above: Performed By: #### L 200.0010 #### [facility] [address] [place] [address] 68282 Platelets (Bld) [#/Vol] 320 X10(3) Normal 150-450 [facility] Comment on above: Performed By: #### L 200.0010 #### [facility] [address] [place] [address] 08831 RBC (Bld) [#/Vol] 5.11 x10(6) Normal 4.80-5.50 [facility] Comment on above: Performed By: #### L 200.0010 #### [facility] [address] [place] [address] 06198 WBC (Bld) [#/Vol] 13.1 x10(3) High 4.5-10.0 [facility] Comment on above: Performed By: #### L 200.0010 #### [facility] [address] [place] [address] 76052 CMPon 12-02-2018 A:G RATIO 1.48 Normal 1.1-2.5 [facility] Comment on above: Performed By: #### L 100.0005 #### [facility] [address] [place] [address] 79180 Albumin [Mass/Vol] 4.9 g/dL Normal 3.5-5.2 [facility] Comment on above: Performed By: #### L 100.0005 #### [facility] [address] [place] [address] 12472 ALK. PHOS 113 U/L Normal 40-130 [facility] Comment on above: Performed By: #### L 100.0005 #### [facility] [address] [place] [address] 74176 ALT [Catalytic activity/Vol] 13 U/L Normal 5-41 [facility] Comment on above: Performed By: #### L 100.0005 #### [facility] [address] [place] [address] 43167 Anion gap [Moles/Vol] 24.2 mmol/L High 15-22 [facility] Comment on above: Performed By: #### L 100.0005 #### [facility] [address] [place] [address] 89612 AST [Catalytic activity/Vol] 20 U/L Normal 5-40 [facility] Comment on above: Performed By: #### L 100.0005 #### [facility] [address] [place] [address] 01885 Bilirubin Ql (U) 0.6 mg/dL Normal 0.2-1.2 [facility] Comment on above: Performed By: #### L 100.0005 #### [facility] [address] [place] [address] 10632 Calcium [Mass/Vol] 9.9 mg/dL Normal 8.6-10.0 [facility] Comment on above: Performed By: #### L 100.0005 #### [facility] [address] [place] [address] 83657 Chloride [Moles/Vol] 96 mmol/L Low 98-107 [facility] Comment on above: Performed By: #### L 100.0005 #### [facility] [address] [place] [address] 62280 CO2 [Moles/Vol] 20 mmol/L Low 22-29 [facility] Comment on above: Performed By: #### L 100.0005 #### [facility] [address] [place] [address] 20828 Creatinine [Mass/Vol] 0.89 mg/dL Normal 0.70-1.20 [facility] Comment on above: Performed By: #### L 100.0005 #### [facility] [address] [place] [address] 97518 eGFR if AFR PHOEBE > 60 ml/min/1.73m2 Normal [facility] Comment on above: Result Comment: eGFR >= 60 Indicates normal kidney function. * eGFR IS AN ESTIMATE * (AFR PHOEBE = ) (non-AFR AM = NON-) MDRD calculation used in the eGFR should not be used to dose medications. For further limitations of the eGFR please refer to the Physician Website or the National Kidney Disease Education Program website (www.nkdep.nih.gov). Performed By: #### L 100.0005 #### [facility] [address] [place] [address] 70864 eGFR nonAFR Phoebe > 60 ml/Min/1.73m2 Normal [facility] Comment on above: Performed By: #### L 100.0005 #### [facility] [address] [place] [address] 94284 Globulin (S) [Mass/Vol] 3.3 g/dL Normal 1.5-4.5 [facility] Comment on above: Performed By: #### L 100.0005 #### [facility] [address] [place] [address] 57677 Glucose [Mass/Vol] 167 mg/dL High 74-106 [facility] Comment on above: Performed By: #### L 100.0005 #### [facility] [address] [place] [address] 25656 Potassium [Moles/Vol] 4.2 mmol/L Normal 3.5-5.0 [facility] Comment on above: Performed By: #### L 100.0005 #### [facility] [address] [place] [address] 99558 Protein [Mass/Vol] 8.2 g/dL Normal 6.4-8.3 [facility] Comment on above: Performed By: #### L 100.0005 #### [facility] [address] [place] [address] 19952 Sodium [Moles/Vol] 136 mmol/L Normal 135-145 [facility] Comment on above: Performed By: #### L 100.0005 #### [facility] [address] [place] [address] 83475 Urea nitrogen [Mass/Vol] 14 mg/dL Normal 6-20 [facility] Comment on above: Performed By: #### L 100.0005 #### [facility] [address] [place] [address] 10895 LIPASEon 12-02-2018 Lipase [Catalytic activity/Vol] 15 U/L Normal 13-60 [facility] Comment on above: Performed By: #### L 100.0350 #### [facility] [address] [place] [address] 05108 BASIC METABOLIC PANELon Anion gap 3.0 mmol/L Normal <=15.0 [facility] Comment on above: Performed By: #### 2 4321-2 ####[facility], [place] [address]Tmlamew Director - Dana Eric [id number] Calcium 8.2 mg/dL Low 8.5-10.1 [facility] Comment on above: Performed By: #### 2 4321-2 ####[facility] Director - [facility] [id number] Chloride 101 mmol/L Normal 98-107 [facility] Comment on above: Performed By: #### 2 4321-2 ####[facility] - [facility] [id number] CO2 32 mmol/L Normal 21-32 [facility] Comment on above: Performed By: #### 2 4321-2 ####[facility] - [facility] [id number] Creatinine 0.97 mg/dL Normal 0.67-1.17 [facility] Comment on above: Performed By: #### 2 4321-2 ####[facility] [facility] [id number] eGFR (MDRD) mL/min/{1.73_m2} Normal >=59 [facility] Comment on above: Performed By: #### 2 4321-2 ####[facility] [facility] [id number] eGFR (non-black) GLOMERULAR FILTRATIO N RATE INTERPRETATION~The eGFR is calculated using the MDRD equation.~This equation has been validated in patients with chronic kidney disease;~however, it underestimates the GFR in healthy patients with GFR's over 60 mL/min.~The equation is not valid in children under the age of 18.~NOTE: Criteria for Chronic Kidney Disease:~ ~1. Kidney damage for at least three months, as defined~by structural or functional abnormalities of the kidney,~with or without decreased glomerular filtration rate, manifested by either:~* Pathological abnormalities or~* Markers of Kidney damage, including abnormalities in~the composition of the blood or urine or abnormalities in imaging tests.~ ~2. GFR <60 mL/min/1.73 m squared for at least three months, with or without kidney damage.~ Normal [facility] Comment on above: Performed By: #### 2 4321-2 ####[facility] Director - [facility] [id number] Glucose mass conc 90 mg/dL Normal 74-106 [facility] Comment on above: Performed By: #### 2 4321-2 ####[facility] Director - [facility] [id number] Potassium molar conc 4.2 mmol/L Normal 3.5-5.1 [facility] Comment on above: Performed By: #### 2 4321-2 ####[facility] Director - [facility] [id number] Sodium 136 mmol/L Normal 136-145 [facility] Comment on above: Performed By: #### 2 4321-2 ####[facility] Director - [facility] [id number] Urea nitrogen 7 mg/dL Low 9-20 [facility] Comment on above: Performed By: #### 2 4321-2 ####[facility] Director - [facility] [id number] CBC with DIFFERENTIALon 04-0 Basophils Auto #/vol (Bld) 0.03 10*3/uL Normal <=0.70 [facility] Comment on above: Performed By: #### 5 7021-8 ####[facility] Director - [facility] [id number] Basophils/100 WBC Auto (Bld) 0.4 % Normal <=2.0 [facility] Comment on above: Performed By: #### 5 7021-8 ####[facility] Director - Dana Eric [id number] Eosinophils 0.09 10*3/uL Normal <=0.70 [facility] Comment on above: Performed By: #### 5 7021-8 ####[facility] Director - Dana Eric [id number] Eosinophils/100 leukocytes 1.3 % Normal <=10.0 [facility] Comment on above: Performed By: #### 5 7021-8 ####[facility] Director - Dana Eric [id number] Erythrocyte distribution width Auto Entitic volume (RBC) 41.1 fL Normal 35.1-43.9 [facility] Comment on above: Performed By: #### 5 7021-8 ####[facility] Director - Dana Eric [id number] Erythrocytes (RBC) 4.18 10*6/uL Normal 4.00-6.30 [facility] Comment on above: Performed By: #### 5 7021-8 ####[facility] Director - Dana Eric [id number] Hematocrit (HCT) 38.1 % Low 40.0-54.0 [facility] Comment on above: Performed By: #### 5 7021-8 ####[facility] Director - Dana Eric [id number] Hemoglobin mass conc (Bld) 13.0 g/dL Low 14.0-18.0 [facility] Comment on above: Performed By: #### 5 7021-8 ####[facility] Director - Dana Eric [id number] Immature granulocytes #/vol (Bld) 0.02 10*3/uL Normal <=0.10 [facility] Comment on above: Performed By: #### 5 7021-8 ####[facility] Director - Dana AnthonyIA [id number] Immature granulocytes/100 WBC (Bld) 0.30 % Normal <=1.50 [facility] Comment on above: Performed By: #### 5 7021-8 ####[facility] Director - Dana Eric [id number] Lymphocytes 1.60 10*3/uL Normal 1.20-3.40 [facility] Comment on above: Performed By: #### 5 7021-8 ####[facility] Director - Dana Eric [id number] Lymphocytes/100 leukocytes 22.9 % Normal 20.0-40.0 [facility] Comment on above: Performed By: #### 5 7021-8 ####[facility] Director - Dana AnthonyIA [id number] MCH 31.1 pg High 27.0-31.0 [facility] Comment on above: Performed By: #### 5 7021-8 ####[facility] Director - Dana AnthonyIA [id number] MCHC mass conc (RBC) 34.1 g/dL Normal 32.0-36.0 [facility] Comment on above: Performed By: #### 5 7021-8 ####[facility] [address] Director - Dana Eric [id number] MCV 91.1 fL Normal 80.0-100.0 [facility] Comment on above: Performed By: #### 5 7021-8 ####[facility] Director - Dana FarrellCLIA [id number] Monocytes 0.66 10*3/uL High 0.10-0.60 [facility] Comment on above: Performed By: #### 5 7021-8 ####[facility], [place] [address]Ogoclru Director - Dana FarrellCLIA [id number] Monocytes/100 leukocytes 9.4 % High <=8.0 [facility] Comment on above: Performed By: #### 5 7021-8 ####[facility] Director - Dana FarrellCLIA [id number] Neutrophils 4.60 10*3/uL Normal 1.40-6.50 [facility] Comment on above: Performed By: #### 5 7021-8 ####[facility] Director - Dana FarrellCLIA [id number] Neutrophils/100 WBC Auto (Bld) 65.7 % Normal 50.0-70.0 [facility] Comment on above: Performed By: #### 5 7021-8 ####[facility] Director - Dana FarrellCLIA [id number] Nucleated erythrocytes 0.00 10*3/uL Normal <=0.10 [facility] Comment on above: Performed By: #### 5 7021-8 ####[facility] Director - Dana FarrellCLIA [id number] Platelet mean volume (PMV) 10.1 fL Normal 9.0-13.0 [facility] Comment on above: Performed By: #### 5 7021-8 ####[facility] Director - Dana FarrellCLIA [id number] Platelets 186 10*3/uL Normal 130-400 [facility] Comment on above: Performed By: #### 5 7021-8 ####[facility], [place] [address]Sjeioly Director - Dana FarrellCLIA [id number] WBC (Leukocytes) 7.00 10*3/uL Normal 4.80-10.80 [facility] Comment on above: Performed By: #### 5 7021-8 ####[facility] Director - Dana FarrellCLIA [id number] BASIC METABOLIC PANELon 0 Anion gap 3.0 mmol/L Normal <=15.0 [facility] Comment on above: Performed By: #### 2 4321-2 ####[place] [address] Director - Dana FarrellCLIA [id number] Calcium 7.9 mg/dL Low 8.5-10.1 [facility] Comment on above: Performed By: #### 2 4321-2 ####[facility] Director - Dana FarrellCLIA [id number] Chloride 102 mmol/L Normal 98-107 [facility] Comment on above: Performed By: #### 2 4321-2 ####[facility] Director - Dana FarrellCLIA [id number] CO2 30 mmol/L Normal 21-32 [facility] Comment on above: Performed By: #### 2 4321-2 ####[facility], [place] [address]Foqchva Director - Dana FarrellCLIA [id number] Creatinine 0.99 mg/dL Normal 0.67-1.17 [facility] Comment on above: Performed By: #### 2 4321-2 ####[facility], [place] [address] Director - Dana FarrellCLIA [id number] eGFR (MDRD) mL/min/{1.73_m2} Normal >=59 [facility] Comment on above: Performed By: #### 2 4321-2 ####[facility] Director - Dana GarrettSPRINGFIELD [facility] [id number] eGFR (non-black) GLOMERULAR FILTRATIO N RATE INTERPRETATION~The eGFR is calculated using the MDRD equation.~This equation has been validated in patients with chronic kidney disease;~however, it underestimates the GFR in healthy patients with GFR's over 60 mL/min.~The equation is not valid in children under the age of 18.~NOTE: Criteria for Chronic Kidney Disease:~ ~1. Kidney damage for at least three months, as defined~by structural or functional abnormalities of the kidney,~with or without decreased glomerular filtration rate, manifested by either:~* Pathological abnormalities or~* Markers of Kidney damage, including abnormalities in~the composition of the blood or urine or abnormalities in imaging tests.~ ~2. GFR <60 mL/min/1.73 m squared for at least three months, with or without kidney damage.~ Normal [facility] Comment on above: Performed By: #### 2 4321-2 ####[facility] Director - Dana GarrettSPRINGFIELD H[facility] [id number] Glucose mass conc 169 mg/dL High 74-106 [facility] Comment on above: Performed By: #### 2 4321-2 ####[facility] Director - Dana TuckerESTEBAN [id number] Potassium molar conc 4.0 mmol/L Normal 3.5-5.1 [facility] Comment on above: Performed By: #### 2 4321-2 ####[facility] [facility] GarrettSPRINGFIELD [facility] [id number] Sodium 135 mmol/L Low 136-145 [facility] Comment on above: Performed By: #### 2 4321-2 ####[facility] - Dana FarrellCLIA [id number] Urea nitrogen 13 mg/dL Normal 9-20 [facility] Comment on above: Performed By: #### 2 4321-2 ####[facility] Director - Dana MasonrellCLIA [id number] CBC with DIFFERENTIALon 0 Basophils Auto #/vol (Bld) 0.06 10*3/uL Normal <=0.70 [facility] Comment on above: Performed By: #### 5 7021-8 ####[facility] Director - Danaapril TuckerCLIA [id number] Basophils/100 WBC Auto (Bld) 1.0 % Normal <=2.0 [facility] Comment on above: Performed By: #### 5 7021-8 ####[place] [address] Director - Danaapril CuevasrellCLIA [id number] Eosinophils 0.09 10*3/uL Normal <=0.70 [facility] Comment on above: Performed By: #### 5 7021-8 ####[facility] Director - Dana MasonrellCLIA [id number] Eosinophils/100 leukocytes 1.5 % Normal <=10.0 [facility] Comment on above: Performed By: #### 5 7021-8 ####[place] [address] Director - Dana MasonrellCLIA [id number] Erythrocyte distribution width Auto Entitic volume (RBC) 41.4 fL Normal 35.1-43.9 [facility] Comment on above: Performed By: #### 5 7021-8 ####[facility] Director - Dana FarrellCLIA [id number] Erythrocytes (RBC) 4.21 10*6/uL Normal 4.00-6.30 [facility] Comment on above: Performed By: #### 5 7021-8 ####[facility] Director - Danaapril CuevasrellCLIA [id number] Hematocrit (HCT) 38.0 % Low 40.0-54.0 [facility] Comment on above: Performed By: #### 5 7021-8 ####[facility] Director - Dana FarrellCLIA [id number] Hemoglobin mass conc (Bld) 13.1 g/dL Low 14.0-18.0 [facility] Comment on above: Performed By: #### 5 7021-8 ####[facility] Director - Danaapril TuckerCLESTEBAN [id number] Immature granulocytes #/vol (Bld) 0.02 10*3/uL Normal <=0.10 [facility] Comment on above: Performed By: #### 5 7021-8 ####[facility] Director - Dana FarrellCLIA [id number] Immature granulocytes/100 WBC (Bld) 0.30 % Normal <=1.50 [facility] Comment on above: Performed By: #### 5 7021-8 ####[facility] Director - Dana FarrellCLIA [id number] Lymphocytes 2.36 10*3/uL Normal 1.20-3.40 [facility] Comment on above: Performed By: #### 5 7021-8 ####[facility] Director - Dana FarrellCLIA [id number] Lymphocytes/100 leukocytes 40.2 % High 20.0-40.0 [facility] Comment on above: Performed By: #### 5 7021-8 ####[facility] Director - Dana FarrellCLIA [id number] MCH 31.1 pg High 27.0-31.0 [facility] Comment on above: Performed By: #### 5 7021-8 ####[place] [address] Director - Dana Eric [id number] MCHC mass conc (RBC) 34.5 g/dL Normal 32.0-36.0 [facility] Comment on above: Performed By: #### 5 7021-8 ####[facility] Director - Dana Eric [id number] MCV 90.3 fL Normal 80.0-100.0 [facility] Comment on above: Performed By: #### 5 7021-8 ####[place] [address] Director - Dana Eric [id number] Monocytes 0.50 10*3/uL Normal 0.10-0.60 [facility] Comment on above: Performed By: #### 5 7021-8 ####[facility] Director - Dana Eric [id number] Monocytes/100 leukocytes 8.5 % High <=8.0 [facility] Comment on above: Performed By: #### 5 7021-8 ####[facility] Director - Dana Eric [id number] Neutrophils 2.84 10*3/uL Normal 1.40-6.50 [facility] Comment on above: Performed By: #### 5 7021-8 ####[place] [address] Director - Dana Eric [id number] Neutrophils/100 WBC Auto (Bld) 48.5 % Low 50.0-70.0 [facility] Comment on above: Performed By: #### 5 7021-8 ####[facility] Director - Dana AnthonyIA [id number] Nucleated erythrocytes 0.00 10*3/uL Normal <=0.10 [facility] Comment on above: Performed By: #### 5 7021-8 ####[facility] Director - Danaapril Eric [id number] Platelet mean volume (PMV) 9.8 fL Normal 9.0-13.0 [facility] Comment on above: Performed By: #### 5 7021-8 ####[facility] Director - Dana Eric [id number] Platelets 174 10*3/uL Normal 130-400 [facility] Comment on above: Performed By: #### 5 7021-8 ####[place] [address] Director - Dana TuckerCLIA [id number] WBC (Leukocytes) 5.87 10*3/uL Normal 4.80-10.80 [facility] Comment on above: Performed By: #### 5 7021-8 ####[facility] Director - Danaapril AnthonyIA [id number] BASIC METABOLIC PANELon 04-0 Anion gap 4.0 mmol/L Normal <=15.0 [facility] Comment on above: Performed By: #### 2 4321-2 ####[facility] Director - Dana AnthonyIA [id number] Calcium 8.7 mg/dL Normal 8.5-10.1 [facility] Comment on above: Performed By: #### 2 4321-2 ####[facility] Director - Dana Eric [id number] Chloride 98 mmol/L Normal 98-107 [facility] Comment on above: Performed By: #### 2 4321-2 ####[facility] - Dana Hernesto [id number] CO2 30 mmol/L Normal 21-32 [facility] Comment on above: Performed By: #### 2 4321-2 ####[facility] [facility] [id number] Creatinine 1.04 mg/dL Normal 0.67-1.17 [facility] Comment on above: Performed By: #### 2 4321-2 ####[facility] [facility] [id number] eGFR (MDRD) mL/min/{1.73_m2} Normal >=59 [facility] Comment on above: Performed By: #### 2 4321-2 ####[place] [address] [facility] [id number] eGFR (non-black) GLOMERULAR FILTRATIO N RATE INTERPRETATION~The eGFR is calculated using the MDRD equation.~This equation has been validated in patients with chronic kidney disease;~however, it underestimates the GFR in healthy patients with GFR's over 60 mL/min.~The equation is not valid in children under the age of 18.~NOTE: Criteria for Chronic Kidney Disease:~ ~1. Kidney damage for at least three months, as defined~by structural or functional abnormalities of the kidney,~with or without decreased glomerular filtration rate, manifested by either:~* Pathological abnormalities or~* Markers of Kidney damage, including abnormalities in~the composition of the blood or urine or abnormalities in imaging tests.~ ~2. GFR <60 mL/min/1.73 m squared for at least three months, with or without kidney damage.~ Normal [facility] Comment on above: Performed By: #### 2 4321-2 ####[facility] [facility] [id number] Glucose mass conc 89 mg/dL Normal 74-106 [facility] Comment on above: Performed By: #### 2 4321-2 ####[facility] Director - Dana Eric [id number] Potassium molar conc 4.3 mmol/L Normal 3.5-5.1 [facility] Comment on above: Performed By: #### 2 4321-2 ####[facility] Director - Dana Eric [id number] Sodium 132 mmol/L Low 136-145 [facility] Comment on above: Performed By: #### 2 4321-2 ####[facility] Director - Dana Eric [id number] Urea nitrogen 16 mg/dL Normal 9-20 [facility] Comment on above: Performed By: #### 2 4321-2 ####[facility] Director - Dana Eric [id number] CBC with DIFFERENTIALon 04-0 Basophils Auto #/vol (Bld) 0.06 10*3/uL Normal <=0.70 [facility] Comment on above: Performed By: #### 5 7021-8 ####[facility] Director - Dana Eric [id number] Basophils/100 WBC Auto (Bld) 0.8 % Normal <=2.0 [facility] Comment on above: Performed By: #### 5 7021-8 ####[facility] Director - Dana AnthonyIA [id number] Eosinophils 0.09 10*3/uL Normal <=0.70 [facility] Comment on above: Performed By: #### 5 7021-8 ####[facility] Director - Dana Eric [id number] Eosinophils/100 leukocytes 1.2 % Normal <=10.0 [facility] Comment on above: Performed By: #### 5 7021-8 ####[facility] Director - Dana Eric [id number] Erythrocyte distribution width Auto Entitic volume (RBC) 41.2 fL Normal 35.1-43.9 [facility] Comment on above: Performed By: #### 5 7021-8 ####[facility] Director - Dana Eric [id number] Erythrocytes (RBC) 4.84 10*6/uL Normal 4.00-6.30 [facility] Comment on above: Performed By: #### 5 7021-8 ####[place] [address] Director - aDna Eric [id number] Hematocrit (HCT) 44.0 % Normal 40.0-54.0 [facility] Comment on above: Performed By: #### 5 7021-8 ####[facility] Director - Dana Eric [id number] Hemoglobin mass conc (Bld) 15.2 g/dL Normal 14.0-18.0 [facility] Comment on above: Performed By: #### 5 7021-8 ####[facility] Director - Dana Eric [id number] Immature granulocytes #/vol (Bld) 0.02 10*3/uL Normal <=0.10 [facility] Comment on above: Performed By: #### 5 7021-8 ####[facility] Director - Dana Eric [id number] Immature granulocytes/100 WBC (Bld) 0.30 % Normal <=1.50 [facility] Comment on above: Performed By: #### 5 7021-8 ####[facility] Director - Danaapril CuevasrellCLIA [id number] Lymphocytes 2.99 10*3/uL Normal 1.20-3.40 [facility] Comment on above: Performed By: #### 5 7021-8 ####[facility] Director - Dana MasonrellCLIA [id number] Lymphocytes/100 leukocytes 39.3 % Normal 20.0-40.0 [facility] Comment on above: Performed By: #### 5 7021-8 ####[facility] Director - Dana FarrellCLIA [id number] MCH 31.4 pg High 27.0-31.0 [facility] Comment on above: Performed By: #### 5 7021-8 ####[facility] Director - Dana FarrellCLIA [id number] MCHC mass conc (RBC) 34.5 g/dL Normal 32.0-36.0 [facility] Comment on above: Performed By: #### 5 7021-8 ####[facility] Director - Dana FarrellCLIA [id number] MCV 90.9 fL Normal 80.0-100.0 [facility] Comment on above: Performed By: #### 5 7021-8 ####[facility] Director - Dana FarrellCLIA [id number] Monocytes 0.64 10*3/uL High 0.10-0.60 [facility] Comment on above: Performed By: #### 5 7021-8 ####[facility] Director - Dana MasonrellCLIA [id number] Monocytes/100 leukocytes 8.4 % High <=8.0 [facility] Comment on above: Performed By: #### 5 7021-8 ####[facility] Director - Dana AnthonyIA [id number] Neutrophils 3.80 10*3/uL Normal 1.40-6.50 [facility] Comment on above: Performed By: #### 5 7021-8 ####[facility] Director - Dana Eric [id number] Neutrophils/100 WBC Auto (Bld) 50.0 % Normal 50.0-70.0 [facility] Comment on above: Performed By: #### 5 7021-8 ####[place] [address] Director - Dana Eric [id number] Nucleated erythrocytes 0.00 10*3/uL Normal <=0.10 [facility] Comment on above: Performed By: #### 5 7021-8 ####[facility] Director - Dana Eric [id number] Platelet mean volume (PMV) 9.8 fL Normal 9.0-13.0 [facility] Comment on above: Performed By: #### 5 7021-8 ####[facility] Director - Dana Eric [id number] Platelets 232 10*3/uL Normal 130-400 [facility] Comment on above: Performed By: #### 5 7021-8 ####[facility] Director - Dana Eric [id number] WBC (Leukocytes) 7.60 10*3/uL Normal 4.80-10.80 [facility] Comment on above: Performed By: #### 5 7021-8 ####[facility] Director - Dana FarrellCLIA [id number] BASIC METABOLIC PANELon Anion gap 8.0 mmol/L Normal <=15.0 [facility] Comment on above: Performed By: #### 2 4321-2 ####[facility] Director - Dana FarrellCLIA [id number] Calcium 9.1 mg/dL Normal 8.5-10.1 [facility] Comment on above: Performed By: #### 2 4321-2 ####[facility] Director - Dana FarrellCLIA [id number] Chloride 99 mmol/L Normal 98-107 [facility] Comment on above: Performed By: #### 2 4321-2 ####[facility] Director - Dana FarrellCLIA [id number] CO2 29 mmol/L Normal 21-32 [facility] Comment on above: Performed By: #### 2 4321-2 ####[facility] Director - Danaapril CuevasrellCLIA [id number] Creatinine 0.96 mg/dL Normal 0.67-1.17 [facility] Comment on above: Performed By: #### 2 4321-2 ####[facility] Director - Dana FarrellCLIA [id number] eGFR (MDRD) mL/min/{1.73_m2} Normal >=59 [facility] Comment on above: Performed By: #### 2 4321-2 ####[facility] Director - Dana FarrellCLIA [id number] eGFR (non-black) GLOMERULAR FILTRATIO N RATE INTERPRETATION~The eGFR is calculated using the MDRD equation.~This equation has been validated in patients with chronic kidney disease;~however, it underestimates the GFR in healthy patients with GFR's over 60 mL/min.~The equation is not valid in children under the age of 18.~NOTE: Criteria for Chronic Kidney Disease:~ ~1. Kidney damage for at least three months, as defined~by structural or functional abnormalities of the kidney,~with or without decreased glomerular filtration rate, manifested by either:~* Pathological abnormalities or~* Markers of Kidney damage, including abnormalities in~the composition of the blood or urine or abnormalities in imaging tests.~ ~2. GFR <60 mL/min/1.73 m squared for at least three months, with or without kidney damage.~ Normal [facility] Comment on above: Performed By: #### 2 4321-2 ####[facility] [address]Medical Director - Dana Eric [id number] Glucose mass conc 112 mg/dL High 74-106 [facility] Comment on above: Performed By: #### 2 4321-2 ####[place] [address] Director - Dana Eric [id number] Potassium molar conc 4.1 mmol/L Normal 3.5-5.1 [facility] Comment on above: Performed By: #### 2 4321-2 ####[facility] Director - Dana Eric [id number] Sodium 136 mmol/L Normal 136-145 [facility] Comment on above: Performed By: #### 2 4321-2 ####[facility] Director - Dana Eric [id number] Urea nitrogen 19 mg/dL Normal 9-20 [facility] Comment on above: Performed By: #### 2 4321-2 ####[facility] Director - Dana Eric [id number] CBC with DIFFERENTIALon -0 Basophils Auto #/vol (Bld) 0.06 10*3/uL Normal <=0.70 [facility] Comment on above: Performed By: #### 5 7021-8 ####[facility] Director - Dana FarrellCLIA [id number] Basophils/100 WBC Auto (Bld) 0.6 % Normal <=2.0 [facility] Comment on above: Performed By: #### 5 7021-8 ####[facility] Director - Dana GarrettCLIA [id number] Eosinophils 0.02 10*3/uL Normal <=0.70 [facility] Comment on above: Performed By: #### 5 7021-8 ####[place] [address] Director - Dana FarrellCLIA [id number] Eosinophils/100 leukocytes 0.2 % Normal <=10.0 [facility] Comment on above: Performed By: #### 5 7021-8 ####[facility] Director - Dana FarrellCLIA [id number] Erythrocyte distribution width Auto Entitic volume (RBC) 41.0 fL Normal 35.1-43.9 [facility] Comment on above: Performed By: #### 5 7021-8 ####[facility] Director - Dana FarrellCLIA [id number] Erythrocytes (RBC) 5.07 10*6/uL Normal 4.00-6.30 [facility] Comment on above: Performed By: #### 5 7021-8 ####[facility] Director - Dana FarrellCLIA [id number] Hematocrit (HCT) 44.7 % Normal 40.0-54.0 [facility] Comment on above: Performed By: #### 5 7021-8 ####[facility], [place] [address]Ghhgkpp Director - Danaapril CuevasrellCLIA [id number] Hemoglobin mass conc (Bld) 15.7 g/dL Normal 14.0-18.0 [facility] Comment on above: Performed By: #### 5 7021-8 ####[facility] Director - Dana MasonrellCLIA [id number] Immature granulocytes #/vol (Bld) 0.03 10*3/uL Normal <=0.10 [facility] Comment on above: Performed By: #### 5 7021-8 ####[place] [address] Director - Danaapril AnthonyIA [id number] Immature granulocytes/100 WBC (Bld) 0.30 % Normal <=1.50 [facility] Comment on above: Performed By: #### 5 7021-8 ####[place] [address] Director - Dana MasonrellCLIA [id number] Lymphocytes 2.84 10*3/uL Normal 1.20-3.40 [facility] Comment on above: Performed By: #### 5 7021-8 ####[facility] Director - Dana FarrellCLIA [id number] Lymphocytes/100 leukocytes 29.6 % Normal 20.0-40.0 [facility] Comment on above: Performed By: #### 5 7021-8 ####[facility] Director - Dana FarrellCLIA [id number] MCH 31.0 pg Normal 27.0-31.0 [facility] Comment on above: Performed By: #### 5 7021-8 ####[facility] Director - Dana MasonrellCLIA [id number] MCHC mass conc (RBC) 35.1 g/dL Normal 32.0-36.0 [facility] Comment on above: Performed By: #### 5 7021-8 ####[facility] Director - Dana MasonrellCLIA [id number] MCV 88.2 fL Normal 80.0-100.0 [facility] Comment on above: Performed By: #### 5 7021-8 ####[facility] Director - Dana FarrellCLIA [id number] Monocytes 0.59 10*3/uL Normal 0.10-0.60 [facility] Comment on above: Performed By: #### 5 7021-8 ####[facility] Director - Dana FarrellCLIA [id number] Monocytes/100 leukocytes 6.1 % Normal <=8.0 [facility] Comment on above: Performed By: #### 5 7021-8 ####[facility] Director - Dana FarrellCLIA [id number] Neutrophils 6.07 10*3/uL Normal 1.40-6.50 [facility] Comment on above: Performed By: #### 5 7021-8 ####[facility] Director - Dana FarrellCLIA [id number] Neutrophils/100 WBC Auto (Bld) 63.2 % Normal 50.0-70.0 [facility] Comment on above: Performed By: #### 5 7021-8 ####[facility] Director - Dana FarrellCLIA [id number] Nucleated erythrocytes 0.00 10*3/uL Normal <=0.10 [facility] Comment on above: Performed By: #### 5 7021-8 ####[facility] Director - Dana Eric [id number] Platelet mean volume (PMV) 9.7 fL Normal 9.0-13.0 [facility] Comment on above: Performed By: #### 5 7021-8 ####[facility] Director - Dana Eric [id number] Platelets 265 10*3/uL Normal 130-400 [facility] Comment on above: Performed By: #### 5 7021-8 ####[facility] Director - Dana Eric [id number] WBC (Leukocytes) 9.61 10*3/uL Normal 4.80-10.80 [facility] Comment on above: Performed By: #### 5 7021-8 ####[facility] Director - Dana Eric [id number] Vital Signs Date Time Vital Sign Value Performing Clinician Facility 03-25-2025 16:09-0400 Body temperature 98.2 [degF] Dr. Tnony Candelario MD Work Phone: [facility] 03-25-2025 16:09-0400 Diastolic blood pressure 65 mm[Hg] Dr. Tonny Candelario MD Work Phone: [facility] 03-25-2025 16:09-0400 Heart rate 74 /min Dr. Tonny Candelario MD Work Phone: [facility] 03-25-2025 16:09-0400 Respiratory rate 16 /min Dr. Tonny Candelario MD Work Phone: [facility] 03-25-2025 16:09-0400 SaO2% (BldA) [Mass fraction] 99 % Dr. Tonny Candelario MD Work Phone: [facility] 03-25-2025 16:09-0400 Systolic blood pressure 128 mm[Hg] Dr. Tonny Candelario MD Work Phone: [facility] 03-25-2025 14:08-0400 Body mass index (BMI) [Ratio] 22.5 kg/m2 Dr. Tonny Candelario MD Work Phone: [facility] 03-25-2025 14:08-0400 Body weight 69.[address] Tonny Candelario MD Work Phone: [facility] 03-25-2025 13:35-0400 Body height 175.[address] Tonny Candelario MD Work Phone: [facility] 12-05-2023 15:53-0400 Body temperature 97.4 [degF] [facility] 12-05-2023 15:53-0400 Diastolic blood pressure 70 mm[Hg] [facility] 12-05-2023 15:53-0400 Heart rate 74 /min [facility] 12-05-2023 15:53-0400 Respiratory rate 18 /min [facility] 12-05-2023 15:53-0400 SaO2% (BldA) [Mass fraction] 100 % [facility] 12-05-2023 15:53-0400 Systolic blood pressure 132 mm[Hg] [facility] 12-05-2023 12:26-0400 Body height 175.26 cm [facility] 12-05-2023 12:26-0400 Body mass index (BMI) [Ratio] 22 kg/m2 [facility] 12-05-2023 12:26-0400 Body weight 67.67 kg [facility] 08-05-2023 05:01-0500 Diastolic blood pressure 98 mm[Hg] [facility] 08-05-2023 05:01-0500 Heart rate 69 /min [facility] 08-05-2023 05:01-0500 Respiratory rate 16 /min [facility] 08-05-2023 05:01-0500 SaO2% (BldA) [Mass fraction] 96 % [facility] 08-05-2023 05:01-0500 Systolic blood pressure 135 mm[Hg] [facility] 08-04-2023 23:42-0500 Body height 175.26 cm [facility] 08-04-2023 23:42-0500 Body mass index (BMI) [Ratio] 22 kg/m2 [facility] 08-04-2023 23:42-0500 Body temperature 98.2 [degF] [facility] 08-04-2023 23:42-0500 Body weight 67.7 kg [facility] 11-10-2022 11:06-0400 Body height 177.8 cm Baylee Saucedo MD Work Phone: [facility] 11-10-2022 11:06-0400 Body temperature 99 [degF] Baylee Saucedo MD Work Phone: [facility] 11-10-2022 11:06-0400 Body weight 59.51 kg Baylee Saucedo MD Work Phone: [facility] 11-10-2022 11:06-0400 Diastolic blood pressure 74 mm[Hg] Baylee Saucedo MD Work Phone: [facility] 11-10-2022 11:06-0400 Heart rate 114 /min Baylee Saucedo MD Work Phone: [facility] 11-10-2022 11:06-0400 Respiratory rate 14 /min Baylee Saucedo MD Work Phone: [facility] 11-10-2022 11:06-0400 SaO2% (BldA) [Mass fraction] 99 % Baylee Saucedo MD Work Phone: [facility] 11-10-2022 11:06-0400 Systolic blood pressure 122 mm[Hg] Baylee Saucedo MD Work Phone: [facility] 10-26-2022 08:10-0400 Diastolic Blood Pressure Non-Invasive 80 1 KARISHMA ALBA MD [facility] 10-26-2022 08:10-0400 Heart rate 84 /min KARISHMA ALBA MD [facility] 10-26-2022 08:10-0400 Respiratory rate 18 /min KARISHMA ALBA MD [facility] 10-26-2022 08:10-0400 Systolic Blood Pressure Non-Invasive 128 1 KARISHMA ALBA MD [facility] 10-26-2022 02:05-0400 Diastolic Blood Pressure Non-Invasive 89 1 KARISHMA ALBA MD [facility] 10-26-2022 02:05-0400 Heart rate 80 /min KARISHMA ALBA MD [facility] 10-26-2022 02:05-0400 Respiratory rate 18 /min KARISHMA ALBA MD [facility] 10-26-2022 02:05-0400 Systolic Blood Pressure Non-Invasive 122 1 KARISHMA ALBA MD [facility] 10-25-2022 22:00-0400 Diastolic Blood Pressure Non-Invasive 93 1 KARISHMA ALBA MD [facility] 10-25-2022 22:00-0400 Heart rate 78 /min KARISHMA ALBA MD [facility] 10-25-2022 22:00-0400 Respiratory rate 18 /min KARISHMA ALBA MD [facility] 10-25-2022 22:00-0400 Systolic Blood Pressure Non-Invasive 127 1 KARISHMA ALBA MD [facility] 10-25-2022 06:52-0400 Body temperature 98.06 [degF] KARISHMA ALBA MD [facility] 05-28-2022 06:32-0400 Body temperature 98.24 [degF] SEVERINO NAVARRO DO [facility] 05-28-2022 06:32-0400 Diastolic blood pressure 84 mm[Hg] SEVERINO NAVARRO DO [facility] 05-28-2022 06:32-0400 Heart rate 92 /min SEVERINO NAVARRO DO [facility] 05-28-2022 06:32-0400 Respiratory rate 18 /min SEVERINO NAVARRO DO [facility] 05-28-2022 06:32-0400 Systolic blood pressure 124 mm[Hg] SEVERINO NAVARRO DO [facility] 05-28-2022 03:35-0400 Body height 177.8 cm SEVERINO NAVARRO DO [facility] 05-28-2022 03:35-0400 Body temperature 98.6 [degF] SEVERINO NAVARRO DO [facility] 05-28-2022 03:35-0400 Body weight 61.4 kg SEVERINO NAVARRO DO [facility] 05-28-2022 03:35-0400 Diastolic blood pressure 89 mm[Hg] SEVERINO NAVARRO DO [facility] 05-28-2022 03:35-0400 Heart rate 134 /min SEVERINO NAVARRO DO [facility] 05-28-2022 03:35-0400 Respiratory rate 20 /min SEVERINO NAVARRO DO [facility] 05-28-2022 03:35-0400 Systolic blood pressure 125 mm[Hg] SEVERINO NAVARRO DO [facility] 05-10-2022 11:24-0400 Body height 177.8 cm Baylee Saucedo MD Work Phone: [facility] 05-10-2022 11:24-0400 Body temperature 98.2 [degF] Baylee Saucedo MD Work Phone: [facility] 05-10-2022 11:24-0400 Body weight 58.7 kg Baylee Saucedo MD Work Phone: [facility] 05-10-2022 11:24-0400 Diastolic blood pressure 85 mm[Hg] Baylee Saucedo MD Work Phone: [facility] 05-10-2022 11:24-0400 Heart rate 102 /min Baylee Saucedo MD Work Phone: [facility] 05-10-2022 11:24-0400 SaO2% (BldA) [Mass fraction] 98 % Baylee Saucedo MD Work Phone: [facility] 05-10-2022 11:24-0400 Systolic blood pressure 118 mm[Hg] Baylee Saucedo MD Work Phone: [facility] 04-13-2022 06:29-0400 Heart rate 102 /min PEDRITO PATEL MD [facility] 04-13-2022 06:29-0400 Respiratory rate 20 /min PEDRITO PATEL MD [facility] 04-13-2022 04:50-0400 Reason For Taking VItal Signs PEDRITO PATEL MD [facility] 04-13-2022 04:05-0400 Body height 177.8 cm PEDRITO PATEL MD [facility] 04-13-2022 04:05-0400 Body temperature 98.42 [degF] PEDRITO PATEL MD [facility] 04-13-2022 04:05-0400 Body weight 63.6 kg PEDRITO PATEL MD [facility] 04-13-2022 04:05-0400 Diastolic blood pressure 90 mm[Hg] PEDRITO PATEL MD [facility] 04-13-2022 04:05-0400 Heart rate 118 /min PEDRITO PATEL MD [facility] 04-13-2022 04:05-0400 Respiratory rate 20 /min PEDRITO PATEL MD [facility] 04-13-2022 04:05-0400 Systolic blood pressure 158 mm[Hg] PEDRITO PATEL MD [facility] 04-10-2022 13:37-0400 Diastolic blood pressure 78 mm[Hg] RAFAEL MERCADO MD [facility] 04-10-2022 13:37-0400 Heart rate 82 /min RAFAEL MERCADO MD [facility] 04-10-2022 13:37-0400 Respiratory rate 16 /min RAFAEL MERCADO MD [facility] 04-10-2022 13:37-0400 Systolic blood pressure 126 mm[Hg] RAFAEL MERCADO MD [facility] 04-10-2022 12:53-0400 Diastolic blood pressure 62 mm[Hg] RAFAEL MERCADO MD [facility] 04-10-2022 12:53-0400 Heart rate 84 /min RAFAEL MERCADO MD [facility] 04-10-2022 12:53-0400 Respiratory rate 18 /min RAFAEL MERCADO MD [facility] 04-10-2022 12:53-0400 Systolic blood pressure 124 mm[Hg] RAFAEL MERCADO MD [facility] 04-10-2022 11:36-0400 Body temperature 98.06 [degF] RAFAEL MERCADO MD [facility] 04-10-2022 11:36-0400 Body weight 63.6 kg RAFAEL MERCADO MD [facility] 04-10-2022 11:36-0400 Diastolic blood pressure 79 mm[Hg] RAFAEL MERCADO MD [facility] 04-10-2022 11:36-0400 Heart rate 93 /min RAFAEL MERCADO MD [facility] 04-10-2022 11:36-0400 Respiratory rate 18 /min RAFAEL MERCADO MD [facility] 04-10-2022 11:36-0400 Systolic blood pressure 131 mm[Hg] RAFAEL MERCADO MD [facility] 12-21-2021 22:49-0400 Diastolic blood pressure 84 mm[Hg] RICARDO MAINT DO [facility] 12-21-2021 22:49-0400 Heart rate 72 /min RICARDO FROMMELT DO [facility] 12-21-2021 22:49-0400 Reason For Taking VItal Signs RICARDO FROMSHANIAT DO [facility] 12-21-2021 22:49-0400 Respiratory rate 18 /min RICARDO MAINT DO [facility] 12-21-2021 22:49-0400 Systolic blood pressure 126 mm[Hg] RICARDO MAINT DO [facility] 12-21-2021 21:28-0400 Body temperature 98.24 [degF] RICARDO MAINT DO [facility] 12-21-2021 21:28-0400 Body weight 63.6 kg RICARDO MAINT DO [facility] 12-21-2021 21:28-0400 Diastolic blood pressure 100 mm[Hg] RICARDO MAINT DO [facility] 12-21-2021 21:28-0400 Heart rate 102 /min RICARDO MAINT DO [facility] 12-21-2021 21:28-0400 Respiratory rate 18 /min RICARDO MAINT DO [facility] 12-21-2021 21:28-0400 Systolic blood pressure 134 mm[Hg] RICARDO MAINT DO [facility] 07-08-2021 22:31-0500 Diastolic blood pressure 95 mm[Hg] DORCAS SAAVEDRA MD [facility] 07-08-2021 22:31-0500 Heart rate 94 /min DORCAS SAAVEDRA MD [facility] 07-08-2021 22:31-0500 Mean blood pressure 108 mm[Hg] DORCAS SAAVEDRA MD [facility] 07-08-2021 22:31-0500 Respiratory rate 18 /min DORCAS SAAVEDRA MD [facility] 07-08-2021 22:31-0500 Systolic blood pressure 134 mm[Hg] DORCAS SAAVEDRA MD [facility] 07-08-2021 21:00-0500 Diastolic blood pressure 85 mm[Hg] DORCAS SAAVEDRA MD [facility] 07-08-2021 21:00-0500 Heart rate 87 /min DORCAS SAAVEDRA MD [facility] 07-08-2021 21:00-0500 Respiratory rate 20 /min DORCAS SAAVEDRA MD [facility] 07-08-2021 21:00-0500 Systolic blood pressure 116 mm[Hg] DORCAS SAAVEDRA MD [facility] 07-08-2021 19:29-0500 Diastolic blood pressure 78 mm[Hg] DORCAS SAAVEDRA MD [facility] 07-08-2021 19:29-0500 Heart rate 60 /min DORCAS SAAVEDRA MD [facility] 07-08-2021 19:29-0500 Respiratory rate 18 /min DORCAS SAAVEDRA MD [facility] 07-08-2021 19:29-0500 Systolic blood pressure 127 mm[Hg] DORCAS SAAVEDRA MD [facility] 07-08-2021 16:51-0500 Body temperature 97.7 [degF] DORCAS SAAVEDRA MD [facility] 07-08-2021 16:51-0500 Heart rate 94 /min DORCAS SAAVEDRA MD [facility] Encounters Encounter Date Encounter Type Care Provider Facility Start: 03-25-2025 End: 03-25-2025 Emergency department patient visit Dr. Tonny Candelario MD Work Phone: -Emergency Department Work Phone: Start: 02-20-2025 End: 02-20-2025 Telephone encounter Intestinal Trans Coord Main Work Phone: [facility] Start: 2025 ambulatory ISAAC SMITH Faci lity:[phone] Start: 2025 End: 2025 Subsequent hospital visit by physician [facility] Comment on above: Other specified post procedural states [Z98.890] Start: 12-22-2024 End: 12-22-2024 Telephone encounter Intestinal Trans Coord Main Work Phone: [facility] Comment on above: Care Coordination Start: 12-22-2024 End: 12-22-2024 ambulatory ISAAC SMITH Facility:[facility] Start: 12-19-2024 End: 12-19-2024 Telephone encounter Intestinal Trans Coord Main Work Phone: [facility] Comment on above: Insurance Start: 12-18-2024 End: 12-18-2024 Telephone encounter Baylee Saucedo MD Work Phone: General Surgery Start: 11-13-2024 End: 11-14-2024 Telephone encounter Kayleen [facility] Comment on above: Appointment Start: 11-03-2024 End: 11-04-2024 Telephone encounter Jo Wilburn [facility] Start: 09-15-2024 End: 09-19-2024 ambulatory LYLE RICHMOND STAFF COMMAND AND CONTROL OFFICER - [facility] Facility:[facility] Start: 09-15-2024 End: 09-19-2024 Outreach Lab ERMELINDA CERDA [facility] Start: 01-16-2024 Telephone encounter Baylee Lozano MD Work Phone: General Surgery Start: 12-05-2023 End: 12-05-2023 Emergency department patient visit [facility]Emergency Department Work Phone: Start: 08-04-2023 End: 08-05-2023 Emergency department patient visit [facility] Work Phone: Start: 12-04-2022 Telephone encounter Baylee Lozano MD Work Phone: General Surgery Comment on above: Patient Question Start: 11-10-2022 End: 11-10-2022 Patient encounter procedure Baylee Saucedo MD Work Phone: [facility] Comment on above: S/P exploratory lapa rotomy (Primary Dx) Start: 11-07-2022 Telephone encounter Intestinal Trans Coord Main Work Phone: [facility] Comment on above: Appointment Start: 10-25-2022 End: 10-26-2022 Emergency department patient visit LYLE RICHMOND STAFF COMMAND AND CONTROL OFFICER - [facility] Facility:B Start: 10-25-2022 End: 10-26-2022 Emergency department patient visit KARISHMA ALBA MD [facility] Start: 07-10-2022 Refill Intestinal Tra ns Coord Main Work Phone: [facility] Start: 07-01-2022 End: 07-02-2022 Emergency department patient visit LYNSEY SMITH MD Facility:B Start: 05-28-2022 End: 05-28-2022 Emergency department patient visit SEVERINO NAVARRO DO Facility:B Start: 05-28-2022 End: 05-28-2022 Emergency department patient visit SEVERINO NAVARRO DO [facility] Start: 05-15-2022 Telephone encounter Intestinal Trans Coord Main Work Phone: [facility] Comment on above: Follow Up Start: 05-12-2022 Telephone encounter Baylee Lozano MD Work Phone: General Surgery Comment on above: Abdominal Pain Start: 05-10-2022 End: 05-10-2022 Patient encounter procedure Baylee Saucedo MD Work Phone: [facility] Comment on above: Intestine, malrotati on (Primary Dx) Start: 05-08-2022 Telephone encounter Intestinal Trans Coord Main Work Phone: [facility] Comment on above: Patient Question Start: 04-21-2022 Telephone encounter Intestinal Trans Coord Main Work Phone: [facility] Comment on above: Appointment Cancelle d Start: 04-19-2022 Telephone encounter Baylee Lozano MD Work Phone: General Surgery Comment on above: Patient Question Start: 04-13-2022 Telephone encounter Baylee Lozano MD Work Phone: General Surgery Comment on above: Digital Technician - O ther; Patient Question Start: 04-13-2022 End: 04-13-2022 Emergency department patient visit PEDRITO PATEL MD Facility:B Start: 04-13-2022 End: 04-13-2022 Emergency department patient visit PEDRITO PATEL MD [facility] Start: 04-10-2022 End: 04-10-2022 Emergency department patient visit RAFAEL MERCADO MD Facility:B Start: 04-10-2022 End: 04-10-2022 Emergency department patient visit RAFAEL MERCADO MD [facility] Start: 03-30-2022 Telephone encounter Intestinal Trans Coord Main Work Phone: [facility] Comment on above: Case Review Start: 03-20-2022 Telephone encounter Intestinal Trans Coord Main Work Phone: [facility] Center Comment on above: Patient Question Start: 01-03-2022 Telephone encounter Jazmyne ALLRED MAIN Comment on above: Transplant Evaluatio n Start: 12-22-2021 Telephone encounter Intestinal Trans Coord Main Work Phone: [facility] Comment on above: Referral Request Start: 12-21-2021 End: 12-22-2021 Emergency department patient visit RICARDO MAIN Facility:B Start: 12-21-2021 End: 12-22-2021 [facility] department [facility] Start: 11-30-2021 End: 11-30-2021 ambulatory TONNY CANDELARIO [facility] Start: 07-08-2021 End: 07-08-2021 Emergency department patient visit DORCAS SAAVEDRA MD [facility] Start: 11-14-2017 Ambulatory SELF SELF [facility] Start: 11-06-2017 End: 11-09-2017 Evaluation and management of inpatient NONE NONE Facility:[facility] Procedures Date Procedure Procedure Detail Performing Clinician Start: 03-25-2025 Computed tomography of abdomen and pelvis with intravenous contrast Dr. Tonny Candelario MD Work Phone: Start: 03-25-[address] 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 Comment on above: inclusion cyst left lateral neck Start: 12-05-2023 Computed tomography of abdomen and pelvis with intravenous contrast Start: 08-05-2023 Computed tomography of abdomen and pelvis with intravenous contrast Start: 04-24-2022 H/O: surgery S/P explorator y laparotomy Intestinal Main Work Phone: Start: 11-08-2017 REMOVAL OTH DEVC FRO M ESOPHAGUS PE NONE NONE Start: 11-07-2017 EXC STOM PYLORUS LILIANA/ART OP ENDO DX NONE NONE H/O: surgery S/P exploratory laparotomy Baylee Saucedo MD Work Phone: H/O: surgery S/P exploratory laparotomy Kayleen Maracic H/O: surgery S/P exploratory laparotomy Intestinal Trans Coord Main Work Phone: Hernia of abdominal cavity (disorder) RICARDO MONET DO Hernia of abdominal cavity (disorder) ERMELINDA LINDERKIN 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 Comment on above: [facility]- 3RD GRADE; [facility] Plan of Treatment Date Care Activity Detail Author Start: 04-06-2025 Influenza vaccination C [facility] Start: 03-25-2025 [facility] Start: 12-22-2024 End: 03-23-2025 CBC W Auto Differential panel - Blood COMPLETE BLOOD COUNT AND DIFFERENTIAL Lab STAT S/P exploratory laparotomy Small bowel obstruction (HCC) Moderate protein-calorie malnutrition (HCC) Chronic abdominal pain Expected: 12/22/2024 (Approximate), Expires: 03/23/2025 [facility] Work Phone: Comment on above: Expected: 12/22/2024 (Approximate), Expires: 03/23/2025 Start: 12-22-2024 End: 03-23-2025 Comprehensive metabolic 2000 panel - Serum or Plasma COMPREHENSIVE METABOLIC PANEL Lab STAT S/P exploratory laparotomy Small bowel obstruction (HCC) Moderate protein-calorie malnutrition (HCC) Chronic abdominal pain Expected: 12/22/2024 (Approximate), Expires: 03/23/2025 [facility] Comment on above: Expected: 12/22/2024 (Approximate), Expires: 03/23/2025 Start: 12-22-2024 End: 03-23-2025 Magnesium [Mass/volume] in Serum or Plasma MAGNESIUM Lab STAT S/P exploratory laparotomy Small bowel obstruction (HCC) Moderate protein-calorie malnutrition (HCC) Chronic abdominal pain Expected: 12/22/2024 (Approximate), Expires: 03/23/2025 [facility] Comment on above: Expected: 12/22/2024 (Approximate), Expires: 03/23/2025 Start: 12-22-2024 End: 03-23-2025 Phosphate [Mass/volume] in Serum or Plasma PHOSPHORUS INORGANIC Lab STAT S/P exploratory laparotomy Small bowel obstruction (HCC) Moderate protein-calorie malnutrition (HCC) Chronic abdominal pain Expected: 12/22/2024 (Approximate), Expires: 03/23/2025 [facility] Comment on above: Expected: 12/22/2024 (Approximate), Expires: 03/23/2025 Start: 04-06-2024 Covid-19 Vaccine ( season) Covid-19 Vaccine () [facility] Start: 04-06-2024 Influenza vaccination C [facility] Start: 12-05-2023 [facility] Start: 08-06-2023 Behavioral Health Screening Behavioral Health Screening [facility] Start: 08-05-2023 [facility] Start: 04-06-2023 Covid-19 Vaccine ( season) Covid-19 Vaccine ( season) [facility] Start: 04-06-2023 Influenza vaccination INFLUENZ A (Season Ended) [facility] Start: 11-07-2022 End: 01-07-2023 CBC W Auto Differential panel - Blood CBC + DIFF Lab STAT Intestine, malrotation Expected: 11/07/2022, Expires: 01/07/2023 [facility] Work Phone: Comment on above: Expected: 11/07/2022 , Expires: 01/07/2023 Start: 11-07-2022 End: 01-07-2023 Comprehensive metabolic 2000 panel - Serum or Plasma COMP METABOLIC PANEL Lab STAT Intestine, malrotation Expected: 11/07/2022, Expires: 01/07/2023 [facility] Work Phone: Comment on above: Expected: 11/07/2022 , Expires: 01/07/2023 Start: 11-07-2022 End: 01-07-2023 Magnesium [Mass/volume] in Serum or Plasma MAGNESIUM BLD Lab STAT Intestine, malrotation Expected: 11/07/2022, Expires: 01/07/2023 [facility] Work Phone: Comment on above: Expected: 11/07/2022 , Expires: 01/07/2023 Start: 11-07-2022 End: 01-07-2023 Phosphate [Mass/volume] in Serum or Plasma PHOSPHORUS INORGANIC Lab STAT Intestine, malrotation Expected: 11/07/2022, Expires: 01/07/2023 [facility] Work Phone: Comment on above: Expected: 11/07/2022 , Expires: 01/07/2023 Start: 08-06-2022 DEPRESSION ASSESSMENT DEPRESSION ASS ESSMENT [facility] Start: 05-09-2022 End: 07-09-2022 CBC W Auto Differential panel - Blood CBC + DIFF Lab Routine Intestine, malrotation Expected: 05/09/2022, Expires: 07/09/2022 [facility] Work Phone: Comment on above: Expected: 05/09/2022 , Expires: 07/09/2022 Start: 05-09-2022 End: 07-09-2022 Comprehensive metabolic 2000 panel - Serum or Plasma COMP METABOLIC PANEL Lab Routine Intestine, malrotation Expected: 05/09/2022, Expires: 07/09/2022 [facility] Work Phone: Comment on above: Expected: 05/09/2022 , Expires: 07/09/2022 Start: 05-09-2022 End: 07-09-2022 Magnesium [Mass/volume] in Serum or Plasma MAGNESIUM BLD Lab Routine Intestine, malrotation Expected: 05/09/2022, Expires: 07/09/2022 [facility] Work Phone: Comment on above: Expected: 05/09/2022 , Expires: 07/09/2022 Start: 05-09-2022 End: 07-09-2022 Phosphate [Mass/volume] in Serum or Plasma PHOSPHORUS INORGANIC Lab Routine Intestine, malrotation Expected: 05/09/2022, Expires: 07/09/2022 [facility] Work Phone: Comment on above: Expected: 05/09/2022 , Expires: 07/09/2022 Start: 04-06-2022 Influenza vaccination [facility] Start: 08-06-2021 DEPRESSION ASSESSMENT DEPRESSION ASS ESSMENT [facility] Start: 01-14-2012 Hepatitis B Vaccine (1 of 3 - 19+ 3-dose series) Hepatitis B Vaccine (1 of 3 - 19+ 3-dose series) [facility] Start: 01-14-2012 Urine microalbumin profile [facility] Start: 2011 Anxiety Screening Anxiety Screening [facility] Start: 2011 Depression Screening Depression Scre ening [facility] Start: 2011 HEPATITIS C SCREENING HEPATITIS C [facility] Start: 2011 Hepatitis C screening Hepatitis C [facility] Start: 2011 HIV SCREENING HIV SCREENING [facility] Start: 2011 HIV screening HIV Screening [facility] Start: 2005 Adult depression screening assessment DEPRESSION SCREENING [facility] Start: 1998 COVID-19 VACCINE (#1) COVID-19 VACCI NE (#1) [facility] Start: 1993 COVID-19 VACCINE (#1) COVID-19 VACCI NE (#1) [facility] Start: 1993 HEPATITIS B (1 of 3 - 3-dose series) HEPATITIS B (1 of 3 - 3-dose series) [facility] Bilirubin measuremen t, urine [facility] Hemoglobin [Presence ] in Urine [facility] Measurement of keton es in urine using dipstick [facility] Patient Education [facility] Work Phone: Patient referral [facility] Work Phone: pH of Urine [facility] Specific gravity of Urine [facility] Urine dipstick for glucose [facility] Urine dipstick for leukocyte esterase [facility] Urine dipstick for nitrite [facility] Urine dipstick for protein [facility] Urine examination [facility] Urobilinogen [Presen ce] in Urine [facility] Payers Date Payer Category Payer Unknown [id number] 2024 Self-pay [id number] 2017 Unknown [id number] 2016 Private Health Insurance [id number] 2016 Unknown 2016 Unknown [employer] [id number] 2016-Present Other [id number] 1993 Unknown [id number] 1993 Unknown [id number] 1993 Unknown [id number] 1993 Unknown [id number] 1993 Unknown [id number] 1993 Unknown [id number] 1993 Unknown [id number] 1993 Unknown [id number] Unknown [id number] Social History Date Type Detail Facility [facility] Start: 1995 Sex Assigned At Male [facility] Start: 01-07-2016 End: 12-22-2024 Tobacco smoking status NHIS Ex-smoker [facility] Start: 03-18-2015 End: 09-16-2016 History of tobacco use Current smoker [facility] Start: 03-18-2015 End: 09-16-2016 History of tobacco use Cigarette Smoker [facility] Start: 01-07-2016 End: 09-03-2022 Cigarettes smoked current (pack per day) - Reported 0.25 [facility] Start: 01-07-2016 End: 12-22-2024 Tobacco use and exposure Former smokeless tobacco user [facility] End: 09-16-2017 History of tobacco use Chews Tobacco [facility] Start: 01-06-2021 End: 12-22-2024 Alcohol intake Ex-drinker (finding) [facility] Start: 09-23-2019 History SDOH Alcohol Frequency 2 [facility] Start: 12-21-2021 End: 03-25-2025 Tobacco smoking status Never smoked tobacco (finding) [facility] Start: 04-02-2022 End: 05-09-2022 Exposure to SARS-CoV-2 (event) Unable to assess [facility] Work Phone: Start: 04-03-2022 End: 05-10-2022 Exposure to SARS-CoV-2 (event) Not sure [facility] Start: 08-04-2023 End: 12-05-2023 Tobacco smoking status GAIS Unknown if ever smoked [facility] Start: 09-23-2019 End: 09-03-2022 Alcohol Use Disorder Identification Test - Consumption [AUDIT-C] [facility] How often to you hav e a drink containing alcohol? Monthly or less [facility] Average Number of Drinks Not on file [facility] Start: 09-09-2020 Gender identity Identifies as male gender (finding) [facility] Start: 09-09-2020 Sexual orientation Heterosexual (finding) [facility] Sexual Orientation [facility]ell [facility] Start: 05-22-2019 Sex Male (finding) [facility] Functional Status Date Assessment Result Facility 10-26-2022 Functional Status Ambulating in rodriguez, Ambulating in room, Awake, Bathroom privileges [facility] 10-25-2022 Functional Status ID band on, Allergy Band on, Call device within reach, Bed in low position, Wheels locked, Upper/Half-Length side-rails up, personal items within reach [facility] 05-31-2022 Are you deaf, or do you have serious difficulty hearing No 05/31/2022 10:59 AM EDJean Carlos Johns RN No [facility] 05-31-2022 Are you blind, or do you have serious difficulty seeing, even when wearing glasses No 05/31/2022 10:59 AM Jean Carlos Cohen, BOLIVAR No [facility] 05-31-2022 Do you have serious difficulty walking or climbing stairs No 05/31/2022 10:59 AM Jean Carlos Cohen, BOLIVAR No [facility] 05-31-2022 Do you have difficul ty dressing or bathing No 05/31/2022 10:59 AM EDT Jean Carlos Ansari, BOLIVAR [facility] 05-31-2022 Because of a physica l, mental, or emotional condition, do you have difficulty doing errands alone such as visiting a physician's office or shopping No 05/31/2022 10:59 AM Jean Carlos Cohen, BOLIVAR No [facility] 05-28-2022 Functional Status Independent Amandeep escobar [facility] 04-13-2022 Functional Status Ambulating in rodriguez, Ambulating in room, Awake, Bathroom privileges [facility] 04-13-2022 Functional Status Standard Safet y ID band on, Allergy Band on, Call device within reach, Bed in low position, Wheels locked, Upper/Half-Length side-rails up, personal items within reach [facility] 04-10-2022 Functional Status Standard Safet y ID band on, Call device within reach, Bed in low position, Wheels locked, Upper/Half-Length side-rails up, Bedside Cart Locked, Safety level maintained [facility] 12-21-2021 Functional Status Amandeep Ho [facility] 12-21-2021 Functional Status Amandeep [facility] Mental Status Date Assessment Result Facility 10-25-2022 Mental Status Oriented x 4 [facility] 05-31-2022 Because of a physica l, mental, or emotional condition, do you have serious difficulty concentrating, remembering, or making decisions No 05/31/2022 10:59 AM EDT Jean Carlos Ansari, BOLIVAR No [facility] 05-28-2022 Mental Status Orientation Oriented x 4 [facility] 05-28-2022 Mental Status [facility] 04-13-2022 Mental Status Orientation Oriented x 4 [facility] 04-13-2022 Mental Status [facility] 04-10-2022 Mental Status Orientation Oriented x 4 [facility] 12-22-2021 Mental Status [facility] 12-21-2021 Mental Status [facility] Clinical Notes 07-09-2021 to 03-25-2025 Note Date & Type Note Facility 03-25-2025 Discharge summary [facility] 03-25-2025 Radiology Diagnostic study note [facility] Imaging Services [address] [place] [address] [id number] Abdomen/Pelvis W IV Cont ONLY MR#: [id number] Acct: [id number] Name: AGAPITO PARK Rep #: [id number] : 1995 M 30 From: Mervin Noguera MD PCP: Dr. Tonny Candelario MD Status: REG ER Study:Abdomen/Pelvis W IV Cont ONLY Date of E xam: 03/25/25 Exam# [id number] Ordering Dr: Umu De La O MD PROCEDURE: ABDOMEN/PELVIS W IV CONT ONLY 03/25/2025 REASON FOR EXAM: EPIG ABD PAIN TECHNIQUE: ABDOMEN/PELVIS W IV CONT ONLY Coronal and Sagittal reconstruction series were provided. CONTRAST: Isovue-300 VOLUME: 100 mL One or more dose reduction techniques were used (e.g., Automated exposure control, adjustment of the mA and/or kV according to patient size, use of iterative reconstruction technique. RADIATION DOSE SUMMARY: CTDlvol: 8.80 mGy DLP: 304.41 mGycm COMPARISON: Prior study dated December 05, 2023. FINDINGS: Lung bases: Lung bases are clear. Liver: Stable 1.2 cm cyst in the anterior right lobe of the liver superiorly. Gallbladder: No evidence of gallstones. Spleen: Borderline splenomegaly. Pancreas: Normal size without evidence of mass surrounding inflammation or ductal dilation. 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 Appendix: The appendix appears distended with a surrounding inflammatory process. Findings present are consistent with appendicitis. No evidence of abscess. Lymph nodes: Unremarkable. Vasculature: The abdominal aorta and IVC are normal. Peritoneum / Retroperitoneum: Unremarkable Bones: Unremarkable CT/Abdomen/Pelvis W IV Cont ONLY IMPRESSION: No acute abnormality is seen. Congenital midgut malrotation. Reading Location: [id number] CC: Dr. Rodney De La O MD; Dr. Tonny Candelario MD ~ Historic Site Administrator: Signed [facility] 03-25-2025 Discharge summary Note Date/Time March 25, 2025 3:47pm [facility] Medical Records Department [address] [place] [address] Emergency Department Summary 03/25/25 MR#: [id number] Acct: [id number] Name: AGAPITO PARK Rep # :[id number] : 1995 30 From: Rodney De La O MD PCP: Dr. Tonny Candelario MD Status:REG ER Location: ED HPI HPI - GI History of Present Illness Chief Complaint: Abd Pain Informant: patient Abdominal Pain/Flank Pain Onset: Today and Hours Context: Gradual Onset Timing: Intermittent Quality: Aching Location: Epigastric Current Severity: Mild Maximum Severity: Mild Worsened by: Nothing Relieved by: Nothing Nausea/Vomiting/Emesis GI Symptom: Positive for Nausea Onset: Today Severity: Mild Diarrhea/Melena/Hematochezia GI Symptom: Negative for Diarrhea, Melena or Hematochezia Associated Symptoms Associated Symptoms: Negative for Dysuria, Frequency, Hematuria or Urgency Narrative Narrative: 30-year-old male history of prior partial colectomy due to malrotation surgery was done 2 to 3 years ago at [facility]. Also prior hernia surgery. Patient states this morning several hours ago he started getting epigastric abdominal discomfort. Associated nausea no vomiting. No diarrhea. No melena. No fever. No dysuria. Has had this before. This has been several years. He has done well after his malrotation surgery. Denies any back pain. Denies any abdominal trauma. Prior similar symptoms: Yes Recent Illness/H[facility]ization: [facility] Medical History Intestinal malrotation Home Medications ?Medication ?Instructions ?Recorded ?Last Taken ?Type buprenorphine 5 mcg/hour weekly 1 patch topical Q7D Unknown History transdermal patch fluoxetine 40 mg capsule 40 mg PO DAILY 03/25/25 Unkn own History Allergy/AdvReac Type Severity Reaction Status Date / Time No Known Allergies Allergy Verified 12/05/23 12:28 Surgical History H/O hernia repair Social History Smoking Status: Never smoker ROS ROS ED ROS Narrative Epigastric abdominal pain. Nausea. No vomiting, no diarrhea, no dysuria. No fever. Constitutional Constitutional ED: Denies chills or fever(s) ENT ENT ED: Denies ear pain Cardiovascular Cardiovascular: Denies chest pain Respiratory/Chest Respiratory/Chest: Denies cough or dyspnea Gastrointestinal Gastrointestinal: Reports abdominal pain and nausea; Denies constipation, diarrhea, melena or vomiting Genitourinary Genitourinary ED: Denies dysuria or hematuria Musculoskeletal Musculoskeletal: Denies arthralgias or back pain Integumentary Denies abscess Neurologic Neurologic: Denies headache(s) Psychiatric Psychiatric: Denies anxiety Endocrine Endocrinology: Denies polydipsia Hematologic/Lymphatic Hematologic/Lymphatic: Denies easy bleeding Allergic/Immunologic Allergic/Immunologic ED: Denies mouth swelling, tongue swelling or urticaria EXAM Physical Exam Narrative Exam Narrative: Well-appearing 30-year-old male vital signs stable afebrile sitting upright in bed. H EENT exam pupils round react light. Moist mutes membranes. Neck nontender. Lungs clear to auscultation. Heart regular rhythm rate about 90 no murmur. Chest wall ribs nontender. Abdomen soft nondistended normal bowel sounds without peritoneal signs. Mild epigastric tenderness. No rebound guarding rigidity. Right upper and right lower quadrants unremarkable. Moving all 4 extremities. Calves nontender no edema. Back nontender. Neurologically is awake alert. Answering questions following commands. Very benign exam. Const Vital Signs: 03/25/25 13:35 03/25/25 13:54 03/25/25 14:08 Temperature 98.9 F 98.9 F Temperature Source Temporal Oral Pulse Rate 105 H 76 71 Respiratory Rate 20 H 16 14 Blood Pressure 127/94 H 115/88 H 118/81 H Blood Pressure Mean 105 97 93 Pulse Ox 100 100 100 Oxygen Delivery Method Room Air Room Air Room Air Positive well nourished and well developed; Negative for obese, cachectic, contractures or unkempt General Appearance ED: well developed and NAD; Negative for unkempt, cachectic, contractures or pallor Nutritional Appearance: Negative for cachectic or obese HEENT Reports moist mucous membranes normocephalic and atraumatic Eyes PERRL and EOMs intact bilaterally Neck no lymphadenopathy, supple and no JVD Resp normal respiratory effort and clear to auscultation bilaterally Cardio regular rate, regular rhythm, S1 normal heart sound, S2 normal heart sound and no murmurs GI non-distended and no masses; Negative for non-tender GI Narrative: Mild epigastric tenderness. Auscultation: normoactive bowel sounds Palpation: soft and tender; Negative for guarding, rigid, hepatomegaly, splenomegaly, hernia, mass, pulsatile mass or rebound tenderness present Back/Spine no CVA tenderness General Back: Negative for CVA tenderness Cervical Spine: Negative for cervical spine tenderness Thoracic Spine / Upper Back: Negative for thoracic spinal tenderness Lumbar Spine / Lower Back: Negative for lumbar spinal tenderness Extremity full ROM General Extremety ED: Negative for edema or tenderness General Extremity: Negative for edema Neuro CN's II-XII intact bilaterally and moves all extremities Sensorium / Orientation: alert, oriented to person, oriented to place and oriented to time; Negative for orientation impaired Motor Exam: strength 5/5 throughout Psych mental status grossly normal and thought process normal Appearance: Negative for unkempt Skin no wounds General Skin Exam: Negative for jaundice or pallor Lesions: no lesions Rashes: no rashes Trauma: Negative for abrasion Nails: Negative for discolored MDM MDM MDM Narrative Medical decision making narrative: 30-year-old male prior malrotation surgery 2 to 3 years ago with partial colectomy and prior hernia repair. Complaining of epigastric abdominal pain. He requested some for pain to be given for morphine and for Zofran. Labs to be obtained in the CT of his abdomen. Repeat exam patient is doing well at 3:35 PM. Abdomen is benign. We went over his test results. He is comfortable to be discharged home. He is feeling better. Of outpatient follow-up. History & Record Review Discussion w/independent historian: Patient Additional record(s) reviewed:: Prior inpatient record, Prior outpatient record,Prior ED visit and Prior labs Lab Data Attestation: I reviewed the patient's lab results. Lab results narrative: CBC shows a white count 8.5. H&H 14 and 42. Platelets 292. Electrolytes show gap 13. Normal BUN and creatinine of 15 and 0.9. Glucose 96. Liver enzymes normal. Lipase normal at 38. CAT scan of the abdomen and pelvis showed no acute abnormality. 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 Labs: Laboratory Results - last 24 hr 03/25/25 13:51 WBC 8.5 RBC 4.49 L Hgb 14.1 Hct 42.2 MCV 94.0 MCH 31.4 MCHC 33.4 RDW Std Deviation 42.8 RDW Coeff of Pari 12.4 Plt Count 292 MPV 9.6 Immature Gran % (Auto) 0.400 Neut % (Auto) 56.8 Lymph % (Auto) 33.4 Polk % (Auto) 6.9 Eos % (Auto) 1.9 Baso % (Auto) 0.6 Absolute Neuts (auto) 4.9 Absolute Lymphs (auto) 2.85 Nucleated RBC % 0 Sodium 139 Potassium 4.0 Chloride 102 Carbon Dioxide 24.1 Anion Gap 13 BUN 15 Creatinine 0.99 Estim Creat Clear Calc 104.85 Est GFR (MDRD) Non-Af 104 BUN/Creatinine Ratio 15.4 Glucose 96 Calcium 9.8 Total Bilirubin 0.74 AST 22 ALT 14 Alkaline Phosphatase 74 Total Protein 7.7 Albumin 4.9 Globulin 2.8 Albumin/Globulin Ratio 1.7 Lipase 38 Radiography Diagnostic Testing: Clinical Impression(s) from Imaging Studies Abdomen/Pelvis CT 03/25/25 14:20 IMPRESSION: No acute abnormality is seen. Congenital midgut malrotation. Reading Location: [facility] Discharge Plan Triage Chief Complaint: Abd Pain ED Provider: Rodney De La O Dx/Rx/DC Orders Prescriptions: No Action buprenorphine 5 mcg/hour patch weekly 1 patch topical Q7D Patient Comments: apply 1 patch topically to CLEAN DRY INTACT SKIN AND CHANGE weekly fluoxetine 40 mg capsule 40 mg PO DAILY Primary Care Provider: Tonny Candelario Referrals: Tonny Candelario MD [Primary Care Provider] - Print Language: Polish What to do if you have Problems For any increased pain, shortness of breath, bleeding, nausea or vomiting, chestpain, or any unexpected problems, contact your Primary Care Provider. Call [facility] ([phone]) or report to the closest Emergency Room. Call 911 if necessary. 03/25/25 1547 <Electronically signed by Rodney De La O MD> Cosigner Signature (if applicable): CC: Dr. Tonny Candelario MD ~ Signed [facility] Work Phone: [phone] 550-985307-18-2025 Telephone encounter Note* Telephone Encounter - Rosalinda Duenas RN - 02/20/2025 9:24 AM EDT Call placed to [facility]. Still has some pain but its much better since surgery. No nausea or vomiting.Early saitiety but he said he can tell his stomach empties fine. He isnt concerned about the symptoms SBFT said some narrowing. Will review image with Dr Baylee Duenas RN [facility]07-18-2025 Miscellaneous Notes* Telephone Encounter - Rosalinda Duenas RN - 02/20/2025 9:24 AM EDT Call placed to [facility]. Still has some pain but its much better since surgery. No nausea or vomiting.Early saitiety but he said he can tell his stomach empties fine. He isnt concerned about the symptoms SBFT said some narrowing. Will review image with Dr Baylee Duenas, RN documented in this encounterW[facility]06-[facility] History of Present illness Narrative* Zoran Linares RT(R) - 2025 9:00 AM EDT Radiology Service Progress Note PATIENT NAME: Agapito Park DATE OF SERVICE: 2025 TIME: 11:39 AM PATIENT IDENTITY VERIFICATION COMPLETED USING TWO (2) IDENTIFIERS: Name and Date of confirmedby patient verbally and Name and Date of confirmed by identification band. FALL SCREENING: Has the patient had 2 falls in the last year or 1 fall with injury or currently using an Ambulatory Assistive Device (Walker, Cane, Wheelchair, Crutches, etc.)? No PATIENT GENDER DATA: Assigned male at PATIENT RELEVANT IMPLANT DATA REVIEWED: Not Applicable PATIENT PRESENTS WITH AN IMPLANTABLE OR ATTACHED CAR MANAGER: No RADIOLOGY DEPARTMENT: General X-ray: Exam(s) Completed: GI/ Procedure(s): Small bowel series withbarium contrast and Upper GI with barium contrast PERIPHERAL IV DATA: Not applicable SIGNED BY: RT Sangeeta(Gopal) 2025 11:39 AM documented in this encounterWyandot [facility]06-10-2025 NoteHNO ID: [id number] Author: ZORAN LINARES RT(Gopal) Service: Radiology Author Type: Technologist Type: Progress Notes Filed: 2025 11:40 Note Text: Radiology Service Progress Note PATIENT NAME: Agapito Park DATE OF SERVICE: 2025 TIME: 11:39 AM PATIENT IDENTITY VERIFICATION COMPLETED USING TWO (2) IDENTIFIERS: Name and Date of confirmed by patient verbally and Name and Date of confirmed by identification band. FALL SCREENING: Has the patient had 2 falls in the last year or 1 fall with injury or currently using an Ambulatory Assistive Device (Walker, Cane, Wheelchair, Crutches, etc.)? No PATIENT GENDER DATA: Assigned male at PATIENT RELEVANT IMPLANT DATA REVIEWED: Not Applicable PATIENT PRESENTS WITH AN IMPLANTABLE OR ATTACHED CAR MANAGER: No RADIOLOGY DEPARTMENT: General X-ray: Exam(s) Completed: GI/ Procedure(s): Small bowel series with barium contrast and Upper GI with barium contrast PERIPHERAL IV DATA: Not applicable SIGNED BY: RT Sangeeta(R) 2025 11:39 [id number] Telephone encounter Note* Telephone Encounter - Rosalinda Duenas RN - 12/22/2024 4:34 PM EDT Patient seen in clinic, informal visit given some issue getting insurance confirmed prior to visit time. He is having some abdominal pain above umbillicus, 2-3 BM/day, Dr Uribe recommended he get Upepr GI series with SBFT. Can do this at [facility]. Order is in Epic. Dr Uribe recommended he avoid constipation. Rosalinda Duenas RN [facility]05-19-2025 Miscellaneous Notes* Telephone Encounter - Rosalinda Duenas RN - 12/22/2024 4:34 PM EDT Patient seen in clinic, informal visit given some issue getting insurance confirmed prior to visit time. He is having some abdominal pain above umbillicus, 2-3 BM/day, Dr Uribe recommended he get Upepr GI series with SBFT. Can do this at [facility]. Order is in Epic. Dr Uribe recommended he avoid constipation. Rosalinda Duenas RN documented in this encounterWyandot [facility] Hospital05-19-2025 NoteHNO ID: [id number] Author: ISAAC SMITH PA-C Service: ? Author Type: Physician Residue Furnace Operator Type: Progress Notes Filed: 12/25/2024 13:03 Note Text: [facility] Follow Up Visit REASON FOR VISIT: Post- operative care ESTABLISHED DIAGNOSIS: gut malrotation correction, SBO SURGERY: yes DATE OF SURGERY: 04/21/2022 TYPE OF SURGERY: Exploratory laparotomy Lysis of adhesion. Complete omentectomy. Segmental colectomy ( descending colon) with preservation of cecum and ICV Colocolonic anastomosis. Duodenopexy Rectopexy Sigmoidopexy. Cecopexy. Mesentericopexy Appendectomy DATE OF SURGERY: 10/31/2022 TYPE OF SURGERY: 1. Exploratory laparotomy with lysis of extensive adhesion including 2 stricturing bands. 2. Extended right hemicolectomy. 3. Excision of a mucous filled hepatic cyst in segment 4. 4. Ileosigmoid anastomosis. 5. Colopexy. 6. Primary abdominal wall closures. CURRENT COMPLAINT(S): mid upper abd pain History: Agapito Park is a 29 year old Quaker male (supportive , young child) from [facility] with a history of tobacco use x 5yrs (quit 2017), L inguinal hernia repair with resection of hemorrhagic omentum (2000, age 6), and anxiety and depression with lifelong intermittent episodes of reflux/vomiting. He developed post-prandial abdominal pain in late 2013 for which esophageal manometry revealed GERD and UGI SBFT suggested congenital intestinal malrotation. The patient underwent laparoscopic hiatal hernia repair with LINX antireflux implant (Jul 2016), however the LINX was removed (11/08/17) due to severe dysphagia, chronic narcotic-dependent epigastric pain, and dehydration. He continued to suffer with episodes of severe abdominal pain, headaches, constipation, and vomiting every 2-3 months. Was diagnosed with cyclic vomiting syndrome by Dr. Syl Jett at [facility] in mid 2018 and was treated with severalneurologic therapies and interventions without relief. The patient and family researched on the internet and called our office to request surgical consultation with Dr. Felder. Patient complained of abdominal pain and presented to ER on 04/04/22. On 04/21 he underwent malrotation correction surgery including ex lap, DIMITRI, Complete omentectomy, Segmental colectomy (descending colon) with preservation of cecum and ICV, Colocolonic anastomosis, Duodenopexy, Rectopexy, Sigmoidopexy, Cecopexy, Mesentericopexy, Appendectomy. Post operatively his labs remained stable. On 04/27, he was tolerating GI soft diet and having bowel movements. He was deemed safe for discharge. ADMISSION 10/26/2022 - 11/06/2022 - He presented 10/26/22 from OSH for evaluation of abdominal pain, nausea/vomiting, and no bowel movement for past 2 days- concern for small bowel obstruction. States lower midline abdominal pain and bilious vomiting starting on 10/24. Has not had any bowel movements since that day. Denies fever, chills, chest pain, shortness of breath or any other symptoms. CT abdomen and pelvis with IV contrast performed at outside hospital showed concern for midgrade mechanical small bowel obstruction at level of mid ileum, which may be due to adhesions as there is no focal mass seen. OSH reached out to Dr. Baylee Felder who accepted transfer for further evaluation and management. Upon admission, NG tube was placed. Small bowel follow through performed on 10/26 showing high grade small bowel obstruction after 8 hours, contrast material does not opacify ascending colon in the right abdomen. He was given tap water enemas and lactulose in an attempt to open his bowels, however after 2 days was still not having bowel movements. Ex Lap surgery on 10/31 findings: two small bowel obstructions, lysis of adhesions, extended R hemicolectomy with ileorectal anastomosis. After surgery with dilaudid CITY ROUTE DRIVER, Adair, NG, and NPO. On 11/01 the adair, was removed, stop clinician dose dilaudid and decreased dilaudid CITY ROUTE DRIVER. Next on 11/02 Roboxin 500 mg PO started TID PRN. On 11/03 his diet was advanced to full liquid, the CITY ROUTE DRIVER was stopped, and PO dilaudid with IV dilaudid for breakthrough pain was started. Then on 11/04 diet was continued to be advanced to soft diet. Lastly on 11/06 his central line was removed. He was seen by Dr. Uribe and deemed ready for discharge at this time. Current Outpatient Medications Medication Sig Dispense Refill scopolamine (TRANSDERM-SCOP) patch 1.5 mg/72 hr (delivers 1 mg over 3 days) Apply 1 Patch as directed every 72 hours. 3 Patch 0 lidocaine (SALONPAS) 4 % patch Apply 1 Patch as directed once daily as needed (pain). 10 Patch 0 buprenorphine (BUTRANS) 5 mcg/hour Apply 1 Patch as directed one time a week for 1 dose. Do not start before November 09, 2022. cholecalciferol (VITAMIN D3) 5,000 unit tab Take 1 tablet by mouth once daily. therapeutic multivitamin-minerals (THERA-M PLUS) 9 mg iron-400 mcg tablet Take 1 tablet (more content not included)...[facility]05-16-2025 Telephone encounter Note* Telephone Encounter - Sabrina Beverly - 12/19/2024 12:50 PM EDT 2nd call placed. Left a vm to give the office a call back with insurance information. [facility]05-16-2025 Miscellaneous Notes* Telephone Encounter - Sabrina Beverly - 12/19/2024 12:50 PM EDT 2nd call placed. Left a vm to give the office a call back with insurance information. * Telephone Encounter - Sabrina Beverly - 12/19/2024 10:28 AM EDT Called and left a vm regarding insurance. We do not have any insurance in [facility] for him. Left a callback number for the office. documented in this encounterWyandot [facility]05-16-2025 Telephone encounter Note * Telephone Encounter - Sabrina Beverly - 12/19/2024 10:28 AM EDT Called and left a vm regarding insurance. We do not have any insurance in [facility] for him. Left a callback number for the office. [facility]05-15-2025 Telephone encounter Note* Telephone Encounter - Lucia Dominguez RN - 12/18/2024 4:09 PM EDT Returned pt call. He is aware there was a problem with the scheduling system, however he is confirmed for his visit on Friday 12/22. He verbalized understanding and thanked me for the call. MAGDY Lynch, RN [facility]05-15-2025 Miscellaneous Notes* Telephone Encounter - Lucia Dominguez RN - 12/18/2024 4:09 PM EDT Returned pt call. He is aware there was a problem with the scheduling system, however he is confirmed for his visit on Friday 12/22. He verbalized understanding and thanked me for the call. MAGDY Lynch, RN * Telephone Encounter - Harmony Burgess - 12/18/2024 2:31 PM EDT Pt calling to check about 12/22 appt. Contact info: [phone] documented in this encounterWyandot [facility] Hospital05-15-2025 Telephone encounter Note * Telephone Encounter - Harmony Burgess - 12/18/2024 2:31 PM EDT Pt calling to check about 12/22 appt. Contact info: [phone] [facility]04-11-2025 Telephone encounter Note* Telephone Encounter - Lucia Dominguez RN - 11/14/2024 1:33 PM EDT Returned pt call. He stated that over the last three weeks he has been experiencing more abd pain than usual, not constant, located in the middle, rating it 6/10. Nothing specific that brings it on. He is using Butran patches per pain management. The pain is worse when it is time for the patch to be changed. Heat tends to ease the pain slightly. Always worse in the morning. Described as throbbing/ sharp. Eating pretty well for the most part, three meals a day. If having pain, appetite does become weak,but able to eat later in the day. BM 1-2/ day. Varies, but more loose than solid; thicker than water like a smoothie consistency. Nottaking any bowel stoppers or laxatives. Overall a lot better than before surgery. States he has gained 20# since surgery, currently 150-155#. It seems that the pt is overall doing better than when we first saw him, but he is requesting an in-person visit with Dr Uribe. He accepted clinic visit on Friday 12/22 @ 1000 with labs prior. MAGDY Lynch, RN [facility]04-11-2025 Miscellaneous Notes* Telephone Encounter - Lucia Dominguez RN - 11/14/2024 1:33 PM EDT Returned pt call. He stated that over the last three weeks he has been experiencing more abd pain than usual, not constant, located in the middle, rating it 6/10. Nothing specific that brings it on. He is using Butran patches per pain management. The pain is worse when it is time for the patch to be changed. Heat tends to ease the pain slightly. Always worse in the morning. Described as throbbing/ sharp. Eating pretty well for the most part, three meals a day. If having pain, appetite does become weak,but able to eat later in the day. BM 1-2/ day. Varies, but more loose than solid; thicker than water like a smoothie consistency. Nottaking any bowel stoppers or laxatives. Overall a lot better than before surgery. States he has gained 20# since surgery, currently 150-155#. It seems that the pt is overall doing better than when we first saw him, but he is requesting an in-person visit with Dr Uribe. He accepted clinic visit on Friday 12/22 @ 1000 with labs prior. MAGDY Lynch, RN * Telephone Encounter - Kayleen Jiang - 11/13/2024 12:41 PM EDT Patient called returning nurse Usha call. documented in this encounterWy[facility]ot [facility]04-10-2025 Telephone encounter Note * Telephone Encounter - Kayleen Jiang - 11/13/2024 12:41 PM EDT Patient called returning nurse Usha call. [facility]03-31-2025 Telephone encounter Note* Telephone Encounter - Lucia Dominguez RN - 11/03/2024 1:46 PM EDT Call returned to pt. [facility] MAGDY Lynch, RN [facility]03-31-2025 Miscellaneous Notes* Telephone Encounter - Lucia Dominguez RN - 11/03/2024 1:46 PM EDT Call returned to pt. [facility] MAGDY Lynch, RN * Telephone Encounter - Jo Wilburn PSS - 11/03/2024 10:17 AM EDT Patient's called to get patient scheduled for a follow up appointment with Dr. Uribe documented in this encounterWyandot [facility] Hospital03-31-2025 Telephone encounter Note * Telephone Encounter - Jo Wilburn PSS - 11/03/2024 10:17 AM EDT Patient's called to get patient scheduled for a follow up appointment with Dr. Uribe [facility]06-13-2024 Telephone encounter Note* Telephone Encounter - Sincere Barfield RN - 01/17/2024 3:33 PM EDT Patient denies what had previously mentioned in call. He states that about once a month for 1-2 days, he will have intense abdominal pain that is sometimes accompanied with diarrhea. He is not losing weight, able to eat, and having regular bowel movements the other times. Wants to know if there is anything to do? Denies use of bowel stoppers during diarrhea episodes. Explained cyclical nature of the bowel. Will discuss with Dr. Uribe. Patient appreciative of call. KSENIA Saldana, RN CGRT Coordinator [facility]06-13-2024 Miscellaneous Notes* Telephone Encounter - Sincere Barfield RN - 01/17/2024 3:33 PM EDT Patient denies what had previously mentioned in call. He states that about once a month for 1-2 days, he will have intense abdominal pain that is sometimes accompanied with diarrhea. He is not losing weight, able to eat, and having regular bowel movements the other times. Wants to know if there is anything to do? Denies use of bowel stoppers during diarrhea episodes. Explained cyclical nature of the bowel. Will discuss with Dr. Uribe. Patient appreciative of call. KSENIA Saldana, RN CGRT Coordinator * Telephone Encounter - Harmony Burgess - 01/16/2024 10:21 AM EDT Pt's Steffanie is calling to give an update on pt. per Steffanie pt has had some issues with diarrhea, stomach pains for the past month or so. She would like a call to discuss recommendations. Contact info: [phone] documented in this encounterWyandot [facility]06-12-2024 Telephone encounter Note * Telephone Encounter - Harmony Burgess - 01/16/2024 10:21 AM EDT Pt's Steffanie is calling to give an update on pt. per Steffanie pt has had some issues with diarrhea, stomach pains for the past month or so. She would like a call to discuss recommendations. Contact info: [phone] [facility]05-01-2024 Discharge summary Author Andrew Osborn [facility] December 05, 2023 3:44pm Note Date/Time December 05, 2023 2:36pm [facility] Medical Records Department [address] [place] [address] Emergency Department Summary 12/05/23 MR#: [id number] Acct: [id number] Name: AGAPITO PARK Rep # :[id number] : 1995 28 From: Andrew Osborn MD PCP: Dr. Tonny Candelario MD Status:REG ER Location: ED HPI HPI - GI History of Present Illness Chief Complaint: Abd Pain Narrative Narrative: 28-year-old male past medical history of chronic abdominal pain, history of congenital malrotation, states has had 2 surgeries in the last year at the [facility]. He states that on Sunday, approximately 3 days ago, he began having nausea and a little vomiting. No problems with bowel movements. No diarrhea. Last bowel movement was yesterday, nonbloody. He presents with suprapubic abdominal pain similar to his previous pain in the past. He states that he had been doing well since his last surgery. He has been dealing with malrotation and abdominal pain for 10 years before they decided to do surgery within the last year. He describes the pain as sharp and stabbing. No exacerbating or alleviating factors. PFSH PFSH Home Medications buprenorphine 5 mcg/hour weekly transdermal patch 1 patch topical Q7D 08/05/23 [History Last Taken Unknown] hydromorphone 2 mg tablet (Dilaudid) 2 mg PO Q6H PRN pain 3 days #12 tabs 08/05/23 [Rx Last Taken Unknown] hydromorphone 2 mg tablet (Dilaudid) 2 mg PO Q6H PRN pain 3 days #12 tabs 08/05/23 [Rx Last Taken Unknown] Allergy/AdvReac Type Severity Reaction Status Date / Time No Known Allergies Allergy Verified 12/05/23 12:28 Social History Smoking Status: Never smoker ROS ROS ED ROS Narrative Constitutional: No fever, no chills. HEENT: No sore throat. No neck pain. No loss of vision. No rhinorrhea. Cardiovascular: No chest pain. No palpitations. No pedal edema. Respiratory: No cough, no shortness of breath. Abdominal: Positive periumbilical to suprapubic abdominal pain. Positive nauseaand vomiting. No problems with bowel movements. No diarrhea. No hematochezia or melena. Genitourinary: No dysuria. No hematuria. Musculoskeletal: No myalgias. No arthralgias. Neurologic: No headaches. No dizziness. No lightheadedness. Skin: No rash. No change in color. Psychiatric: No depression. No anxiety. EXAM Physical Exam Narrative Exam Narrative: Afebrile. Vital signs noted. HEENT: Normocephalic. Atraumatic. PERRL, EOMI. Neck soft and supple. No pointtenderness or step off. Cardiovascular: Regular rate and rhythm. No murmurs, rubs, or gallops appreciated. Respiratory: No tachypnea. Lungs clear to auscultation bilaterally. Gastrointestinal: Abdomen soft, mild tenderness to palpation periumbilical to suprapubic area with normoactive bowel sounds. No rebound or guarding. Neurological: Awake. Alert. Nonfocal, nonlateralizing. Skin: No rash. Normal color. No pallor. Musculoskeletal: No pedal edema. Full range of motion extremities. Const Vital Signs: 12/05/23 12:26 12/05/23 14:25 Temperature 98 F Temperature Source Temporal Pulse Rate 83 87 Respiratory Rate 16 18 Blood Pressure 130/75 H 138/87 H Blood Pressure Mean 93 104 Pulse Ox 98 100 Oxygen Delivery Method Room Air Room Air MDM MDM MDM Narrative Medical decision making narrative: I reviewed the patient's prior records. In the differential would be exacerbation of chronic abdominal pain versus obstruction given his laparotomy scar. I do feel CT imaging is indicated. Initial laboratory work was obtained and reviewed, he has normal white count 9.0, hemoglobin normal at 15.3, hematocrit 46.3, platelet count normal at 305. Sodium is normal at 134 with potassium normal at 4.4, normal BUN of 11 and creatinine 1.03. In review of hisprior ED visit, he did receive Dilaudid and Zofran. He was having profuse nausea and vomiting at that time and he was administered Haldol. He states during history and physical that what ever they had given him last time in the emergency department seem to have helped him. He will be bolused normal saline 1 L intravenously and administered Dilaudid 0.5 mg and Zofran here initially. Should he have continued pain, haloperidol will be considered. I reviewed the CT radiology report of the abdomen and pelvis which shows his congenital malrotation, but no acute process, no obstruction. No significant change from previous. It was read as a stable examination. Upon repeat exam, he states he feels the same. I think this is probably more exacerbation of his chronic abdominal pain. He will be given 2 mg of haloperidol intravenously prior to discharge. He will continue his home medications and follow-up with his primary care physician and his surgeons at the [facility] as needed. I do not feel he requires observation or admission at this time. Disposition isdischarged in stable condition. History & Record Review Discussion w/independent historian: Patient Additional record(s) reviewed:: Prior ED visit and Prior labs Lab Data Attestation: I reviewed the patient's lab results. Labs: Laboratory Results - last 24 hr 12/05/23 13:10 WBC 9.0 RBC 4.95 Hgb 15.3 Hct 46.3 MCV 93.5 MCH 30.9 MCHC 33.0 RDW Std Deviation 44.0 H RDW Coeff of Pari 12.9 Plt Count 305 MPV 9.4 Immature Gran % (Auto) 0.200 Neut % (Auto) 68.0 Lymph % (Auto) 25.0 Polk % (Auto) 5.2 Eos % (Auto) 0.9 Baso % (Auto) 0.7 Absolute Neuts (auto) 6.1 Absolute Lymphs (auto) 2.26 Nucleated RBC % 0 Sodium 139 Potassium 4.4 Chloride 106 Carbon Dioxide 31.0 Anion Gap 2 L BUN 11 Creatinine 1.03 Estim Creat Clear Calc 100.37 Est GFR (MDRD) Af Amer 108 Est GFR (MDRD) Non-Af 90 BUN/Creatinine Ratio 10.7 Glucose 93 Calcium 9.4 Total Bilirubin 0.70 AST 20 ALT 22 Alkaline Phosphatase 79 Total Protein 7.5 Albumin 4.0 Globulin 3.5 Albumin/Globulin Ratio 1.1 Urine Color Yellow Urine Clarity Cloudy Urine pH 8.0 Ur Specific Ashley 1.010 Urine Protein 30 H Urine Glucose (UA) Normal Urine Ketones 5 H Urine Occult Blood Negative Urine Nitrite Negative Urine Bilirubin Negative Urine Urobilinogen Normal Ur Leukocyte Esterase 25 H Urine RBC 0 SEEN Urine WBC 0 SEEN Ur Squamous Epith Cells 0 SEEN Amorphous Sediment 2+ Urine Bacteria 0 SEEN Urine Mucus 0 SEEN Radiography Diagnostic Testing: Clinical Impression(s) from Imaging Studies Abdomen/Pelvis CT 12/05/23 15:08 IMPRESSION: No acute abnormality is seen. Stable examination. Once again, there is evidence of congenital midgut malrotation with the majority of the small bowel loop seen in the right hemiabdomen and majority of the large bowel within the left hemiabdomen. Electronically Signed: Rodney Noguera MD at 15:24 EDT , Discharge Plan Triage Chief Complaint: Abd Pain ED Provider: Andrew Osborn Dx/Rx/DC Orders Clinical Impression: Congenital malrotation, Abdominal pain Instructions: ED Abdominal Pain Unkn Cause Male... Prescriptions: No Action buprenorphine 5 mcg/hour patch weekly 1 patch topical Q7D Patient Comments: apply 1 patch topically to CLEAN DRY INTACT SKIN AND CHANGE weekly hydromorphone [Dilaudid] 2 mg tablet 2 mg PO Q6H PRN (Reason: pain) 3 Days Qty: 12 0RF hydromorphone [Dilaudid] 2 mg tablet 2 mg PO Q6H PRN (Reason: pain) 3 Days Qty: 12 0RF Primary Care Provider: Tonny Candelario Referrals: Tonny Candelario MD [Primary Care Provider] - As soon as possible Activity Restrictions/Additional Instructions: Follow-up with your physicians at the [facility] as needed for your malrotation. Disposition Disposition: Home, Self Care What to do if you have Problems For any increased pain, shortness of breath, bleeding, nausea or vomiting, chestpain, or any unexpected problems, contact your Primary Care Provider. Call [facility] ([phone]) or report to the closest Emergency Room. Call 911 if necessary. 12/05/23 1544 <Electronically signed by Andrew Osborn MD> Cosigner Signature (if applicable): CC: Dr. Tonny Candelario MD ~ Signed [facility] Work Phone: [phone] 339-116505-01-2023 Miscellaneous Notes* Telephone Encounter - Lilia Galan RN - 12/04/2022 12:16 PM EDT I returned Jarrell's call and spoke to him about the suture that he said fell out. He let me know that it was a clear suture. I told him that, that is ok and usually those dissolve internally. He did sayhe is doing ok otherwise. He does have some diarrhea, but it does not have a foul smell and he is not having any additional stomach pain or symptoms. I told Jarrell to call us back if it gets worse. Jarrell thanked me for my call and will call us back if he needs anything. Lilia Galan RN * Telephone Encounter - ZARIA Arambula - 12/04/2022 11:03 AM EDT Pt called having a question about his incision, pt stating a stitch came out. Please call him at [phone]. documented in this encounterWyandot [facility]04-07-[facility]23 History of Present illness Narrative* Arianne Sheikh PA-C - 11/10/2022 11:15 AM EDT [facility] Follow Up Visit REASON FOR VISIT: post-op follow-up ESTABLISHED DIAGNOSIS: congenital malrotation DATE OF SURGERY: 04/21/2022 TYPE OF SURGERY: Exploratory laparotomy Lysis of adhesion. Complete omentectomy. Segmental colectomy ( descending colon) with preservation of cecum and ICV Colocolonic anastomosis. Duodenopexy Rectopexy Sigmoidopexy. Cecopexy. Mesentericopexy Appendectomy DATE OF SURGERY: 10/31/2022 TYPE OF SURGERY: 1. Exploratory laparotomy with lysis of extensive adhesion including 2 stricturing bands. 2. Extended right hemicolectomy. 3. Excision of a mucous filled hepatic cyst in segment 4. 4. Ileosigmoid anastomosis. 5. Colopexy. 6. Primary abdominal wall closures. CURRENT COMPLAINT(S): Post-op, pain improving, having regular bowel movements. HPI: Agapito Park is a 27 year old Quaker male (supportive , young child) from [address] [place] [address] with a history of tobacco use x 5yrs (quit 2017), L inguinal hernia repair with resection of hemorrhagic omentum (2000, age 6), and anxiety and depression with lifelong intermittent episodes of reflux/vomiting. He developed post-prandial abdominal pain in late 2013 for which esophageal manometry revealed GERD and UGI SBFT suggested congenital intestinal malrotation. The patient underwent laparoscopic hiatal hernia repair with LINX antireflux implant (Jul 2016), however the LINX was removed(11/08/17) due to severe dysphagia, chronic narcotic-dependent epigastric pain, and dehydration. He continued to suffer with episodes of severe abdominal pain, headaches, constipation, and vomiting every 2-3 months. Was diagnosed with cyclic vomiting syndrome by Dr. Syl Jett at [facility] in mid 2018 and was treated with several neurologic therapies and interventions without relief. The patient and family researched on the internet and called our office to request surgical consultation with Dr. Felder. Patient complained of abdominal pain and presented to ER on 04/04/22. On 04/21 he underwent malrotation correction surgery including ex lap, DIMITRI, Complete omentectomy, Segmental colectomy (descending colon) with preservation of cecum and ICV, Colocolonic anastomosis, Duodenopexy, Rectopexy, Sigmoidopexy, Cecopexy, Mesentericopexy, Appendectomy. Post operatively his labs remained stable. On 04/27, he was tolerating GI soft diet and having bowel movements. He was deemed safe for discharge. ADMISSION 10/26/2022 - 11/06/2022 - He presented 10/26/22 from OSH for evaluation of abdominal pain, nausea/vomiting, and no bowel movement for past 2 days- concern for small bowel obstruction. States lower midline abdominal pain and bilious vomiting starting on 10/24. Has not had any bowel movements since that day. Denies fever, chills, chest pain, shortness of breath or any other symptoms. CT abdomen and pelvis with IV contrast performed at outside hospital showed concern for midgrade mechanical small bowel obstruction at level of mid ileum, which may be due to adhesions as there is no focal mass seen. OSH reached out to Dr. Baylee Felder who accepted transfer for further evaluation and management. Upon admission, NG tube was placed. Small bowel follow through performed on 10/26 showing high grade small bowel obstructionafter 8 hours, contrast material does not opacify ascending colon in the right abdomen. He was given tap water enemas and lactulose in an attempt to open his bowels, however after 2 days was still not having bowel movements. Ex Lap surgery on 10/31 findings: two small bowel obstructions, lysis of adhesions, extended R hemicolectomy with ileorectal anastomosis. After surgery with dilaudid CITY ROUTE DRIVER, Adair, NG, and NPO. On 11/01 the adair, was removed, stop clinician dose dilaudid and decreased dilaudid CITY ROUTE DRIVER. Next on 11/02 Roboxin 500 mg PO started TID PRN. On 11/03 his diet was advanced to full liquid, the CITY ROUTE DRIVER was stopped, and PO dilaudid with IV dilaudid for breakthrough pain was started. Then on 11/04 diet was continued to be advanced to soft diet. Lastly on 11/06 his central line was removed. He was seen by Dr. Uribe and deemed ready for discharge at this time. Current Outpatient Medications Medication Sig Dispense Refill scopolamine (TRANSDERM-SCOP) patch 1.5 mg/72 hr (delivers 1 mg over 3 days) Apply 1 Patch as directed every 72 hours. 3 Patch 0 lidocaine (SALONPAS) 4 % patch Apply 1 Patch as directed once daily as needed (pain). 10 Patch 0 buprenorphine (BUTRANS) 5 mcg/hour Apply 1 Patch as directed one time a week for 1 dose. Do not start before November 09, 2022. cholecalciferol (VITAMIN D3) 5,000 unit tab Take 1 tablet by mouth once daily. therapeutic multivitamin-minerals (THERA-M PLUS) 9 mg iron-400 mcg tablet Take 1 tablet by mouth once daily. HYDROmorphone (DILAUDID) 2 mg tablet Take 1 tablet by mouth every 8 hours as needed for up to 10 doses. 10 tablet 0 DULoxetine (CYMBALTA) 30 mg capsule Take 2 capsules by mouth once daily. (Observe how you are feeling on this dose) 60 capsule 1 lactobacillus rhamnosus (CULTURELLE) 10 billion cell capsule Take 1 capsule by mouth once daily. 30capsule 5 No current facility-administered medications for this visit. ALLERGIES No Known Allergies ROS: See HPI All others negative This patient was seen and examined with Dr. Baylee Felder MD Signed by: [facility] STAFF PHYSICIAN NOTE OF PERSONAL INVOLVEMENT IN CARE I have reviewed the consult note obtained and documented by the clinician and I personally participated in the teixeira components. Outside records, labs, and x-rays obtained and reviewed. Risks and Benefits of each therapy were discussed with the patient and family in full details. I spent 20 minutes in this visit, with more than 50% of the time devoted to patient counseling.The following comments revise or confirm relevant teixeira components of the note. PHYSICAL EXAM: General- awake, alert, NAD Abdomen- soft, nondistended, incision healing well, binder in place Ext- WWP ASSESSMENT: Jarrell Park is a 27 y/o male with intestinal malrotation s/p correction of malrotation in April 2022 complicated by recurrent bowel obstruction s/t adhesive disease. He most recently underwent ex-lap on 10/31/2022 w/ lysis of extensive adhesion including 2 stricturing bands, extended right hemicolectomy, excision of a mucous filled hepatic cyst in segment, ileosigmoid anastomosis, colopexy, and primary abdominal wall closure. He presents today for routine post-op followup appt, clinically doing well w/ post-op course as expected. PLAN: No changes made at this visit. Routine follow-up w/ Dr Uribe in ~6-8 weeks The above patient was seen and examined with Dr. Uribe. The above plan is per Dr. Uribe. Arianne Sheikh PA-C 11/10/2022 documented in this encounterCleveland [id number] Miscellaneous Notes* Telephone Encounter - Lilia Galan RN - 11/07/2022 1:29 PM EDT I returned Steffanie's call and spoke to her about how Jarrell was doing. She said that Jarrell is recovering very well. I scheduled Jarrell for an appointment on Sunday at 11:[address] Uribe with labs before. Steffanie accepted the appointment and it will be scheduled. Lilia Galan RN * Telephone Encounter - Eun Alan Coord - 11/07/2022 11:31 AM EDT Patients called and left message on to schedule a follow up appointment with Dr. Uribe. Please call. Baylee patient documented in this encounterWyandot [facility]03-23-2023 History of Past illness Narrative* Problem Noted Date Resolved Date Abdominal pain 10/26/2022 11/03/2022 Last Assessment & Plan: Assessment: Abdominal pain that started on 10/24, likely due to small bowel obstruction as seen on OSH CT abdomen and pelvis. PLAN: Currently NPO, NG tube in place. IV dilaudid CITY ROUTE DRIVER 0/0.4/3 Intestinal obstruction 05/28/2022 2 Electrolyte abnormality 04/24/2022 05/31/20 22 Last Assessment & Plan: Assessment: Hypomagnesia and hypophosphatemia seen on AM labs PLAN: - Replete electrolytes as needed - Continue daily labs Acute post-operative pain 04/24/20222021 Last Assessment & Plan: Assessment: S/p ex lap on 04/21 PLAN: - methadone 2.5 mg every 12 hours - Continue scheduled Toradol - Lidocaine patch - Voltaren gel for back pain - Tylenol scheduled Malrotation of intestine 04/13/2022 Last Assessment & Plan: Assessment: Hx of intestinal malrotation PLAN: - See plan under s/p ex lap documented as of this encounter (statuses as of 11/07/2022) [facility] History of Past illness Narrative* Problem Noted Date Resolved Date Abdominal pain 10/26/2022 11/03/2022 Last Assessment & Plan: Assessment: Abdominal pain that started on 10/24, likely due to small bowel obstruction as seen on OSH CT abdomen and pelvis. PLAN: Currently NPO, NG tube in place. IV dilaudid CITY ROUTE DRIVER 0/0.4/23/10 Intestinal obstruction 05/28/2022 2 Electrolyte abnormality 04/24/2022 05/31/20 Last Assessment & Plan: Assessment: Hypomagnesia and hypophosphatemia seen on AM labs PLAN: - Replete electrolytes as needed - Continue daily labs Acute post-operative pain 04/24/20222021 Last Assessment & Plan: Assessment: S/p ex lap on 04/21 PLAN: - methadone 2.5 mg every 12 hours - Continue scheduled Toradol - Lidocaine patch - Voltaren gel for back pain - Tylenol scheduled Malrotation of intestine 04/13/2022 Last Assessment & Plan: Assessment: Hx of intestinal malrotation PLAN: - See plan under s/p ex lap documented as of this encounter (statuses as of 12/04/2022) [facility] History of Past illness Narrative* Problem Noted Date Resolved Date Abdominal pain 10/26/2022 11/03/2022 Last Assessment & Plan: Assessment: Abdominal pain that started on 10/24, likely due to small bowel obstruction as seen on OSH CT abdomen and pelvis. PLAN: Currently NPO, NG tube in place. IV dilaudid CITY ROUTE DRIVER 0/0.4/23/10 Intestinal obstruction 05/28/2022 2 Electrolyte abnormality 04/24/2022 05/31/20 Last Assessment & Plan: Assessment: Hypomagnesia and hypophosphatemia seen on AM labs PLAN: - Replete electrolytes as needed - Continue daily labs Acute post-operative pain 04/24/20222021 Last Assessment & Plan: Assessment: S/p ex lap on 04/21 PLAN: - methadone 2.5 mg every 12 hours - Continue scheduled Toradol - Lidocaine patch - Voltaren gel for back pain - Tylenol scheduled Malrotation of intestine 04/13/2022 022 Last Assessment & Plan: Assessment: Hx of intestinal malrotation PLAN: - See plan under s/p ex lap documented as of this encounter (statuses as of 12/18/2022) [facility]03-[facility]23 Note ORIGINAL EXAMINATION: CT OF THE ABDOMEN AND PELVIS WITH CONTRAST 10/25/2022 8:08 am TECHNIQUE: CT of the abdomen and pelvis was performed with the administration of intravenous contrast. Multiplanar reformatted images are provided for review. Automated exposure control, iterative reconstruction, and/or weight based adjustment of the mA/kV was utilized to reduce the radiation dose to as low as reasonably achievable. COMPARISON: 07/01/2022, 05/28/2022. HISTORY: ORDERING SYSTEM PROVIDED HISTORY: Bowel malrotation surgery April 2022. Reason for Exam: Constipation x3 days, nausea vomiting x1 day. Pain. FINDINGS: Visualized lung bases are clear. Small hiatal hernia. Again noted is a stable linear hypodensity in the right hepatic lobe, likely a simple cyst. There are multiple tiny hypodense lesions in the spleen which are too small to characterize, likely simple cyst versus hemangiomas. Pancreas, gallbladder and adrenal glands are unremarkable. Kidneys are symmetric in size and enhancement without hydronephrosis or urolithiasis. Urinary bladder is unremarkable. Prostate is normal in size. Colon is normal in caliber. Appendix is not visualized, no pericecal inflammation. There are multiple moderately dilated loops of small bowel in mid abdomen and pelvis which are filled with fluid and gas. No visible transition point, focal mass, or ascites identified. No pneumatosis or bowel wall thickening. No intraperitoneal free air or focal fluid collection. Most of the small bowel is on the left and colon to the right. There is abnormal relationship of superior mesenteric artery and vein. These findings are consistent with malrotation. No lymphadenopathy. Nonaneurysmal abdominal aorta. No acute fracture or destructive osseous lesion. IMPRESSION: Above findings consistent with mid grade mechanical small bowel obstruction at the level of the mid ileum, which may be due to adhesions as there is no focal mass seen. No pneumatosis or intraperitoneal free air. Persistent signs of congenital bowel malrotation. Other chronic and incidental findings as detailed. I have personally reviewed the images of this examination and agree with the resident's finding and interpretation. Interpreted by: Sarwat Alford MD Preliminary Report By: Josy Chambers Electronically signed By Sarwat Alford MD Dictated Date: 10/25/2022 8:10:59 AM Prelim Date: 10/25/2022 8:51:33 AM Sign Date: 10/25/2022 8:51:33 AM Ordering Provider: KARISHMA PROCTORFORMERLY [facility]OUT[facility]ENTERHARVINDERThe [facility]23 Note ORIGINAL EXAMINATION: CT OF THE ABDOMEN AND PELVIS WITH CONTRAST 10/25/2022 8:08 am TECHNIQUE: CT of the abdomen and pelvis was performed with the administration of intravenous contrast. Multiplanar reformatted images are provided for review. Automated exposure control, iterative reconstruction, and/or weight based adjustment of the mA/kV was utilized to reduce the radiation dose to as low as reasonably achievable. COMPARISON: 07/01/2022, 05/28/2022. HISTORY: ORDERING SYSTEM PROVIDED HISTORY: Bowel malrotation surgery April 2022. Reason for Exam: Constipation x3 days, nausea vomiting x1 day. Pain. FINDINGS: Visualized lung bases are clear. Small hiatal hernia. Again noted is a stable linear hypodensity in the right hepatic lobe, likely a simple cyst. There are multiple tiny hypodense lesions in the spleen which are too small to characterize, likely simple cyst versus hemangiomas. Pancreas, gallbladder and adrenal glands are unremarkable. Kidneys are symmetric in size and enhancement without hydronephrosis or urolithiasis. Urinary bladder is unremarkable. Prostate is normal in size. Colon is normal in caliber. Appendix is not visualized, no pericecal inflammation. There are multiple moderately dilated loops of small bowel in mid abdomen and pelvis which are filled with fluid and gas. No visible transition point, focal mass, or ascites identified. No pneumatosis or bowel wall thickening. No intraperitoneal free air or focal fluid collection. Most of the small bowel is on the left and colon to the right. There is abnormal relationship of superior mesenteric artery and vein. These findings are consistent with malrotation. No lymphadenopathy. Nonaneurysmal abdominal aorta. No acute fracture or destructive osseous lesion. IMPRESSION: Above findings consistent with mid grade mechanical small bowel obstruction at the level of the mid ileum, which may be due to adhesions as there is no focal mass seen. No pneumatosis or intraperitoneal free air. Persistent signs of congenital bowel malrotation. Other chronic and incidental findings as detailed. I have personally reviewed the images of this examination and agree with the resident's finding and interpretation. Interpreted by: Sarwat Alford MD Preliminary Report By: Josy Chambers Electronically signed By Sarwat Alford MD Dictated Date: 10/25/2022 8:10:59 AM Prelim Date: 10/25/2022 8:51:33 AM Sign Date: 10/25/2022 8:51:33 AM Ordering Provider: [facility]ARISH[facility] NULLM[facility] Miscellaneous Notes* Telephone Encounter - Lilia Galan RN - 07/10/2022 10:52 AM EST Jarrell called to report some abdominal pain. He has no nausea or vomiting. His pain starts in the morning. When pt was taking 30 mg of Cymbalta, pain was a little worse. He's back to 60 mg. His pain is deep, it's in his ribcage. When he has a pain episode, it can usually bring him to his knees. Any food that he eats definitely makes it worse. Patient stopped Erthyomycin [address] Jackson wants pt to take Erthyomycin for a month, Flagyl for 10 days every month, and a daily probiotic. Jarrell is to call us in 2 weeks to let us know how he is doing. Lilia Galan RN documented in this encounterWyandot [facility] Hospital10-23-2022 History of Past illness Narrative* Problem Noted Date Resolved Date Intestinal obstruction 05/28/2022 S/P exploratory laparotomy 04/24/202205/31 Last Assessment & Plan: Assessment: s/p ex lap on 04/21 PLAN: - Advance to GI soft - Multimodal pain regimen - BRYSON's to bulb suction - Encourage OOB, ambulation, IS - Post op atbx- Flagyl and zosyn x7 days Electrolyte abnormality 04/24/2022 05/31/20 Last Assessment & Plan: Assessment: Hypomagnesia and hypophosphatemia seen on AM labs PLAN: - Replete electrolytes as needed - Continue daily labs Acute post-operative pain 04/24/20222021 Last Assessment & Plan: Assessment: S/p ex lap on 04/21 PLAN: - methadone 2.5 mg every 12 hours - Continue scheduled Toradol - Lidocaine patch - Voltaren gel for back pain - Tylenol scheduled Malrotation of intestine 04/13/2022 022 Last Assessment & Plan: Assessment: Hx of intestinal malrotation PLAN: - See plan under s/p ex lap documented as of this encounter (statuses as of 07/12/2022) [facility] SARS-CoV-2 (COVID-19) RNA GEM+probe Ql (Nph)Negative *NA* (05/28/22 5:21 AM)AO Auto Urine [id number] Note ORIGINAL EXAMINATION: CT OF THE ABDOMEN AND PELVIS WITH CONTRAST 05/28/2022 4:35 am TECHNIQUE: CT of the abdomen and pelvis was performed with the administration of intravenous contrast. Multiplanar reformatted images are provided for review. Automated exposure control, iterative reconstruction, and/or weight based adjustment of the mA/kV was utilized to reduce the radiation dose to as low as reasonably achievable. COMPARISON: CT abdomen and pelvis on 10/11/2019 HISTORY: ORDERING SYSTEM PROVIDED HISTORY: Reason for Exam: pain FINDINGS: Lower Chest: No acute abnormality is present at the lung bases. Organs: The liver is normal in size. The bilobed hypodense lesion anteriorly in the left lobe of the liver measuring up to 3 cm in size is unchanged since 2018. There is no biliary ductal dilatation. The pancreas, spleen, adrenal glands, and kidneys show no sign of acute abnormality. GI/Bowel: The stomach and duodenum are unremarkable. There are several mildly dilated fluid-filled loops of small intestine in the mid to lower abdomen extending into the pelvis. These are new compared with prior exam. The colon is not dilated. There is moderate residual stool in the colon, mostly in the right and transverse colon. There is no fecal impaction or colon obstruction. The appendix is not visible. No free intraperitoneal air is present. Pelvis: Urinary bladder is only partly distended and contains no stones. There is no pelvic mass or abnormal fluid collection. Retroperitoneum: The abdominal aorta is nonaneurysmal. There is no retroperitoneal lymph node enlargement. Bones/Soft Tissues: No acute findings. IMPRESSION: Distal small bowel obstruction. There is no intestinal perforation. Stable left hepatic lesion since 2018. This may be a hemangioma or cyst. Interpreted by: Warren Rowland MD Preliminary Report By: Warren Rowland MD Electronically signed By Warren Rowland MD Dictated Date: 05/28/2022 4:38:44 AM Prelim Date: 05/28/2022 4:47:30 AM Sign Date: 05/28/2022 4:47:30 AM Ordering Provider: SEVERINO [facility]10-23-[facility]22 Note ORIGINAL EXAMINATION: CT OF THE ABDOMEN AND PELVIS WITH CONTRAST 05/28/2022 4:35 am TECHNIQUE: CT of the abdomen and pelvis was performed with the administration of intravenous contrast. Multiplanar reformatted images are provided for review. Automated exposure control, iterative reconstruction, and/or weight based adjustment of the mA/kV was utilized to reduce the radiation dose to as low as reasonably achievable. COMPARISON: CT abdomen and pelvis on 10/11/2019 HISTORY: ORDERING SYSTEM PROVIDED HISTORY: Reason for Exam: pain FINDINGS: Lower Chest: No acute abnormality is present at the lung bases. Organs: The liver is normal in size. The bilobed hypodense lesion anteriorly in the left lobe of the liver measuring up to 3 cm in size is unchanged since 2018. There is no biliary ductal dilatation. The pancreas, spleen, adrenal glands, and kidneys show no sign of acute abnormality. GI/Bowel: The stomach and duodenum are unremarkable. There are several mildly dilated fluid-filled loops of small intestine in the mid to lower abdomen extending into the pelvis. These are new compared with prior exam. The colon is not dilated. There is moderate residual stool in the colon, mostly in the right and transverse colon. There is no fecal impaction or colon obstruction. The appendix is not visible. No free intraperitoneal air is present. Pelvis: Urinary bladder is only partly distended and contains no stones. There is no pelvic mass or abnormal fluid collection. Retroperitoneum: The abdominal aorta is nonaneurysmal. There is no retroperitoneal lymph node enlargement. Bones/Soft Tissues: No acute findings. IMPRESSION: Distal small bowel obstruction. There is no intestinal perforation. Stable left hepatic lesion since 2018. This may be a hemangioma or cyst. Interpreted by: Warren Rowland MD Preliminary Report By: Warren Rowland MD Electronically signed By Warren Rowland MD Dictated Date: 05/28/2022 4:38:44 AM Prelim Date: 05/28/2022 4:47:30 AM Sign Date: 05/28/2022 4:47:30 AM [place]ing [place] [facility] [place] Miscellaneous Notes* Telephone Encounter - Lilia Galan RN - 05/15/2022 1:12 PM EDT Jarrell returned my call and we discussed how he was feeling. He has not started the tapering for his Cymbalta yet. He hasn't felt that well since the taper was discussed. He started the PO Flagyl on Sunday and has felt a little better since than. I told Jarrell to keep us updated and to call the office if he needs anything else. Lilia Galan RN * Telephone Encounter - Lilia Galan RN - 05/15/2022 11:00 AM EDT I called Jarrell to see how he was doing with his tapering of the Cymbalta dose. I left him a message to call me back when he could so I could let Dr. Jackson know. Lilia Galan RN documented in this encounterWyandot [facility] Hospital10-07-2022 Miscellaneous Notes* Telephone Encounter - Lilia Galan RN - 05/12/2022 5:06 PM EDT I returned Boris call about his abdominal pain. He said that he is not able to eat much and it feelslike gas pain. I called Dr. Jackson and he would like Jarrell to be on 500 mg of Flagyl TID for 7 days.An order was sent to the [facility] to Jarrell's local pharmacy and I called Jarrell back to let him know what Dr. Jackson would like him to take. Jarrell verbalized an understanding of the plan and will call the [facility] e if he needs anything else. Lilia Galan RN * Telephone Encounter - ZAIRA Arambula - 05/12/2022 4:17 PM EDT Pt call stating he's having some increasing abdominal pain and needs guidance on what to do further. He would like a call back at [phone]. documented [facility] History of Present illness Narrative* Isaac Smith PA-C - 05/10/2022 12:00 PM EDT [facility] Follow Up Visit REASON FOR VISIT: Post- operative care ESTABLISHED DIAGNOSIS: Intestinal Malrotation SURGERY: yes DATE OF SURGERY: 04/21/2022 TYPE OF SURGERY: malrotation correction surgery including ex lap, DIMITRI, Complete omentectomy. Segmental colectomy (descending colon) with preservation of cecum and ICV, Colocolonic anastomosis,Duodenopexy, Rectopexy, Sigmoidopexy, Cecopexy, Mesentericopexy, Appendectomy. CURRENT COMPLAINT(S): Post operative care Interval History: Agapito Park is a 27 year old Quaker male (supportive , young child) from [facility] with a history of tobacco use x 5yrs (quit 2017), L inguinal hernia repair with resection of hemorrhagic omentum (2000, age 6), and anxiety and depression with lifelong intermittentepisodes of reflux/vomiting. He developed post-prandial abdominal pain in late 2013 for which esophageal manometry revealed GERD and UGI SBFT suggested congenital intestinal malrotation. The patient underwent laparoscopic hiatal hernia repair with LINX antireflux implant (Jul 2016), however the LINX was removed (11/08/17) due to severe dysphagia, chronic narcotic-dependent epigastric pain, and dehyd ration. He continued to suffer with episodes of severe abdominal pain, headaches, constipation, andvomiting every 2-3 months. Was diagnosed with cyclic vomiting syndrome by Dr. Syl Jett at [facility] in mid 2018 and was treated with several neurologic therapies and interventions without relief. The patient and family researched on the internet and called our office to request surgical consultation with Dr. Felder. Patient complained of abdominal pain and presented to ER on 04/04/22. On 04/21 he underwent malrotation correction surgery including ex lap, DIMITRI, Complete omentectomy, Segmentalcolectomy (descending colon) with preservation of cecum and ICV, Colocolonic anastomosis, Duodenopexy, Rectopexy, Sigmoidopexy, Cecopexy, Mesentericopexy, Appendectomy. Post operatively his labs remained stable. On 04/27, he was tolerating GI soft diet and having bowel movements. He was deemed safe for discharge. Current Outpatient Medications Medication Sig Dispense Refill docusate sodium (COLACE) 100 mg capsule Take 1 capsule by mouth twice daily. 60 capsule 0 senna (SENOKOT) 8.6 mg tab Take 1 tablet by mouth twice daily. [address] (PROTONIX) 40 mg tablet Take 1 tablet by mouth twice daily before meals at 6am and 4pm 60 tablet 0 acetaminophen (TYLENOL) 325 mg tablet Take 2 tablets by mouth every 6 hours as needed for pain. FORPAIN. metoclopramide HCl (REGLAN) 5 mg tablet Take 1 tablet by mouth three times daily. 90 tablet 0 ondansetron (ZOFRAN) 4 mg tablet Take 1 tablet by mouth every 8 hours as needed for nausea/vomiting. 42 tablet 0 keTORolac (TORADOL) 10 mg tablet Take 1 tablet by mouth every 6 hours as needed. 12 tablet 0 DULoxetine (CYMBALTA) 30 mg capsule Take 2 capsules by mouth once daily. No current facility-administered medications for this visit. ALLERGIES Allergen Reactions Erythromycin Unknown LABS: Testing: CMP: Glucose 78 04/27/2022 BUN 6 04/27/2022 Creatinine 0.86 04/27/2022 Sodium 138 04/27/2022 Potassium 3.6 04/27/2022 Chloride 98 04/27/2022 CO2 29 04/27/2022 Protein, Total 6.1 04/27/2022 Albumin 3.7 04/27/2022 Calcium 9.2 04/27/2022 Alkaline Phosphatase 49 04/27/2022 Bilirubin, Total 0.5 04/27/2022 AST 28 04/27/2022 ALT 29 04/27/2022 Hemoglobin (g/dL) Date Value 04/27/2022 12.5 10/11/2019 16.5 Hematocrit (%) Date Value 04/27/2022 36.3 10/11/2019 47.7 WBC Date Value 04/27/2022 9.26 k/uL 10/11/2019 9.7 x10(3) Platelet Count Date Value 04/27/2022 304 k/uL 10/11/2019 337 X10(3) Magnesium (mg/dL) Date Value 04/27/2022 1.7 09/16/2019 2.1 Phosphorus Date Value Ref Range Status 04/27/2022 3.7 2.7 - 4.8 mg/dL Final No components found for: FK-506 No results found for: PHOS No components found for: BLOODCULTURE ROS: EyesNegative for vision changes, diplopia or epiphora Ears, Mouth, nose, throat:no problems Cardiovascular: No Problems Respiratory: Negative for cough, wheezing and shortness of breath Gastrointestinal : No problems G-Tube no J-Tube: no Stoma:no Fistula:no Genitourinary: Negative Musuloskeletal: Normal Integumentary: no rashes, lesions, or jaundice Neurological: no history of neurologic problems Endocrine: Negative for cold or heat intolerance, polyuria, polydipsia and goiter Psychiatric: Cooperative and agreeable Allergic/ Immunologic: Negative Wound: NA All others negative NUTRITION ASSESSMENT: TPN: no Site of Catheter: NA Type of Catheter: NA Infection:NA Duration of TPN: NA Tube Feeds: no Osteoporosis: no Nutritional Deficiencies: no CURRENT IMAGES: reviewed [facility] STAFF PHYSICIAN NOTE OF PERSONAL INVOLVEMENT IN CARE I have reviewed the consult note obtained and documented by the clinician and I personally participated in the teixeira components. Outside records, labs, and x-rays obtained and reviewed. Risks and Benefits of each therapy were discussed with the patient and family in full details. I spent 30 minutes in this visit, with more than 50% of the time devoted to patient counseling.The following comments revise or confirm relevant teixeira components of the note. PHYSICAL EXAM: BP 118/85 Pulse 102 Temp 36.8 C (98.2 F) (Oral) Ht 177.8 cm (5' 10) Wt 58.7 kg (129 lb 6.4oz) SpO2 98% BMI 18.57 kg/m General appearance: well appearing, alert, in no acute distress, and well- hydrated, well nourished Skin: no rash HEENT: normocephalic, EOMI, anicteric sclerae, moist oral mucosa, external ears & nose normal Musculoskeletal: Motor and sensory appear to be normal. Muscular strength intact Respiratory: Unlabored on room air Cardiovascular: regular rate Abdomen: soft, NT Extremities: no edema Neuro: Gait normal. Sensation grossly intact. Psychiatric: Cooperative and agreeable ASSESSMENT: Jarrell is a 27y male s/p gut malrotation correction surgery. Doing well. No complaints. Eating & drinking. PLAN: Order cymbalta 30mg. In past he took 60mg and alternated with 30mg but wasn't able to tolerate. Discussed with patient to do this first for a couple of weeks. Observe how he is feeling on this dose. Then, if doing okay, may reduce further to 30mg daily with a overall goal of tapering off if he does not need it. (Discussed this plan also with Dr Jackson). Reviewed patient with Dr Jackson later in afternoon. He called patient earlier this week. He may need antibiotic next week for bacterial overgrowth, depending on symptoms. Follow up next week. The patient was seen, examined and plan established with Baylee Felder MD Portions of the HPI have been copied from previous notes and have been edited for accuracy with updates from today, May 10, 2022. Isaac Smith PA-C 05/10/2022 documented in this encounterW[facility]10-04-2022 Miscellaneous Notes* Telephone Encounter - Lilia Galan RN - 05/09/2022 11:33 AM EDT I returned Jarrell's call and let him know that his appointment for rw, 05/[address] Henriquez been confirmed and is scheduled. I also let Jarrell know to get labs drawn before his appointment at [facility]. Jarrell understands the plan and will call the office if he needs anything else. Lilia Galan RN * Telephone Encounter - Eun Prasad - 05/08/2022 9:56 AM EDT Agapito called and left message on . He said that he spoke to Lilia last week about an appointmentthis Sunday at 12pm. He wants to confirm. No appointments in [facility]. Please call. Baylee patient documented in this encounterW[facility]09-14-2022 Miscellaneous Notes* Telephone Encounter - Lilia Galan RN - 04/19/2022 2:51 PM EDT I returned Agapito's , Steffanie call and we discussed Pedro's plans for surgery. I let her know that his surgery is scheduled for this Saturday 04/[address] Jackson. I let her know that the surgery was put on the schedule yesterday after Dr. Uribe and Dr. Jackson reviewed Agapito's CT images. Steffanie verbalized an understanding of the plan and knows to call the office if she needs anything else. Lilia Galan RN * Telephone Encounter - ZARIA Arambula - 04/19/2022 2:08 PM EDT Pt's spouse called inquiring when will the surgery be. She was told it would be next week with Dr. Uribe then pt's spouse said the Intestinal team came by pt's room today and thought the surgery would be in two weeks from now. Needs clarification. She would like a call back at [phone]. documented in this encounterW[facility]09-08-2022 Evaluation + Plan note Diagnostic Tests Pending * Urinalysis 04/13/22 [facility] 09-08-2022 Miscellaneous Notes* Telephone Encounter - Lilia Galan RN - 04/13/2022 10:36 AM EDT I returned Agapito's , Steffanie's phone call. She said that her is absolutely miserable, won't stop vomiting and is in so much pain. She said they went to the local ED this morning and they were told that there is nothing more that they can do for him. When I talked to Steffanie, they were just arriving in [place] to the [facility] ED. I spoke with Dr. Uribe and he said that if the patient needs to be admitted than we can admit him to our service and he will see him thanCleo Christie, the chargeNurse at the ED was called to make aware about the potential admission and an email was sent to theintestine team. Lilia Galan RN * Telephone Encounter - ZARIA Arambula - 04/13/2022 9:13 AM EDT Pt's spouse Steffanie called in regards to pt in pain, vomiting and out of options. She is aware he has a consult appt on Apr 26. They went to the local ED and they did not help them. They are currently driving up to [facility] ED to be seen. She would like a call back at [phone]. documented in this encounterWyandot [facility]09-05-2022 Hospital Discharge instructions Patient Education 04/10/2022 13:33:57 Abdominal Pain Abdominal Pain Abdominal pain is pain in the stomach or belly area. Everyone has this pain from time to time. In many cases it goes away on its own. But abdominal pain can sometimes be due to a serious problem, such as appendicitis. So it s important to know when to get help. Causes of abdominal pain There are many possible causes of abdominal pain. Common causes in adults include: Constipation, diarrhea, or gas Stomach acid flowing back up into the esophagus (acid reflux or heartburn) Severe acid reflux, called GERD (gastroesophageal reflux disease) A sore in the lining of the stomach or small intestine (peptic ulcer) Inflammation of the gallbladder, liver, or pancreas Gallstones or kidney stones Appendicitis Intestinal blockage An internal organ pushing through a muscle or other tissue (hernia) Urinary tract infections In women, menstrual cramps, fibroids, ovarian cysts, pelvic inflammatory disease, or endometriosis Inflammation or infection of the intestines, including Crohn's disease and ulcerative colitis Irritable bowel syndrome Diagnosing the cause of abdominal pain Your healthcare provider will give you a physical exam help find the cause of your pain. If needed,you will have tests. Belly pain has many possible causes. So it can be hard to find the reason for your pain. Giving details about your pain can help. Tell your provider where and when you feel the pain, and what makes it better or worse. Also let your provider know if you have other symptoms such as: Fever Tiredness Upset stomach (nausea) Vomiting Changes in bathroom habits Blood in the stool or black, tarry stool Weight loss that you can't explain (involuntary weight loss?) Also report any family history of stomach or intestinal problems, or cancers. Tell your provider about all your alcohol use and drug use. Tell your provider about all medicines you use, including herbs, vitamins, and supplements. Treating abdominal pain Some causes of pain need emergency medical treatment right away. These include appendicitis or a bowel blockage. Other problems can be treated with rest, fluids, or medicines. Your healthcare provider can give you specific instructions for treatment or self-care based on what is causing your pain. If you have vomiting or diarrhea, sip water or other clear fluids. When you are ready to eat solid foods again, start with small amounts of tvyy-kr-douwfo, low- fat foods. These include apple sauce, toast, or crackers. When to get medical care Call 911 or go to the hospital right away if you: Can t pass stool and are vomiting Are vomiting blood or have bloody diarrhea or black, tarry diarrhea Have chest, neck, or shoulder pain Feel like you might pass out Have pain in your shoulder blades with nausea Have sudden, severe belly pain Have new, severe pain unlike any you have felt before Have a belly that is rigid, hard, and hurts to touch Call your healthcare provider if you have: Pain for more than 5 days Bloating for more than 2 days Diarrhea for more than 5 days A fever of 100.4 F (38 C) or higher, or as directed by your healthcare provider Pain that gets worse Weight loss for no reason Continued lack of appetite Blood in your stool How to prevent abdominal pain Here are some tips to help prevent abdominal pain: Eat smaller amounts of food at each meal. Don't eat greasy, fried, or other high-fat foods. Don't eat foods that give you gas. Exercise regularly. Drink plenty of fluids. To help prevent GERD symptoms: Quit smoking. Reduce alcohol and foods that increase stomach acid. Don't use aspirin or beul-vqt-macmdgh pain and fever medicines, if possible. This includes nonsteroidal anti-inflammatory drugs (NSAIDs). Lose excess weight. Finish eating at least 2 hours before you go to bed or lie down. Raise the head of your bed. 4079-4262 [employer]. [address] [place] [address]. All rights reserved. This information is not intended as a substitute for professional medical care. Always follow yourhealthcare professional's instructions. Follow Up Care 04/10/2022 11:31:32 With:Follow up with primary care provider Address:Unknown When:2-4 days With:NONE PHYSICIAN Address:Unknown When:2-4 days With:Follow up with primary care provider Address:Unknown When:2-4 days [facility] 09-05-2022 Emergency department Discharge summary Discharge Instructions Thank you for allowing [facility] to assist you with your healthcare needs. The following is importantdischarge information regarding your hospital visit. Diagnosis from Today's Visit Abdominal pain Malrotation of intestine What to Do Next Instructions from Your Care Team No qualifying data available. Post Acute Orders No qualifying data available. You Need to Schedule the Following Appointments Follow Up with Follow up with primary care provider When Within 2-4 days Follow Up with NONE PHYSICIAN When Within 2-4 days Follow Up with Follow up with primary care provider When Within 2-4 days Allergies erythromycin Medications Please ask your primary doctor or pharmacist before taking any other medication not listed, including over the counter drugs, herbal medications, vitamins and or supplements as they may interact withyour home medications. What How Much When Why Instructions Last Dose New acetaminophen-hydrocodone ([place] 325- 5 mg oral tablet) 1 tab(s) by mouth Every 6 hours as needed for for pain Malrotation of intestine Duration: 3 Days Printed Prescription New ondansetron (ondansetron 4 mg oral tablet, disintegrating) 1 tab(s) by mouth As Directed as needed for Nausea/Vomiting Duration: 3 Days Printed Prescription Please take this list to your next doctor s visit. Bring all medications you take, including over the counter medications, herbals and other supplements with you to your doctor s visit. Patients and families are reminded to discard old lists and to update any records with all medication providers or retail pharmacies. Education Materials Abdominal Pain Abdominal pain is pain in the stomach or belly area. Everyone has this pain from time to time. In many cases it goes away on its own. But abdominal pain can sometimes be due to a serious problem, such as appendicitis. So it s important to know when to get help. Causes of abdominal pain There are many possible causes of abdominal pain. Common causes in adults include: Constipation, diarrhea, or gas Stomach acid flowing back up into the esophagus (acid reflux or heartburn) Severe acid reflux, called GERD (gastroesophageal reflux disease) A sore in the lining of the stomach or small intestine (peptic ulcer) Inflammation of the gallbladder, liver, or pancreas Gallstones or kidney stones Appendicitis Intestinal blockage An internal organ pushing through a muscle or other tissue (hernia) Urinary tract infections In women, menstrual cramps, fibroids, ovarian cysts, pelvic inflammatory disease, or endometriosis Inflammation or infection of the intestines, including Crohn's disease and ulcerative colitis Irritable bowel syndrome Diagnosing the cause of abdominal pain Your healthcare provider will give you a physical exam help find the cause of your pain. If needed,you will have tests. Belly pain has many possible causes. So it can be hard to find the reason for your pain. Giving details about your pain can help. Tell your provider where and when you feel the pain, and what makes it better or worse. Also let your provider know if you have other symptoms such as: Fever Tiredness Upset stomach (nausea) Vomiting Changes in bathroom habits Blood in the stool or black, tarry stool Weight loss that you can't explain (involuntary weight loss?) Also report any family history of stomach or intestinal problems, or cancers. Tell your provider about all your alcohol use and drug use. Tell your provider about all medicines you use, including herbs, vitamins, and supplements. Treating abdominal pain Some causes of pain need emergency medical treatment right away. These include appendicitis or a bowel blockage. Other problems can be treated with rest, fluids, or medicines. Your healthcare provider can give you specific instructions for treatment or self-care based on what is causing your pain. If you have vomiting or diarrhea, sip water or other clear fluids. When you are ready to eat solid foods again, start with small amounts of zbin-ls-okbibi, low- fat foods. These include apple sauce, toast, or crackers. When to get medical care Call 911 or go to the hospital right away if you: Can t pass stool and are vomiting Are vomiting blood or have bloody diarrhea or black, tarry diarrhea Have chest, neck, or shoulder pain Feel like you might pass out Have pain in your shoulder blades with nausea Have sudden, severe belly pain Have new, severe pain unlike any you have felt before Have a belly that is rigid, hard, and hurts to touch Call your healthcare provider if you have: Pain for more than 5 days Bloating for more than 2 days Diarrhea for more than 5 days A fever of 100.4 F (38 C) or higher, or as directed by your healthcare provider Pain that gets worse Weight loss for no reason Continued lack of appetite Blood in your stool How to prevent abdominal pain Here are some tips to help prevent abdominal pain: Eat smaller amounts of food at each meal. Don't eat greasy, fried, or other high-fat foods. Don't eat foods that give you gas. Exercise regularly. Drink plenty of fluids. To help prevent GERD symptoms: Quit smoking. Reduce alcohol and foods that increase stomach acid. Don't use aspirin or edee-lxv-hqkknik pain and fever medicines, if possible. This includes nonsteroidal anti-inflammatory drugs (NSAIDs). Lose excess weight. Finish eating at least 2 hours before you go to bed or lie down. Raise the head of your bed. 6812-7565 [employer]. [address] [place] [address], [place] [address]. All rights reserved. This information is not intended as a substitute for professional medical care. Always follow yourhealthcare professional's instructions. Additional Information VACCINATE! IT SAVES LIVES! Members of the community who have not yet received the COVID-19 vaccine and would like to receive it can visit one of [facility] vaccine clinics. There are many vaccine clinic locations within the [facility]. For locations and available times, please visit [email or web address]. It is important to note that some COVID mobile vaccine clinics are held outdoors and may be canceled in rainy orstormy conditions. To learn more about pediatric vaccinations (ages 5-11), we invite you to visit the [facility] webpage. [email or web address] learn more about the COVID-19 vaccine, we invite you to visit the [employer] website for a list of frequently asked questions. [email or web address] [facility] Patient Portal Access Instructions: Stay connected with your healthcare team and access your personal medical information anytime with the [employer] Patient Portal. If you would like a full copy of your medical records please contact the [facility] Medical Records Department Sunday through Sunday between 8a.m. and 4:30p.m. Please follow the directions below to access the portal: 1.Access the email account you provided upon registration to the hospital.2.Look for an invitation email from [facility].3.Open the email and access the invitation link: Accept Invitation to [facility]4.Fill in the required smiley to create your account. Sign into [email or web address] with your username and password that you created in the above steps to stay up to date. You can then view a summary of results, a summary of your visits, and the ability to download your summaries to your computer or send the information securely to a physician. Remember that your healthcare information is confidential, so carefully consider who you will allow to register on the [employer] Patient Portal for access to your information. You can also access the [employer] Patient Portal on the [employer]. Simply click on Health Records under [employer] and then click on the [employer] logo. HOW TO SAFELY DISPOSE OF PRESCRIPTION MEDICATIONS Please use one of the following methods to safely dispose of your unused medications. 1.Use a drug disposal kit: the drug disposal pouch allows you to safely discard your old and unuseddrugs. Ask your nurse to give you one when you are discharged.2.Visit a local take-back location: Many local pharmacies and police departments have programs that collect old and unwanted prescriptiondrugs. Call your local pharmacy or go to http://[employer].writewith/2U5Ox3r to find one close to you.3.Make use of household items: Use cat litter or old coffee grounds to dispose medications if other options arenot available. Mix your drugs with these household products, seal them in an airtight container andthrow it into the garbage. Call [facility]: [phone] to be sure your drugs can be disposed of in this way. Some medicines may require a different approach.4.Never flush your medications down the toilet. IF YOU HAVE BEEN PRESCRIBED AN OPIOIDS FOR PAIN If you have been prescribed an opioid (such as hydrocodone, oxycodone or morphine), it is critical to understand the possible side effects and risks of opioid pain medications. Even when taken as directed, opioids can have several side effects including: Tolerance, meaning you might need to take more of a medication for the same pain relief. Nausea, vomiting and/or constipation. Sleepiness, dizziness, dry mouth, confusion, depression or itching. Physical dependence, meaning you have withdrawal symptoms when a medication is stopped ? this can develop within a few days. KNOW YOUR RESPONSIBILITIES It is important to know exactly how much and how often to take the opioid pain medications you are prescribed. Never take opioids in higher amounts or more often than prescribed. Do not combine opioids with alcohol or other drugs that cause drowsiness, such as benzodiazepines, also known as benzos,including diazepam and alprazolam, muscle relaxants or sleep aids. Never sell or share prescriptionopioids. This is illegal. Store opioids in a secure place and out of reach of others (including children, family, friends and visitors). The last page(s) of this document has been signed and retained as a CHART COPY Signatures Patient Education Materials Abdominal Pain Medication Leaflets My discharge plan and instructions have been reviewed and explained to me and I,AGAPITO PARK understand my current condition and have read and understand these discharge instructions. I have received a written copy of the plan/instructions. If I have questions, I am aware that I should contact my doctor. Patient/Pcts Signature: Date/Time: Relationship to Patient: Witness Name/Signature: Date/Time: [facility]08-25-2022 Miscellaneous Notes* Telephone Encounter - Janna Hay - 03/30/2022 6:31 PM EDT Spoke with patient (Jarrell) and let him know that I was able to review his records with Dr. Felderyester. Images were reviewed and Dr. 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 PLAN: In person visit with Dr. Felder, patient prefers Wednesdays Please call his Steffanie to plan the visit ([phone]) Will forward to Lina for coordination of care * Telephone Encounter - Eun Alan Coord - 03/30/2022 9:12 AM EDT Mrs. Park called and left message on vm to get update on new referral meeting. Please call [phone]. [facility] Miscellaneous Notes* Telephone Encounter - Janna Hay - 03/22/2022 5:27 PM EDT Please let patient's know that we are waiting for Dr. Felder [place] the country. He was emergently called out of the country on , 03/09/22 and is scheduled to return this weekend. We will plan to discuss patient's case as soon as we get time with him next week. In the meantime,please have her let us know if the patient gets any new abdominal imaging done. Thanks, Janna * Telephone Encounter - Eun Alan Coord - 03/21/2022 11:40 AM EDT Patients called and left message on vm. She wanted to follow-up. She said that Agapito is struggling and the ED doesn't help when he goes there. Please call. * Telephone Encounter - Eun Alan Coord - 03/20/2022 3:29 PM EDT Patients called and left message on vm. She would like to know outcome of new referral meeting. Please call [phone]. [facility] Miscellaneous Notes* Telephone Encounter - Eun Alan Coord - 12/22/2021 1:18 PM EDT Referral received from Dr. Tonny Candelario ([phone]) to Dr. Uribe for a diagnosis of Malrotation. Patient is Qu[employer] and has [employer] financial fund. Will call patient to start intake. documented [facility] Hospital Discharge instructions Patient Education 12/22/2021 00:14:06 Abdominal Pain, Unknown Cause, (Male) Unknown Causes of Abdominal Pain (Male) Based on your visit today, the exact cause of your abdominal pain is not clear. Your exam and testsdon't suggest a dangerous cause at this time. However, the signs of a serious problem may take moretime to appear. Although your evaluation was reassuring today, sometimes early in the course of many conditions, exam and lab tests can appear normal. Therefore, it is important for you to watch for any new symptoms or worsening of your condition. It may not be obvious what caused your symptoms. Pay attention to things that do seem to make your symptoms worse or better and discuss this with your doctor when you follow up. The evaluation of abdominal pain in the emergency department may only require an exam by the doctoror it may include blood, urine or imaging studies, depending on many factors. Sometimes exams and tests can identify a cause but in many cases, a clear cause is not found. Further testing at follow up visits may help to suggest a clear diagnosis. Home care Rest as much as you can until your next exam. Try to avoid any medicines (unless otherwise directed by your doctor), foods, activities, or other factors that may have contributed to your symptoms. Try to eat foods that you know that you have tolerated well in the past. Certain diets may be recommended for some conditions that cause abdominal pain. However, since the cause of your symptoms may not be clear, discuss your diet more with your healthcare provider or specialist for further recommendations. If you have diarrhea, it may help to avoid dairy (lactose) for the time being. A low fat, low fiberdiet can also help. Eating several small meals per day as opposed to 2 or 3 larger meals may help. Avoid dehydration. Make sure to drink plenty of water. Other options include broth, soup, gelatin, sports drinks, or other clear liquids. Watch closely for anything that may make your symptoms worse or better. Pay close attention to symptoms below that may mean your condition is getting worse. Follow-up care Follow up with your healthcare provider if your symptoms are not improving, or as advised. In some cases, you may need more testing. When to seek medical advice Call your healthcare provider right away if any of these occur: Pain is becoming worse You are unable to take your medicines or can't keep water down due to excessive vomiting Swelling of the abdomen Fever of 100.4 F (38 C) or higher, or as directed by your healthcare provider Blood in vomit or bowel movements (dark red or black color) Jaundice (yellow color of eyes and skin) New onset of weakness, dizziness or fainting New onset of chest, arm, back, neck or jaw pain [id number] [employer]. [address] [place] [address]. All rights reserved. This information is not intended as a substitute for professional medical care. Always follow yourhealthcare professional's instructions. Follow Up Care 12/21/2021 21:27:23 With:ISIDRA REICH MD Address: [address] [place] [address] [place] [address] [phone] When:2-4 days With:SARWAT BEAR DO Address: [address] [facility] [place] [address]- [phone] When:2-4 days With:Call Physician Referral Address:Unknown When:2-4 days With:Call SHANNON Bowman Pt. Refferral [phone] Address:Unknown When:2-4 days [facility] 12-04-2021 Hospital Discharge instructions Patient Education 07/08/2021 22:54:53 VOMITING (6y-Adult) Vomiting [6Yr-Adult] Vomiting is a common symptom that may be due to different causes. These include gastroenteritis (stomach flu), food poisoning and gastritis. There are other more serious causes of vomiting which may be hard to diagnose early in the illness. Therefore, it is important to watch for the warning signs listed below. The main danger from repeated vomiting is dehydration. This is due to excess loss of water and minerals from the body. When this occurs, body fluids must be replaced. Home Care: If symptoms are severe, rest at home for the next 24 hours. You may use acetaminophen (Tylenol) or ibuprofen (Motrin, Advil) to control fever, unless another medicine was prescribed. [NOTE : If you have chronic liver or kidney disease or ever had a stomach ulcer or GI bleeding, talk with your doctor before using these medicines.] (Aspirin should never be used in anyone under 18 years of age who is ill with a fever. It may cause severe liver damage.) Avoid tobacco and alcohol use, which may worsen your symptoms. If medicines for vomiting were prescribed, take as directed. Once vomiting stops, then follow these guidelines: During The First 12-24 Hours follow the diet below: FRUIT JUICES: Apple, grape juice, clear fruit drinks, and electrolyte replacement drinks. BEVERAGES: Soft drinks without caffeine; mineral water (plain or flavored), decaffeinated tea and coffee. SOUPS: Clear broth, consomm and bouillon DESSERTS: Plain gelatin, popsicles and fruit juice bars. As you feel better, you may add 6-8 ouncesof yogurt per day. During The Next 24 Hours you may add the following to the above: Hot cereal, plain toast, bread, rolls, crackers Plain noodles, rice, mashed potatoes, chicken noodle or rice soup Unsweetened canned fruit (avoid pineapple), bananas Limit caffeine and chocolate. No spices or seasonings except salt. During The Next 24 Hours Gradually resume a normal diet, as you feel better and your symptoms lessen. Follow Up with your doctor as advised if you are not improving over the next 2-3 days. Get Prompt Medical Attention if any of the following occur: Constant right-sided lower abdominal pain or increasing general abdominal pain Continued vomiting (unable to keep liquids down) for 24 hours Frequent diarrhea (more than 5 times a day); blood (red or black color) or mucus in diarrhea Reduced urine output or extreme thirst Weakness, dizziness or fainting Unusually drowsy or confused Fever of 100.4 F (38 C) oral or higher, not better with fever medication Yellow color of the eyes or skin [id number] [employer]. [address] [place] [address], [place] [address]. All rights reserved. This information is not intended as a substitute for professional medical care. Always follow yourhealthcare professional's instructions. 07/08/2021 22:54:49 Abdominal Pain Abdominal Pain Abdominal pain is pain in the stomach or belly area. Everyone has this pain from time to time. In many cases it goes away on its own. But abdominal pain can sometimes be due to a serious problem, such as appendicitis. So it s important to know when to get help. Causes of abdominal pain There are many possible causes of abdominal pain. Common causes in adults include: Constipation, diarrhea, or gas Stomach acid flowing back up into the esophagus (acid reflux or heartburn) Severe acid reflux, called GERD (gastroesophageal reflux disease) A sore in the lining of the stomach or small intestine (peptic ulcer) Inflammation of the gallbladder, liver, or pancreas Gallstones or kidney stones Appendicitis Intestinal blockage An internal organ pushing through a muscle or other tissue (hernia) Urinary tract infections In women, menstrual cramps, fibroids, ovarian cysts, pelvic inflammatory disease, or endometriosis Inflammation or infection of the intestines, including Crohn's disease and ulcerative colitis Irritable bowel syndrome Diagnosing the cause of abdominal pain Your healthcare provider will give you a physical exam help find the cause of your pain. If needed,you will have tests. Belly pain has many possible causes. So it can be hard to find the reason for your pain. Giving details about your pain can help. Tell your provider where and when you feel the pain, and what makes it better or worse. Also let your provider know if you have other symptoms such as: Fever Tiredness Upset stomach (nausea) Vomiting Changes in bathroom habits Blood in the stool or black, tarry stool Weight loss that you can't explain (involuntary weight loss?) Also report any family history of stomach or intestinal problems, or cancers. Tell your provider about all your alcohol use and drug use. Tell your provider about all medicines you use, including herbs, vitamins, and supplements. Treating abdominal pain Some causes of pain need emergency medical treatment right away. These include appendicitis or a bowel blockage. Other problems can be treated with rest, fluids, or medicines. Your healthcare provider can give you specific instructions for treatment or self-care based on what is causing your pain. If you have vomiting or diarrhea, sip water or other clear fluids. When you are ready to eat solid foods again, start with small amounts of jteg-sa-pehsnl, low- fat foods. These include apple sauce, toast, or crackers. When to get medical care Call 911 or go to the hospital right away if you: Can t pass stool and are vomiting Are vomiting blood or have bloody diarrhea or black, tarry diarrhea Have chest, neck, or shoulder pain Feel like you might pass out Have pain in your shoulder blades with nausea Have sudden, severe belly pain Have new, severe pain unlike any you have felt before Have a belly that is rigid, hard, and hurts to touch Call your healthcare provider if you have: Pain for more than 5 days Bloating for more than 2 days Diarrhea for more than 5 days A fever of 100.4 F (38 C) or higher, or as directed by your healthcare provider Pain that gets worse Weight loss for no reason Continued lack of appetite Blood in your stool How to prevent abdominal pain Here are some tips to help prevent abdominal pain: Eat smaller amounts of food at each meal. Don't eat greasy, fried, or other high-fat foods. Don't eat foods that give you gas. Exercise regularly. Drink plenty of fluids. To help prevent GERD symptoms: Quit smoking. Reduce alcohol and foods that increase stomach acid. Don't use aspirin or pcqu-jer-izenmje pain and fever medicines, if possible. This includes nonsteroidal anti-inflammatory drugs (NSAIDs). Lose excess weight. Finish eating at least 2 hours before you go to bed or lie down. Raise the head of your bed. [id number] [employer]. [address] [place] [address]. All rights reserved. This information is not intended as a substitute for professional medical care. Always follow yourhealthcare professional's instructions. 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 documented in this encounter [facility] note* Diagnosis Intestine, 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 documented in this encounter [facility] note* Diagnosis Intestine, 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 documented in this encounter [facility] note* Diagnosis Intestine, 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 documented in this encounter [facility] note* Diagnosis Intestine, 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 documented in this encounter [facility] note* Diagnosis S/P exploratory laparotomy- Primary Other postprocedural status documented in this encounter [facility] noteNo assessment information availableWRegency Hospital Company Work Phone: Evaluation note* Diagnosis 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 Intractable abdominal pain Abdominal pain, unspecified site 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 Superior mesenteric artery syndrome (HCC) Chronic vascular insufficiency of intestine Decreased oral intake Other symptoms concerning nutrition, metabolism, and development Intractable nausea and vomiting Persistent vomiting Abdominal pain- Primary Abdominal pain, unspecified site SBO (small bowel obstruction) (HCC) Unspecified intestinal obstruction Abdominal pain, unspecified abdominal location Post-op pain Other acute postoperative pain S/P exploratory laparotomy [Z98.890 (ICD-10-CM)] Other postprocedural status Small bowel obstruction (HCC) [K56.609 (ICD-10-CM)] Unspecified intestinal obstruction Moderate protein-calorie malnutrition (HCC) [E44.0 (ICD-10-CM)] Malnutrition of moderate degree Chronic abdominal pain [R10.9, G89.29 (ICD-10-CM)] Abdominal pain, unspecified site Small bowel obstruction (HCC) Unspecified intestinal obstruction S/P exploratory laparotomy Other postprocedural status Moderate protein-calorie malnutrition (HCC) Malnutrition of moderate degree Chronic abdominal pain Abdominal pain, unspecified site S/P exploratory laparotomy- Primary Other postprocedural status Small bowel obstruction (HCC) Unspecified intestinal obstruction Moderate protein-calorie malnutrition (HCC) Malnutrition of moderate degree Chronic abdominal pain Abdominal pain, unspecified site documented in this encounter [facility] note* Diagnosis 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 Intractable abdominal pain Abdominal pain, unspecified site 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 Superior mesenteric artery syndrome (HCC) Chronic vascular insufficiency of intestine Decreased oral intake Other symptoms concerning nutrition, metabolism, and development Intractable nausea and vomiting Persistent vomiting Abdominal pain- Primary Abdominal pain, unspecified site SBO (small bowel obstruction) (HCC) Unspecified intestinal obstruction Abdominal pain, unspecified abdominal location Post-op pain Other acute postoperative pain S/P exploratory laparotomy [Z98.890 (ICD-10-CM)] Other postprocedural status Small bowel obstruction (HCC) [K56.609 (ICD-10-CM)] Unspecified intestinal obstruction Moderate protein-calorie malnutrition (HCC) [E44.0 (ICD-10-CM)] Malnutrition of moderate degree Chronic abdominal pain [R10.9, G89.29 (ICD-10-CM)] Abdominal pain, unspecified site Small bowel obstruction (HCC) Unspecified intestinal obstruction S/P exploratory laparotomy Other postprocedural status Moderate protein-calorie malnutrition (HCC) Malnutrition of moderate degree Chronic abdominal pain Abdominal pain, unspecified site S/P exploratory laparotomy- Primary Other postprocedural status Chronic abdominal pain Abdominal pain, unspecified site [facility] No data available for this section [facility] Hospital Discharge instructions Additional Instructions Thank you for trusting us with your care today! Please take Tylenol (2 pills, 650 mg), ibuprofen (2 pills, 400 mg) every 6 hours as needed for pain and fever control. Please take prescribed narcotic medicine. Please return to the emergency department if your symptoms change or worsen. Please follow with your primary care physician for further outpatient evaluation and management.[facility] Work Phone: Hospital Discharge instructions Additional Instructions Follow-up with your physicians at the [facility] as needed for your malrotation.[facility] Work Phone: Hospital Discharge instructionsAdditional Instructions Your CAT scan and labs look good. No specific cause for your pain. Motrin and Tylenol for pain. Follow-up with your doctor as needed.[facility] Work Phone: Progress note No data available for this section [facility] Reason for referral (narrative)No reason for referral information availableWRegency Hospital Company Work Phone: [place] for visit Narrative* Financial Clearance (Routine) - Authorized Specialty Diagnoses / Procedures Referred By Contac t Referred To Contact [facility] Diagnoses Other specified postprocedural states Epigastric pain Procedures RADIOLOGIC EXAM UPR GI TRC SINGLE CONTRAST STUDY RADIOLOGIC SMALL INTESTINE FOLLOW-THROUGH STUDY Isaac Smith PA-C [address] [place] [address] Phone: tel: fax: [facility] [address] [place] [phone] Referral ID Status Reason Start Date Expiration Date Visits Requested Visits Authorized [id number] Authorized Financial Clearance Required - Self Pay Patient Cleared - [facility] 12/31/2024 03/31/2025 2 2 [facility] Summary Purpose Family History No Family History Records FoundNo Family History Records FoundNo Family History Records FoundNo Family History Records FoundNo Family History Records FoundNo Family History Records FoundNo Family History Records Found No data available for this section No Family History Records FoundNo Family History Records FoundNo Family History Records FoundNo Family History Records Found Advance Directives No Advanced Directives Records Found Advance Directive Response Recorded Date/ Time Living Will No August 04 023 11:42pm Power of Bulb Grader No August 04, 2023 11:42pm Advance Directive Response Recorded Date/ Time Living Will No December 05, 2023 3: 07pm Power of Bulb Grader No December 05, 2023 3:07pm Advance Directive Response Recorded Date/ Time Do you have a Healthcare Power of Bulb Grader? No March 25, 2025 2:02pm Reason for Referral Specialty Diagnoses / Procedures Referred By Contac t Referred To Contact [facility] Diagnoses Intestine, malrotation Procedures CONSULT TO [facility] EXPLORATORY LAPAROTOMY CELIOTOMY W/WO BIOPSY SPX Baylee Saucedo MD [address] [place] [address] [facility] [address] [address] Referral ID Status Reason Start Date Expiration Date Visits Requested Visits Authorized [id number] Pending Review Financial Clearance Required - [employer] 12/22/2021 12/22/2022 99 99 Chief Complaint and Reason for Visit Chief Complaint abdominal pain/nause a Chief Complaint ABD PAIN Chief Complaint Admit Date abd pain March 25, 2025 1: 34pm Additional Source Comments (unrecognized sect ion and content) No Status Records FoundNo Status Records FoundNo Status Records FoundNo Status Records FoundNo Status Records FoundNo Status Records FoundNo Status Records FoundNo Status Records FoundNo Status Records FoundNo Status Records FoundNo Status Records Found INFORMATION SOURCE (unrecogn ized section and content) DATE CREATED AUTHOR 01/24/2018 [facility] DATE CREATED AUTHOR AUTHOR'S ORGANIZ ATION 02/07/2018 [facility] DATE CREATED AUTHOR AUTHOR'S ORGANIZ ATION 01/22/2019 [facility] DATE CREATED AUTHOR AUTHOR'S ORGANIZ ATION 10/12/2019 [facility] DATE CREATED AUTHOR AUTHOR'S ORGANIZ ATION 05/15/2021 [facility] DATE CREATED AUTHOR AUTHOR'S ORGANIZ ATION 12/03/2021 [facility] DATE CREATED AUTHOR AUTHOR'S ORGANIZ ATION 11/05/2022 [facility] DATE CREATED AUTHOR AUTHOR'S ORGANIZ ATION 09/21/[address] [facility] DATE CREATED AUTHOR AUTHOR'S ORGANIZ ATION 01/14/2025 [facility] DATE CREATED AUTHOR AUTHOR'S ORGANIZ ATION 02/23/2025 [facility] DATE CREATED AUTHOR AUTHOR'S ORGANIZ ATION 04/01/2025 [facility] Source Comments (unrecognize d section and content) In the event this informatio n is protected by the Federal Confidentiality of Alcohol and Drug Abuse Patient Records regulations: The Federal rules restrict any use of the information to criminally investigate or prosecute any alcohol or drug abuse patient.[facility] the event this information is protected by the Federal Confidentiality of Alcohol and Drug Abuse Patient Records regulations: The Federal rules restrict any use of the information to criminally investigate or prosecute any alcohol or drug abuse patient.[facility] Hospital[facility] the event this information is protected by the Federal Confidentiality of Alcohol and Drug Abuse Patient Records regulations: The Federal rules restrict any use of the information to criminally investigate or prosecute any alcohol or drug abuse patient.[facility] HospitalIn the event this information is protected by the Federal Confidentiality of Alcohol and Drug Abuse Patient Records regulations: The Federal rules restrict any use of the information to criminally investigate or prosecute any alcohol or drug abuse patient.[facility] HospitalIn the event this information is protected by the Federal Confidentiality of Alcohol and Drug Abuse Patient Records regulations: The Federal rules restrict any use of the information to criminally investigate or prosecute any alcohol or drug abuse patient.[facility] HospitalIn the event this information is protected by the Federal Confidentiality of Alcohol and Drug Abuse Patient Records regulations: The Federal rules restrict any use of the information to criminally investigate or prosecute any alcohol or drug abuse patient.[facility] HospitalIn the event this information is protected by the Federal Confidentiality of Alcohol and Drug Abuse Patient Records regulations: The Federal rules restrict any use of the information to criminally investigate or prosecute any alcohol or drug abuse patient.[facility] HospitalIn the event this information is protected by the Federal Confidentiality of Alcohol and Drug Abuse Patient Records regulations: The Federal rules restrict any use of the information to criminally investigate or prosecute any alcohol or drug abuse patient.[facility] HospitalIn the event this information is protected by the Federal Confidentiality of Alcohol and Drug Abuse Patient Records regulations: The Federal rules restrict any use of the information to criminally investigate or prosecute any alcohol or drug abuse patient.[facility] HospitalIn the event this information is protected by the Federal Confidentiality of Alcohol and Drug Abuse Patient Records regulations: The Federal rules restrict any use of the information to criminally investigate or prosecute any alcohol or drug abuse patient.[facility] HospitalIn the event this information is protected by the Federal Confidentiality of Alcohol and Drug Abuse Patient Records regulations: The Federal rules restrict any use of the information to criminally investigate or prosecute any alcohol or drug abuse patient.[facility] HospitalIn the event this information is protected by the Federal Confidentiality of Alcohol and Drug Abuse Patient Records regulations: The Federal rules restrict any use of the information to criminally investigate or prosecute any alcohol or drug abuse patient.[facility] HospitalIn the event this information is protected by the Federal Confidentiality of Alcohol and Drug Abuse Patient Records regulations: The Federal rules restrict any use of the information to criminally investigate or prosecute any alcohol or drug abuse patient.[facility] HospitalIn the event this information is protected by the Federal Confidentiality of Alcohol and Drug Abuse Patient Records regulations: The Federal rules restrict any use of the information to criminally investigate or prosecute any alcohol or drug abuse patient.[facility] HospitalIn the event this information is protected by the Federal Confidentiality of Alcohol and Drug Abuse Patient Records regulations: The Federal rules restrict any use of the information to criminally investigate or prosecute any alcohol or drug abuse patient.[facility] HospitalIn the event this information is protected by the Federal Confidentiality of Alcohol and Drug Abuse Patient Records regulations: The Federal rules restrict any use of the information to criminally investigate or prosecute any alcohol or drug abuse patient.[facility] HospitalIn the event this information is protected by the Federal Confidentiality of Alcohol and Drug Abuse Patient Records regulations: The Federal rules restrict any use of the information to criminally investigate or prosecute any alcohol or drug abuse patient.[facility] HospitalIn the event this information is protected by the Federal Confidentiality of Alcohol and Drug Abuse Patient Records regulations: The Federal rules restrict any use of the information to criminally investigate or prosecute any alcohol or drug abuse patient.[facility] HospitalIn the event this information is protected by the Federal Confidentiality of Alcohol and Drug Abuse Patient Records regulations: The Federal rules restrict any use of the information to criminally investigate or prosecute any alcohol or drug abuse patient.[facility] HospitalIn the event this information is protected by the Federal Confidentiality of Alcohol and Drug Abuse Patient Records regulations: The Federal rules restrict any use of the information to criminally investigate or prosecute any alcohol or drug abuse patient.[facility] HospitalIn the event this information is protected by the Federal Confidentiality of Alcohol and Drug Abuse Patient Records regulations: The Federal rules restrict any use of the information to criminally investigate or prosecute any alcohol or drug abuse patient.[facility] HospitalIn the event this information is protected by the Federal Confidentiality of Alcohol and Drug Abuse Patient Records regulations: The Federal rules restrict any use of the information to criminally investigate or prosecute any alcohol or drug abuse patient.[facility] HospitalIn the event this information is protected by the Federal Confidentiality of Alcohol and Drug Abuse Patient Records regulations: The Federal rules restrict any use of the information to criminally investigate or prosecute any alcohol or drug abuse patient.[facility] Reason for Visit (unrecogniz ed section and content) Reason Comments Referral Request Reason Comments Patient Question Reason Comments Transplant Evaluation Reason Comments Case Review Reason Comments Digital Technician - Other Patient Question Reason Comments Appointment Cancelled Reason Comments Abdominal Pain Reason Comments Follow Up Reason Comments Surgical Follow Up Specialty Diagnoses / Procedures Referred By Contac t Referred To Contact TRANSPLANT Diagnoses Intestine, malrotation Procedures CONSULT TO [facility] EXPLORATORY LAPAROTOMY CELIOTOMY W/WO BIOPSY SPX u Baylee Lozano MD [address] [id number] [facility] [address] [place] [address] Referral ID Status Reason Start Date Expiration Date Visits Requested Visits Authorized [id number] Authorized Financial Clearance Required - OON Payor Patient Cleared - INN Insurance Found 12/22/2021 12/22/2022 99 99 Reason Comments Appointment Specialty Diagnoses / Procedures Referred By Roni t Referred To Contact TRANSPLANT Diagnoses Intestine, malrotation Procedures CONSULT TO [facility] EXPLORATORY LAPAROTOMY CELIOTOMY W/WO BIOPSY SPX Baylee Saucedo MD [address] [place] [address] [facility] [address] [place] [address] Reason Comments Insurance Reason Comments Care Coordination Care Teams (unrecognized sec tion and content) Dot Etcher Relationship Specialty Start Date End Date Juarez Hassan PCP - General Family Practice 12/06/15 Dot Etcher Relationship Specialty Start Date End Date Juarez Hassan L PCP - General Family Practice 12/06/15 Dot Etcher Relationship Specialty Start Date End Date Juarez Hassan L PCP - General Family Practice 12/06/15 Dot Etcher Relationship Specialty Start Date End Date Juarez Hassan L PCP - General Family Practice 12/06/15 Lina Hernandez, relay associate Center 03/29/22 Baylee Saucedo MD [address] [phone] General Surgery 03/29/22 Dot Etcher Relationship Specialty Start Date End Date Juarez Hassan PCP - General Family Practice 12/06/15 Lina Hernandez, relay associate Center 03/29/22 Baylee Saucedo MD [address] [place], [place] [id number] General Surgery 03/29/22 Dot Etcher Relationship Specialty Start Date End Date SonyaJuarez menjivar Jimy PCP - General Family Practice 12/06/15 Lina Hernandez, relay associate Center 03/29/22 Baylee Saucedo MD [address] [place] [address] General Surgery 03/29/22 Dot Etcher Relationship Specialty Start Date End Date SonyaJuarez menjivar Jimy PCP - General Family Practice 12/06/15 Lina Hernandez RN Transplant Center 03/29/22 Baylee Saucedo MD [address] [place] [address] General Surgery 03/29/22 Dot Etcher Relationship Specialty Start Date End Date Juarez Hassan PCP - General Family Medicine 12/06/15 Lina Hernandez RN Transplant Center 03/29/22 Baylee Saucedo MD [address] [place] [address] General Surgery 03/29/22 Dot Etcher Relationship Specialty Start Date End Date Juarez Hassan Jimy PCP - General Family Medicine 12/06/15 Lina Hernandez RN Transplant Center 03/29/22 Baylee Saucedo MD [address] [place] [address] General Surgery 03/29/22 Dot Etcher Relationship Specialty Start Date End Date Juarez Hassan Jimy PCP - General Family Medicine 12/06/15 Lina Hernandez, relay associate Center 03/29/22 Baylee Saucedo MD [address] [place] [address] General Surgery 03/29/22 Dot Etcher Relationship Specialty Start Date End Date Jn Hassanus Ahn PCP - General Family Medicine 12/06/15 Lina Hernandez, relay associate Center 03/29/22 Baylee Saucedo MD [address] [place] [address] General Surgery 03/29/22 Dot Etcher Relationship Specialty Start Date End Date Jn Hassanus Ahn PCP - General Family Medicine 12/06/15 Lina Hernandez, relay associate Center 03/29/22 Baylee Saucedo MD [address] [place] [address] General Surgery 03/29/22 Dot Etcher Relationship Specialty Start Date End Date Jn Hassanus Ahn PCP - General Family Medicine 12/06/15 Lina Hernandez, relay associate Center 03/29/22 Baylee Saucedo MD [address] [place] [address] General Surgery 03/29/22 Team Status: Active Member Role Status Dates Dr. Juarez Hassan MD Family Provider Active Dr. Tonny Candelario MD Primary Care Provider Active Team Status: Inactive Member Role Status Dates Dr. Tonny Candelario MD Primary Care Provider Active Dr. Karel Keller DO Emergency Provider Active Team Status: Inactive Member Role Status Dates Dr. Tonny Candelario MD Primary Care Provider Active Andrew Osborn MD Emergency Provider Active Dot Etcher Relationship Specialty Start Date End Date Juarez Hassan MD PCP - General Family Medicine 12/06/15 Baylee Saucedo MD [address] [place] [address] General Surgery 03/29/22 Dot Etcher Relationship Specialty Start Date End Date Juarez Hassan MD PCP - General Family Medicine 12/06/15 Baylee Saucedo MD [address] [place] [address] General Surgery 03/29/22 Dot Etcher Relationship Specialty Start Date End Date Juarez Hassan MD PCP - General Family Medicine 12/06/15 Baylee Saucedo MD [address] [place] [address] General Surgery 03/29/22 Dot Etcher Relationship Specialty Start Date End Date Juarez Hassan MD PCP - General Family Medicine 12/06/15 Baylee Saucedo MD [address] [place] [address] General Surgery 03/29/22 Dot Etcher Relationship Specialty Start Date End Date Juarez Hassan MD PCP - General Family Medicine 12/06/15 Baylee Saucedo MD [address] [place], [place] [id number] General Surgery 03/29/22 Dot Etcher Relationship Specialty Start Date End Date Juarez Hassan MD PCP - General Family Medicine 12/06/15 Baylee Saucedo MD [address] [place], [place] [phone] General Surgery 03/29/22 Dot Etcher Relationship Specialty Start Date End Date Juarez Hassan MD PCP - General Family Medicine 12/06/15 Baylee Saucedo MD [address] [place] [address] General Surgery 03/29/22 Dot Etcher Relationship Specialty Start Date End Date Juarez Hassan MD PCP - General Family Medicine 12/06/15 Baylee Saucedo MD [address] [place] [address] General Surgery 03/29/22 Rosalinda Duenas, RN Registered Nurse General Surgery 01/15/25 Lucia Dominguez, BOLIVAR Registered Nurse Backup General Surgery 01/15/25 Team Status: Active Member Role/Relationship Status Dates Dr. Tonny Candelario MD Primary Care Provider Active Team Status: Inactive Member Role/Relationship Status Dates Dr. Tonny Candelario MD Primary Care Provider Active Start: March 25, 2025 End: March 25, 2025 Dr. Rodney De La O MD Emergency Provider Active S tart: March 25, 2025 End: March 25, 2025 Care Team (unrecognized sect ion and content) Care Team Personnel Name: PHYSICIAN, NONE Position: Physician Member Role: Primary Care Physician Name: BOLIVAR Rankin Position: ED RN Member Role: ED RN Name: PEDRITO ALEXANDER MD Position: Resident Member Role: Resident Address: Address: [address] [place] [address] [place] [address] Care Team Related Persons Name: STEFFANIE PARK Care Team Personnel Name: PHYSICIAN, NONE Position: Physician Member Role: Primary Care Physician Care Team Related Persons Name: STEFFANIE PARK Care Team Personnel Name: LYLE RICHMOND STAFF COMMAND AND CONTROL OFFICER - TEXTILE SCREEN MAKER Position: P4 Advanced Practice Nurse Med Service: Employed Provider Member Role: Primary Care Physician Address: Address: [address] [place] [id number] [place] [address] Care Team Related Persons Name: XAVIER STEFFANIE Goals (unrecognized section and content) Goals may be documented in a n alternate section FOR RECORDS PERTAINING TO PATIENTS WHO ARE OR HAVE BEEN ENROLLED IN A CHEMICAL DEPENDENCY/SUBSTANCEABUSE PROGRAM, SOME INFORMATION MAY BE OMITTED. This clinical summary was aggregated from multiple sources. Caution should be exercised in using it in the provision of clinical care. This summary normalizes information from multiple sources, and as a consequence, information in this document may materially change the coding, format and clinical context of patient data. In addition, data may be omitted in some cases. CLINICAL DECISIONS SHOULD BE BASED ON THE PRIMARY CLINICAL RECORDS. [facility] [employer] provides no warranty or guarantee of the accuracy or completeness of information in this document.
[2025-04-24] MEDS: 0.9% Normal Saline (1000mL) 1,000 ML 999 ML IV (07:21)
[2025-04-24 07:57] LABS: AST(SGOT) 28 U/L (<=37); Alanine Aminotransfer ALT/SGPT 18 U/L (<=46); Albumin, Serum 4.7 g/dL (3.5-5.0); Alkaline Phosphatase 69 U/L (40-129); Anion Gap 15 (5-15); BUN 20 mg/dL (4-19); BUN/Creat Ratio 19.9 RATIO (10-20); Calcium,Total 9.8 mg/dL (7.6-11.0); Carbon Dioxide 22.6 mmol/L (21.0-32.0); Chloride 96 mmol/L (98-108); Estimated Creatinine Clearance 104.55 ml/min (50-250); Globulin 2.8 g/dL (2.2-4.2); Glucose 130 mg/dL (70-99); Lipase 24 U/L (13-75); Potassium 4.5 mmol/L (3.3-5.1)
[2025-04-24] MEDS: HYDROmorphone 0.5 MG/0.5 ML SYRINGE IV ×2 (08:13→10:37)
[2025-04-24 08:25] LABS: Hematocrit 39.0 % (40-54); Hemoglobin 13.5 g/dL (13.0-16.5); Immature Granulocytes Count 0.050 X10^3/uL (0.0-0.0); Mean Corp Hgb Conc 34.6 g/dL (32-36); Mean Corpuscular Volume 92.4 fL (80-94); Mean Platelet Vol. 9.8 fl (6.2-12.0); NRBC Flagged by Analyzer 0 % (0-5); Platelet Count 298 K/mm3 (150-450); RBC Distribution Width CV 12.7 % (11.6-14.6); RBC Distribution Width SD 43.0 fl (35.1-43.9); Red Blood Count 4.22 M/mm3 (4.6-6.2); White Blood Count 13.4 K/mm3 (4.4-11.0)
[2025-04-24 08:55] VITALS: BP 124/78; PULSE 78; RESP 16; O2SAT 98
[2025-04-24 09:40] LABS: Mucous, Urine 0 SEEN /hpf (<or=2+); Red Blood Cells-Urine 0 SEEN /hpf (0-5); Squamous Epithelial Cells - UA 0 SEEN /hpf (0-5)
[2025-04-24 09:44] LABS: Color, Urine Yellow (Yellow); Glucose, Dipstick Normal (Normal); Leukocyte Esterase-Dipstick Negative /ul (Negative); Nitrite-Dipstick Negative (Negative); Occult Blood-Urine Negative /ul (Negative); Protein-Dipstick 30 mg/dl (Negative); Specific Gravity, Urine 1.015 (1.002-1.030); Urine Bilirubin Dipstick Negative (Negative)
[2025-04-24 09:47] LABS: Ketone-Dipstick 150 mg/dl (Negative)
[2025-04-24 10:00] VITALS: BP 134/78; PULSE 78; RESP 16; O2SAT 98
[2025-04-24 10:32] VITALS: BP 134/78; PULSE 78; RESP 16; TEMP 36.1; O2SAT 98
== END 2025-04-24 10:40 | disposition home or self-care (01) ==
PROVIDERS: Emergency Provider Emergency Medicine; PCP Family Medicine; Visit Provider Emergency Medicine
DX: R10.9 Unspecified abdominal pain (principal); Q43.3 Congenital malformations of intestinal fixation; G89.29 Other chronic pain
CPT/HCPCS: 80053; 81001; 83690; 85025; 96361; 96374; 96375; 96376; 99283; A4216; J2405

== ENCOUNTER 2025-04-28 16:54 | Emergency (ER) | payer OTHER, SELFPAY ==
[2025-04-28] VITALS (8 sets, daily range): BP systolic 109–146; BP diastolic 69–94; PULSE 65–78; RESP 10–16; TEMP 36.9; O2SAT 96–100; BMI 22.1
--- NOTE | 2025-04-28 17:23 | CT_ITS ---
PROCEDURE: STROKE CT BRAIN/HEAD WITHOUT CONTRAST 04/28/2025 REASON FOR EXAM: NEURO DEFICIT, ACUTE, STROKE SUSPECTED TECHNIQUE: Procedure Code: CTBR.ST Modality: CT Procedure: STROKE BRAIN/HEAD WITHOUT CONT Coronal and Sagittal reconstruction series were provided. One or more dose reduction techniques were used (e.g., Automated exposure control, adjustment of the mA and/or kV according to patient size, use of iterative reconstruction technique. RADIATION DOSE SUMMARY: CTDlvol: 44.99 mGy DLP: 880.47 mGycm COMPARISON: None. FINDINGS: No acute intracranial hemorrhage, extra-axial collection, mass effect or evidence of acute infarct. Ventricles and subarachnoid spaces are normal in size. Unremarkable orbits. Intact skull base and calvarium. Peripheral mucosal thickening in the floor of left maxillary sinus. Remainder of the paranasal sinuses and bilateral mastoid air cells are clear. CT/STROKE Brain/Head without Cont IMPRESSION: No acute intracranial abnormality. Reading Location: [id number]
--- NOTE | 2025-04-28 17:23 | EKG12_ITS ---
Test Reason : stroke alert Blood Pressure : */* mmHG Vent. Rate : 63 BPM Atrial Rate : 63 BPM P-R Int : 150 ms QRS Dur : 78 ms QT Int : 382 ms P-R-T Axes : 69 41 54 degrees QTcB Int : 390 ms Normal sinus rhythm Normal ECG Confirmed by MANJU HERNANDEZ, GURINDER ([id number]), telegraph editor TIMMY MCLAUGHLIN ([id number]) on 04/29/2025 8:31:48 AM Referred By: Confirmed By: GURINDER NUNES MD
--- NOTE | 2025-04-28 17:38 | CT_ITS ---
PROCEDURE: STROKE CTA HEAD AND NECK W/CON 04/28/2025 REASON FOR EXAM: NEURO DEFICIT, ACUTE, STROKE SUSPECTED TECHNIQUE: Procedure Code: CTCTA.ST.HN Modality: CT Procedure: STROKE CTA HEAD AND NECK W/CON Multiplanar Sagittal and Coronal images were obtained. 3D post processing was performed. CONTRAST: Isovue 370 VOLUME: 98 mL One or more dose reduction techniques were used (e.g., Automated exposure control, adjustment of the mA and/or kV according to patient size, use of iterative reconstruction technique). RADIATION DOSE SUMMARY: DLP: 719.27 mGycm COMPARISON: No prior angiographic exam. Chest x-ray 04/23/2025. FINDINGS: CTA HEAD: Patent intracranial arterial vasculature. No large vessel occlusion, flow- limiting stenosis, saccular aneurysm, or vascular malformation identified. Azygous TESS A2 common segment, anatomic variant. Bilateral ophthalmic arteries appear patent. Dural venous sinuses appear patent. CTA NECK: Conventional aortic arch branching. Bilateral cervical carotid and codominant vertebral arteries are patent. Cervical carotid arteries are normal in course and caliber. There is short-segment dissection involving a distal left vertebral artery V3 segment as it traverses the left C1 vertebral foramen, with moderate short-segment luminal narrowing which reconstitutes distally. Additionally, there is subtle luminal irregularity and mild narrowing of the contralateral right vertebral artery V3 segment as it traverses the right C2 transverse foramen, which may also represent a short- segment dissection or intramural hematoma. NON-ANGIOGRAPHIC FINDINGS: Incidental small left apical pneumothorax seen in the upper thorax. Mild peripheral mucosal thickening in the left maxillary sinus. CT/STROKE CTA Head AND Neck W/Con IMPRESSION: 1. No intracranial arterial occlusion or significant stenosis. 2. Short-segment dissection involving the distal left vertebral artery V3 segme nt at the level of the left C1 transverse foramen, with moderate stenosis. Subtle luminal irregularity and mild narrowing of the right distal vertebral artery V3 segment traversing the right C2 transverse foramen, which may also represent a short-se gment dissection/intramural hematoma. 3. Incidental small left apical pneumothorax. In retrospect this was present o n chest radiograph dated 04/23/2025. Clinical correlation recommended. Findings communicated with provider Spenser Patel 04/28/2025 at 5:10 p.m. LIVE OUT NANNY. Reading Location: [facility]
[2025-04-28 17:55] LABS: Hematocrit 37.5 % (40-54); Hemoglobin 13.0 g/dL (13.0-16.5); Immature Granulocytes Count 0.020 X10^3/uL (0.0-0.0); Mean Corp Hgb Conc 34.7 g/dL (32-36); Mean Corpuscular Volume 93.3 fL (80-94); Mean Platelet Vol. 9.5 fl (6.2-12.0); NRBC Flagged by Analyzer 0 % (0-5); Platelet Count 301 K/mm3 (150-450); RBC Distribution Width CV 12.6 % (11.6-14.6); RBC Distribution Width SD 43.6 fl (35.1-43.9); Red Blood Count 4.02 M/mm3 (4.6-6.2); White Blood Count 7.6 K/mm3 (4.4-11.0)
[2025-04-28 18:13] LABS: Prothrombin Time (Protime)PT. 13.7 SECONDS (11.7-14.9)
[2025-04-28 18:14] LABS: Partial Thromboplast Time 25.9 Seconds (24.1-36.2)
[2025-04-28 18:27] LABS: Anion Gap 12 (5-15); BUN 15 mg/dL (4-19); BUN/Creat Ratio 14.5 RATIO (10-20); Calcium,Total 9.0 mg/dL (7.6-11.0); Carbon Dioxide 26.0 mmol/L (21.0-32.0); Chloride 99 mmol/L (98-108); Estimated Creatinine Clearance 101.72 ml/min (50-250); Glucose 92 mg/dL (70-99); Potassium 3.6 mmol/L (3.3-5.1); Troponin T High Sensitivity < 6 ng/L (<=22)
--- NOTE | 2025-04-28 18:31 | ED.VIS.STROK ---
HPI History of Present Illness Chief Complaint: Eye Problem Detail of Chief Complaint: Right superior homonymous quadronopia Informant: patient and other (Ophthalmology called in prior to patient's arrival.) Onset/Context/Timing Onset: Yesterday (Last known well April 27 at 2130) Context: Sudden Onset Timing: Continuous Quality and Location: Positive for - (Visual field cut) Onset: Last known well last evening at 2130 Current Severity: Mild Maximum Severity: Mild Worsened by: Unknown Relieved by: Nothing Associated Symptoms Associated Symptoms: Positive for Nausea; Negative for Headache, Vomiting or Chest Pain Narrative Narrative: Patient is a 30-year-old gentleman. He was seen at ophthalmology. He was sent in because of a right superior homonymous quadrantanopsia. Patient denies any history of trauma. Patient denies recent visit to chiropractor. He was seen approximately a month ago. He was seen on the for chest pain. Of note he had a recent celiac plexus block placed by pain management. Patient denies trouble with speech or swallowing. Patient denies problems presently with his balance. He thought it may have been off a day or 2 ago. He denies paresthesia, anesthesia or motor weakness upper or lower extremity. He denies cardiac symptoms. He denies abdominal pain presently. He has been seen several times this past week for abdominal pain. He denies dysuria, frequency, urgency or hematuria. He is not on an anticoagulant or antithrombotic. Patient is on fluoxetine. Prior similar symptoms: No Recent Illness/Hospitalization: Yes PFSH PFSH Medical History Intestinal malrotation Medical History no medical history Home Medications ?Medication ?Instructions ?Recorded ?Last Taken ?Type buprenorphine 5 mcg/hour weekly 1 patch topical Q7D 08/05/23 Unknown History transdermal patch fluoxetine 40 mg capsule 40 mg PO DAILY 03/25/25 Unknown History Allergy/AdvReac Type Severity Reaction Status Date / Time No Known Allergies Allergy Verified 04/28/25 16:55 Family History no significant family his Surgical History H/O hernia repair Surgical History no surgical history Social History household members: spouse housing: house Smoking Status: Never smoker ROS ROS ED Constitutional Constitutional ED: Denies chills, fever(s) or subjective Eyes Eyes: Reports blurry vision bilateral and change in vision bilateral ENT ENT ED: Denies ear pain, rhinorrhea or sore throat Cardiovascular Cardiovascular: Denies chest pain or palpitations Respiratory/Chest Respiratory/Chest: Denies cough, dyspnea or dyspnea on exertion Gastrointestinal Gastrointestinal: Denies abdominal pain, nausea or vomiting Genitourinary Genitourinary ED: Denies dysuria, hematuria or urinary frequency Musculoskeletal Musculoskeletal: Denies arthralgias or myalgias Integumentary Denies rash Neurologic Neurologic: Reports headache(s); Denies paresthesias or weakness Hematologic/Lymphatic Hematologic/Lymphatic: Denies easy bleeding or easy bruising EXAM Physical Exam Const Vital Signs: 04/28/25 16:56 04/28/25 17:23 04/28/25 17:23 Temperature 98.4 F Temperature Source Oral Pulse Rate 65 73 Respiratory Rate 16 11 L Blood Pressure 123/85 H 127/94 H Blood Pressure Mean 97 105 Pulse Ox 100 100 Oxygen Delivery Method Room Air Room Air Room Air 04/28/25 17:29 04/28/25 17:53 Temperature Temperature Source Pulse Rate 78 65 Respiratory Rate 14 10 L Blood Pressure 123/82 H 127/94 H Blood Pressure Mean 95 105 Pulse Ox 100 100 Oxygen Delivery Method Room Air Room Air Positive well nourished and well developed General Appearance ED: well developed and NAD HEENT Reports TM's clear and moist mucous membranes atraumatic Tympanic Membrane ED: Yes TM's clear Eyes EOMs intact bilaterally Eyes Narrative: 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 General Eye ED: Negative for pale conjunctiva or scleral icterus Neck no lymphadenopathy, supple and no JVD Neck Narrative: There are no carotid bruits. Resp normal respiratory effort and clear to auscultation bilaterally Cardio no murmurs Rate: regular rate Rhythm: regular rhythm Heart Sounds: S1 normal and S2 normal GI normal to inspection, nondistended, normoactive bowel sounds, soft to palpation, non-tender, non-distended and no masses Back/Spine Back/Spine Narrative: Injection sites noted on his back. Extremity normal to inspection Neuro oriented x3, CN's II-XII intact bilaterally and no sensory deficits noted [place] Coma Scale: document GCS findings Spontaneous Obeys Commands Oriented 15 Sensorium / Orientation: alert Speech: speech normal Gait (Neuro): normal gait Motor Exam: strength 5/5 throughout Psych mental status grossly normal Skin Skin Narrative: Puncture sites noted due to celiac block. [facility] MDM MDM Narrative Medical decision making narrative: Patient with visual field cut. Need to rule out stroke, dissection, embolic phenomenon. He has no history of any type of heart dysrhythmia. Patient's records from the were reviewed. His CT of the abdomen reveals a pneumothorax on the left. In retrospect looking at the chest x-ray there is a single view there is evidence of a small apical pneumothorax noted as well. The radiologist contacted me regarding the CT head minus. There is no abnormality. The [facility] stroke neurologist reviewed the CT of the head without contrast and informed that he interpreted as negative since we did not hear back from the radiologist at that time. He did ask for me to contact him if there is any abnormality noted on the CTA of the head and neck. Since there is evidence of a left vertebral artery dissection with compromise of flow and a hematoma with possible dissection on the right he was contacted. Plan is aspirin transfer to [facility]. At this time since the pneumothorax has not gotten worse no intervention was undertaken. And this will not limit options for the neurovascular team. In my opinion patient's pneumothorax is due to the celiac plexus block. History & Record Review Discussion w/independent historian: Other (Spoke with ophthalmology who referred patient to the emergency department.) Additional record(s) reviewed:: Prior ED visit (As documented under the MDM portion of the medical record.) and Prior labs Lab Data Attestation: I reviewed the patient's lab results. Lab results narrative: CBC is unremarkable. Electrolyte panel is normal. Coags are normal. Troponin is negative. Labs: Laboratory Results - last 24 hr 04/28/25 17:35 WBC 7.6 RBC 4.02 L Hgb 13.0 Hct 37.5 L MCV 93.3 MCH 32.3 H MCHC 34.7 RDW Std Deviation 43.6 RDW Coeff of Pari 12.6 Plt Count 301 MPV 9.5 Immature Gran % (Auto) 0.300 Neut % (Auto) 49.2 Lymph % (Auto) 37.3 [place] % (Auto) 7.3 Eos % (Auto) 5.0 Baso % (Auto) 0.9 Absolute Neuts (auto) 3.7 Absolute Lymphs (auto) 2.82 Nucleated RBC % 0 PT 13.7 INR 1.0 APTT 25.9 Sodium 137 Potassium 3.6 Chloride 99 Carbon Dioxide 26.0 Anion Gap 12 BUN 15 Creatinine 1.00 Estim Creat Clear Calc 101.72 Est GFR (MDRD) Non-Af 103 BUN/Creatinine Ratio 14.5 Glucose 92 Calcium 9.0 Troponin T High Sens < 6 POC Glucose 76 Radiography Diagnostic Testing: Clinical Impression(s) from Imaging Studies Brain CT 04/28/25 17:23 IMPRESSION: No acute intracranial abnormality. Reading Location: [facility] Head/Neck CTA 04/28/25 17:38 IMPRESSION: 1. No intracranial arterial occlusion or significant stenosis. 2. Short-segment dissection involving the distal left vertebral artery V3 segment at the level of the left C1 transverse foramen, with moderate stenosis. Subtle luminal irregularity and mild narrowing of the right distal vertebral artery V3 segment traversing the right C2 transverse foramen, which may also represent a short-segment dissection/intramural hematoma. 3. Incidental small left apical pneumothorax. In retrospect this was present on chest radiograph dated 04/23/2025. Clinical correlation recommended. Findings communicated with provider Spenser Patel 04/28/2025 at 5:10 p.m. [employer]. Reading Location: [facility] EKG Initial EKG: Attestation: I personally reviewed and interpreted this EKG as follows: Interpretation: Sinus Rhythm (Rate is 63. EKG is normal. VT interval is under 50 ms. QRS duration 78 ms. QT duration 382 ms. [place] is normal) Management Discussion w/another healthcare provider: [employer] ([facility] stroke neurologist), Radiologist and Other (Ophthalmology) Critical Care Time Critical Care Time: Yes Critical care time (excluding procedures): 30-74 minutes (36), Including time spent: (History, physical, documentation, independent review of laboratory studies, review of prior records and noting the patient had a pneumothorax on the left,), Discussing w/Patient &/or Family/Negative Turner (Patient was informed that he will need transfer to [facility].), Discussing w/Consultants ([facility] stroke neurologist, radiologist, transfer personnel at [facility] and ophthalmology) and Arranging Admission or Transfer (Made arrangements with [facility] for transfer to ED to be seen by the stroke team/vascular neurosurgical team) Discharge Plan Triage Chief Complaint: Eye Problem ED Provider: Spenser Patel Dx/Rx/DC Orders Clinical Impression: Dissecting hemorrhage of left vertebral artery, Dissecting hemorrhage of right vertebral artery, Right homonymous superior quadrantanopia, Pneumothorax on left Prescriptions: No Action buprenorphine 5 mcg/hour patch weekly 1 patch topical Q7D Patient Comments: apply 1 patch topically to CLEAN DRY INTACT SKIN AND CHANGE weekly fluoxetine 40 mg capsule 40 mg PO DAILY Primary Care Provider: Mayra Candelario Referrals: Mayra Candelario MD [Primary Care Provider, Internal Medicine] Print Language: Cameroonian Disposition Disposition: Acute Care Hospital Discharge Location: [facility] NIHSS NIHSS 1a. Level of Consciousness: 0 - Alert; keenly responsive 1b. LOC Questions: 0 - Answers BOTH questions correctly 1c. LOC Commands: 0 - Performs BOTH tasks correctly 2. Best Gaze: 0 - Normal 3. Visual: 1 - Partial hemianopia 4. Facial Palsy: 0 - Normal symmetrical movements 5a. Left Arm: 0 - No drift; arm holds 90 (or 45) degrees for full 10 seconds 5b. Right Arm: 0 - No drift; arm holds 90 (or 45) degrees for full 10 seconds 6a. Left Le - No drift; leg holds 30-degree position for full 5 seconds 6b. Right Le - No drift; leg holds 30-degree position for full 5 seconds 7. Limb Ataxia: 0 - Absent 8. Sensory: 0 - Normal; no sensory loss 9. Best Language: 0 - No aphasia; normal 10. Dysarthria: 0 - Normal 11. Extinction and Inattention: 0 - No abnormality Total: 1 Stroke Questions Stroke Team Activated: Yes Reviewed Inclusion/Exclusion criteria: Yes IV Thrombolytic Administered: No (Per discussion with [facility] neurologist recommendation is aspirin and not antic) No contraindications from thrombolytic administration: No
== END 2025-04-28 19:23 | disposition short-term general hospital (02) ==
PROVIDERS: Emergency Provider Emergency Medicine; PCP Family Medicine; Visit Provider Emergency Medicine
DX: I77.74 Dissection of vertebral artery (principal); Q43.3 Congenital malformations of intestinal fixation; J93.9 Pneumothorax, unspecified
CPT/HCPCS: 70450; 70496; 70498; 80048; 82962; 84484; 85025; 85610; 85730; 93005; 99285; Q9967; A4216

== ENCOUNTER 2025-07-15 09:25 | Emergency (ER) | payer OTHER, SELFPAY ==
[2025-07-15 09:25] VITALS: BP 138/89; PULSE 84; RESP 16; TEMP 36.8; O2SAT 99; BMI 21.4
--- NOTE | 2025-07-15 09:41 | ED.VIS.GI ---
HPI HPI - GI History of Present Illness Chief Complaint: Abd Pain Informant: patient Abdominal Pain/Flank Pain Onset: Days Context: Gradual Onset Timing: Intermittent Quality: Aching Location: Diffuse Current Severity: Mild Maximum Severity: Moderate Nausea/Vomiting/Emesis GI Symptom: Positive for Nausea and Vomiting Onset: Today Severity: Mild Diarrhea/Melena/Hematochezia GI Symptom: Negative for Diarrhea, Melena or Hematochezia Associated Symptoms Associated Symptoms: Negative for Dysuria, Frequency, Hematuria or Urgency Narrative Narrative: 30-year-old male history of chronic abdominal pain had malrotation as a child had 2 surgical repairs of that and also a prior hernia repair. States she has had pain all week. Associated nausea and vomiting today. No fever or chills. No diarrhea or constipation. Normal bowel movements. No dysuria. Called his pain management office they sent him to the emergency department. Prior similar symptoms: Yes Recent Illness/Hospitalization: Yes [facility] Medical History Intestinal malrotation Home Medications ?Medication ?Instructions ?Recorded ?Last Taken ?Type buprenorphine 5 mcg/hour weekly 1 patch topical Q7D 08/05/23 Unknown History transdermal patch fluoxetine 40 mg capsule 40 mg PO DAILY 03/25/25 Unknown History Allergy/AdvReac Type Severity Reaction Status Date / Time No Known Allergies Allergy Verified 07/15/25 09:28 Family History no significant family his Surgical History H/O hernia repair Social History household members: spouse housing: house Smoking Status: Never smoker ROS ROS ED ROS Narrative Abdominal pain. Nausea vomiting. Constitutional Constitutional ED: Denies chills or fever(s) ENT ENT ED: Denies ear pain Cardiovascular Cardiovascular: Denies chest pain Respiratory/Chest Respiratory/Chest: Denies cough or dyspnea Gastrointestinal Gastrointestinal: Reports abdominal pain, nausea and vomiting; Denies constipation, diarrhea or melena Genitourinary Genitourinary ED: Denies dysuria or hematuria Musculoskeletal Musculoskeletal: Denies arthralgias or back pain Integumentary Denies abscess Neurologic Neurologic: Denies headache(s) Psychiatric Psychiatric: Denies anxiety Endocrine Endocrinology: Denies polydipsia Hematologic/Lymphatic Hematologic/Lymphatic: Denies easy bleeding Allergic/Immunologic Allergic/Immunologic ED: Denies mouth swelling, tongue swelling or urticaria EXAM Physical Exam Narrative Exam Narrative: Well-appearing 30-year-old male. Vital signs stable afebrile. Sitting in bed appears comfortable. H EENT exam pupils round react light. Moist mutes membranes. No facial droop. Neck nontender no JVD. No lymphadenopathy. Back nontender. Lungs clear to auscultation bilaterally. Heart regular rhythm rate about 80 no murmur. Chest wall and ribs nontender. Abdomen soft, nontender. Nondistended. Normal bowel sounds no peritoneal signs. Right upper right lower quadrant is unremarkable. No hernia or mass. No signs of obstruction. Flat abdomen. Moving all 4 extremities. Nontender no edema normal strength. Neurologically is awake alert. Answering questions following commands. He appears comfortable. Const Vital Signs: 07/15/25 09:25 Temperature 98.2 F Temperature Source Oral Pulse Rate 84 Respiratory Rate 16 Blood Pressure 138/89 H Blood Pressure Mean 105 Pulse Ox 99 Oxygen Delivery Method Room Air MDM MDM MDM Narrative Medical decision making narrative: 30-year-old male chronic pain history of prior malrotation of his intestines with 2 prior surgical repair as well as a hernia repair. Complaining of acute on chronic abdominal pain. Exam is benign. Will be treated with IV pain medication nausea medication. Labs will be sent. He has had multiple CAT scans in the past all showing chronic malrotation. I do not think he needs a CAT scan at this time unless his labs are drastically abnormal or his exam changes. Repeat exam around 10:28 AM patient doing well. Abdomen is benign. He said he feels improved after the IV Dilaudid. He will be given Toradol and discharged to home. Pain uncertain etiology. History of chronic abdominal pain. On his repeat exam there is no change. He is not specifically tender in any area. There is no distention or signs of obstruction there is no obvious hernia. History & Record Review Discussion w/independent historian: Patient Additional record(s) reviewed:: Prior inpatient record, Prior outpatient record, Prior ED visit and Prior labs Lab Data Attestation: I reviewed the patient's lab results. Lab results narrative: CBC unremarkable. White count of 6. H&H 13 and 42. Platelets 275. Chemistries show gap 11. BUN and creatinine are normal at thirteen 0.9. Glucose 87. Liver enzymes are normal. Lipase 34. Labs: Laboratory Results - last 24 hr 07/15/25 09:42 WBC 6.8 RBC 4.42 L Hgb 13.8 Hct 42.2 MCV 95.5 H MCH 31.2 MCHC 32.7 RDW Std Deviation 46.4 H RDW Coeff of Pari 13.1 Plt Count 275 MPV 9.6 Immature Gran % (Auto) 0.300 Neut % (Auto) 67.6 Lymph % (Auto) 23.6 [place] % (Auto) 5.9 Eos % (Auto) 1.9 Baso % (Auto) 0.7 Absolute Neuts (auto) 4.6 Absolute Lymphs (auto) 1.60 Nucleated RBC % 0 Sodium 138 Potassium 4.6 Chloride 103 Carbon Dioxide 23.9 Anion Gap 11 BUN 13 Creatinine 0.96 Estim Creat Clear Calc 102.90 Est GFR (MDRD) Non-Af 108 BUN/Creatinine Ratio 13.6 Glucose 87 Calcium 9.4 Total Bilirubin 0.48 AST 26 ALT 18 Alkaline Phosphatase 77 Total Protein 7.3 Albumin 4.6 Globulin 2.7 Albumin/Globulin Ratio 1.7 Lipase 34 Discharge Plan Triage Chief Complaint: Abd Pain ED Provider: Rodney De La O Dx/Rx/DC Orders Clinical Impression: Abdominal pain, Congenital malrotation Instructions: Abdominal Pain Prescriptions: No Action buprenorphine 5 mcg/hour patch weekly 1 patch topical Q7D Patient Comments: apply 1 patch topically to CLEAN DRY INTACT SKIN AND CHANGE weekly fluoxetine 40 mg capsule 40 mg PO DAILY Primary Care Provider: Mayra Candelario Referrals: Mayra Candelario MD [Primary Care Provider, Internal Medicine] - 3-5 Days if not improving Activity Restrictions/Additional Instructions: Follow-up with your doctor as needed. All your lab work looked good today. If you have increasing pain, fever or intractable vomiting return. Print Language: Persian Disposition Disposition: Home, Self Care
[2025-07-15 09:48] LABS: Hematocrit 42.2 % (40-54); Hemoglobin 13.8 g/dL (13.0-16.5); Immature Granulocytes Count 0.020 X10^3/uL (0.0-0.0); Mean Corp Hgb Conc 32.7 g/dL (32-36); Mean Corpuscular Volume 95.5 fL (80-94); Mean Platelet Vol. 9.6 fl (6.2-12.0); NRBC Flagged by Analyzer 0 % (0-5); Platelet Count 275 K/mm3 (150-450); RBC Distribution Width CV 13.1 % (11.6-14.6); RBC Distribution Width SD 46.4 fl (35.1-43.9); Red Blood Count 4.42 M/mm3 (4.6-6.2); White Blood Count 6.8 K/mm3 (4.4-11.0)
[2025-07-15 10:18] LABS: AST(SGOT) 26 U/L (<=37); Alanine Aminotransfer ALT/SGPT 18 U/L (<=46); Albumin, Serum 4.6 g/dL (3.5-5.0); Alkaline Phosphatase 77 U/L (40-129); Anion Gap 11 (5-15); BUN 13 mg/dL (4-19); BUN/Creat Ratio 13.6 RATIO (10-20); Calcium,Total 9.4 mg/dL (7.6-11.0); Carbon Dioxide 23.9 mmol/L (21.0-32.0); Chloride 103 mmol/L (98-108); Estimated Creatinine Clearance 102.90 ml/min (50-250); Globulin 2.7 g/dL (2.2-4.2); Glucose 87 mg/dL (70-99); Lipase 34 U/L (13-75); Potassium 4.6 mmol/L (3.3-5.1)
[2025-07-15] MEDS: Ketorolac 30 MG/ML Syringe IV (10:37)
[2025-07-15 10:38] VITALS: BP 125/92; PULSE 67; RESP 15; TEMP 36.8; O2SAT 99
== END 2025-07-15 10:58 | disposition home or self-care (01) ==
PROVIDERS: Emergency Provider Emergency Medicine; PCP Family Medicine; Visit Provider Emergency Medicine
DX: R10.9 Unspecified abdominal pain (principal); Q43.3 Congenital malformations of intestinal fixation; R11.2 Nausea with vomiting, unspecified; G89.29 Other chronic pain
CPT/HCPCS: 80053; 83690; 85025; 96374; 96375; 99283; A4216; J2405